=== PATIENT | male | born 1945 | race Caucasian/White ===

== ENCOUNTER 2016-05-24 10:25 | Emergency (ER) | payer MEDICARE, MEDICAID ==
[2016-05-24] MEDS ORDERED: ACETAMINOPHEN 325 MG TAB As Ordered ONE (11:37)
[2016-05-24] MEDS ORDERED: traMADol 50 MG TAB As Ordered ONE (11:37)
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
--- NOTE | 2016-05-24 13:25 | EDDOCDS ---
Physician Documentation [facility] Name: Ulices Solo Age: 70 yrs Sex: Male : 1945 Arrival Date: 05/24/2016 Time: 10:25 Bed TR7 Private MD: Delaney Minor S Disposition: 05/24/16 13:03 Discharged to Home/Self Care. Impression: Acute pain, not elsewhere classified - degenerative disc disease, arthritis cervical spine, acute exccerbation. - Condition is Stable. - Discharge Instructions: Degenerative Disk Disease. - Prescriptions for Ultram 50 mg Oral Tablet - take 1 tablet by ORAL route every 6 hours As needed MDD: 4 tabs; 20 tablet. - Medication Reconciliation, Local Pharmacy Hours form. - Follow up: Delaney Minor; When: 4 - 5 days; Reason: Recheck today's complaints. - Problem is an acute exacerbation. - Symptoms have improved. Historical: - Allergies: no known allergies; - Home Meds: 1. cetirizine 10 mg oral tab 1 tab once daily 2. flexeril 10mg 3. fluticasone 50 mcg/actuation nasal spsn 2 sprays once daily 4. furosemide 20 mg Oral tab 1 tab 2 times per day 5. Lipitor 20 mg Oral tab 1 tab once daily 6. igtntvodvnq-fswvumckmoj-ips D3 2000mg oral daily 7. naproxen 375 mg Oral tab 1 tab 2 times per day 8. Novolin 70/30 InnoLet 100 unit/mL (70-30) Sub-Q inpn 20 unit twice a day 9. omeprazole 20 mg Oral cpDR 1 cap 2 times per day 10. oxybutin 5mg three times a day 11. pregabalin 100 mg Oral cap 1 cap 3 times per day 12. Vicodin 5-500 mg Oral tab 1 tab every 4-6 hours 13. Tricor 145 mg Oral tab 1 tab once daily 14. trazodone 100 mg Oral tab 1 tab nightly 15. tizanidine 4 mg oral tab 1 tab twice a day as needed 16. tamsulosin 0.4 mg oral cp24 1 cap once daily - PMHx: Hypercholesterolemia; Diabetes - IDDM: controlled; GERD; Chronic Back pain; - PSHx: shoulder; Carpal Tunnel Repair- Bilateral; Cholecystectomy; - Social history: Smoking status: Patient states former smoker of tobacco. No barriers to communication noted, The patient speaks fluent Greenlandic, Speaks appropriately for age. - Family history: Not pertinent. - : The pt / caregiver states he / she is not on anticoagulants. Home medication list is obtained from the patient, [employer] import data. - Exposure Risk Screening:: None identified. Vital Signs: 05/24 10:27 BP 158 / 82; Pulse 61; Resp 18 S; Pulse Ox 97% on R/A; Weight 102.06 kg / 225 lbs (R); dd6 Height 5 ft. 6 in. (167.64 cm) (R); 12:30 BP 119 / 56 RA Sitting (auto/lg); Pulse 50; Resp 18; Temp 97.6(T); Pulse Ox 96% ; Pain ar3 12/16; 10:27 Body Mass Index 36.32 (102.06 kg, 167.64 cm) dd6 MDM: 11:30 traMADol 50 mg PO once ordered. ar2 11:30 Acetaminophen Tablet 975 mg PO once ordered. ar2 11:31 Spine, Cervical Ordered. EDCA 11:49 Financial registration complete. 11:50 [facility] Payment Agreement was scanned into [employer] and attached to record. lg Administered Medications: 11:39 Drug: traMADol 50 mg [tramadol 50 mg tablet (1 tabs)] Route: PO; jc4 11:40 Follow up: Response: Confirmed pt not driving. jc4 11:39 Drug: Acetaminophen 975 mg [acetaminophen 325 mg tablet (3 tabs)] Route: PO; jc4 Signatures: Dispatcher [employer] EDCA Betsy Hunt, Reg Reg lg Andriy Rausch PA-C PA-C ar2 Samaria Walters RN RN ead Castle, Jennifer RN jc4 The chart was reviewed and I authenticate all verbal orders and agree with the evaluation and treatment provided.Attachments: 11:50 [facility] Payment Agreement lg [facility]
--- NOTE | 2016-05-24 13:45 | REP ---
CERVICAL SPINE COMPLETE: 05/24/2016 CLINICAL HISTORY: Chronic mid right neck pain with acute exacerbation. No trauma indicated. COMPARISON: Three views cervical spine 10/10/2015, MRI 08/28/2015. FINDINGS: Disc space narrowing with spondylosis at C3-4, less at C4-5, greater at C5-6 and C6-7. There are anterior osteophytes at those two lowermost levels and posterior osteophytes at C3-4 and C5-6. No compression deformity is seen. Flexion and extension show adequate range of motion with no instability. There is no prevertebral swelling. C1-2 relationships are stable on all views. The open-mouth view shows dens and lateral masses aligning normally. There are vascular calcifications over the carotid bulbs on both sides. There is facet arthritis with foraminal encroachment on the left at C5-6 and C6-7, minimally on the right at C5-6 and C6-7 due to uncinate spurring. IMPRESSION: Degenerative disc changes at C5-6 and C6-7, similar at C3-4 with facet arthritic changes at the lower two levels described with some foraminal encroachment bilaterally at those same levels and with no compression deformity or malalignment. Adequate range of motion but no instability. No compression fracture. Signed by Alonzo Alvarez MD 05/24/2016 01:51 P
--- NOTE | 2016-05-26 14:25 | EDDOCDS ---
Physician Documentation [facility] Name: Ulices Solo Age: 70 yrs Sex: Male : 1945 Arrival Date: 05/24/2016 Time: 10:25 Bed TR7 Private MD: Delaney Minor S Disposition: 05/24/16 13:03 Discharged to Home/Self Care. Impression: Acute pain, not elsewhere classified - degenerative disc disease, arthritis cervical spine, acute exccerbation. - Condition is Stable. - Discharge Instructions: Degenerative Disk Disease. - Prescriptions for Ultram 50 mg Oral Tablet - take 1 tablet by ORAL route every 6 hours As needed MDD: 4 tabs; 20 tablet. - Medication Reconciliation, Local Pharmacy Hours form. - Follow up: Delaney Minor; When: 4 - 5 days; Reason: Recheck today's complaints. - Problem is an acute exacerbation. - Symptoms have improved. Historical: - Allergies: no known allergies; - Home Meds: 1. cetirizine 10 mg oral tab 1 tab once daily 2. flexeril 10mg 3. fluticasone 50 mcg/actuation nasal spsn 2 sprays once daily 4. furosemide 20 mg Oral tab 1 tab 2 times per day 5. Lipitor 20 mg Oral tab 1 tab once daily 6. uqowawhhuhh-rtqwupokggj-ctb D3 2000mg oral daily 7. naproxen 375 mg Oral tab 1 tab 2 times per day 8. Novolin 70/30 InnoLet 100 unit/mL (70-30) Sub-Q inpn 20 unit twice a day 9. omeprazole 20 mg Oral cpDR 1 cap 2 times per day 10. oxybutin 5mg three times a day 11. pregabalin 100 mg Oral cap 1 cap 3 times per day 12. Vicodin 5-500 mg Oral tab 1 tab every 4-6 hours 13. Tricor 145 mg Oral tab 1 tab once daily 14. trazodone 100 mg Oral tab 1 tab nightly 15. tizanidine 4 mg oral tab 1 tab twice a day as needed 16. tamsulosin 0.4 mg oral cp24 1 cap once daily - PMHx: Hypercholesterolemia; Diabetes - IDDM: controlled; GERD; Chronic Back pain; - PSHx: shoulder; Carpal Tunnel Repair- Bilateral; Cholecystectomy; - Social history: Smoking status: Patient states former smoker of tobacco. No barriers to communication noted, The patient speaks fluent Chinese, Speaks appropriately for age. - Family history: Not pertinent. - : The pt / caregiver states he / she is not on anticoagulants. Home medication list is obtained from the patient, [employer] import data. - Exposure Risk Screening:: None identified. Vital Signs: 05/24 10:27 BP 158 / 82; Pulse 61; Resp 18 S; Pulse Ox 97% on R/A; Weight 102.06 kg / 225 lbs (R); dd6 Height 5 ft. 6 in. (167.64 cm) (R); 12:30 BP 119 / 56 RA Sitting (auto/lg); Pulse 50; Resp 18; Temp 97.6(T); Pulse Ox 96% ; Pain ar3 8/10; 10:27 Body Mass Index 36.32 (102.06 kg, 167.64 cm) dd6 MDM: 11:30 traMADol 50 mg PO once ordered. ar2 11:30 Acetaminophen Tablet 975 mg PO once ordered. ar2 11:31 Spine, Cervical Ordered. EDMS 11:49 Financial registration complete. lg 11:50 [facility] Payment Agreement was scanned into [employer] and attached to record. lg 14:37 T-Sheet-- Draft Copy was scanned into [employer] and attached to record. gb 14:37 Radiology Report was scanned into [employer] and attached to record. gb Administered Medications: 11:39 Drug: traMADol 50 mg [tramadol 50 mg tablet (1 tabs)] Route: PO; jc4 11:40 Follow up: Response: Confirmed pt not driving. jc4 11:39 Drug: Acetaminophen 975 mg [acetaminophen 325 mg tablet (3 tabs)] Route: PO; jc4 Signatures: Dispatcher [employer] EDGA Radha Davis, Reg Reg gb Betsy Hunt, Reg Reg lg Andriy Rausch, ANNMARIE ANGUIANO ar2 Samaria Walters RN RN ead Castle, Jennifer RN jc4 The chart was reviewed and I authenticate all verbal orders and agree with the evaluation and treatment provided.Attachments: 11:50 [facility] Payment Agreement lg 14:37 T-Sheet-- Draft Copy gb Chart Complete MTDD
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
--- NOTE | 2016-05-26 14:25 | EDDOCDS ---
Physician Documentation [facility] Name: Ulices Solo Age: 70 yrs Sex: Male : 1945 Arrival Date: 05/24/2016 Time: 10:25 Bed TR7 Private MD: Delaney Minor S Disposition: 05/24/16 13:03 Discharged to Home/Self Care. Impression: Acute pain, not elsewhere classified - degenerative disc disease, arthritis cervical spine, acute exccerbation. - Condition is Stable. - Discharge Instructions: Degenerative Disk Disease. - Prescriptions for Ultram 50 mg Oral Tablet - take 1 tablet by ORAL route every 6 hours As needed MDD: 4 tabs; 20 tablet. - Medication Reconciliation, Local Pharmacy Hours form. - Follow up: Delaney Minor; When: 4 - 5 days; Reason: Recheck today's complaints. - Problem is an acute exacerbation. - Symptoms have improved. Historical: - Allergies: no known allergies; - Home Meds: 1. cetirizine 10 mg oral tab 1 tab once daily 2. flexeril 10mg 3. fluticasone 50 mcg/actuation nasal spsn 2 sprays once daily 4. furosemide 20 mg Oral tab 1 tab 2 times per day 5. Lipitor 20 mg Oral tab 1 tab once daily 6. itnxplkbagf-atnrxfhbqlh-mqo D3 2000mg oral daily 7. naproxen 375 mg Oral tab 1 tab 2 times per day 8. Novolin 70/30 InnoLet 100 unit/mL (70-30) Sub-Q inpn 20 unit twice a day 9. omeprazole 20 mg Oral cpDR 1 cap 2 times per day 10. oxybutin 5mg three times a day 11. pregabalin 100 mg Oral cap 1 cap 3 times per day 12. Vicodin 5-500 mg Oral tab 1 tab every 4-6 hours 13. Tricor 145 mg Oral tab 1 tab once daily 14. trazodone 100 mg Oral tab 1 tab nightly 15. tizanidine 4 mg oral tab 1 tab twice a day as needed 16. tamsulosin 0.4 mg oral cp24 1 cap once daily - PMHx: Hypercholesterolemia; Diabetes - IDDM: controlled; GERD; Chronic Back pain; - PSHx: shoulder; Carpal Tunnel Repair- Bilateral; Cholecystectomy; - Social history: Smoking status: Patient states former smoker of tobacco. No barriers to communication noted, The patient speaks fluent Wolof, Speaks appropriately for age. - Family history: Not pertinent. - : The pt / caregiver states he / she is not on anticoagulants. Home medication list is obtained from the patient, [employer] import data. - Exposure Risk Screening:: None identified. Vital Signs: 05/24 10:27 BP 158 / 82; Pulse 61; Resp 18 S; Pulse Ox 97% on R/A; Weight 102.06 kg / 225 lbs (R); dd6 Height 5 ft. 6 in. (167.64 cm) (R); 12:30 BP 119 / 56 RA Sitting (auto/lg); Pulse 50; Resp 18; Temp 97.6(T); Pulse Ox 96% ; Pain ar3 8/10; 10:27 Body Mass Index 36.32 (102.06 kg, 167.64 cm) dd6 MDM: 11:30 traMADol 50 mg PO once ordered. ar2 11:30 Acetaminophen Tablet 975 mg PO once ordered. ar2 11:31 Spine, Cervical Ordered. EDMS 11:49 Financial registration complete. lg 11:50 [facility] Payment Agreement was scanned into [employer] and attached to record. lg 14:37 T-Sheet-- Draft Copy was scanned into [employer] and attached to record. gb 14:37 Radiology Report was scanned into [employer] and attached to record. gb Administered Medications: 11:39 Drug: traMADol 50 mg [tramadol 50 mg tablet (1 tabs)] Route: PO; jc4 11:40 Follow up: Response: Confirmed pt not driving. jc4 11:39 Drug: Acetaminophen 975 mg [acetaminophen 325 mg tablet (3 tabs)] Route: PO; jc4 Signatures: Dispatcher [employer] EDGA Radha Davis, Reg Reg gb Betsy Hunt, Reg Reg lg Andriy Rausch, ANNMARIE ANGUIANO ar2 Samaria Walters RN RN ead Castle, Jennifer RN jc4 The chart was reviewed and I authenticate all verbal orders and agree with the evaluation and treatment provided.Attachments: 11:50 [facility] Payment Agreement lg 14:37 T-Sheet-- Draft Copy gb Chart Complete MTDD
== END 2016-05-24 13:24 | disposition home or self-care (01) ==
LOC: M ED 10:25
DX: M50.30 Other cervical disc degeneration, unspecified cervical region (principal); N40.0 Benign prostatic hyperplasia without lower urinary tract symptoms; E10.9 Type 1 diabetes mellitus without complications; E78.00 Pure hypercholesterolemia, unspecified; K21.9 Gastro-esophageal reflux disease without esophagitis; Z87.891 Personal history of nicotine dependence; Z79.4 Long term (current) use of insulin; Z79.891 Long term (current) use of opiate analgesic; Z79.899 Other long term (current) drug therapy

== ENCOUNTER → 2016-05-24 | Outpatient (CLI) | payer MEDICARE, MEDICAID ==
[2016-05-24 11:04] LABS: CALCIUM LEVEL 8.9 MG/DL (8.8-10.2); CREATININE FOR GFR 1.3 MG/DL (0.70-1.30); GLOMERULAR FILTRATION RATE 57.8 (>42); POTASSIUM SERUM 4.2 MEQ/L (3.5-5.1)
== END ==
LOC: M LAB 10:09
PROVIDERS: ATTEND Nurse Practitioner Family
DX: N40.0 Benign prostatic hyperplasia without lower urinary tract symptoms (principal); E11.9 Type 2 diabetes mellitus without complications

== ENCOUNTER → 2016-06-16 | Outpatient (REF) | payer MEDICARE, MEDICAID | LOC: M LABDRAW1 12:44 | PROVIDERS: ATTEND Physical Medicine & Rehabilitation | DX: M47.892 Other spondylosis, cervical region (principal) ==

== ENCOUNTER → 2016-07-08 | Outpatient (REF) | payer MEDICARE, MEDICAID ==
[2016-07-08 11:30] LABS: INR 0.97
== END ==
LOC: M LABDRAW1 11:10
PROVIDERS: ATTEND Physical Medicine & Rehabilitation
DX: Z01.818 Encounter for other preprocedural examination (principal); M47.892 Other spondylosis, cervical region; E11.9 Type 2 diabetes mellitus without complications

== ENCOUNTER → 2016-07-23 | Outpatient (CLI) | payer MEDICARE, MEDICAID ==
--- NOTE | 2016-07-23 12:25 | REP ---
CHEST X-RAY: Two views. HISTORY: Cough. Comparison chest x-ray January 27, 2014. FINDINGS: The lungs are well inflated and clear. Heart is not enlarged. The aorta is calcific. No significant bony abnormality is seen. Pulmonary vasculature is not increased. IMPRESSION: No active disease. Signed by Shaun Wilder MD 07/23/2016 02:01 P
[2016-07-23 13:00] LABS: BASO % 0.2 % (0.0-1.0); EOS # 0.1 K/mm3 (0.0-0.50); EOS % 1.1 % (0.0-3.0); LARGE UNSTAINED CELL # 0.2 K/mm3 (0.0-0.4); LARGE UNSTAINED CELL % 2.4 % (0.0-4.0); LYMPH # 1.4 K/mm3 (1.5-4.5); LYMPH % 16.9 % (24.0-44.0); MEAN CORPUSCULAR HEMOGLOBIN 29.4 pg (27.0-33.0); MEAN CORPUSCULAR HGB CONC 32.7 g/dl (32.0-36.5); MEAN CORPUSCULAR VOLUME 89.9 fl (80.0-96.0); MONO # 0.5 K/mm3 (0.0-0.8); MONO % 6.4 % (0.0-5.0); NEUTROPHILS # 5.4 K/mm3 (1.8-7.7); NEUTROPHILS % 72.9 % (36.0-66.0); PLATELET COUNT, AUTOMATED 226 k/mm3 (150-450); RED CELL DISTRIBUTION WIDTH 14.4 % (11.5-14.5); WHITE BLOOD COUNT 7.4 K/mm3 (4.0-10.0)
[2016-07-23 14:00] LABS: ANION GAP 8 MEQ/L (8-16); BLOOD UREA NITROGEN 19 MG/DL (7-18); CALCIUM LEVEL 8.9 MG/DL (8.8-10.2); CARBON DIOXIDE LEVEL 27 MEQ/L (21-32); CHLORIDE LEVEL 106 MEQ/L (98-107); CREATININE FOR GFR 1.22 MG/DL (0.70-1.30); GLOMERULAR FILTRATION RATE > 60.0 (>42); GLUCOSE, FASTING 221 MG/DL (83-110); POTASSIUM SERUM 4.6 MEQ/L (3.5-5.1); SODIUM LEVEL 141 MEQ/L (136-145)
== END ==
LOC: M LAB 11:10
PROVIDERS: ATTEND Nurse Practitioner Family
DX: R05 Cough (principal); R50.9 Fever, unspecified

== ENCOUNTER 2016-08-16 15:25 | Emergency (ER) | payer MEDICARE, MEDICAID ==
[~2016-08-16] VITALS: Ht 167.6 cm; Wt 102.1 kg
[2016-08-16] MEDS ORDERED: traMADol 50 MG TAB PO ONE (16:15)
--- NOTE | 2016-08-16 17:03 | REP ---
LUMBAR SPINE COMPLETE: 08/16/2016: Comparison: 10/10/2015, 06/16/2012. Clinical history: Nontraumatic back pain. Five views are provided. There is diffuse degenerative disc change in the lumbar spine. Vacuum phenomenon and narrowing at L1-2, L2-3, L4-5, and L5-S1. There is less narrowing and no vacuum phenomenon at L3-4 with marginal osteophytes throughout. No compression deformity or destructive lesion. There is facet arthritis at L5, S1, less at L4-5. No spondylolysis or spondylolisthesis. The normal lordosis is maintained in the lumbar spine. Atherosclerotic calcifications aorta and iliac vessels without aneurysm. The AP view shows SI joints, sacral ala and foramina intact. There is hip arthritis with narrowing of both hip joint spaces and rim osteophytes acetabular roof. Impression: 1. Diffuse degenerative disc changes throughout lumbar spine with vacuum phenomenon, disc space narrowing and marginal osteophytes, least at the L3-4 disc level. No compression deformity or destructive lesion. 2. No spondylolysis or spondylolisthesis. 3. SI joints, sacral ala and foramina unremarkable. Signed by Alonzo Alvarez MD 08/16/2016 05:26 P
--- NOTE | 2016-08-16 17:04 | REP ---
Cervical spine series: Seven views. History: Nontraumatic pain. Comparison study: May 24, 2016. Findings: Lateral views done in flexion/extension and neutral position show mild limitation of flexion/extension range of motion. No subluxation or instability is seen. Cervical vertebral body heights are preserved. There is degenerative disc disease at C3-4, C4-5, C5-6, and C6-7. Osteoarthritic facet hypertrophy is noted in the mid cervical spine. There is some vascular calcification along the course of the carotid arteries in the neck bilaterally. The patient is edentulous. Oblique images demonstrate uncovertebral spurring on the left at C5-6 and on the right at C5-6 and C6-7. These degenerative spondylosis changes are felt to be unchanged from the comparison study May 24, 2016. Impression: Stable degenerative spondylosis changes. Vascular calcification. No acute abnormality. Signed by Shaun Wilder MD 08/16/2016 07:36 P
[2016-08-16] MEDS ORDERED: ULTR50TA PO (17:06)
[2016-08-16 17:18] VITALS: BP 150/72
== END 2016-08-16 17:30 | disposition home or self-care (01) ==
LOC: M ED 16:37
DX: M50.10 Cervical disc disorder with radiculopathy, unspecified cervical region (principal); M51.16 Intervertebral disc disorders with radiculopathy, lumbar region; G89.29 Other chronic pain; Z87.891 Personal history of nicotine dependence

== ENCOUNTER 2016-08-30 16:58 | Emergency (ER) | payer MEDICARE, MEDICAID ==
[~2016-08-30] VITALS: Ht 167.6 cm; Wt 102.1 kg
[~2016-08-30 16:58] MED LIST: ULTR50TA PO
[2016-08-30] MEDS ORDERED: LYRI100C10 PO (17:22)
[2016-08-30] MEDS ORDERED: TRAZ100T4 PO (17:22)
[2016-08-30] MEDS ORDERED: OMEP20CA3 PO (17:22)
[2016-08-30] MEDS ORDERED: OXYB5TA PO (17:22)
[2016-08-30] MEDS ORDERED: FURO20TA2 PO (17:22)
[2016-08-30] MEDS ORDERED: FENO145T PO (17:22)
[2016-08-30] MEDS ORDERED: RA C PO (17:22)
[2016-08-30] MEDS ORDERED: HUMA75IN2 SC (17:22)
[2016-08-30] MEDS ORDERED: NAPR375T2 PO (17:22)
[2016-08-30] MEDS ORDERED: ATOR1TAB21 PO (17:22)
[2016-08-30] MEDS ORDERED: JANU100T PO (17:22)
[2016-08-30] MEDS ORDERED: KETOROLAC 60 MG/2 ML VIAL (J1885) IM ONE (18:00)
[2016-08-30] MEDS ORDERED: METHOCARBAMOL 750 MG TAB PO ONE (18:00)
[2016-08-30] MEDS ORDERED: METHOCARBAMOL 500 MG TAB PO ONE (18:15)
[2016-08-30] MEDS ORDERED: ROBA500T PO (18:33)
[2016-08-30 18:37] VITALS: BP 144/82
[2016-09-04] MEDS ORDERED: TAMSULOSIN PO (08:52)
== END 2016-08-30 18:49 | disposition home or self-care (01) ==
LOC: M ED 17:53
DX: M50.30 Other cervical disc degeneration, unspecified cervical region (principal); M51.37 Other intervertebral disc degeneration, lumbosacral region; M48.02 Spinal stenosis, cervical region; I10 Essential (primary) hypertension; E11.9 Type 2 diabetes mellitus without complications; M54.9 Dorsalgia, unspecified; G89.29 Other chronic pain; E78.00 Pure hypercholesterolemia, unspecified; K21.9 Gastro-esophageal reflux disease without esophagitis; Z87.891 Personal history of nicotine dependence; Z79.899 Other long term (current) drug therapy; Z79.4 Long term (current) use of insulin
CPT/HCPCS: 96372; 99282; J1885

== ENCOUNTER 2016-09-04 08:23 | Emergency (ER) | payer MEDICARE, MEDICAID ==
[~2016-09-04 08:23] MED LIST changes: +ATOR1TAB21 PO; +FENO145T PO; +FURO20TA2 PO; +HUMA75IN2 SC; +JANU100T PO; +LYRI100C10 PO; +NAPR375T2 PO; +OMEP20CA3 PO; +OXYB5TA PO; +RA C PO; +ROBA500T PO; +TRAZ100T4 PO
[2016-09-04] MEDS ORDERED: TAMSULOSIN (08:52)
[2016-09-04] MEDS ORDERED: TIZANIDINE (08:52)
[2016-09-04 09:25] VITALS: BP 107/68
[2016-09-04] MEDS ORDERED: ACET30TAB PO (09:46)
[2016-09-04] MEDS ORDERED: MAGICMW SSP (09:48)
== END 2016-09-04 10:00 | disposition home or self-care (01) ==
LOC: M ED 09:41
DX: J02.9 Acute pharyngitis, unspecified (principal); M54.41 Lumbago with sciatica, right side; I10 Essential (primary) hypertension; E11.9 Type 2 diabetes mellitus without complications; N40.1 Benign prostatic hyperplasia with lower urinary tract symptoms; Z90.49 Acquired absence of other specified parts of digestive tract; Z79.4 Long term (current) use of insulin; Z79.899 Other long term (current) drug therapy

== ENCOUNTER 2016-09-09 15:05 | Emergency (ER) | payer MEDICARE, MEDICAID ==
[~2016-09-09] VITALS: Ht 167.6 cm; Wt 102.1 kg
[~2016-09-09 15:05] MED LIST changes: +ACET30TAB PO; +MAGICMW SSP; +TAMSULOSIN; +TIZANIDINE
[2016-09-09 15:06] VITALS: BP 132/67
--- NOTE | 2016-09-09 15:36 | ED PDOC ---
Post-Departure Follow-Up PT'S MAIN COMPLAINT TODAY IS THAT HE DOES NOT LIKE THE APARTMENT HE LIVES IN CURRENTLY. THIS CORRECTIONAL FACILITY PSYCHIATRIST SAW THIS PT LAST WEEK FOR THE SAME COMPLAINT. SOCIAL WORK SPOKE WITH HIM AT THAT TIME AND PT STATES, "THE IDIOTS AT MY APARTMENT ARE SUPPOSED TO MOVE ME INTO A DIFFERENT PLACE AND THEY HAVEN'T DONE IT YET." PT STATES, "I CAN'T KEEP COMING HERE FOR EVERYTHING." PT STATES HIS PCP IS STEVEN LU AND HE DID NOT CALL THEIR OFFICE TODAY PRIOR TO COMING TO THE ED. ADVISED THEY CAN SOMETIMES MAKE SAME DAY APPOINTMENTS FOR APPROPRIATE COMPLAINTS. MATILDE BROWN PA-C September 09, 2016 15:36
[2016-09-09] MEDS ORDERED: NYST50SS SS (15:59)
== END 2016-09-09 16:28 | disposition home or self-care (01) ==
LOC: M ED 16:20
DX: B37.0 Candidal stomatitis (principal); J02.9 Acute pharyngitis, unspecified; E10.9 Type 1 diabetes mellitus without complications; I10 Essential (primary) hypertension; Z79.4 Long term (current) use of insulin

== ENCOUNTER → 2016-09-28 | Outpatient (CLI) | payer MEDICARE, MEDICAID ==
[~2016-09-28] MED LIST changes: +NYST50SS SS
[2016-09-28 11:56] LABS: ALBUMIN 3.8 GM/DL (3.2-5.2); ALBUMIN/GLOBULIN RATIO 1.09 (1.00-1.93); ALKALINE PHOSPHATASE 71 U/L (45-117); ALT/SGPT 31 U/L (12-78); ANION GAP 7 MEQ/L (8-16); AST/SGOT 19 U/L (15-37); BILIRUBIN,TOTAL 0.4 MG/DL (0.2-1.0); BLOOD UREA NITROGEN 20 MG/DL (7-18); CALCIUM LEVEL 9.8 MG/DL (8.8-10.2); CARBON DIOXIDE LEVEL 29 MEQ/L (21-32); CHLORIDE LEVEL 102 MEQ/L (98-107); CREATININE FOR GFR 1.19 MG/DL (0.70-1.30); GLOMERULAR FILTRATION RATE > 60.0 (>42); GLUCOSE, FASTING 288 MG/DL (83-110); POTASSIUM SERUM 4.3 MEQ/L (3.5-5.1); SODIUM LEVEL 138 MEQ/L (136-145); TOTAL PROTEIN 7.3 GM/DL (6.4-8.2)
--- NOTE | 2016-09-28 12:48 | REP ---
Clinical: Trauma. Technique: Frontal view of the chest with multiple views of the right hemithorax. Findings: Frontal view of the chest demonstrates no acute cardiopulmonary process. Multiple views of the right hemithorax demonstrates no obvious acute rib fracture or pathology. Incidental note is made of old healed right ninth and tenth rib fractures dating back to CT dated 07/26/2013. Impression: Old healed nondisplaced right ninth and tenth rib fractures. No acute rib fracture. Signed by Eleazar Domínguez MD 09/28/2016 12:39 P
== END ==
LOC: M LAB 10:26
PROVIDERS: ATTEND Nurse Practitioner Family
DX: E11.9 Type 2 diabetes mellitus without complications (principal)

== ENCOUNTER 2016-09-30 09:30 | Outpatient (RCR) | payer MEDICARE, MEDICAID ==
[~2016-09-30 09:30] MED LIST changes: -TAMSULOSIN; +TAMSULOSIN PO
== END 2016-10-06 ==
LOC: M PT 09:30
PROVIDERS: ATTEND Orthopaedic Surgery
DX: M16.11 Unilateral primary osteoarthritis, right hip (principal); M47.896 Other spondylosis, lumbar region
CPT/HCPCS: 97110; 97161; G8978; G8979

== ENCOUNTER 2016-10-09 09:50 | Emergency (ER) | payer MEDICARE, MEDICAID ==
[~2016-10-09] VITALS: Ht 167.6 cm; Wt 98.0 kg
[2016-10-09] MEDS ORDERED: ADVI200T PO (10:11)
[2016-10-09] MEDS ORDERED: TESS100C PO (10:11)
[2016-10-09] MEDS ORDERED: GLUC1CAP9 PO (10:11)
[2016-10-09] MEDS ORDERED: FLUT1SPR2 (10:11)
[2016-10-09] MEDS ORDERED: ALAV10TA10 PO (10:11)
[2016-10-09] MEDS ORDERED: SODIUM CHLORIDE 0.9% 1000 ML IV ONE (11:00)
[2016-10-09 11:39] LABS: CALCIUM LEVEL 9.3 MG/DL (8.8-10.2); CREATININE FOR GFR 1.29 MG/DL (0.70-1.30); GLOMERULAR FILTRATION RATE 58.1 (>42); POTASSIUM SERUM 4.1 MEQ/L (3.5-5.1)
[2016-10-09] MEDS ORDERED: JANU100T PO (12:52)
[2016-10-09] MEDS ORDERED: HUMA100I5 SC (12:55)
[2016-10-09 13:47] VITALS: BP 139/98
[2016-10-10] MEDS ORDERED: HUMA75VL SC (18:50)
[2016-10-10] MEDS ORDERED: BACT800T5 PO (18:51)
== END 2016-10-09 13:50 | disposition home or self-care (01) ==
LOC: M ED 12:06
DX: E11.65 Type 2 diabetes mellitus with hyperglycemia (principal); Z79.4 Long term (current) use of insulin

== ENCOUNTER 2016-10-10 15:51 | Emergency (ER) | payer MEDICARE, MEDICAID ==
[~2016-10-10] VITALS: Ht 167.6 cm; Wt 97.5 kg
[~2016-10-10 15:51] MED LIST changes: +ADVI200T PO; +ALAV10TA10 PO; +FLUT1SPR2; +GLUC1CAP9 PO; +HUMA100I5 SC; +TESS100C PO
[2016-10-10] MEDS ORDERED: ONDANSETRON 4MG/2ML VIAL (J2405) IV ONE (17:00)
[2016-10-10] MEDS ORDERED: ACETAMINOPHEN 325 MG TAB PO ONE (17:00)
[2016-10-10 17:49] LABS: BASO % 0.4 % (0.0-1.0); EOS # 0.1 K/mm3 (0.0-0.50); EOS % 2.3 % (0.0-3.0); LARGE UNSTAINED CELL # 0.2 K/mm3 (0.0-0.4); LARGE UNSTAINED CELL % 2.5 % (0.0-4.0); LYMPH # 1.5 K/mm3 (1.5-4.5); LYMPH % 26.1 % (24.0-44.0); MEAN CORPUSCULAR HEMOGLOBIN 29.3 pg (27.0-33.0); MEAN CORPUSCULAR VOLUME 88.8 fl (80.0-96.0); MONO # 0.5 K/mm3 (0.0-0.8); MONO % 8.7 % (0.0-5.0); NEUTROPHILS # 3.5 K/mm3 (1.8-7.7); PLATELET COUNT, AUTOMATED 232 k/mm3 (150-450); RED CELL DISTRIBUTION WIDTH 14.4 % (11.5-14.5); WHITE BLOOD COUNT 5.9 K/mm3 (4.0-10.0)
[2016-10-10 17:51] LABS: ADD MORPHOLOGY? NO
[2016-10-10 18:01] LABS: ALBUMIN 3.9 GM/DL (3.2-5.2); ALBUMIN/GLOBULIN RATIO 1.11 (1.00-1.93); ALKALINE PHOSPHATASE 79 U/L (45-117); ALT/SGPT 30 U/L (12-78); ANION GAP 7 MEQ/L (8-16); AST/SGOT 21 U/L (15-37); BILIRUBIN,DIRECT < 0.1 MG/DL (0.0-0.2); BILIRUBIN,TOTAL 0.3 MG/DL (0.2-1.0); BLOOD UREA NITROGEN 20 MG/DL (7-18); CALCIUM LEVEL 9.2 MG/DL (8.8-10.2); CARBON DIOXIDE LEVEL 27 MEQ/L (21-32); CHLORIDE LEVEL 106 MEQ/L (98-107); CREATININE FOR GFR 1.05 MG/DL (0.70-1.30); GLOMERULAR FILTRATION RATE > 60.0 (>42); GLUCOSE, FASTING 158 MG/DL (83-110); POTASSIUM SERUM 4.2 MEQ/L (3.5-5.1); SODIUM LEVEL 140 MEQ/L (136-145); TOTAL PROTEIN 7.4 GM/DL (6.4-8.2)
[2016-10-10] MEDS ORDERED: HUMA75VL SC (18:50)
[2016-10-10] MEDS ORDERED: BACT800T5 PO (18:51)
[2016-10-10] MEDS ORDERED: BACTRIM 160MG/800MG DS TAB PO ONE (19:00)
[2016-10-10 19:23] VITALS: BP 171/73
--- NOTE | 2016-10-11 08:33 | ECGEPIP ---
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 Order Number: [id number] Reading MD: Zohreh Caldwell Measurements Intervals [place] Rate: 60 P: 46 MT: 211 QRS: 30 QRSD: 97 T: 29 QT: 425 QTc: 428 Interpretive Statements SINUS RHYTHM WITH FIRST DEGREE AV BLOCK WITH OCCASIONAL SUPRAVENTRICULAR PREMATURE COMPLEXES NSTTW ABNORMALITY Electronically Signed On 10-11-2016 8:33:12 EDT by Zohreh Caldwell
== END 2016-10-10 19:24 | disposition home or self-care (01) ==
LOC: M ED 16:20
DX: E11.9 Type 2 diabetes mellitus without complications (principal); N39.0 Urinary tract infection, site not specified; I44.0 Atrioventricular block, first degree; R11.0 Nausea; I10 Essential (primary) hypertension; E78.00 Pure hypercholesterolemia, unspecified; M54.9 Dorsalgia, unspecified; Z87.891 Personal history of nicotine dependence; F41.9 Anxiety disorder, unspecified; F32.9 Major depressive disorder, single episode, unspecified; Z79.899 Other long term (current) drug therapy; Z79.4 Long term (current) use of insulin
CPT/HCPCS: 36415; 80048; 80076; 81001; 85025; 87088; 87186; 93005; 96374; 99284; J2405

== ENCOUNTER 2016-10-14 09:30 | Outpatient (RCR) | payer MEDICARE, MEDICAID ==
[~2016-10-14 09:30] MED LIST changes: +BACT800T5 PO; +HUMA75VL SC; -LYRI100C10 PO; +NAPR-855 PO; -NAPR375T2 PO; -OXYB5TA PO; +OXYB5TAB10 PO; +PREG100CA PO; +TRAZ-136 PO; -TRAZ100T4 PO; -ULTR50TA PO; +ULTR50TA8 PO
== END 2016-11-05 ==
LOC: M PT 09:30
PROVIDERS: ATTEND Orthopaedic Surgery
DX: Z51.89 Encounter for other specified aftercare (principal); M16.11 Unilateral primary osteoarthritis, right hip; M47.896 Other spondylosis, lumbar region

== ENCOUNTER → 2016-10-25 | Outpatient (REF) | payer MEDICARE, MEDICAID ==
[~2016-10-25] MED LIST changes: +LYRI100C10 PO; -NAPR-855 PO; +NAPR375T2 PO; +OXYB5TA PO; -OXYB5TAB10 PO; -PREG100CA PO; -TRAZ-136 PO; +TRAZ100T4 PO; +ULTR50TA PO; -ULTR50TA8 PO
== END ==
LOC: M LAB REF 16:43
PROVIDERS: ATTEND Nurse Practitioner Family
DX: J02.9 Acute pharyngitis, unspecified (principal)

== ENCOUNTER 2016-11-16 15:10 | Emergency (ER) | payer MEDICARE, MEDICAID ==
[~2016-11-16] VITALS: Ht 167.6 cm; Wt 98.8 kg
[~2016-11-16 15:10] MED LIST changes: -LYRI100C10 PO; +NAPR-855 PO; -NAPR375T2 PO; -OXYB5TA PO; +OXYB5TAB10 PO; +PREG100CA PO; +TRAZ-136 PO; -TRAZ100T4 PO; -ULTR50TA PO; +ULTR50TA8 PO
[2016-11-16 15:11] VITALS: BP 153/79
[2016-11-16] MEDS ORDERED: TESS100C PO (15:37)
[2016-11-16] MEDS ORDERED: HUMA75IN2 SC (15:59)
== END 2016-11-16 16:08 | disposition home or self-care (01) ==
LOC: M ED 15:10
DX: Z76.0 Encounter for issue of repeat prescription (principal); E11.9 Type 2 diabetes mellitus without complications; I10 Essential (primary) hypertension; E78.00 Pure hypercholesterolemia, unspecified; M54.9 Dorsalgia, unspecified; F41.9 Anxiety disorder, unspecified; F32.9 Major depressive disorder, single episode, unspecified; Z79.899 Other long term (current) drug therapy; Z79.4 Long term (current) use of insulin

== ENCOUNTER → 2016-12-21 | Outpatient (CLI) | payer MEDICARE, MEDICAID ==
[~2016-12-21] MED LIST changes: +BLOOTES SC
[2016-12-21 11:10] LABS: ANION GAP 7 MEQ/L (8-16); BLOOD UREA NITROGEN 16 MG/DL (7-18); CALCIUM LEVEL 8.3 MG/DL (8.8-10.2); CARBON DIOXIDE LEVEL 25 MEQ/L (21-32); CHLORIDE LEVEL 115 MEQ/L (98-107); CREATININE FOR GFR 0.85 MG/DL (0.70-1.30); GLOMERULAR FILTRATION RATE > 60.0 (>42); GLUCOSE, FASTING 89 MG/DL (83-110); POTASSIUM SERUM 4.2 MEQ/L (3.5-5.1); SODIUM LEVEL 147 MEQ/L (136-145)
== END ==
LOC: M LAB 10:18
PROVIDERS: ATTEND Nurse Practitioner Family
DX: E11.9 Type 2 diabetes mellitus without complications (principal); E78.00 Pure hypercholesterolemia, unspecified; K21.9 Gastro-esophageal reflux disease without esophagitis; M19.90 Unspecified osteoarthritis, unspecified site; N40.0 Benign prostatic hyperplasia without lower urinary tract symptoms

== ENCOUNTER → 2016-12-28 | Outpatient (REF) | payer MEDICARE, MEDICAID | LOC: M LAB REF 16:48 | PROVIDERS: ATTEND Nurse Practitioner Family | DX: R35.0 Frequency of micturition (principal) ==

== ENCOUNTER 2017-01-01 10:57 | Emergency (ER) | payer MEDICARE, MEDICAID ==
[~2017-01-01] VITALS: Ht 167.6 cm; Wt 102.3 kg
[~2017-01-01 10:57] MED LIST changes: -BLOOTES SC
[2017-01-01 10:58] VITALS: BP 139/66
[2017-01-01] MEDS ORDERED: BLOOTES SC ×2 (12:06→12:17)
== END 2017-01-01 12:31 | disposition home or self-care (01) ==
LOC: M ED 10:57
DX: E11.65 Type 2 diabetes mellitus with hyperglycemia (principal); Z76.0 Encounter for issue of repeat prescription; E78.00 Pure hypercholesterolemia, unspecified; I10 Essential (primary) hypertension; Z79.899 Other long term (current) drug therapy; Z79.4 Long term (current) use of insulin; Z87.891 Personal history of nicotine dependence

== ENCOUNTER 2017-03-06 11:45 | Emergency (ER) | payer MEDICARE, MEDICAID ==
[~2017-03-06] VITALS: Ht 167.6 cm; Wt 97.7 kg
[~2017-03-06 11:45] MED LIST changes: +BLOOTES SC
[2017-03-06 11:46] VITALS: BP 171/69
== END 2017-03-06 15:00 | disposition left against medical advice (07) ==
LOC: M ED 11:45
DX: R01.1 Cardiac murmur, unspecified (principal); R60.9 Edema, unspecified; R06.89 Other abnormalities of breathing; Z53.21 Procedure and treatment not carried out due to patient leaving prior to being seen by health care provider; Z79.4 Long term (current) use of insulin; Z79.899 Other long term (current) drug therapy

== ENCOUNTER 2017-04-06 10:46 | Emergency (ER) | payer MEDICARE, MEDICAID ==
[~2017-04-06] VITALS: Ht 167.6 cm; Wt 97.7 kg
[2017-04-06 10:46] VITALS: BP 132/75
[2017-04-06] MEDS ORDERED: ACET50TAOT PO (11:15)
--- NOTE | 2017-04-06 11:59 | REP ---
Clinical: Cough. Technique: PA and lateral. Comparison: 09/28/2016. Findings: Mediastinum and cardiac silhouette are within normal limits and stable. Lung meehan demonstrate stable diffuse chronic interstitial changes. No acute consolidation, effusion, or pneumothorax. Skeletal structures demonstrate age-related changes. Impression: Chronic stable changes. No acute cardiopulmonary process. Signed by Eleazar Domínguez MD 04/06/2017 11:51 A
[2017-04-06] MEDS ORDERED: TESS100C PO (12:06)
[2017-04-06] MEDS ORDERED: FLON1SPR (12:06)
== END 2017-04-06 12:19 | disposition home or self-care (01) ==
LOC: M ED 10:46
DX: J06.9 Acute upper respiratory infection, unspecified (principal)

== ENCOUNTER → 2017-05-10 | Outpatient (REF) | payer MEDICARE, MEDICAID ==
[2017-05-10 18:44] LABS: ESTIMATED AVERAGE GLUCOSE 177 MG/DL (60-110); HEMOGLOBIN A1c 7.8 %
[2017-05-10 18:45] LABS: ALBUMIN 4.2 GM/DL (3.2-5.2); ALKALINE PHOSPHATASE 98 U/L (45-117); ALT/SGPT 29 U/L (12-78); ANION GAP 8 MEQ/L (8-16); AST/SGOT 22 U/L (7-37); BILIRUBIN,TOTAL 0.3 MG/DL (0.2-1.0); BLOOD UREA NITROGEN 22 MG/DL (7-18); CALCIUM LEVEL 8.9 MG/DL (8.8-10.2); CARBON DIOXIDE LEVEL 27 MEQ/L (21-32); CHLORIDE LEVEL 109 MEQ/L (98-107); CHOLESTEROL LEVEL 135 MG/DL (<200); CHOLESTEROL RISK RATIO 4.354 (<5); CREATININE FOR GFR 0.87 MG/DL (0.70-1.30); GLOMERULAR FILTRATION RATE > 60.0 (>42); GLUCOSE, FASTING 123 MG/DL (83-110); HDL CHOLESTEROL 31 MG/DL (>40); LDL CHOLESTEROL 55.6 MG/DL (<100); NON-HDL-C 104 MG/DL; POTASSIUM SERUM 4.6 MEQ/L (3.5-5.1); SODIUM LEVEL 144 MEQ/L (136-145); TOTAL PROTEIN 7.2 GM/DL (6.4-8.2); TRIGLYCERIDES LEVEL 242 MG/DL (<150)
== END ==
LOC: M LAB REF 18:00
DX: E11.9 Type 2 diabetes mellitus without complications (principal)
CPT/HCPCS: 80053

== ENCOUNTER → 2017-09-26 | Outpatient (REF) | payer MEDICARE, MEDICAID ==
[2017-09-26 19:36] LABS: ALBUMIN 3.9 GM/DL (3.2-5.2); ALBUMIN/GLOBULIN RATIO 1.03 (1.00-1.93); ALKALINE PHOSPHATASE 121 U/L (45-117); ALT/SGPT 27 U/L (12-78); ANION GAP 9 MEQ/L (8-16); AST/SGOT 18 U/L (7-37); BILIRUBIN,TOTAL 0.3 MG/DL (0.2-1.0); BLOOD UREA NITROGEN 26 MG/DL (7-18); CALCIUM LEVEL 8.4 MG/DL (8.8-10.2); CARBON DIOXIDE LEVEL 26 MEQ/L (21-32); CHLORIDE LEVEL 109 MEQ/L (98-107); CREATININE FOR GFR 1.09 MG/DL (0.70-1.30); GLOMERULAR FILTRATION RATE > 60.0 (>42); GLUCOSE, FASTING 131 MG/DL (70-100); POTASSIUM SERUM 4.5 MEQ/L (3.5-5.1); SODIUM LEVEL 144 MEQ/L (136-145); TOTAL PROTEIN 7.7 GM/DL (6.4-8.2)
[2017-09-26 19:37] LABS: ESTIMATED AVERAGE GLUCOSE 154 MG/DL (60-110)
== END ==
LOC: M LAB REF 18:53
DX: E11.9 Type 2 diabetes mellitus without complications (principal)
CPT/HCPCS: 80053

== ENCOUNTER 2017-12-21 23:41 | Emergency (ER) | payer MEDICARE, MEDICAID ==
[2017-12-22 00:27] LABS: VENOUS BASE EXCESS 1.6 (-2.0-2.0); VENOUS HCO3 25.7 MEQ/L (23.0-27.0); VENOUS O2 SATURATION 87.1 % (60.0-80.0); VENOUS PARTIAL PRESSURE CO2 38.4 mmHg (38.0-50.0); VENOUS PARTIAL PRESSURE O2 49.1 mmHg (30.0-50.0); VENOUS PH 7.443 UNITS (7.330-7.430); VENOUS STANDARD HCO3 25.7 MEQ/L; VENOUS TOTAL CO2 26.9 MEQ/L (24.0-28.0)
[2017-12-22 00:36] LABS: BASO % 0.2 % (0.0-1.0); EOS % 0.2 % (0.0-3.0); HEMOGLOBIN 11.8 g/dl (13.5-17.5); IMMATURE GRANULOCYTE % 0.3 % (0-3.0); LYMPH # 0.7 10^3/uL (1.5-4.5); LYMPH % 5.4 % (24.0-44.0); MEAN CORPUSCULAR HEMOGLOBIN 28.9 pg (27.0-33.0); MEAN CORPUSCULAR HGB CONC 33.7 g/dl (32.0-36.5); MEAN CORPUSCULAR VOLUME 85.8 fl (80.0-96.0); MONO # 1.1 10^3/uL (0.0-0.8); MONO % 8.6 % (0.0-5.0); NEUTROPHILS # 10.9 10^3/uL (1.8-7.7); NEUTROPHILS % 85.3 % (36.0-66.0); PLATELET COUNT, AUTOMATED 182 10^3/uL (150-450); RED BLOOD COUNT 4.08 10^6/uL (4.30-6.10); RED CELL DISTRIBUTION WIDTH 14.3 % (11.5-14.5); WHITE BLOOD COUNT 12.7 10^3/uL (4.0-10.0)
[2017-12-22 00:51] LABS: ANION GAP 8 MEQ/L (8-16); BLOOD UREA NITROGEN 19 MG/DL (7-18); CALCIUM LEVEL 8.2 MG/DL (8.8-10.2); CARBON DIOXIDE LEVEL 27 MEQ/L (21-32); CHLORIDE LEVEL 106 MEQ/L (98-107); CK-MB VALUE MASS 1.8 NG/ML (<3.6); CPK CREATINE PHOSPHOKINASE 141 U/L (39-308); GLOMERULAR FILTRATION RATE 42.2 (>42); GLUCOSE, FASTING 121 MG/DL (70-100); MB/CK RELATIVE INDEX 1.27 (< OR =4); POTASSIUM SERUM 3.7 MEQ/L (3.5-5.1); SODIUM LEVEL 141 MEQ/L (136-145); TROPONIN I < 0.02 NG/ML (< 0.10)
[2017-12-22 01:02] LABS: ESTIMATED AVERAGE GLUCOSE 166 MG/DL (60-110); HEMOGLOBIN A1c 7.4 %
== END 2017-12-22 02:59 | disposition home or self-care (01) ==
LOC: M ED 23:41
DX: E11.9 Type 2 diabetes mellitus without complications (principal); N18.3 Chronic kidney disease, stage 3 (moderate); R53.81 Other malaise; I44.0 Atrioventricular block, first degree; I10 Essential (primary) hypertension; N40.0 Benign prostatic hyperplasia without lower urinary tract symptoms; Z79.4 Long term (current) use of insulin; Z79.899 Other long term (current) drug therapy
CPT/HCPCS: 71045

== ENCOUNTER → 2017-12-28 | Outpatient (REF) | payer MEDICARE, MEDICAID ==
[2017-12-28 13:22] LABS: BASO % 0.4 % (0.0-1.0); EOS # 0.3 10^3/uL (0.0-0.50); EOS % 3.3 % (0.0-3.0); HEMATOCRIT 37.6 % (42.0-52.0); HEMOGLOBIN 12.6 g/dl (13.5-17.5); IMMATURE GRANULOCYTE % 1.1 % (0-3.0); LYMPH # 1.6 10^3/uL (1.5-4.5); MEAN CORPUSCULAR HEMOGLOBIN 28.9 pg (27.0-33.0); MEAN CORPUSCULAR HGB CONC 33.5 g/dl (32.0-36.5); MEAN CORPUSCULAR VOLUME 86.2 fl (80.0-96.0); MONO # 0.6 10^3/uL (0.0-0.8); MONO % 7.4 % (0.0-5.0); NEUTROPHILS # 5.1 10^3/uL (1.8-7.7); NEUTROPHILS % 66.8 % (36.0-66.0); PLATELET COUNT, AUTOMATED 289 10^3/uL (150-450); RED BLOOD COUNT 4.36 10^6/uL (4.30-6.10); RED CELL DISTRIBUTION WIDTH 14.1 % (11.5-14.5); WHITE BLOOD COUNT 7.6 10^3/uL (4.0-10.0)
[2017-12-28 13:29] LABS: APPEARANCE, URINE CLEAR (CLEAR); BACTERIA, URINE AUTO 2+ (NEGATIVE); BILIRUBIN, URINE AUTO NEGATIVE (NEGATIVE); BLOOD, URINE BLOOD NEGATIVE (NEGATIVE); COLOR, URINE YELLOW (YELLOW); GLUCOSE, URINE (UA) AUTO 3+ mg/dL (NEGATIVE); KETONE, URINE AUTO NEGATIVE (NEGATIVE); LEUKOCYTE ESTERASE, URINE AUTO NEGATIVE (NEGATIVE); NITRITE, URINE AUTO NEGATIVE (NEGATIVE); PROTEIN, URINE AUTO NEGATIVE (NEGATIVE); RBC, URINE AUTO 1 /HPF (0-3); SPECIFIC GRAVITY URINE AUTO 1.013 (1.002-1.035); SQUAMOUS EPITHELIAL CELL UR AU 1 /HPF (0-6); UROBILINOGEN, URINE AUTO 0.2 mg/dL (0.0-2.0); WBC, URINE AUTO 7 /HPF (0-3)
[2017-12-28 13:45] LABS: ALBUMIN 3.4 GM/DL (3.2-5.2); ALBUMIN/GLOBULIN RATIO 0.85 (1.00-1.93); ALKALINE PHOSPHATASE 116 U/L (45-117); ALT/SGPT 60 U/L (12-78); ANION GAP 8 MEQ/L (8-16); AST/SGOT 35 U/L (7-37); BILIRUBIN,TOTAL 0.2 MG/DL (0.2-1.0); BLOOD UREA NITROGEN 17 MG/DL (7-18); C REACTIVE PROTEIN QUANTITATIV 0.71 MG/DL (0.00-0.30); CALCIUM LEVEL 8.7 MG/DL (8.8-10.2); CARBON DIOXIDE LEVEL 26 MEQ/L (21-32); CHLORIDE LEVEL 107 MEQ/L (98-107); CHOLESTEROL LEVEL 188 MG/DL (<200); CHOLESTEROL RISK RATIO 5.529 (<5); CPK CREATINE PHOSPHOKINASE 95 U/L (39-308); CREATININE FOR GFR 0.99 MG/DL (0.70-1.30); GLOMERULAR FILTRATION RATE > 60.0 (>42); GLUCOSE, FASTING 279 MG/DL (70-100); HDL CHOLESTEROL 34 MG/DL (>40); LDL CHOLESTEROL 105.4 MG/DL (<100); NON-HDL-C 154 MG/DL; RHEUMATOID FACTOR QUANT < 10.0 IU/ML (<15.0); SODIUM LEVEL 141 MEQ/L (136-145); TOTAL PROTEIN 7.4 GM/DL (6.4-8.2); TRIGLYCERIDES LEVEL 243 MG/DL (<150)
[2017-12-28 13:47] LABS: POTASSIUM SERUM 5.2 MEQ/L (3.5-5.1)
[2017-12-28 14:02] LABS: ERYTHROCYTE SEDIMENTATION RATE 35 mm/hr (0-20)
[2017-12-31 00:06] LABS: CYCLIC CITRULLINATED PEPTIDE 13 units (0-19)
[2017-12-31 00:06] LABS: ANA (HEP2) Negative (.)
== END ==
LOC: M SFHCPLAZ 11:59
DX: N40.0 Benign prostatic hyperplasia without lower urinary tract symptoms (principal); M19.041 Primary osteoarthritis, right hand; E78.00 Pure hypercholesterolemia, unspecified
CPT/HCPCS: 82550

== ENCOUNTER → 2018-01-12 | Outpatient (REF) | payer MEDICARE, MEDICAID ==
[2018-01-12 16:22] LABS: ESTIMATED AVERAGE GLUCOSE 163 MG/DL (60-110); HEMOGLOBIN A1c 7.3 %
[2018-01-12 16:24] LABS: PSA SCREENING 0.47 NG/ML (< 4.0)
[2018-01-14 14:10] LABS: INSULIN LEVEL 22.2 uIU/mL (2.6-24.9)
== END ==
LOC: M SFHCPLAZ 12:38
DX: Z12.5 Encounter for screening for malignant neoplasm of prostate (principal); Z79.4 Long term (current) use of insulin
CPT/HCPCS: 83525

== ENCOUNTER → 2018-02-01 | Outpatient (REF) | payer MEDICARE, MEDICAID ==
[2018-02-01 12:15] LABS: PLATELET COUNT, AUTOMATED 241 10^3/uL (150-450)
[2018-02-01 12:29] LABS: INR 0.94; PROTHROMBIN TIME 12.7 SECONDS (12.1-14.4)
[2018-02-01 12:30] LABS: PARTIAL THROMBOPLASTIN TIME 41.4 SECONDS (25.4-37.6)
[2018-02-01 12:54] LABS: ERYTHROCYTE SEDIMENTATION RATE 13 mm/hr (0-20)
[2018-02-01 18:06] LABS: C REACTIVE PROTEIN QUANTITATIV < 0.30 MG/DL (0.00-0.30)
== END ==
LOC: M LABDRAW1 09:36
DX: M48.061 Spinal stenosis, lumbar region without neurogenic claudication (principal); Z79.01 Long term (current) use of anticoagulants
CPT/HCPCS: 86140

== ENCOUNTER 2018-06-19 15:47 | Emergency (ER) | payer MEDICARE, OTHER ==
[~2018-06-19] VITALS: Ht 167.6 cm; Wt 95.5 kg
[~2018-06-19 15:47] MED LIST changes: +ACET500T15 PO; -FENO145T PO; +FENO145T13 PO; +FLON1SPR; -TRAZ-136 PO; +TRAZ-163 PO
[2018-06-19] MEDS ORDERED: METHOCARBAMOL 500 MG TAB PO ONE (17:30)
[2018-06-19] MEDS ORDERED: ACETAMINOPHEN 325 MG TAB PO ONE (17:30)
--- NOTE | 2018-06-19 17:50 | REP ---
CT of the brain without IV contrast for hypertension and headache: There are no comparisons. There is no acute hemorrhage. There is no edema, mass effect or midline shift. The sulci and ventricles are moderately large compatible with diffuse atrophy. There are bilateral basal ganglia lacunar infarcts, age indeterminate. The cortical stripe is unremarkable. The visualized paranasal sinuses and mastoid air cells are unremarkable. Impression: There is no hemorrhage, acute infarct or mass. There is diffuse volume loss. There are age indeterminate bilateral basal ganglia lacunar infarcts. Electronically Signed by Andreas Evans MD 06/19/2018 05:41 P
--- NOTE | 2018-06-19 17:54 | REP ---
CT of the cervical spine: There are no comparisons. The skull base, C1 and C2 are unremarkable for patient age. Vertebral body heights and alignment are normal. There is multilevel degenerative disc disease. The prevertebral soft tissues are unremarkable. The facets are normally aligned. There is facet osteoarthritis. There are subcortical degenerative cysts of many of the intervertebral bodies. There are no posterior element fractures. Impression: There is no fracture or listhesis. No compression deformity. Multilevel degenerative disc disease and multilevel facet osteoarthritis. Electronically Signed by Andreas Evans MD 06/19/2018 05:45 P
[2018-06-19] MEDS ORDERED: ROBA500T PO (18:47)
[2018-06-19 19:38] VITALS: BP 138/90
== END 2018-06-19 20:22 | disposition home or self-care (01) ==
LOC: M ED 15:47
DX: M50.30 Other cervical disc degeneration, unspecified cervical region (principal); R51 Headache; I10 Essential (primary) hypertension; E11.9 Type 2 diabetes mellitus without complications; K21.9 Gastro-esophageal reflux disease without esophagitis; Z79.899 Other long term (current) drug therapy; Z79.4 Long term (current) use of insulin

== ENCOUNTER → 2018-07-03 | Outpatient (REF) | payer MEDICARE, MEDICAID ==
[2018-07-03 20:34] LABS: BASO % 0.3 % (0.0-1.0); EOS # 0.1 10^3/uL (0.0-0.50); EOS % 1.7 % (0.0-3.0); HEMATOCRIT 38.6 % (42.0-52.0); HEMOGLOBIN 12.4 g/dl (13.5-17.5); LYMPH # 1.4 10^3/uL (1.5-4.5); LYMPH % 18.9 % (24.0-44.0); MEAN CORPUSCULAR HEMOGLOBIN 29.5 pg (27.0-33.0); MEAN CORPUSCULAR HGB CONC 32.1 g/dl (32.0-36.5); MEAN CORPUSCULAR VOLUME 91.7 fl (80.0-96.0); MONO # 0.7 10^3/uL (0.0-0.8); MONO % 8.8 % (0.0-5.0); NEUTROPHILS # 5.3 10^3/uL (1.8-7.7); NEUTROPHILS % 70.2 % (36.0-66.0); PLATELET COUNT, AUTOMATED 204 10^3/uL (150-450); RED BLOOD COUNT 4.21 10^6/uL (4.30-6.10); WHITE BLOOD COUNT 7.5 10^3/uL (4.0-10.0)
[2018-07-03 20:53] LABS: HEMOGLOBIN A1c 6.1 %
[2018-07-03 20:59] LABS: ALBUMIN 3.6 GM/DL (3.2-5.2); ALT/SGPT 29 U/L (12-78); BILIRUBIN,TOTAL 0.4 MG/DL (0.2-1.0); BLOOD UREA NITROGEN 14 MG/DL (7-18); CALCIUM LEVEL 8.4 MG/DL (8.8-10.2); CARBON DIOXIDE LEVEL 26 MEQ/L (21-32); CHLORIDE LEVEL 111 MEQ/L (98-107); CHOLESTEROL LEVEL 137 MG/DL (<200); CHOLESTEROL RISK RATIO 4.419 (<5); CREATININE FOR GFR 1.07 MG/DL (0.70-1.30); GLOMERULAR FILTRATION RATE > 60.0 (>42); GLUCOSE, FASTING 158 MG/DL (70-100); HDL CHOLESTEROL 31 MG/DL (>40); LDL CHOLESTEROL 77 MG/DL (<100); NON-HDL-C 106 MG/DL; POTASSIUM SERUM 4.6 MEQ/L (3.5-5.1); PROSTATIC SPECIFIC AG MONITOR 0.46 NG/ML (< 4.00); SODIUM LEVEL 144 MEQ/L (136-145); THYROID STIMULATING HORMONE 0.486 uIU/ML (0.358-3.740); TOTAL 25(OH) VITAMIN D 36.6 NG/ML (30.0-100.0); TOTAL PROTEIN 6.8 GM/DL (6.4-8.2); TRIGLYCERIDES LEVEL 144 MG/DL (<150)
== END ==
LOC: M LAB REF 19:22
PROVIDERS: ATTEND Family Medicine
DX: Z12.5 Encounter for screening for malignant neoplasm of prostate (principal); E11.9 Type 2 diabetes mellitus without complications

== ENCOUNTER → 2018-11-20 | Outpatient (REF) | payer MEDICARE, MEDICAID ==
[~2018-11-20] MED LIST changes: +ACET-716 PO; -ACET30TAB PO; -FENO145T13 PO; +FENO145T7 PO; +OMEP1CAP73 PO; -OMEP20CA3 PO; -TRAZ-163 PO; +TRAZ-257 PO; +[UNRECOGNIZED DRUG - CODE] PO
[2018-11-20 19:28] LABS: APPEARANCE, URINE HAZY (CLEAR); BACTERIA, URINE AUTO 1+ (NEGATIVE); BILIRUBIN, URINE AUTO NEGATIVE (NEGATIVE); BLOOD, URINE BLOOD NEGATIVE (NEGATIVE); COLOR, URINE YELLOW (YELLOW); GLUCOSE, URINE (UA) AUTO NEGATIVE (NEGATIVE); KETONE, URINE AUTO NEGATIVE (NEGATIVE); LEUKOCYTE ESTERASE, URINE AUTO 1+ (NEGATIVE); MUCUS, URINE SMALL (NEGATIVE); NITRITE, URINE AUTO POSITIVE (NEGATIVE); PROTEIN, URINE AUTO NEGATIVE (NEGATIVE); RBC, URINE AUTO 1 /HPF (0-3); SPECIFIC GRAVITY URINE AUTO 1.017 (1.002-1.035); SQUAMOUS EPITHELIAL CELL UR AU 1 /HPF (0-6); UROBILINOGEN, URINE AUTO 0.2 mg/dL (0.0-2.0); WBC, URINE AUTO 13 /HPF (0-3)
[2018-11-20 19:32] LABS: ALBUMIN 4.1 GM/DL (3.2-5.2); ALT/SGPT 37 U/L (12-78); BILIRUBIN,TOTAL 0.5 MG/DL (0.2-1.0); BLOOD UREA NITROGEN 15 MG/DL (7-18); CALCIUM LEVEL 9.3 MG/DL (8.8-10.2); CARBON DIOXIDE LEVEL 27 MEQ/L (21-32); CHLORIDE LEVEL 109 MEQ/L (98-107); CHOLESTEROL LEVEL 203 MG/DL (<200); CHOLESTEROL RISK RATIO 4.833 (<5); CREATININE FOR GFR 0.92 MG/DL (0.70-1.30); FREE T4 0.65 NG/DL (0.76-1.46); GLOMERULAR FILTRATION RATE > 60.0 (>42); GLUCOSE, FASTING 123 MG/DL (70-100); HDL CHOLESTEROL 42 MG/DL (>40); LDL CHOLESTEROL 129 MG/DL (<100); NON-HDL-C 161 MG/DL; POTASSIUM SERUM 4.3 MEQ/L (3.5-5.1); PROSTATIC SPECIFIC AG MONITOR 0.58 NG/ML (< 4.00); SODIUM LEVEL 143 MEQ/L (136-145); THYROID STIMULATING HORMONE 0.816 uIU/ML (0.358-3.740); TOTAL PROTEIN 7.8 GM/DL (6.4-8.2); TRIGLYCERIDES LEVEL 162 MG/DL (<150)
[2018-11-20 19:53] LABS: MAU/CREAT RATIO 7.1 MCG/MG (0.0-30.0)
[2018-11-20 20:00] LABS: HEMOGLOBIN A1c 6.5 %
[2018-11-20 20:27] LABS: BASO % 0.4 % (0.0-1.0); EOS # 0.1 10^3/uL (0.0-0.50); HEMATOCRIT 43.2 % (42.0-52.0); HEMOGLOBIN 14.3 g/dl (13.5-17.5); LYMPH # 1.7 10^3/uL (1.5-4.5); LYMPH % 20.9 % (24.0-44.0); MEAN CORPUSCULAR HEMOGLOBIN 30.3 pg (27.0-33.0); MEAN CORPUSCULAR HGB CONC 33.1 g/dl (32.0-36.5); MEAN CORPUSCULAR VOLUME 91.5 fl (80.0-96.0); MONO # 0.6 10^3/uL (0.0-0.8); MONO % 7.3 % (0.0-5.0); NEUTROPHILS # 5.8 10^3/uL (1.8-7.7); NEUTROPHILS % 70.2 % (36.0-66.0); PLATELET COUNT, AUTOMATED 260 10^3/uL (150-450); RED BLOOD COUNT 4.72 10^6/uL (4.30-6.10); WHITE BLOOD COUNT 8.2 10^3/uL (4.0-10.0)
[2018-11-20 21:01] LABS: TOTAL 25(OH) VITAMIN D 33.6 NG/ML (30.0-100.0)
[2018-11-23 00:08] LABS: Lyme Disease IgG/IgM Antibodie <0.91 ISR (0.00-0.90); Lyme Disease IgM Ab Quantitati <0.80 index (0.00-0.79)
== END ==
LOC: M LAB REF 18:06
PROVIDERS: ATTEND Family Medicine
DX: Z13.228 Encounter for screening for other metabolic disorders (principal); E11.9 Type 2 diabetes mellitus without complications; Z79.4 Long term (current) use of insulin; Z79.899 Other long term (current) drug therapy

== ENCOUNTER 2018-12-29 14:43 | Emergency (ER) | payer MEDICARE, MEDICAID ==
[~2018-12-29] VITALS: Ht 170.2 cm; Wt 89.8 kg
[~2018-12-29 14:43] MED LIST changes: +FENO145T13 PO; -FENO145T7 PO; -OMEP1CAP73 PO; +OMEP20CA4 PO; +TRAZ-163 PO; -TRAZ-257 PO; -[UNRECOGNIZED DRUG - CODE] PO
[2018-12-29] MEDS ORDERED: [UNRECOGNIZED DRUG - CODE] PO (16:12)
[2018-12-29 16:18] VITALS: BP 142/78
== END 2018-12-29 16:18 | disposition home or self-care (01) ==
LOC: M ED 14:43
DX: M19.041 Primary osteoarthritis, right hand (principal); M19.042 Primary osteoarthritis, left hand; G89.29 Other chronic pain; M54.2 Cervicalgia; E78.00 Pure hypercholesterolemia, unspecified; I10 Essential (primary) hypertension; K21.9 Gastro-esophageal reflux disease without esophagitis; M54.9 Dorsalgia, unspecified; E11.9 Type 2 diabetes mellitus without complications; F41.9 Anxiety disorder, unspecified; F32.9 Major depressive disorder, single episode, unspecified; Z79.4 Long term (current) use of insulin; Z79.899 Other long term (current) drug therapy

== ENCOUNTER 2019-01-09 11:37 | Emergency (ER) | payer MEDICARE, MEDICAID ==
[~2019-01-09] VITALS: Ht 167.6 cm; Wt 95.5 kg
[2019-01-09 11:37] VITALS: BP 168/73
[~2019-01-09 11:37] MED LIST changes: +[UNRECOGNIZED DRUG - CODE] PO
[2019-01-09] MEDS ORDERED: ACETAMINOPHEN 500 MG TAB PO ONE (15:30)
== END 2019-01-09 15:54 | disposition home or self-care (01) ==
LOC: M ED 11:37
DX: G89.29 Other chronic pain (principal); M54.2 Cervicalgia; M54.5 Low back pain; E11.9 Type 2 diabetes mellitus without complications; M19.90 Unspecified osteoarthritis, unspecified site; E78.5 Hyperlipidemia, unspecified; I10 Essential (primary) hypertension; K21.9 Gastro-esophageal reflux disease without esophagitis; F41.9 Anxiety disorder, unspecified; F32.9 Major depressive disorder, single episode, unspecified; Z87.891 Personal history of nicotine dependence; Z79.4 Long term (current) use of insulin; Z79.899 Other long term (current) drug therapy

== ENCOUNTER 2019-10-16 12:01 | Emergency (ER) | payer MEDICARE, MEDICAID ==
[~2019-10-16] VITALS: Ht 167.6 cm; Wt 89.1 kg
[2019-10-16 12:01] VITALS: BP 175/79
[~2019-10-16 12:01] MED LIST changes: -FENO145T13 PO; +FENO145T7 PO; +OMEP1CAP73 PO; -OMEP20CA4 PO; -TRAZ-163 PO; +TRAZ-257 PO
[2019-10-16] MEDS ORDERED: TAMS1CAP17 PO (12:16)
[2019-10-17] MEDS ORDERED: PRED10PA PO (09:38)
[2019-10-17] MEDS ORDERED: FISH1000 PO (09:38)
[2019-10-17] MEDS ORDERED: MACR100C43 PO (13:09)
== END 2019-10-16 13:45 | disposition left against medical advice (07) ==
LOC: M ED 12:01
DX: R35.0 Frequency of micturition (principal); Z53.29 Procedure and treatment not carried out because of patient's decision for other reasons

== ENCOUNTER 2019-10-17 09:20 | Emergency (ER) | payer MEDICARE, MEDICAID ==
[~2019-10-17] VITALS: Ht 167.6 cm; Wt 90.0 kg
[~2019-10-17 09:20] MED LIST changes: +TAMS1CAP17 PO
[2019-10-17] MEDS ORDERED: PRED10PA PO (09:38)
[2019-10-17] MEDS ORDERED: FISH1000 PO (09:38)
[2019-10-17 11:12] LABS: BASO % 0.2 % (0.0-1.0); EOS % 0.4 % (0.0-3.0); HEMATOCRIT 40.9 % (42.0-52.0); HEMOGLOBIN 13.6 g/dl (13.5-17.5); LYMPH # 1.7 10^3/uL (1.5-5.0); LYMPH % 16.7 % (24.0-44.0); MEAN CORPUSCULAR HEMOGLOBIN 29.1 pg (27.0-33.0); MEAN CORPUSCULAR HGB CONC 33.3 g/dl (32.0-36.5); MEAN CORPUSCULAR VOLUME 87.6 fl (80.0-96.0); MONO # 0.7 10^3/uL (0.0-0.8); MONO % 7.3 % (0.0-5.0); NEUTROPHILS # 7.6 10^3/uL (1.5-8.5); NEUTROPHILS % 75.1 % (36.0-66.0); PLATELET COUNT, AUTOMATED 238 10^3/uL (150-450); RED BLOOD COUNT 4.67 10^6/uL (4.30-6.10); WHITE BLOOD COUNT 10.1 10^3/uL (4.0-10.0)
[2019-10-17 11:27] LABS: BLOOD UREA NITROGEN 28 MG/DL (7-18); CALCIUM LEVEL 8.8 MG/DL (8.8-10.2); CARBON DIOXIDE LEVEL 25 MEQ/L (21-32); CHLORIDE LEVEL 105 MEQ/L (98-107); CREATININE FOR GFR 1.12 MG/DL (0.70-1.30); GLOMERULAR FILTRATION RATE > 60.0 (>42); GLUCOSE, FASTING 350 MG/DL (70-100); SODIUM LEVEL 138 MEQ/L (136-145)
[2019-10-17 11:34] LABS: HEMOGLOBIN A1c 11.7 %
[2019-10-17] MEDS ORDERED: MACR100C43 PO (13:09)
[2019-10-17 13:36] VITALS: BP 159/86
== END 2019-10-17 13:40 | disposition home or self-care (01) ==
LOC: M ED 09:20
DX: N39.0 Urinary tract infection, site not specified (principal); R35.0 Frequency of micturition; E11.9 Type 2 diabetes mellitus without complications

== ENCOUNTER → 2019-11-02 | Outpatient (CLI) | payer MEDICARE, MEDICAID ==
[~2019-11-02] MED LIST changes: +FISH1000 PO; +MACR100C43 PO; +PRED10PA PO
--- NOTE | 2019-11-02 17:34 | REP ---
Clinical: Osteoarthritis. Technique: AP, lateral, bilateral oblique views of the right hand. Findings: Generalized osteopenia is appreciated. Advanced osteoarthritic degenerative changes are noted primarily involving the interphalangeal joints and first metacarpophalangeal joint and to a lesser extent the second and third metacarpophalangeal joints and wrist. Most pronounced findings include periarticular sclerosis/heterogeneity with scattered subtle subchondral cystic changes and osteophytosis along with joint space narrowing. No acute fracture or dislocation is appreciated. Impression: Advanced osteoarthritic degenerative changes primarily involving the interphalangeal joints, first through third metacarpophalangeal joints and the carpometacarpal joints. Electronically Signed by Eleazar Domínguez MD 11/02/2019 05:25 P
[2019-11-02 19:12] LABS: APPEARANCE, URINE CLEAR (CLEAR); BACTERIA, URINE AUTO 1+ (NEGATIVE); BILIRUBIN, URINE AUTO NEGATIVE (NEGATIVE); BLOOD, URINE BLOOD NEGATIVE (NEGATIVE); COLOR, URINE YELLOW (YELLOW); GLUCOSE, URINE (UA) AUTO 3+ mg/dL (NEGATIVE); KETONE, URINE AUTO NEGATIVE (NEGATIVE); LEUKOCYTE ESTERASE, URINE AUTO NEGATIVE (NEGATIVE); NITRITE, URINE AUTO NEGATIVE (NEGATIVE); PROTEIN, URINE AUTO NEGATIVE (NEGATIVE); RBC, URINE AUTO 0 /HPF (0-3); SPECIFIC GRAVITY URINE AUTO 1.025 (1.002-1.035); SQUAMOUS EPITHELIAL CELL UR AU 0 /HPF (0-6); UROBILINOGEN, URINE AUTO 0.2 mg/dL (0.0-2.0); WBC, URINE AUTO 3 /HPF (0-3)
== END ==
LOC: M RAD 16:55
PROVIDERS: ATTEND Family Medicine Addiction Medicine
DX: M18.9 Osteoarthritis of first carpometacarpal joint, unspecified (principal); M85.841 Other specified disorders of bone density and structure, right hand; R35.0 Frequency of micturition

== ENCOUNTER → 2019-12-17 | Outpatient (REF) | payer OTHER, MEDICAID ==
[2020-01-16 14:17] LABS: BASO % 0.3 % (0.0-1.0); EOS # 0.1 10^3/uL (0.0-0.5); EOS % 1.4 % (0.0-3.0); HEMATOCRIT 42.5 % (42.0-52.0); HEMOGLOBIN 13.9 g/dl (13.5-17.5); LYMPH # 1.2 10^3/uL (1.5-5.0); LYMPH % 13.5 % (24.0-44.0); MEAN CORPUSCULAR HEMOGLOBIN 29.1 pg (27.0-33.0); MEAN CORPUSCULAR HGB CONC 32.7 g/dl (32.0-36.5); MEAN CORPUSCULAR VOLUME 89.1 fl (80.0-96.0); MONO # 0.7 10^3/uL (0.0-0.8); MONO % 8.2 % (0.0-5.0); NEUTROPHILS # 6.6 10^3/uL (1.5-8.5); NEUTROPHILS % 76.4 % (36.0-66.0); PLATELET COUNT, AUTOMATED 187 10^3/uL (150-450); RED BLOOD COUNT 4.77 10^6/uL (4.30-6.10); WHITE BLOOD COUNT 8.6 10^3/uL (4.0-10.0)
[2020-01-16 14:18] LABS: ERYTHROCYTE SEDIMENTATION RATE 20 mm/hr (0-20)
[2020-01-16 14:21] LABS: APPEARANCE, URINE CLEAR (CLEAR); BACTERIA, URINE AUTO NEGATIVE (NEGATIVE); BILIRUBIN, URINE AUTO NEGATIVE (NEGATIVE); BLOOD, URINE BLOOD NEGATIVE (NEGATIVE); COLOR, URINE STRAW (YELLOW); GLUCOSE, URINE (UA) AUTO 3+ mg/dL (NEGATIVE); KETONE, URINE AUTO NEGATIVE (NEGATIVE); LEUKOCYTE ESTERASE, URINE AUTO NEGATIVE (NEGATIVE); NITRITE, URINE AUTO NEGATIVE (NEGATIVE); PROTEIN, URINE AUTO NEGATIVE (NEGATIVE); RBC, URINE AUTO 0 /HPF (0-3); SQUAMOUS EPITHELIAL CELL UR AU 0 /HPF (0-6); UROBILINOGEN, URINE AUTO 0.2 mg/dL (0.0-2.0); WBC, URINE AUTO 0 /HPF (0-3)
[2020-01-29 11:43] LABS: ALBUMIN 3.7 GM/DL (3.2-5.2); ALT/SGPT 33 U/L (12-78); BILIRUBIN,TOTAL 0.3 MG/DL (0.2-1.0); BLOOD UREA NITROGEN 24 MG/DL (7-18); C REACTIVE PROTEIN QUANTITATIV 1.13 MG/DL (0.00-0.30); CARBON DIOXIDE LEVEL 27 MEQ/L (21-32); CHLORIDE LEVEL 101 MEQ/L (98-107); CREATININE FOR GFR 1.16 MG/DL (0.70-1.30); GLOMERULAR FILTRATION RATE > 60.0 (>42); GLUCOSE, FASTING 537 MG/DL (70-100); HEMOGLOBIN A1c 12.7 %; MALB URINE SIEMENS 8.6 MG/L; POTASSIUM SERUM 4.6 MEQ/L (3.5-5.1); RHEUMATOID FACTOR QUANT < 10.0 IU/ML (<15.0); SODIUM LEVEL 136 MEQ/L (136-145); THYROID STIMULATING HORMONE 0.621 uIU/ML (0.358-3.740); TOTAL PROTEIN 7.3 GM/DL (6.4-8.2)
== END ==
LOC: M LAB REF 07:59
PROVIDERS: ATTEND Family Medicine Addiction Medicine
DX: R35.0 Frequency of micturition (principal); E11.9 Type 2 diabetes mellitus without complications; M18.9 Osteoarthritis of first carpometacarpal joint, unspecified

== ENCOUNTER 2019-12-18 17:15 | Emergency (ER) | payer OTHER, MEDICAID ==
[2019-12-18] MEDS ORDERED: HumuLIN R (REGULAR) INSULIN (NovoLIN R) **100U/ML** PER UNIT ONE (21:14)
--- NOTE | 2020-01-21 15:53 | ECGEPIP ---
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
[2020-02-02 13:48] LABS: PARTIAL THROMBOPLASTIN TIME 29.9 SECONDS (24.2-38.5); PROTHROMBIN TIME 13.4 SECONDS (12.5-14.3)
[2020-02-02 13:50] LABS: BASO % 0.2 % (0.0-1.0); EOS # 0.1 10^3/uL (0.0-0.5); EOS % 1.3 % (0.0-3.0); HEMATOCRIT 39.7 % (42.0-52.0); HEMOGLOBIN 13.4 g/dl (13.5-17.5); LYMPH # 1.3 10^3/uL (1.5-5.0); LYMPH % 15.1 % (24.0-44.0); MEAN CORPUSCULAR HEMOGLOBIN 29.7 pg (27.0-33.0); MEAN CORPUSCULAR HGB CONC 33.8 g/dl (32.0-36.5); NEUTROPHILS # 6.3 10^3/uL (1.5-8.5); NEUTROPHILS % 71.9 % (36.0-66.0); PLATELET COUNT, AUTOMATED 184 10^3/uL (150-450); RED BLOOD COUNT 4.51 10^6/uL (4.30-6.10); WHITE BLOOD COUNT 8.8 10^3/uL (4.0-10.0)
[2020-03-07 10:11] LABS: ALBUMIN 3.6 GM/DL (3.2-5.2); ALT/SGPT 31 U/L (12-78); BILIRUBIN,TOTAL 0.3 MG/DL (0.2-1.0); BLOOD UREA NITROGEN 23 MG/DL (7-18); CALCIUM LEVEL 8.8 MG/DL (8.8-10.2); CARBON DIOXIDE LEVEL 22 MEQ/L (21-32); CHLORIDE LEVEL 98 MEQ/L (98-107); CREATININE FOR GFR 1.38 MG/DL (0.70-1.30); ETHYL ALCOHOL (ETHANOL) < 0.003 % (0.000-0.010); GLOMERULAR FILTRATION RATE 53.3 (>42); GLUCOSE, FASTING 628 MG/DL (70-100); LIPASE 292 U/L (73-393); MAGNESIUM LEVEL 2.3 MG/DL (1.8-2.4); NT-PRO BNP 37 PG/ML (<450); POTASSIUM SERUM 4.6 MEQ/L (3.5-5.1); SODIUM LEVEL 131 MEQ/L (136-145); TOTAL PROTEIN 7.1 GM/DL (6.4-8.2)
[2020-03-07 10:12] LABS: HEMOGLOBIN A1c 12.8 %
[2020-03-07 10:13] LABS: VENOUS BASE EXCESS -1.1 (-2.0-2.0); VENOUS PARTIAL PRESSURE O2 58.3 mmHg (30.0-50.0); VENOUS PH 7.357 UNITS (7.330-7.430); VENOUS TOTAL CO2 26.1 MEQ/L (24.0-28.0)
[2020-03-07 10:14] LABS: VENOUS HCO3 24.7 MEQ/L (23.0-27.0); VENOUS O2 SATURATION 88.9 % (60.0-80.0); VENOUS STANDARD HCO3 23.4 MEQ/L
[2020-03-07 10:20] LABS: CK-MB VALUE MASS 4.3 NG/ML (<3.6)
[2020-03-07 10:21] LABS: ACETONE/KETONE 1.19 MG/DL (<2.81); MB/CK RELATIVE INDEX 1.88 (< OR =4)
== END 2019-12-18 21:43 | disposition home or self-care (01) ==
LOC: M ED 17:15
DX: R73.9 Hyperglycemia, unspecified (principal); J98.11 Atelectasis; Z79.899 Other long term (current) drug therapy; Z79.4 Long term (current) use of insulin
CPT/HCPCS: 36415; 71045; 80053; 81001; 82010; 82550; 82553; 82803; 83036; 83605; 83690; 83735; 83880; 83930; 85025; 85610; 85730; 87040; 93005; 99284; G0480

== ENCOUNTER 2020-01-15 14:48 | Emergency (ER) | payer MEDICARE, MEDICAID ==
[~2020-01-15] VITALS: Ht 170.2 cm; Wt 88.7 kg
[2020-01-15 14:49] VITALS: BP 154/69
[2020-01-15 16:26] LABS: BASO % 0.3 % (0.0-1.0); EOS # 0.1 10^3/uL (0.0-0.5); EOS % 1.4 % (0.0-3.0); HEMATOCRIT 40.5 % (42.0-52.0); HEMOGLOBIN 13.5 g/dl (13.5-17.5); LYMPH # 1.5 10^3/uL (1.5-5.0); LYMPH % 19.6 % (24.0-44.0); MEAN CORPUSCULAR HEMOGLOBIN 29.7 pg (27.0-33.0); MEAN CORPUSCULAR HGB CONC 33.3 g/dl (32.0-36.5); MEAN CORPUSCULAR VOLUME 89.2 fl (80.0-96.0); MONO # 0.8 10^3/uL (0.0-0.8); MONO % 10.6 % (0.0-5.0); NEUTROPHILS # 5.2 10^3/uL (1.5-8.5); NEUTROPHILS % 67.8 % (36.0-66.0); PLATELET COUNT, AUTOMATED 202 10^3/uL (150-450); RED BLOOD COUNT 4.54 10^6/uL (4.30-6.10); WHITE BLOOD COUNT 7.6 10^3/uL (4.0-10.0)
[2020-01-15 17:14] LABS: ALBUMIN 3.5 GM/DL (3.2-5.2); ALT/SGPT 23 U/L (12-78); BILIRUBIN,DIRECT < 0.1 MG/DL (0.0-0.2); BILIRUBIN,TOTAL 0.3 MG/DL (0.2-1.0); BLOOD UREA NITROGEN 24 MG/DL (7-18); CALCIUM LEVEL 8.9 MG/DL (8.8-10.2); CARBON DIOXIDE LEVEL 26 MEQ/L (21-32); CHLORIDE LEVEL 105 MEQ/L (98-107); CREATININE FOR GFR 1.19 MG/DL (0.70-1.30); GLOMERULAR FILTRATION RATE > 60.0 (>42); GLUCOSE, FASTING 527 MG/DL (70-100); LIPASE 263 U/L (73-393); POTASSIUM SERUM 4.6 MEQ/L (3.5-5.1); SODIUM LEVEL 136 MEQ/L (136-145); TOTAL PROTEIN 7.1 GM/DL (6.4-8.2)
[2020-01-15] MEDS ORDERED: HumuLIN R (REGULAR) INSULIN (NovoLIN R) **100U/ML** PER UNIT IV ONE (17:30)
== END 2020-01-15 18:22 | disposition left against medical advice (07) ==
LOC: M ED 14:48
DX: Z53.20 Procedure and treatment not carried out because of patient's decision for unspecified reasons (principal); E11.9 Type 2 diabetes mellitus without complications; E78.5 Hyperlipidemia, unspecified; K21.9 Gastro-esophageal reflux disease without esophagitis; Z79.4 Long term (current) use of insulin; Z79.899 Other long term (current) drug therapy; Z87.891 Personal history of nicotine dependence

== ENCOUNTER 2020-09-02 13:47 | Emergency (ER) | payer MEDICARE, MEDICAID ==
[~2020-09-02] VITALS: Ht 167.6 cm; Wt 90.9 kg
[2020-09-02 13:48] VITALS: BP 126/67
[2020-09-02] MEDS ORDERED: ATOR1TAB21 PO (13:56)
[2020-09-02] MEDS ORDERED: IBUP200C33 PO (13:56)
[2020-09-02] MEDS ORDERED: CIPR-249 PO (15:43)
== END 2020-09-02 15:44 | disposition left against medical advice (07) ==
LOC: M ED 13:47
DX: N30.00 Acute cystitis without hematuria (principal); R35.0 Frequency of micturition; E10.9 Type 1 diabetes mellitus without complications; I10 Essential (primary) hypertension; K21.9 Gastro-esophageal reflux disease without esophagitis; Z79.4 Long term (current) use of insulin; Z79.899 Other long term (current) drug therapy

== ENCOUNTER 2021-01-14 10:17 | Emergency (ER) | payer MEDICARE, MEDICAID ==
[~2021-01-14] VITALS: Ht 167.6 cm; Wt 82.2 kg
[2021-01-14 10:17] VITALS: BP 147/76
[~2021-01-14 10:17] MED LIST changes: +CIPR-249 PO; +IBUP200C33 PO
== END 2021-01-14 16:30 | disposition left against medical advice (07) ==
LOC: M ED 10:17
DX: Z53.21 Procedure and treatment not carried out due to patient leaving prior to being seen by health care provider (principal)

== ENCOUNTER 2021-03-05 10:08 | Inpatient (IN) | payer MEDICARE, MEDICAID ==
[~2021-03-05] VITALS: Ht 167.6 cm; Wt 85.3 kg
--- OUTSIDE RECORDS SUMMARY | 2021-03-05 10:47 | CCD ---
Author Organization Unknown Address [address] [place] [address] Phone [phone] Care Team Providers Care Carpet Installation Specialist Name Role Phone FountainRoland Unavailable Unavailable Allergies Code Code System Name Reaction Severity Status Onset NKDA Medications Name Status Start Date Stop Date Accu-Chek Mel Plus Meter USE TO TEST BLOOD SUGAR UP TO THREE TIMES A DAY Active Not available Accu-Chek Mel Plus test strips TEST FOUR TIMES A DAY Active Not available Accu-Chek Softclix Lancets USE TO TEST BLOOD SUGAR UP TO 3 TIMES A DAY Active Not available amoxicillin 875 mg-potassium clavulanate 125 mg tablet TAKE ONE TABLET BY MOUTH TWICE A DAY FOR 10 DAYS Completed 09/17/2020 atorvastatin 20 mg tablet TAKE ONE TABLET BY MOUTH EVERY DAY Active Not available BD Insulin Syringe Ultra-Fine 0.5 mL 31 gauge x 5/16" USE FOR INSULIN INJECTION UNDER THE SKIN TWO TIMES A DAY Active Not available cefdinir 300 mg capsule Active Not avai lable ciprofloxacin 0.3 %-dexamethasone 0.1 % ear drops,suspension USE 4 DROPS INTO THE RIGHT EAR TWO TIMES A DAY FOR 7 DAYS Completed 09/17/2020 furosemide 20 mg tablet TAKE ONE TABLET BY MOUTH EVERY DAY Completed 09/06 Humalog Mix 75-25 (U-100) Insulin 100 un it/mL subcutaneous suspension INJECT 30 UNITS UNDER THE SKIN TWO TIMES A DAY MAXIMUM DAILY DOSE 60 UNITS Active Not available Januvia 100 mg tablet TAKE ONE TABLET BY MOUTH EVERY DAY Active Not available nitrofurantoin monohydrate/macrocrystals 100 mg capsule TAKE ONE CAPSULE BY MOUTH TWICE A DAY FOR 7 DAYS Completed 09/17/2020 ofloxacin 0.3 % ear drops INSTILL 10 DROPS INTO THE RIGHT EAR ONCE DAILY FOR 10 DAYS Completed 09/17/2020 OneTouch Delica Plus Lancet 33 gauge CHECK BLOOD GLUCOSE ONCE DAILY Active Not avai lable phenazopyridine 100 mg tablet TAKE ONE TABLET BY MOUTH THREE TIMES A DAY DIRECTED Active Not available prednisone 10 mg tablet TAKE 4 TABLETS BY MOUTH ONCE DAILY DECREASE BY 1 TABLET EVERY 3 DAYS Completed 09/17/2020 sulfamethoxazole 800 mg-trimethoprim 160 mg tablet TAKE ONE TABLET BY MOUTH TWICE A DAY FOR 7 DAYS STOP NITROFURANTOIN RX Completed 09/17/2020 tamsulosin 0.4 mg capsule TAKE ONE CAPSULE BY MOUTH EVERY DAY Active Not available Problems Name Status Onset Date Source Type 2 Diabetes Mellitus without Complication Active History Emotional State Finding Active 01/13/2016 History Hyperlipidemia Active 05/13/2016 History Hypertensive Disorder Active 05/13/2016 History Large Prostate Active 05/13/2016 History Pain in Thoracic Spine Active 05/13/2016 History Current Drug User Active 05/13/2016 History Finding Relating to Psychosocial Functioning Active 09/2016 History Pain of Right Shoulder Joint Active 05/13/2016 His tory Finding of Esophagus Active 05/13/2016 History Finding of Neck Region Active 05/31/2016 History Simple Obesity Active 06/14/2017 History Body Mass Index 30+ - Obesity Active 06/14/2017 Hi story Clinical History and Observation Findings Active 2017 History Screening for Malignant Neoplasm of Prostate Active History Clinical Finding Active 07/03/2018 History Endocrine/metabolic Screening Active 11/20/2018 Hi story Osteoarthrosis of the Carpometacarpal Joint of the Thumb Active 09/13/2019 History Increased Frequency of Urination Active 11/02/2019 History Benign Prostatic Hyperplasia Active 09/05/2020 Procedures Notes: bilateral shoulder surgery, carpa l tunnel surgery both wrists, Results Lab Results None recorded. Past Encounters 01/16/2021 Benign Prostatic Hyperplasia; Type 2 Diabetes Mellitus without Complication Roland Fountain MD: [address] [place] [address], Ph. 09/17/2020 Body Mass Index 30+ - Obesity; Benign Prostatic Hyperplasia Mago Randall MD: [address] [place] [address], Ph. Social History Tobacco Smoking Status Former Smoker Vaccine List None recorded. Plan of Care Reminders Provider Appointments None recorded. Lab None recorded. Referral None recorded. Procedures None recorded. Surgeries None recorded. Imaging None recorded. Vitals 01/16/2021 02:20PM ED FOLLOW-UP Height Weight BMI Blood Pressure 66 in 181 lbs 16 oz 29.4 kg/m2 144/80 mm[Hg] 09/17/2020 05:20PM ESTABLISHED [id number] Height Weight BMI Blood Pressure 66 in 195 lbs 3.2 oz 31.5 kg/m2 161/90 mm[Hg ] 12/14/2019 Height Weight BMI Blood Pressure 66 in 191 lbs 30.94 kg/m2 138/85 mm[Hg] 11/02/2019 Height Weight BMI Blood Pressure 66 in 199 lbs 2.08 oz 32.26 kg/m2 138/79 mm[H g] 09/13/2019 Height Weight BMI Blood Pressure 66 in 203 lbs 32.88 kg/m2 130/71 mm[Hg] 11/20/2018 Height Weight BMI Blood Pressure 66 in 171 lbs 8 oz 27.78 kg/m2 139/84 mm[Hg] 07/03/2018 Height Weight BMI Blood Pressure 66 in 207 lbs 33.53 kg/m2 130/84 mm[Hg]
--- OUTSIDE RECORDS SUMMARY | 2021-03-05 10:47 | CCD ---
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 Acti ve confirmed 36732991 Problem Gastroesophageal reflux disease, esophagitis pre sence not specified K21.9 Active confirmed 593249626 Problem Acute cystitis without hematuria N30.00 Active conf irmed 98704659 Problem Primary osteoarthritis, right hand M19.041 Activ e confirmed 28634097 Problem Primary insomnia F51.01 Active confirmed 397 2004 Problem Sensorineural hearing loss (SNHL) of both ears H90 .3 Active confirmed 498069543 Problem Anxiety F41.9 Active confirmed 65967869 Problem Gastroesophageal reflux disease without esophagitis K21.9 Active confirmed 838693222 Problem Prostate cancer screening Z12.5 Active confirmed 527727069 Problem Obesity, unspecified E66.9 Active confirmed 784702172 Problem Type 2 diabetes mellitus with other specified complication E11.69 Active confirmed 75512447 Problem Body mass index (BMI) of 33.0-33.9 in adult Z68.33 Active confirmed 066572847 Problem 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 current use of insulin Z79.4 Active conf irmed [id number] ALLERGIES No Known Allergies ENCOUNTERS from 1945 to 2021-02-24 Encounter Location Date Provider Diagnosis [address] [phone] [place] [address] Feb, Ailyn Brown IMMUNIZATIONS No Information SOCIAL HISTORY Sex Assigned At : Social History Observation Description Sex Assigned At Unknown Audit Question Answer Notes Total Score: 0 Interpretation: Alcohol Education Drug and Alcohol Question Answer Notes Total Score: 0 Interpretation: No problems reported BMI Care Goal Follow-Up Question Answer Notes Above Normal BMI Follow-Up Lifestyle education regarding t REASON FOR REFERRAL No Information VITAL SIGNS No information MEDICATIONS Medication SIG (Take, Route, Frequency, Duration) Notes Start Da te End Date Status Tamsulosin HCl 0.4 MG 1 capsule 30 minutes after t he same meal each day Orally Once a day Active HumaLOG Mix 75/25 KwikPen (75-25) 100 UNIT/ML 20 units in AM 20 units in PM Subcutaneous Twice a day Active BD Pen Needle Ultrafine 29G X 12.7MM 1 subcutaneously twice daily Active Glucosamine Chondr Complex _ 1 capsule with a meal Orally Once a day Active One Daily Multivitamin Men - Orally Active traZODone HCl 100 MG 1 tablet at bedtime Orally Once a day for 3 0 day(s) Jan, Active Fluticasone Propionate 50 MCG/ACT 1 spray in each nostril Nasall y Once a day Active Fish Oil 1200 MG 1 capsule Orally twice daily Active Trulicity 0.75 MG/0.5ML 1 injection Subcutaneous weekly for 30 d ay(s) Jan, Not-Taking Voltaren 1 % 4gram Transdermal four times daily for 30 day(s) Active Omeprazole 20 MG 1 capsule Orally twice daily Active Atorvastatin Calcium 40 MG 1 tablet Orally Once a day for 30 day(s) Active PROCEDURES No Information RESULTS No Results REASON FOR VISIT Case Management MEDICAL (GENERAL) HISTORY Type Description Date Medical History T2DM Medical History Arthritis Medical History BPH Medical History Seasonal Allergies Medical History Hypercholesterolemia, 10 year ASCVD risk was 36.1% in 07/2015 Medical History GERD Surgical History B/L Carpal Tunnel Release Surgical History Bilateral Shoulder Repair Surgery Surgical History Laparoscopic Cholecystectomy Dr. Suggs 08/13/13 Surgical History Bilat. Upper Lid Blepharoplasty Dr. Bray ms 02/2014 Surgical History s/p Cataract and small pupil L eye c Phacoeulsification & post. chamber intraocular lens implant & pupillary expansion device-Dr. Beth 01/2013 Goals Section No Information Health Concerns No Information MEDICAL EQUIPMENT No Information MENTAL STATUS No Information FUNCTIONAL STATUS No Information ASSESSMENTS No Information PLAN OF TREATMENT Medication Medication Name Sig Start Date Stop Date Tamsulosin HCl 0.4 MG 1 capsule 30 minutes after t he same meal each day Orally Once a day Voltaren 1 % 4gram Transdermal four times daily for 30 day(s) Atorvastatin Calcium 40 MG 1 tablet Orally Once a day for 30 day (s) Omeprazole 20 MG 1 capsule Orally twice daily BD Pen Needle Ultrafine 29G X 12.7MM 1 subcutaneously twice marisela y HumaLOG Mix 75/25 KwikPen (75-25) 100 UNIT/ML 20 units in AM 20 units in PM Subcutaneous Twice a day Next Appt Details Provider Name:Ailyn Brown, 2020-05 01:30:00 PM, [address] [facility], , [place], [address], Insurance Providers Payer Name Payer Address Payer Phone Insured Name Patient Relati onship to Insured Coverage Start Date Coverage End Date [facility] [address] [facility] [phone] KHANH GUY MEDICAID [facility] [address] [facility] [address] KHANH GUY self
--- OUTSIDE RECORDS SUMMARY | 2021-03-05 10:47 | CCD ---
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 Acti ve confirmed 08823023 Problem Gastroesophageal reflux disease, esophagitis pre sence not specified K21.9 Active confirmed 613068984 Problem Acute cystitis without hematuria N30.00 Active conf irmed 58289198 Problem Primary osteoarthritis, right hand M19.041 Activ e confirmed 32621266 Problem Primary insomnia F51.01 Active confirmed 397 2004 Problem Sensorineural hearing loss (SNHL) of both ears H90 .3 Active confirmed 811896871 Problem Anxiety F41.9 Active confirmed 97700757 Problem Gastroesophageal reflux disease without esophagitis K21.9 Active confirmed 020570792 Problem Prostate cancer screening Z12.5 Active confirmed 274792706 Problem Obesity, unspecified E66.9 Active confirmed 722156366 Problem Type 2 diabetes mellitus with other specified complication E11.69 Active confirmed 00887745 Problem Body mass index (BMI) of 33.0-33.9 in adult Z68.33 Active confirmed 352912363 Problem roasterman current use of insulin Z79.4 Active conf irmed [id number] ALLERGIES No Known Allergies ENCOUNTERS from 1945 to 2021-03-02 Encounter Location Date Provider Diagnosis [address] [phone] [place] [address] Jan, Ailyn Brown IMMUNIZATIONS No Information SOCIAL HISTORY [...] Information RESULTS No Results REASON FOR VISIT discharge? MEDICAL (GENERAL) HISTORY Type Description Date Medical [...] Name:Ailyn Brown, 2020-05 01:30:00 PM, [address] [facility], , [place], [address], Insurance Providers Payer Name Payer Address Payer Phone Insured Name Patient Relati onship to Insured Coverage Start Date Coverage End Date MEDICAID [id number] [address] [facility] [id number] KHANH GUY [facility] [address] [facility] [id number] KHANH GUY
--- OUTSIDE RECORDS SUMMARY | 2021-03-05 10:47 | CCD ---
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 Acti ve confirmed 11159813 Problem Gastroesophageal reflux disease, esophagitis pre sence not specified K21.9 Active confirmed 602005269 Problem Acute cystitis without hematuria N30.00 Active conf irmed 50896897 Problem Primary osteoarthritis, right hand M19.041 Activ e confirmed 02471435 Problem Primary insomnia F51.01 Active confirmed 397 2004 Problem Sensorineural hearing loss (SNHL) of both ears H90 .3 Active confirmed 559802140 Problem Anxiety F41.9 Active confirmed 43550716 Problem Gastroesophageal reflux disease without esophagitis K21.9 Active confirmed 710375410 Problem Prostate cancer screening Z12.5 Active confirmed 969235190 Problem Obesity, unspecified E66.9 Active confirmed 065881351 Problem Type 2 diabetes mellitus with other specified complication E11.69 Active confirmed 11232503 Problem Body mass index (BMI) of 33.0-33.9 in adult Z68.33 Active confirmed 011979072 Problem 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 Active conf irmed [id number] ALLERGIES No Known Allergies ENCOUNTERS from 1945 to 2021-02-18 Encounter Location Date Provider Diagnosis [address] [phone] [place] [address] Feb, Ailyn Brown IMMUNIZATIONS No Information SOCIAL [...] Information RESULTS No Results REASON FOR VISIT Discharged MEDICAL (GENERAL) HISTORY Type Description Date Medical [...] units in PM Subcutaneous Twice a day Insurance Providers Payer Name Payer Address Payer Phone Insured Name Patient Relati onship to Insured Coverage Start Date Coverage End Date MEDICAID [employer] [address] [facility] [id number] KHANH GUY [facility] [id number] [facility] [address] KHANH GUY
--- OUTSIDE RECORDS SUMMARY | 2021-03-05 10:47 | CCD ---
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 Acti ve confirmed 81063636 Problem Gastroesophageal reflux disease, esophagitis pre sence not specified K21.9 Active confirmed 322714386 Problem Acute cystitis without hematuria N30.00 Active conf irmed 80972201 Problem Primary osteoarthritis, right hand M19.041 Activ e confirmed 52203476 Problem Primary insomnia F51.01 Active confirmed 397 2004 Problem Sensorineural hearing loss (SNHL) of both ears H90 .3 Active confirmed 994695095 Problem Anxiety F41.9 Active confirmed 37923551 Problem Gastroesophageal reflux disease without esophagitis K21.9 Active confirmed 130878800 Problem Prostate cancer screening Z12.5 Active confirmed 339061796 Problem Obesity, unspecified E66.9 Active confirmed 255822934 Problem Type 2 diabetes mellitus with other specified complication E11.69 Active confirmed 04764909 Problem Body mass index (BMI) of 33.0-33.9 in adult Z68.33 Active confirmed 032512804 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 [address] [place] [facility] [id number] [facility] [phone] [employer] GUY
--- OUTSIDE RECORDS SUMMARY | 2021-03-05 10:47 | CCD ---
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 Acti ve confirmed 93710995 Problem Gastroesophageal reflux disease, esophagitis pre sence not specified K21.9 Active confirmed 487140879 Problem Acute cystitis without hematuria N30.00 Active conf irmed 96046225 Problem Primary osteoarthritis, right hand M19.041 Activ e confirmed 36126595 Problem Primary insomnia F51.01 Active confirmed 397 2004 Problem Sensorineural hearing loss (SNHL) of both ears H90 .3 Active confirmed 861689634 Problem Anxiety F41.9 Active confirmed 12243031 Problem Gastroesophageal reflux disease without esophagitis K21.9 Active confirmed 509672324 Problem Prostate cancer screening Z12.5 Active confirmed 831426598 Problem Obesity, unspecified E66.9 Active confirmed 251264563 Problem Type 2 diabetes mellitus with other specified complication E11.69 Active confirmed 31113367 Problem Body mass index (BMI) of 33.0-33.9 in adult Z68.33 Active confirmed 482775021 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 Active conf irmed [id number] ALLERGIES No Known Allergies ENCOUNTERS from 1945 to 2021-02-19 Encounter Location Date Provider Diagnosis [address] [phone] [place] [address] Feb, Ailyn Brown IMMUNIZATIONS No Information SOCIAL [...] Information RESULTS No Results REASON FOR VISIT appt MEDICAL (GENERAL) HISTORY Type Description Date Medical [...] Provider Name:Ailyn Brown, 2020-05 01:30:00 PM, [address] [facility], , [place], [address], Insurance Providers Payer Name Payer Address Payer Phone Insured Name Patient Relati onship to Insured Coverage Start Date Coverage End Date [facility] [id number] [facility] [id number] KHANH GUY MEDICAID [facility] [address] [facility] [id number] KHANH GUY self
--- OUTSIDE RECORDS SUMMARY | 2021-03-05 10:48 | CCD ---
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 Finger Buff Material Name Role Phone Karma Fountain MD Unavailable Unavailable Karma Fountain MD Unavailable Unavailable Karma Fountain MD Unavailable Unavailable Karma Fountain MD Unavailable Unavailable Karma Fountain MD Unavailable Unavailable Karma Fountain MD Unavailable Unavailable Karma Fountain MD Unavailable Unavailable Karma Fountain MD Unavailable Unavailable Karma Fountain MD Unavailable Unavailable Karma Fountain MD Unavailable Unavailable Karma Fountain MD Unavailable Unavailable Karma Fountain MD Unavailable Unavailable Karma Fountain MD Unavailable Unavailable Karma Fountain MD Unavailable Unavailable Karma Fountain MD Unavailable Unavailable Karma Fountain MD Unavailable Unavailable Karma Fountain MD Unavailable Unavailable Karma Fountain MD Unavailable Unavailable Karma Fountain MD Unavailable Unavailable Karma Fountain MD Unavailable Unavailable Karma Fountain MD Unavailable Unavailable Karma Fountain MD Unavailable Unavailable Karma Fountain MD Unavailable Unavailable Karma Fountain MD Unavailable Unavailable Karma Fountain MD Unavailable Unavailable Karma Fountain MD Unavailable Unavailable Karma Fountain MD Unavailable Unavailable Karma Fountain MD Unavailable Unavailable Karma Fountain MD Unavailable Unavailable Karma Fountain MD Unavailable Unavailable Karma Fountain MD Unavailable Unavailable Karma Fountain MD Unavailable Unavailable Karma Fountain MD Unavailable Unavailable Karma Fountain MD Unavailable Unavailable Karma Fountain MD Unavailable Unavailable Karma Fountain MD Unavailable Unavailable Karma Fountain MD Unavailable Unavailable Karma Fountain MD Unavailable Unavailable Karma Fountain MD Unavailable Unavailable Karma Fountain MD Unavailable Unavailable Karma Fountain MD Unavailable Unavailable Krama Fountain MD Unavailable Unavailable Karma Fountain MD Unavailable Unavailable Karma Fountain MD Unavailable Unavailable Karma Fountain MD Unavailable Unavailable Karma Fountain MD Unavailable Unavailable Karma Fountain MD Unavailable Unavailable Karma Fountain MD Unavailable Unavailable Karma Fountain MD Unavailable Unavailable Karma Fountain MD Unavailable Unavailable Karma Fountain MD Unavailable Unavailable Karma Fountain MD Unavailable Unavailable Karma Fountain MD Unavailable Unavailable Karma Fountain MD Unavailable Unavailable Karma Fountain MD Unavailable Unavailable Karma Fountain MD Unavailable Unavailable Karma Fountain MD Unavailable Unavailable Karma Fountain MD Unavailable Unavailable Karma Fountain MD Unavailable Unavailable Karma Fountain MD Unavailable Unavailable Karma Fountain MD Unavailable Unavailable Karma Fountain MD Unavailable Unavailable Karma Fountain MD Unavailable Unavailable Karma Fountain MD Unavailable Unavailable Karma Fountain MD Unavailable Unavailable Karma Fountain MD Unavailable Unavailable Karma Fountain MD Unavailable Unavailable Karma Fountain MD Unavailable Unavailable Karma Fountain MD Unavailable Unavailable Karma Fountain MD Unavailable Unavailable Karma Fountain MD Unavailable Unavailable Karma Fountain MD Unavailable Unavailable Karma Fountain MD Unavailable Unavailable Karma Fountain MD Unavailable Unavailable Karma Fountain MD Unavailable Unavailable Karma Fountain MD Unavailable Unavailable Karma Fountain MD Unavailable Unavailable Karma Fountain MD Unavailable Unavailable Karma Fountain MD Unavailable Unavailable Karma Fountain MD Unavailable Unavailable Karma Fountain MD Unavailable Unavailable Karma Fountain MD Unavailable Unavailable Karma Fountain MD Unavailable Unavailable Karma Fountain MD Unavailable Unavailable Karma Fountain MD Unavailable Unavailable Karma Fountain MD Unavailable Unavailable Karma Fountain MD Unavailable Unavailable Karma Fountain MD Unavailable Unavailable Karma Fountain MD Unavailable Unavailable Karma Fountain MD Unavailable Unavailable Karma Fountain MD Unavailable Unavailable Karma Fountain MD Unavailable Unavailable Karam Fountain MD Unavailable Unavailable [facility] Unavailable Unavailable PETROFF, ULICES PA Unavailable Unavailable PETROFF, ULICES PA Unavailable Unavailable PETROFF, ULICES PA Unavailable Unavailable PETROFF, ULICES PA Unavailable Unavailable PETROFF, ULICES PA Unavailable Unavailable PETROFF, ULICES PA Unavailable Unavailable PETROFF, ULICES PA Unavailable Unavailable PETROFF, ULICES PA Unavailable Unavailable Alberry, D Bernadette DIAGNOSTICS TECH Unavailable Unavailable Alberry, D Bernadette DIAGNOSTICS TECH Unavailable Unavailable Alberry, D Bernadette DIAGNOSTICS TECH Unavailable Unavailable Alberry, D Bernadette DIAGNOSTICS TECH Unavailable Unavailable Alberry, D Bernadette DIAGNOSTICS TECH Unavailable Unavailable Alberry, D Bernadette DIAGNOSTICS TECH Unavailable Unavailable Alberry, D Bernadette DIAGNOSTICS TECH Unavailable Unavailable Alberry, D Bernadette DIAGNOSTICS TECH Unavailable Unavailable Alberry, D Bernadette DIAGNOSTICS TECH Unavailable Unavailable Alberry, D Bernadette DIAGNOSTICS TECH Unavailable Unavailable Alberry, D Bernadette DIAGNOSTICS TECH Unavailable Unavailable Alberry, D Bernadette DIAGNOSTICS TECH Unavailable Unavailable Alberry, D Bernadette DIAGNOSTICS TECH Unavailable Unavailable Alberry, D Bernadette DIAGNOSTICS TECH Unavailable Unavailable Alberry, D Bernadette DIAGNOSTICS TECH Unavailable Unavailable Alberry, D Bernadette DIAGNOSTICS TECH Unavailable Unavailable Alberry, D Bernadette DIAGNOSTICS TECH Unavailable Unavailable Alberry, D Bernadette DIAGNOSTICS TECH Unavailable Unavailable Alberry, D Bernadette DIAGNOSTICS TECH Unavailable Unavailable Alberry, D Bernadette DIAGNOSTICS TECH Unavailable Unavailable Alberry, D Bernadette DIAGNOSTICS TECH Unavailable Unavailable Alberry, D Bernadette DIAGNOSTICS TECH Unavailable Unavailable Alberry, D Bernadette DIAGNOSTICS TECH Unavailable Unavailable Alberry, D Bernadette DIAGNOSTICS TECH Unavailable Unavailable Alberry, D Bernadette DIAGNOSTICS TECH Unavailable Unavailable Alberry, D Bernadette DIAGNOSTICS TECH Unavailable Unavailable Alberry, D Bernadette DIAGNOSTICS TECH Unavailable Unavailable Alberry, D Bernadette DIAGNOSTICS TECH Unavailable Unavailable Alberry, D Bernadette DIAGNOSTICS TECH Unavailable Unavailable Alberry, D Bernadette DIAGNOSTICS TECH Unavailable Unavailable Alberry, D Bernadette DIAGNOSTICS TECH Unavailable Unavailable Alberry, D Bernadette DIAGNOSTICS TECH Unavailable Unavailable Alberry, D Bernadette DIAGNOSTICS TECH Unavailable Unavailable Alberry, D Bernadette DIAGNOSTICS TECH Unavailable Unavailable Alberry, D Bernadette DIAGNOSTICS TECH Unavailable Unavailable Alberry, D Bernadette DIAGNOSTICS TECH Unavailable Unavailable Alberry, D Bernadette DIAGNOSTICS TECH Unavailable Unavailable Alberry, D Bernadette DIAGNOSTICS TECH Unavailable Unavailable Alberry, D Bernadette DIAGNOSTICS TECH Unavailable Unavailable Alberry, D Bernadette DIAGNOSTICS TECH Unavailable Unavailable Alberry, D Bernadette DIAGNOSTICS TECH Unavailable Unavailable Alberry, D Bernadette DIAGNOSTICS TECH Unavailable Unavailable Alberry, D Bernadette DIAGNOSTICS TECH Unavailable Unavailable Alberry, D Bernadette DIAGNOSTICS TECH Unavailable Unavailable Alberry, D Bernadette DIAGNOSTICS TECH Unavailable Unavailable Alberry, D Bernadette DIAGNOSTICS TECH Unavailable Unavailable Alberry, D Bernadette DIAGNOSTICS TECH Unavailable Unavailable Alberry, D Bernadette DIAGNOSTICS TECH Unavailable Unavailable Alberry, D Bernadette DIAGNOSTICS TECH Unavailable Unavailable Alberry, D Bernadette DIAGNOSTICS TECH Unavailable Unavailable Alberry, D Bernadette DIAGNOSTICS TECH Unavailable Unavailable Alberry, D Bernadette DIAGNOSTICS TECH Unavailable Unavailable Alberry, D Bernadette DIAGNOSTICS TECH Unavailable Unavailable Alberry, D Bernadette DIAGNOSTICS TECH Unavailable Unavailable Alberry, D Bernadette DIAGNOSTICS TECH Unavailable Unavailable MARIELENA, HENRRY MIGUEL PA Unavailable Unavailable MARIELENA, HENRRY MIGUEL PA Unavailable Unavailable MARIELENA, HENRRY MIGUEL PA Unavailable Unavailable MARIELENA, HENRRY MIGUEL PA Unavailable Unavailable MARIELENA, HENRRY MIGUEL PA Unavailable Unavailable MARIELNEA, HENRRY MIGUEL PA Unavailable Unavailable MARIELENA, HENRRY MIGUEL PA Unavailable Unavailable MARIELENA, HENRRY MIGUEL PA Unavailable Unavailable MARIELENA, HENRRY MIGUEL PA Unavailable Unavailable MARIELENA, HENRRY MIGUEL PA Unavailable Unavailable MARIELENA, HENRRY MIGUEL PA Unavailable Unavailable MARIELENA, HENRRY MIGUEL PA Unavailable Unavailable MARIELENA, HENRRY MIGUEL PA Unavailable Unavailable MARIELENA, HENRRY MIGUEL PA Unavailable Unavailable MARIELENA, HENRRY MIGUEL PA Unavailable Unavailable MARIELENA, HENRRY MIGUEL PA Unavailable Unavailable MARIELENA, HENRRY MIGUEL PA Unavailable Unavailable MARIELENA, HENRRY MIGUEL PA Unavailable Unavailable MARIELENA, HENRRY MIGUEL PA Unavailable Unavailable MARIELENA, HENRRY MIGUEL PA Unavailable Unavailable MARIELENA, HENRRY MIGUEL PA Unavailable Unavailable MARIELENA, HENRRY MIGUEL PA Unavailable Unavailable Mago Randall Ann Unavailable Unavailable Mago Randall Unavailable Unavailable Mago Randall Unavailable Unavailable Mago Randall Ann Unavailable Unavailable Tonia, Zully Unavailable Unavailable Tonia, Zully Unavailable Unavailable Tonia, Zully Unavailable Unavailable Tonia, Zully Unavailable Unavailable Tonia, Zully Unavailable Unavailable Tonia, Zully Unavailable Unavailable Tonia, Zully Unavailable Unavailable Tonia, Zully Unavailable Unavailable Tonia, Zully Unavailable Unavailable Tonia, Zully Unavailable Unavailable Tonia, Zully Unavailable Unavailable Tonia, Zully Unavailable Unavailable Tonia, Zully Unavailable Unavailable Tonia, Zully Unavailable Unavailable Tonia, Zully Unavailable Unavailable Tonia, Zully Unavailable Unavailable Tonia, Zully Unavailable Unavailable Tonia, Zully Unavailable Unavailable Tonia, Zully Unavailable Unavailable Tonia, Zully Unavailable Unavailable Tonia, Zully Unavailable Unavailable Tonia, Zully Unavailable Unavailable SYMENOW, G CHRISTOPHER PA Unavailable Unavailable SYMENOW, G CHRISTOPHER PA Unavailable Unavailable SYMENOW, G CHRISTOPHER PA Unavailable Unavailable SYMENOW, G CHRISTOPHER PA Unavailable Unavailable SYMENOW, G CHRISTOPHER PA Unavailable Unavailable SYMENOW, G CHRISTOPHER PA Unavailable Unavailable SYMENOW, G CHRISTOPHER PA Unavailable Unavailable SYMENOW, G CHRISTOPHER PA Unavailable Unavailable SYMENOW, G CHRISTOPHER PA Unavailable Unavailable SYMENOW, G CHRISTOPHER PA Unavailable Unavailable SYMENOW, G CHRISTOPHER PA Unavailable Unavailable SYMENOW, G CHRISTOPHER PA Unavailable Unavailable SYMENOW, G CHRISTOPHER PA Unavailable Unavailable SYMENOW, G CHRISTOPHER PA Unavailable Unavailable SYMENOW, G CHRISTOPHER PA Unavailable Unavailable SYMENOW, G CHRISTOPHER PA Unavailable Unavailable MARIELENA, HENRRY MIGUEL PA Unavailable Unavailable MARIELENA, HENRRY MIGUEL PA Unavailable Unavailable MARIELENA, HENRRY MIGUEL PA Unavailable Unavailable MARIELENA, HENRYR MIGUEL PA Unavailable Unavailable MARIELENA, HENRRY MIGUEL PA Unavailable Unavailable MARIELENA, HENRRY MIGUEL PA Unavailable Unavailable MARIELENA, HENRRY MIGUEL PA Unavailable Unavailable MARIELENA, HENRRY MIGUEL PA Unavailable Unavailable MARIELENA, HENRRY MIGUEL PA Unavailable Unavailable MARIELENA, HENRRY MIGUEL PA Unavailable Unavailable MARIELENA, HENRRY MIGUEL PA Unavailable Unavailable MARIELENA, HENRRY MIGUEL PA Unavailable Unavailable MARIELENA, HENRRY MIGUEL PA Unavailable Unavailable MARIELENA, HENRRY MIGUEL PA Unavailable Unavailable MARIELENA, HENRRY MIGUEL PA Unavailable Unavailable MARIELENA, HENRRY MIGUEL PA Unavailable Unavailable MARIELENA, HENRRY MIGUEL PA Unavailable Unavailable MARIELENA, HENRRY MIGUEL PA Unavailable Unavailable MARIELENA, HENRRY MIGUEL PA Unavailable Unavailable MARIELENA, HENRRY MIGUEL PA Unavailable Unavailable MARIELENA, HENRRY MIGUEL PA Unavailable Unavailable MARIELENA, HENRRY MIGUEL PA Unavailable Unavailable Chevy Fontenot PA-C Unavailable Gualberto Chevy PA-C Unavailable Gualberto Chevy PA-C Unavailable Gualberto Chevy PA-C Unavailable Gualberto Chevy PA-C Unavailable VELMA, L SAPNA PA Unavailable Unavailable VELMA, L SAPNA PA Unavailable Unavailable VELMA, L SAPNA PA Unavailable Unavailable VELMA, L SAPNA PA Unavailable Unavailable VELMA, L SAPNA PA Unavailable Unavailable VELMA, L SAPNA PA Unavailable Unavailable VELMA, L SAPNA PA Unavailable Unavailable VELMA, L SAPNA PA Unavailable Unavailable VELMA, L SAPNA PA Unavailable Unavailable VELMA, L SAPNA PA Unavailable Unavailable VELMA, L SAPNA PA Unavailable Unavailable VELMA, L SAPNA PA Unavailable Unavailable VELMA, L SAPNA PA Unavailable Unavailable VELMA, L SAPNA PA Unavailable Unavailable VELMA, L SAPNA PA Unavailable Unavailable VELMA, L SAPNA PA Unavailable Unavailable VELMA, L SAPNA PA Unavailable Unavailable VELMA, L SAPNA PA Unavailable Unavailable VELMA, L SAPNA PA Unavailable Unavailable VELMA, L SAPNA PA Unavailable Unavailable VELMA, L SAPNA PA Unavailable Unavailable VELMA, L SAPNA PA Unavailable Unavailable Karma Fountain MD Unavailable Unavailable Karma Fountain MD Unavailable Unavailable Karma Fountain MD Unavailable Unavailable Karma Fountain MD Unavailable Unavailable Karma Fountain MD Unavailable Unavailable Karma Fountain MD Unavailable Unavailable Karma Fountain MD Unavailable Unavailable Karma Fountain MD Unavailable Unavailable Karma Fountain MD Unavailable Unavailable Karma Fountain MD Unavailable Unavailable Karma Fountain MD Unavailable Unavailable Karma Fountain MD Unavailable Unavailable Karma Fountain MD Unavailable Unavailable Karma Fountain MD Unavailable Unavailable Karma Fountain MD Unavailable Unavailable Karma Fountain MD Unavailable Unavailable Karma Fountain MD Unavailable Unavailable Karma Fountain MD Unavailable Unavailable Karma Fountain MD Unavailable Unavailable Karma Fountain MD Unavailable Unavailable Karma Fountain MD Unavailable Unavailable Karma Fountain MD Unavailable Unavailable Karma Fountain MD Unavailable Unavailable Karma Fountain MD Unavailable Unavailable Karma Fountain MD Unavailable Unavailable Karma Fountain MD Unavailable Unavailable Karma Fountain MD Unavailable Unavailable Karma Fountain MD Unavailable Unavailable Karma Fountain MD Unavailable Unavailable Karma Fountain MD Unavailable Unavailable Karma Fountain MD Unavailable Unavailable Karma Fountain MD Unavailable Unavailable Karma Fountain MD Unavailable Unavailable Karma Fountain MD Unavailable Unavailable Karma Fountain MD Unavailable Unavailable Karma Fountain MD Unavailable Unavailable Karma Fountain MD Unavailable Unavailable Karma Fountain MD Unavailable Unavailable Karma Fountain MD Unavailable Unavailable Karma Fountain MD Unavailable Unavailable Karma Fountain MD Unavailable Unavailable Karma Fountain MD Unavailable Unavailable Karma Fountain MD Unavailable Unavailable Karma Fountain MD Unavailable Unavailable Karma Fountain MD Unavailable Unavailable Karma Fountain MD Unavailable Unavailable Karma Fountain MD Unavailable Unavailable Karma Fountain MD Unavailable Unavailable Karma Fountain MD Unavailable Unavailable Karma Fountain MD Unavailable Unavailable Karma Fountain MD Unavailable Unavailable Karma Fountain MD Unavailable Unavailable Karma Fountain MD Unavailable Unavailable Karma Fountain MD Unavailable Unavailable Karma Fountain MD Unavailable Unavailable Karma Fountain MD Unavailable Unavailable Karma Fountain MD Unavailable Unavailable Karma Fountain MD Unavailable Unavailable Karma Fountain MD Unavailable Unavailable Karma Fountain MD Unavailable Unavailable Karma Fountain MD Unavailable Unavailable Karma Fountain MD Unavailable Unavailable Karma Fountain MD Unavailable Unavailable Karma Fountain MD Unavailable Unavailable Karma Fountain MD Unavailable Unavailable Karma Fountain MD Unavailable Unavailable Karma Fountain MD Unavailable Unavailable Karma Fountain MD Unavailable Unavailable Karma Fountain MD Unavailable Unavailable Karma Fountain MD Unavailable Unavailable Karma Fountain MD Unavailable Unavailable Karma Fountain MD Unavailable Unavailable Karma Fountain MD Unavailable Unavailable Karma Fountain MD Unavailable Unavailable Karma Fountain MD Unavailable Unavailable Karma Fountain MD Unavailable Unavailable Karma Fountain MD Unavailable Unavailable Karma Fountain MD Unavailable Unavailable Karma Fountain MD Unavailable Unavailable Karma Fountain MD Unavailable Unavailable Karma Fountain MD Unavailable Unavailable Karma Fountain MD Unavailable Unavailable Karma Fountain MD Unavailable Unavailable Karma Fountain MD Unavailable Unavailable Karma Fountain MD Unavailable Unavailable Karma Fountain MD Unavailable Unavailable Karma Fountain MD Unavailable Unavailable Karma Fountain MD Unavailable Unavailable Karma Fountain MD Unavailable Unavailable Karma Fountain MD Unavailable Unavailable Karma Fountain MD Unavailable Unavailable Krama Fountain MD Unavailable Unavailable Karma Fountain MD Unavailable Unavailable INES FONTENOT MD Unavailable Unavailable INES FONTENOT MD Unavailable Unavailable INES FONTENOT MD Unavailable Unavailable INES FONTENOT MD Unavailable Unavailable INES FONTENOT MD Unavailable Unavailable FONTENOT, INES ROACH Unavailable Unavailable Villavicencio, W Dez RPA-C Unavailable Unavailable Villavicencio, W Dez RPA-C Unavailable Unavailable Villavicencio, W Dez RPA-C Unavailable Unavailable Villavicencio, W Dez RPA-C Unavailable Unavailable Villavicencio, W Dez RPA-C Unavailable Unavailable Villavicencio, W Dez RPA-C Unavailable Unavailable Villavicencio, W Dez RPA-C Unavailable Unavailable Villavicencio, W Dez RPA-C Unavailable Unavailable Villavicencio, W Dez RPA-C Unavailable Unavailable Villavicencio, W Dez RPA-C Unavailable Unavailable Villavicencio, W Dez RPA-C Unavailable Unavailable Villavicencio, W Dez RPA-C Unavailable Unavailable Villavicencio, W Dez RPA-C Unavailable Unavailable Villavicencio, W Dez RPA-C Unavailable Unavailable Villavicencio, W Dez RPA-C Unavailable Unavailable Villavicencio, W Dez RPA-C Unavailable Unavailable Villavicencio, W Dez RPA-C Unavailable Unavailable Re-disclosure Warning The records that you are about to access may contain information from federally-assisted alcohol or drug abuse programs. If such information is present, then the following federally mandated warning applies: This information has been disclosed to you from records protected by federal confidentiality rules (42 CFR part 2). The federal rules prohibit you from making any further disclosure of this information unless further disclosure is expressly permitted by the written consent of the person to whom it pertains or as otherwise permitted by 42 CFR part 2. A general authorization for the release of medical or other information is NOT sufficient for this purpose. The Federal rules restrict any use of the information to criminally investigate or prosecute any alcohol or drug abuse patient.The records that you are about to access may contain highly sensitive health information, the redisclosure of which is protected by Article 27-F of the [facility] Public Health law. If you continue you may have access to information: Regarding HIV / AIDS; Provided by facilities licensed or operated by the [facility] Office of Mental Health; or Provided by the [facility] Office for People With Developmental Disabilities. If such information is present, then the following [facility] mandated warning applies: This information has been disclosed to you from confidential records which are protected by state law. State law prohibits you from making any further disclosure of this information without the specific written consent of the person to whom it pertains, or as otherwise permitted by law. Any unauthorized further disclosure in violation of state law may result in a fine or correction sentence or both. A general authorization for the release of medical or other information is NOT sufficient authorization for further disc losure. Family History Family Member Name Family Member Gender Family Member Status Date o f Status Description Data Source(s) Unknown Female Problem [facility] ([facility]) Unknown Female Problem [facility] ([facility]) Encounters Encounter Providers Location Date Indications Data Source(s ) Emergency Attender: RAUL HOPPER PAReferrer: Tk DOWNSP 03/04/2021 11:26:00 AM EDT - 03/04/2021 11:26:00 AM EDT [facility] Patient discharged. [place] [address] [facility] [place] [address] 02/18/2021 12:00:00 AM EDT eCW1 ([facility]) Unknown [address] [facility] [place] [address] 02/17/2021 12:00:00 AM EDT eCW1 ([facility]) Unknown [address] [facility] [place] [address] 02/17/2021 12:00:00 AM EDT eCW1 ([facility]) Unknown [address] [facility] [place] [address] 02/12/2021 12:00:00 AM EDT eCW1 ([facility]) Outpatient Attender: Chevy Fontenot PA-C [id number] 02/10/2021 12:23:00 PM EDT [facility] Emergency Attender: Chevy VIERACReferrer: Ericka Lee DIAGNOSTICS TECH EMERGENCY ROOM-ER 02/10/2021 11:58:00 AM EDT - 02/10/2021 03:15:00 PM EDT [facility] Patient discharged. Unknown [address] [facility] [address] 02/05/2021 12:00:00 AM EDT eCW1 ([facility]) Roland Fountain MD: [address] [place] [phone], Ph. Attender: Roland Fountain MD [facility] Medical 01/16/2021 12:00:00 AM EDT [facility] ([facility]) Outpatient Attender: INES FONTENOT MDConsultant: [facility] [id number] 01/14/2021 03:47:00 PM EDT [facility] Emergency Attender: Chevy VIERACReferrer: Ericka Lee [facility] EMERGENCY ROOM-ER 01/14/2021 03:30:00 PM EDT - 01/14/2021 04:23:00 PM EDT [facility] Patient discharged. Emergency Attender: MIGUEL BOSEeferrer: Joel Lee [facility] EMERGENCY ROOM-ER 01/05/2021 01:48:00 PM EDT - 01/05/2021 02:17:00 PM EDT [facility] Patient discharged. Outpatient Attender: MIGUEL PEGUERO PAConsultant: [facility] [id number] 01/05/2021 01:37:00 PM EDT [facility] Unknown [facility] [id number] 09/23/2020 12:00:00 AM EDT eCW1 ([facility]) Mago Randall MD: [address] [place] [address], Ph. Attender: Mago Randall [facility] Medical 09/17/2020 12:00:00 AM EDT [facility] ([facility]) Mago Randall MD: [address] [place] [address], Ph. Attender: Mago Randall [facility] Medical 09/17/2020 12:00:00 AM EDT [facility] ([facility]) Outpatient Attender: MIGUEL PEGUERO PAConsultant: [facility] [id number] 09/02/2020 06:16:00 PM EDT [facility] Emergency Attender: MIGUEL BOSEeferrer: Joel Lee [facility] EMERGENCY ROOM-ER 09/02/2020 04:49:00 PM EDT - 09/02/2020 05:01:00 PM EDT [facility] Patient discharged. Unknown [address] [facility] [place] [address] 08/26/2020 12:00:00 AM EDT eCW1 ([facility]) Outpatient [address] [facility] [place] [address] 05/30/2020 12:00:00 AM EST eCW1 ([facility]) Emergency Attender: RAUL Maynard: Tk Lee [facility] 04/15/2020 10:57:00 AM EST - 04/15/2020 12:11:00 PM [facility] Patient discharged. Emergency Attender: ULICES Maceer: Bernadette rodríguez [facility] 03/16/2020 01:48:00 PM EST - 03/16/2020 02:05:00 PM [facility] pital Patient discharged. Emergency Attender: Dez ROBERSONCReferrer: Bernadette jones [facility] [facility] 03/08/2020 03:30:00 PM EDT - 03/08/2020 03:35:00 PM EDT [facility] Patient discharged. Outpatient Attender: Roland Fountain MD 02/12/2020 07:59:01 AM EDT [facility] Outpatient Attender: Roland Fountain MD 02/12/2020 07:59:00 AM EDT [facility] Outpatient Attender: Roland Fountain MD 02/01/2020 08:01:06 PM EDT [facility] Outpatient Attender: Roland Fountain MD 01/30/2020 09:36:02 AM EDT [facility] Outpatient Attender: Roland Fountain MD 01/30/2020 09:36:00 AM EDT [facility] Outpatient Attender: Roland Fountain MD 01/17/2020 04:19:02 PM EDT [facility] Outpatient Attender: Roland Fountain MD FP 01/17/2020 04:19:01 PM EDT [facility] Outpatient Attender: Roland Fountain MD FP 01/17/2020 03:51:05 PM EDT [facility] Outpatient Attender: Roland Fountain MD 01/17/2020 03:51:03 PM EDT [facility] Emergency Attender: RAUL Maceer : Bernadette Lee DIAGNOSTICS TECH EMERGENCY ROOM-ER 12/07/2019 12:18:00 PM EDT - 12/07/2019 04:42:00 PM [facility] Patient discharged. Emergency Attender: SAPNA CAICEDO 09/07 04:41:00 PM EDT - 09/29/2019 06:58:00 PM [facility] Patient discharged. Immunizations Vaccine Date Status Description Data Source(s) INFLUENZA VACCINE QUADRIVALENT (65 YR UP)/MF59 C.1/PF 03/14/2020 12:00:00 AM EST completed [facility] Medications Medication Brand Name Start Date Product Form Dose Route Admi nistrative Instructions Pharmacy Instructions Status Indications Reaction Description Data Source(s) 100 mg 03/03/2021 12:00:00 AM EDT tablet 30 TAKE ONE TABLET BY MOUTH EVERY DAY TAKE ONE TABLET BY MOUTH EVERY DAY SOLD: 03/03/2021 [facility] Insulin Lispro 25 UNT/ML / Insulin, Prot amine Lispro, Human 75 UNT/ML Injectable Suspension [Humalog Mix] 100 unit/mL (75-25) INSULIN LISPRO PROTAMIN/LISPRO 02/11/2021 12:00:00 AM EDT suspension 20 INJEC T 30 UNITS UNDER THE SKIN TWO TIMES A DAY MAX OF 60 UNITS INJECT 30 UNITS UNDER THE SKIN TWO TIMES A DAY MAX OF 60 UNITS SOLD: 02/11/2021 [facility] 300 mg 02/10/2021 12:00:00 AM EDT capsule 20 TAKE ONE CAPSULE BY MOUTH TWICE A DAY TAKE ONE CAPSULE BY MOUTH TWICE A DAY SOLD: 02/10/2021 [facility] 0.4 mg 01/16/2021 12:00:00 AM EDT capsule 30 TAKE ONE CAPSULE BY MOUTH EVERY DAY TAKE ONE CAPSULE BY MOUTH EVERY DAY SOLD: 01/16/2021 [facility] 300 mg 01/14/2021 12:00:00 AM EDT capsule 14 TAKE ONE CAPSULE BY MOUTH TWICE A DAY DIRECTED FOR 7 DAYS TAKE ONE CAPSULE BY MOUTH TWICE A DAY DIRECTED FOR 7 DAYS SOLD: 01/14/2021 [facility] 100 mg 01/05/2021 12:00:00 AM EDT tablet 6 TAKE ONE TABLET BY MOUTH THREE TIMES A DAY DIRECTED TAKE ONE TABLET BY MOUTH THREE TIMES A DAY DIRECTED SOLD: 01/05/2021 [facility] 300 mg 01/05/2021 12:00:00 AM EDT capsule 14 TAKE ONE CAPSULE BY MOUTH TWICE A DAY DIRECTED TAKE ONE CAPSULE BY MOUTH TWICE A DAY DIRECTED SOLD : 01/05/2021 [facility] 0.4 mg 12/12/2020 12:00:00 AM EDT capsule 30 TAKE ONE CAPSULE BY MOUTH EVERY DAY TAKE ONE CAPSULE BY MOUTH EVERY DAY SOLD: 12/12/2020 [facility] Insulin Lispro 25 UNT/ML / Insulin, Prot amine Lispro, Human 75 UNT/ML Injectable Suspension [Humalog Mix] 100 unit/mL (75-25) INSULIN LISPRO PROTAMIN/LISPRO 12/12/2020 12:00:00 AM EDT suspension 20 INJEC T 30 UNITS UNDER THE SKIN TWO TIMES A DAY MAXIMUM DAILY DOSE = 60 UNITS INJECT 30 UNITS UNDER THE SKIN TWO TIMES A DAY MAXIMUM DAILY DOSE = 60 UNITS SOLD: 12/12/2020 [facility] 0.4 mg 12/07/2020 12:00:00 AM EDT capsule 30 TAKE ONE CAPSULE BY MOUTH EVERY DAY TAKE ONE CAPSULE BY MOUTH EVERY DAY SOLD: 12/07/2020 [facility] 100 mg 11/09/2020 12:00:00 AM EDT tablet 30 TAKE ONE TABLET BY MOUTH EVERY DAY TAKE ONE TABLET BY MOUTH EVERY DAY SOLD: 11/09/2020 [facility] atorvastatin 20 MG Oral Tablet ATORVASTATIN CALCIUM 11/09/2020 1 2:00:00 AM EDT tablet 30 TAKE ONE TABLET BY MOUTH EVERY D AY TAKE ONE TABLET BY MOUTH EVERY DAY SOLD: 11/09/2020 [facility] 0.4 mg 10/11/2020 12:00:00 AM EDT capsule 30 TAKE ONE CAPSULE BY MOUTH EVERY DAY TAKE ONE CAPSULE BY MOUTH EVERY DAY SOLD: 10/14/2020 [facility] 0.5 mL 31 gauge x 5/16" 09/30/2020 12:00:00 AM EDT syringe 100 USE FOR INSULIN INJECTION UNDER THE SKIN TWO TIMES A DAY USE FOR INSULIN INJECTION UNDER THE SKIN TWO TIMES A DAY SOLD: 09/30/2020 [facility] atorvastatin 20 MG Oral Tablet ATORVASTATIN CALCIUM 09/30/2020 1 2:00:00 AM EDT tablet 30 TAKE ONE TABLET BY MOUTH EVERY D AY TAKE ONE TABLET BY MOUTH EVERY DAY SOLD: 09/30/2020 [facility] 100 mg 09/30/2020 12:00:00 AM EDT tablet 30 TAKE ONE TABLET BY MOUTH EVERY DAY TAKE ONE TABLET BY MOUTH EVERY DAY SOLD: 09/30/2020 [facility] Insulin Lispro 25 UNT/ML / Insulin, Prot amine Lispro, Human 75 UNT/ML Injectable Suspension [Humalog Mix] 100 unit/mL (75-25) INSULIN LISPRO PROTAMIN/LISPRO 09/30/2020 12:00:00 AM EDT suspension 20 INJEC T 30 UNITS UNDER THE SKIN TWO TIMES A DAY MAXIMUM DAILY DOSE = 60 UNITS INJECT 30 UNITS UNDER THE SKIN TWO TIMES A DAY MAXIMUM DAILY DOSE = 60 UNITS SOLD: 09/30/2020 [facility] 0.4 mg 09/17/2020 12:00:00 AM EDT capsule 30 TAKE ONE CAPSULE BY MOUTH EVERY DAY TAKE ONE CAPSULE BY MOUTH EVERY DAY SOLD: 09/17/2020 [facility] 0.4 mg 09/08/2020 12:00:00 AM EDT capsule 7 TAKE 1 CAPSULE BY MOUTH DAILY TAKE 1 CAPSULE BY MOUTH DAILY SOLD: 09/09/2020 [facility] 100 mg 08/12/2020 12:00:00 AM EDT tablet 30 TAKE ONE TABLET BY MOUTH EVERY DAY TAKE ONE TABLET BY MOUTH EVERY DAY SOLD: 08/12/2020 [facility] atorvastatin 20 MG Oral Tablet ATORVASTATIN CALCIUM 08/12/2020 1 2:00:00 AM EDT tablet 30 TAKE 1 TABLET BY MOUTH ONCE DAILY TAKE 1 TABLET BY MOUTH ONCE DAILY SOLD: 08/12/2020 [facility] 0.3 % 04/15/2020 12:00:00 AM EST drops 5 INSTILL 10 DROPS INTO THE RIGHT EAR ONCE DAILY FOR 10 DAYS INSTILL 10 DROPS INTO THE RIGHT EAR ONCE DAILY FOR 10 DAYS SOLD: 04/15/2020 [facility] 300 mg 04/15/2020 12:00:00 AM EST capsule 14 TAKE 1 CAPSULE BY MOUTH TWO TIMES A DAY TAKE 1 CAPSULE BY MOUTH TWO TIMES A DAY SOLD: 04/15/2020 [facility] 875-125 mg 03/16/2020 12:00:00 AM EST tablet 20 TAKE ONE TABLET BY MOUTH TWICE A DAY FOR 10 DAYS TAKE ONE TABLET BY MOUTH TWICE A DAY FOR 10 DAYS SOLD: 03/16/2020 [facility] 0.3-0.1 % 03/08/2020 12:00:00 AM EDT drops,suspension 7 USE 4 DROPS INTO THE RIGHT EAR TWO TIMES A DAY FOR 7 DAYS USE 4 DROPS INTO THE RIGHT EAR TWO TIMES A DAY FOR 7 DAYS SOLD: 03/08/2020 [facility] 100 unit/mL (75-25) 12/15/2019 12:00:00 AM EDT suspension 10 INJECT 30 UNITS UNDER THE SKIN TWO TIMES A DAY MAXIMUM DAILY DOSE = 60 UNITS INJECT 30 UNITS UNDER THE SKIN TWO TIMES A DAY MAXIMUM DAILY DOSE = 60 UNITS SOLD: 01/19/2020 [facility] 100 unit/mL (75-25) 12/15/2019 12:00:00 AM EDT suspension 10 INJECT 30 UNITS UNDER THE SKIN TWO TIMES A DAY MAXIMUM DAILY DOSE = 60 UNITS INJECT 30 UNITS UNDER THE SKIN TWO TIMES A DAY MAXIMUM DAILY DOSE = 60 UNITS SOLD: 08/12/2020 [facility] 100 mg 10/25/2019 12:00:00 AM EDT tablet 30 TAKE ONE TABLET BY MOUTH EVERY DAY TAKE ONE TABLET BY MOUTH EVERY DAY SOLD: 03/14/2020 [facility] 100 mg 10/25/2019 12:00:00 AM EDT tablet 30 TAKE ONE TABLET BY MOUTH EVERY DAY TAKE ONE TABLET BY MOUTH EVERY DAY SOLD: 01/19/2020 [facility] 0.4 mg 10/11/2019 12:00:00 AM EDT capsule 30 TAKE 1 CAPSULE BY MOUTH DAILY TAKE 1 CAPSULE BY MOUTH DAILY SOLD: 01/08/2020 [facility] 0.4 mg 10/11/2019 12:00:00 AM EDT capsule 30 TAKE 1 CAPSULE BY MOUTH DAILY TAKE 1 CAPSULE BY MOUTH DAILY SOLD: 08/12/2020 [facility] 0.4 mg 10/11/2019 12:00:00 AM EDT capsule 30 TAKE 1 CAPSULE BY MOUTH DAILY TAKE 1 CAPSULE BY MOUTH DAILY SOLD: 05/28/2020 [facility] atorvastatin 20 MG Oral Tablet ATORVASTATIN CALCIUM 10/01/2019 1 2:00:00 AM EDT tablet 30 TAKE 1 TABLET BY MOUTH ONCE DAILY TAKE 1 TABLET BY MOUTH ONCE DAILY SOLD: 03/14/2020 [facility] 0.5 mL 31 gauge x 5/16" 09/28/2019 12:00:00 AM EDT syringe 100 USE FOR INSULIN INJECTION UNDER THE SKIN TWO TIMES A DAY USE FOR INSULIN INJECTION UNDER THE SKIN TWO TIMES A DAY SOLD: 01/08/2020 [facility] BLOOD SUGAR DIAGNOSTIC 09/03/2019 12:00:00 AM EDT strip 100 TEST FOUR TIMES A DAY TEST FOUR TIMES A DAY SOLD: 01/14/2020 [facility] Ciprofloxacin 3 MG/ML / Dexamethasone 1 MG/ML Otic Suspension ciprofloxacin 0.3 %-dexamethasone 0.1 % ear drops,suspension USE 4 DROPS INTO THE RIGHT EAR TWO TIMES A DAY FOR 7 DAYS ciprofloxacin 0.3 %-dexamethasone 0.1 % ear drops,suspension USE 4 DROPS INTO THE RIGHT EAR TWO TIMES A DAY FOR 7 DAYS completed ciprofloxa dayna 3 MG/ML / dexamethasone 1 MG/ML Otic Suspension GARETH ([facility]) Prednisone 10 MG Oral Tablet prednisone 10 mg tablet TAKE 4 TABLETS BY MOUTH ONCE DAILY DECREASE BY 1 TABLET EVERY 3 DAYS prednisone 10 mg tablet TAKE 4 TABLETS BY MOUTH ONCE DAILY DECREASE BY 1 TABLET EVERY 3 DAYS completed prednisone 10 MG Oral Tablet ATH EMEKA ([facility]) Ofloxacin 3 MG/ML Otic Solution ofloxaci n 0.3 % ear drops INSTILL 10 DROPS INTO THE RIGHT EAR ONCE DAILY FOR 10 DAYS ofloxacin 0.3 % ear drops INSTILL 10 JAMAR PS INTO THE RIGHT EAR ONCE DAILY FOR 10 DAYS completed ofloxacin 3 MG/ML Otic Solution GARETH ([facility]) Prednisone 10 MG Oral Tablet prednisone 10 mg tablet TAKE 4 TABLETS BY MOUTH ONCE DAILY DECREASE BY 1 TABLET EVERY 3 DAYS prednisone 10 mg tablet TAKE 4 TABLETS BY MOUTH ONCE DAILY DECREASE BY 1 TABLET EVERY 3 DAYS completed prednisone 10 MG Oral Tablet ATH EMEKA ([facility]) Sulfamethoxazole 800 MG / Trimethoprim 1 60 MG Oral Tablet sulfamethoxazole 800 mg-trimethoprim 160 mg tablet TAKE ONE TABLET BY MOUTH TWICE A DAY FOR 7 DAYS STOP NITROFURANTOIN RX sulfamethoxazole 800 mg-trimethoprim 160 mg tablet TAKE ONE TABLET BY MOUTH TWICE A DAY FOR 7 DAYS STOP NITROFURANTOIN RX completed sulfamethoxazole 800 MG / trimet hoprim 160 MG Oral Tablet GAR[facility] ([facility]) NITROFURANTOIN, MACROCRYSTALS 25 MG / Ni trofurantoin, Monohydrate 75 MG Oral Capsule nitrofurantoin monohydrate/macrocrystals 100 mg capsule TAKE ONE CAPSULE BY MOUTH TWICE A DAY FOR 7 DAYS nitrofurantoin monohydrate/macrocrystals 100 mg capsule TAKE ONE CAPSULE BY MOUTH TWICE A DAY FOR 7 DAYS completed nitrofurantoin, macrocrystal s 25 MG / nitrofurantoin, monohydrate 75 MG Oral Capsule SORRENTO ([facility]) Amoxicillin 875 MG / Clavulanate 125 MG Oral Tablet amoxicillin 875 mg-potassium clavulanate 125 mg tablet TAKE ONE TABLET BY MOUTH TWICE A DAY FOR 10 DAYS amoxicillin 875 mg-potassium clavulanate 125 mg tablet TAKE ONE TABLET BY MOUTH TWICE A DAY FOR 10 DAYS completed amoxicillin 875 MG / clavulanate 125 MG Oral Tablet SORRENTO ([facility]) Furosemide 20 MG Oral Tablet furosemide 20 mg tablet TAKE ONE TABLET BY MOUTH EVERY DAY furosemide 20 mg tablet TAKE ONE TABLET BY MOUTH EVERY DAY completed furosemide 20 MG Oral Tablet SORRENTO ([facility]) Sulfamethoxazole 800 MG / Trimethoprim 1 60 MG Oral Tablet sulfamethoxazole 800 mg-trimethoprim 160 mg tablet TAKE ONE TABLET BY MOUTH TWICE A DAY FOR 7 DAYS STOP NITROFURANTOIN RX sulfamethoxazole 800 mg-trimethoprim 160 mg tablet TAKE ONE TABLET BY MOUTH TWICE A DAY FOR 7 DAYS STOP NITROFURANTOIN RX completed sulfamethoxazole 800 MG / trimet hoprim 160 MG Oral Tablet SORRENT[facility] ([facility]) cefdinir 300 MG Oral Capsule cefdinir 30 0 mg capsule TAKE ONE CAPSULE BY MOUTH TWICE A DAY cefdinir 300 mg capsule TAKE ONE CAPSULE BY MOUTH TWICE A DAY completed cefdinir 300 MG Oral Capsule SORRENTO ([facility]) Amoxicillin 875 MG / Clavulanate 125 MG Oral Tablet amoxicillin 875 mg-potassium clavulanate 125 mg tablet TAKE ONE TABLET BY MOUTH TWICE A DAY FOR 10 DAYS amoxicillin 875 mg-potassium clavulanate 125 mg tablet TAKE ONE TABLET BY MOUTH TWICE A DAY FOR 10 DAYS completed amoxicillin 875 MG / clavulanate 125 MG Oral Tablet SORRENTO ([facility]) Furosemide 20 MG Oral Tablet furosemide 20 mg tablet TAKE ONE TABLET BY MOUTH EVERY DAY furosemide 20 mg tablet TAKE ONE TABLET BY MOUTH EVERY DAY completed furosemide 20 MG Oral Tablet SORRENTO ([facility]) Ciprofloxacin 3 MG/ML / Dexamethasone 1 MG/ML Otic Suspension ciprofloxacin 0.3 %-dexamethasone 0.1 % ear drops,suspension USE 4 DROPS INTO THE RIGHT EAR TWO TIMES A DAY FOR 7 DAYS ciprofloxacin 0.3 %-dexamethasone 0.1 % ear drops,suspension USE 4 DROPS INTO THE RIGHT EAR TWO TIMES A DAY FOR 7 DAYS completed ciprofloxa dayna 3 MG/ML / dexamethasone 1 MG/ML Otic Suspension G[facility] ([facility]) Ofloxacin 3 MG/ML Otic Solution ofloxaci n 0.3 % ear drops INSTILL 10 DROPS INTO THE RIGHT EAR ONCE DAILY FOR 10 DAYS ofloxacin 0.3 % ear drops INSTILL 10 JAMAR PS INTO THE RIGHT EAR ONCE DAILY FOR 10 DAYS completed ofloxacin 3 MG/ML Otic Solution G[facility] ([facility]) NITROFURANTOIN, MACROCRYSTALS 25 MG / Ni trofurantoin, Monohydrate 75 MG Oral Capsule nitrofurantoin monohydrate/macrocrystals 100 mg capsule TAKE ONE CAPSULE BY MOUTH TWICE A DAY FOR 7 DAYS nitrofurantoin monohydrate/macrocrystals 100 mg capsule TAKE ONE CAPSULE BY MOUTH TWICE A DAY FOR 7 DAYS completed nitrofurantoin, macrocrystal s 25 MG / nitrofurantoin, monohydrate 75 MG Oral Capsule G[facility] ([facility]) Insurance Providers Payer name Policy type / Coverage type Policy ID Covered democrat ID Covered democrat's relationship to bear Policy Bear Plan Information MEDICARE A [id number] Self [id number] A MEDICARE [id number] S [id number] A Medicare P [id number] S [id number] Medicare P [id number] S [id number] A MEDICAID M [id number] Self [id number] [place] [facility] Part B [id number] Self [id number] Medicare [facility] Medicare Primary [id number] Self [id number] Medicare [facility] Medicare Primary [id number] Self Medicaid [place] Medigap Part B [id number] Self Medicare [facility] Medicare Primary [id number] Self [id number] Medicare [facility] Medicare Primary [id number] Self [id number] Medicaid S [id number] S [id number] [place] [id number] Self [id number] [place] Primary [id number] Self [id number] [place] Primary [id number] Self [id number] [place] Primary [id number] Self [id number] [place] Primary [id number] Self [id number] [place] [id number] Self [id number] [facility] [id number] S [id number] Medicaid S [id number] S [id number] DME Jurisdiction A [facility] C [id number] SELF [id number] Medicaid [facility] Healthcare S D [id number] SELF [id number] Medicare C [id number] SELF [id number] E23 Medicaid S [id number] S [id number] E23 Medicaid S [id number] S [id number] [facility] HEALTH PLANS [id number] S [id number] [facility] DUAL COMPLET [id number] S [id number] [facility] DUAL COMPLET [id number] S [id number] [facility] DUAL COMPLET [id number] S [id number] [facility] [place] XIX MAN -PHYSICIAN [id number] 18 [id number] [facility] [place] -[place] [id number] 18 [id number] Accident Ins (pr) Medigap Part B [id number] Self [id number] Accident Ins (pr) Medigap Part B [id number] Self [id number] ANSI-Medicare Part B [id number] ANSI-Medicaid [id number] ANSI-Medicaid [id number] ANSI-Medicare Part B [id number] ANSI-Medicaid [id number] ANSI-Medicare Part B [id number] ANSI-Medicaid [id number] ANSI-Medicare Part B [id number] ANSI-Medicaid [id number] ANSI-Medicare Part B [id number] ANSI-Medicaid [id number] ANSI-Medicare Part B [id number] [facility] [id number] Self [id number] ANSI-Medicaid [id number] ANSI-Medicare Part B [id number] ANSI-Medicaid [id number] ANSI-Medicare Part B [id number] [facility] [id number] Self [id number] MEDICAID M [id number] S [id number] MEDICARE C [id number] S [id number] A Accident Ins (pr) Medigap Part B [id number] Self [id number] [place] Part B [id number] Self [id number] Medicare [place] Medicare Primary [id number] Self [id number] [place] [id number] Self [id number] Medicare [place] Medicare Primary [id number] Self [id number] Accident Ins (pr) Medigap Part B [id number] Self [id number] Accident Ins (pr) Medigap Part B [id number] Self [id number] [employer] [place] [id number] SP [id number] [employer] [place] [id number] SP [id number] Accident Ins (pr) Medigap Part B [id number] Self [id number] Accident Ins (pr) Medigap Part B [id number] Self [place] [id number] SP [id number] Accident Insurance Medigap Part B [id number] Self MEDICAID [id number] S [id number] [facility] [id number] SP [id number] A [facility] MEDICAID [id number] SP [id number] A MEDICAID [id number] S [id number] MEDICAID [id number] S [id number] [id number] SP [id number] MEDICARE [id number] SP [id number] [place] [id number] SP [id number] [facility] [id number] S [id number] [place]IC[place] [id number] S [id number] [employer] [id number] SP [id number] [employer] P [id number] S [id number] [employer] PPO [id number] SP [id number] MEDICAID [id number] S [id number] [facility] MEDICARE DIVISION [id number] S [id number] [place]ICARE [place] [id number] S [id number] [facility] MEDICARE DIVISION [id number] S [id number] [place]IC[place] [id number] S [id number] Medicare S [id number] S [id number] A [facility] MEDICAID [place] [id number] A [facility] MEDICARE PART A [facility] [id number] 18 [id number] MEDICAID [id number] SP [id number] MEDICARE [id number] SP [id number] A [facility] [id number] SP [id number] MEDICAID [id number] [facility] MEDICARE PART A [facility] [id number] 18 [id number] [facility] [id number] SP [id number] Medicaid Commercial [id number] Self [id number] [facility] Medicare Part A [place] Primary [id number] Self [id number] MEDICARE PART A -O/P [id number] Problems, Conditions, and Diagnoses Code Display Name Description Problem Type Effective Dates Data Source(s) Z79.84 [facility] (CURRENT) USE OF ORAL HYPOGLYC EMIC DRUGS [facility] (CURRENT) USE OF ORAL HYPOGLYCEMIC DRUGS Diagnosis 02/10/2021 11:58:00 AM EDT [facility] Z20.822 CONTACT WITH AND (SUSPECTED) EXPOSURE TO COVID-19 CONTACT WITH AND (SUSPECTED) EXPOSURE TO COVID-19 Diagnosis 02/10/2021 11:58:00 AM EDT [facility] Z87.891 Personal history of nicotine dependence PERSONAL HISTORY OF NICOTINE DEPENDENCE Diagnosis 02/10/2021 11:58:00 AM [facility] Z90.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 ACQUIRED ABSENCE OF OTHER SPECIFIED PARTS OF DIGES Diagnosis 02/10/2021 11:58:0 0 AM [facility] Z79.899 Other fpc (current) drug therapy O THER [facility] (CURRENT) DRUG THERAPY Diagnosis 02/10/2021 11:58:00 AM [facility] I10 Essential (primary) hypertension ESSENTIAL (PRIMARY) H YPERTENSION Diagnosis 02/10/2021 11:58:00 AM [facility] E10.65 Type 1 diabetes mellitus with hyperglyce selena TYPE 1 DIABETES MELLITUS WITH HYPERGLYCEMIA Diagnosis 02/10/2021 11:58:00 AM [facility] N39.0 Urinary tract infection, site not specif ied URINARY TRACT INFECTION, SITE NOT SPECIFIED Diagnosis 02/10/2021 11:58:00 AM [facility] R51.9 HEADACHE, UNSPECIFIED HEADACHE, UNSPECIFIED Diagnosis 02/10/2021 11:58:00 AM [facility] Z79.4 senior care (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 Diagnosis 01/14/2021 03:30:00 PM [facility] E11.9 Type 2 diabetes mellitus without complic ations TYPE 2 DIABETES MELLITUS WITHOUT COMPLICATIONS Diagnosis 01/14/2021 03:30:00 PM [facility] stephani N30.01 Acute cystitis with hematuria ACUTE CYSTITIS WITH ARTEM TURIA Diagnosis 01/14/2021 03:30:00 PM [facility] R30.0 Dysuria DYSURIA Diagnosis 01/14/2021 03:30:00 PM [facility] R35.0 Frequency of micturition FREQUENCY OF MICTURITION Diag nosis 09/02/2020 04:49:00 PM [facility] G89.29 Other chronic pain OTHER CHRONIC PAIN Diagnosis 12/2019 10:57:00 AM [facility] M20.001 Unspecified deformity of right finger(s) UNSPECIFIED DEFORMITY OF RIGHT FINGER(S) Diagnosis 04/15/2020 10:57:00 AM [facility] M79.644 Pain in right finger(s) PAIN IN RIGHT FINGER(S) Diagno sis 04/15/2020 10:57:00 AM [facility] H66.001 Acute suppurative otitis med ia without spontaneous rupture of ear drum, right ear ACUTE SUPPR OTITIS MEDIA W/O SPON RUPT EAR DRUM, R Diagnosis 04/15/2020 10:57:00 AM [facility] H60.311 Diffuse otitis externa, right ear DIFFUSE OTITIS EXTERNA, RIGHT EAR Diagnosis 04/15/2020 10:57:00 AM [facility] H61.21 Impacted cerumen, right ear IMPACTED CERUMEN, RIGHT EA R Diagnosis 04/15/2020 10:57:00 AM [facility] H92.01 Otalgia, right ear OTALGIA, RIGHT EAR Diagnosis 12/2019 10:57:00 AM [facility] H60.11 Cellulitis of right external ear CELLULITIS OF R IGHT EXTERNAL EAR Diagnosis 03/08/2020 03:30:00 PM [facility] H60.501 Unspecified acute noninfective otitis ex terna, right ear UNSPECIFIED ACUTE NONINFECTIVE OTITIS EXTERNA, RIG Diagnosis 03/08/2020 03:30:00 P M [facility] [id number] Benign prostatic hyperplasia Benign Prostatic Hyperpla lele Problem 09/05/2020 12:00:00 AM [facility] ([facility]) [id number] Benign prostatic hyperplasia Benign Prostatic Hyperpla lele Problem 09/05/2020 12:00:00 AM T [facility] ([facility]) K21.9 Gastroesophageal reflux disease without esophagitis Gastroesophageal reflux disease without esophagitis Problem 05/30/2020 12:00:00 AM ES T eCW1 ([facility]) H90.3 [id number] Sensorineural hearing loss (SNHL) of both ears Problem 05/30/2020 12:00:00 AM EST eCW1 ([facility]) Surgeries/Procedures Procedure Description Date Indications Data Source(s) INJECTION 1 TENDON SHEATH/LIGAMENT APONEUROSIS 020 12:00:00 AM EST MEDENT ([facility]) RADEX WRIST 2 VIEWS 04/18/2020 12:00:00 AM EST MEDENT ([facility] ) Results ID Date Data Source [id number] 03/04/2021 09:22:00 PM [facility] l Patient: ULICES GUY Observation Report - Physicians/Mid Levels [facility].VisitID: [id number] [place] [address] [phone], MRegistration Date/Time: 03/04/2021 10:51 Weight:90.7 kg (S). Height/Length:66 inches (S). BMI:32.3 PAST HISTORYProblems:Arthritis [Chronic].Diabetes Mellitus [Chronic].UTI - Urinary Tract Infection [Chronic].Hypertension [Chronic].Hearing Loss [Chronic]. Additional Surgeries:Bilat shoulders.Cholecystectomy. Medications:Atorvastatin Calcium Oral 20 mg, daily, last dose 03/04/2021.Furosemide Oral 20 mg, 2x a day, last dose 03/04/2021.HumaLOG Subcutaneous 30 units, 2x a day, last dose 03/04/2021.Januvia Oral (Tablet 100 mg) 1 tablet, daily every AM, last dose 03/04/2021.Tamsulosin HCl Oral 0.4 mg, daily, last dose 03/04/2021. Allergies:No Known Drug Allergy. FAMILY HISTORYMother: Cancer. Brother(s): Diabetes Mellitus. INSTRUCTIONSYour Current Medications: Your current home medications have been reviewed. CONTINUE TAKING THE FOLLOWING MEDICATIONS:Atorvastatin Calcium Oral : 20 mg daily, Last: 03/04/2021. Furosemide Oral : 20 mg 2x a day, Last: 03/04/2021. HumaLOG Subcutaneous : 30 units 2x a day, Last: 03/04/2021. Januvia Oral : Tablet 100 mg, 1 tablet daily, Last: 03/04/2021, every AM. Tamsulosin HCl Oral : 0.4 mg daily, Last: 03/04/2021. (Electronically signed by Juan Manuel Anton 03/04/2021 21:19) Name Value Range Interpretation Code Description Data Luz rce(s) Supporting Document(s) ID Date Data Source [id number] 02/11/2021 11:15:00 AM EDT [facility] Patient: ULICES GUY Observation Report - Physicians/Mid Levels HealthVisitID: [id number] [place] [address] [phone], MRegistration Date/Time: 02/10/2021 11:17 Weight:90.7 kg (S). Height/Length:66 inches (S). BMI:32.3 PAST HISTORYProblems:Diabetes Mellitus [Chronic].Arthritis [Chronic].Hearing Loss [Chronic].UTI - Urinary Tract Infection [Chronic].Hypertension [Chronic].UTI - Urinary Tract Infection.Otitis Externa [Resolved].Impacted Cerumen [Resolved]. Additional Surgeries:Bilat shoulders.Cholecystectomy. Medications:Atorvastatin Calcium Oral 20 mg, daily, last dose 02/10/2021.Furosemide Oral 20 mg, 2x a day, last dose 02/10/2021.HumaLOG Subcutaneous 30 units, 2x a day, last dose 02/10/2021.Januvia Oral (Tablet 100 mg) 1 tablet, daily every AM, last dose 02/10/2021.Tamsulosin HCl Oral 0.4 mg, daily, last dose 02/10/2021. Allergies:No Known Drug Allergy. FAMILY HISTORYNo significant family medical history. (Electronically signed by Chevy Fontenot PA-C 02/11/2021 11:09) Name Value Range Interpretation Code Description Data Luz rce(s) Supporting Document(s) ID Date Data Source [id number] 02/10/2021 01:21:00 PM EDT [facility] l DATE OF EXAMINATION: 02/10/2021 12:51 EDT ABD/PEL NO CONTRAST HISTORY: Generalized abdominal pain TECHNIQUE: This CT exam was performed using the following dose reduction techniques:automated exposure control, adjustment of mA and/or kV according to thepatient's size, and use of iterative reconstruction technique. Standard contiguous axial spiral imaging was obtained from the dome of thediaphragms through the symphysis pubis without oral contrast and withoutintravenous contrast administration and with coronal reformatting. FINDINGS: Lower thorax: Calcified pleural plaque formation on the left side. Severecalcified coronary arterial plaque formation. ABDOMEN: Liver: Moderate fatty infiltration. No focal massGallbladder and bile ducts: CholecystectomyPancreas: UnremarkableSpleen: UnremarkableAdrenals: UnremarkableKidneys and ureters: Unremarkable unenhanced. Perinephric soft tissue strandingis likely secondary to chronic scarring. Acute inflammatory processes can alsoproduce this finding.Stomach and bowel: Thickening of distal esophageal mucosa is seen. This may besecondary to peristaltic wave. However, esophagitis or a mucosal lesion is notexcluded. Clinical correlation is recommended. This can be more accuratelyassessed with upper endoscopy. Moderate to severe pancolonic diverticulosis isseen without inflammatory changes.Appendix: Normal PELVIS: Bladder: Incompletely distended, unopacified therefore difficult to evaluate,grossly unremarkableReproductive: Grossly unremarkable No ascites or lymphadenopathy IMPRESSION: Moderate to large amount of stool throughout the colon. Colonic diverticulosis without inflammatory changes. Circumferential thickening of distal esophagus is seen with some thickening ofthe gastric cardia as well. Diagnostic considerations include inflammatoryprocess or even neoplastic process. Upper endoscopy is recommended. Moderate fatty infiltration of liver. Cholecystectomy. Severe calcified plaque formation of nonaneurysmal abdominal aorta. Moderate to severe degenerative changes of lumbosacral spine. Electronically signed in [id number] by: Annalee Edge M.D. 02/10/2021 13:16 EDT Name Value Range Interpretation Code Description Data Luz rce(s) Supporting Document(s) ID Date Data Source [id number] REFLEX 02/10/2021 12:21:00 PM EDT [facility] TSYSORDER [id number] Name Value Range Interpretation Code Description Data Luz rce(s) Supporting Document(s) URINE RBC 1-3 /hpf 0-3 [facility] URINE WBC 5-10 /hpf 0-5 H [facility] URINE EPITHELIAL CELLS 1+ /hpf 0 [facility] URINE BACTERIA 2+ NONE SEEN H [facility] URINE HYALINE CAST 1 /LPF 0 [facility] ID Date Data Source [id number] REFLEX 02/10/2021 12:20:00 PM EDT [facility] TSYSORDER [id number] Name Value Range Interpretation Code Description Data Luz rce(s) Supporting Document(s) URINE COLOR. YELLOW [facility] URINE APPEARANCE CLEAR [facility] URINE GLUCOSE (UA) >=1000 mg/dL NEGATIVE H [facility] URINE BILIRUBIN NEGATIVE NEGATIVE [facility] URINE KETONE NEGATIVE mg/dL NEGATIVE [facility] SPECIFIC GRAVITY,URINE 1.015 1.005-1.030 [facility] URINE BLOOD TRACE NEGATIVE H [facility] PH,URINE 5.0 5.0-9.0 [facility] URINE PROTEIN NEGATIVE mg/dL NEGATIVE [facility] URINE UROBILINOGEN NORMAL(0.2-1) mg/dL 0-1 R [facility] URINE NITRATE POSITIVE NEGATIVE H [facility] URINE LEUKOCYTE ESTERASE NEGATIVE NEGATIVE [facility] ID Date Data Source [id number] 02/10/2021 12:06:00 PM EDT [facility] TSYSORDER [id number] Name Value Range Interpretation Code Description Data Luz rce(s) Supporting Document(s) WHITE BLOOD COUNT 8.4 K/mm3 4.0-10.0 [facility] RED BLOOD COUNT 4.47 M/mm3 4.50-6.00 L [facility] l HEMOGLOBIN 12.9 gm/dL 14.0-18.0 L [facility] HEMATOCRIT 37.8 % 42.0-54.0 L [facility] MEAN CELL VOLUME 84.6 fl 80-96 [facility] MEAN CORPUSCULAR HEMOGLOBIN 28.9 pg 27.0-31.0 [facility] MEAN CORPUSCULAR HGB CONC 34.1 g/dl 32.0-36.0 [facility] RED CELL DISTRIBUTION WIDTH 13.7 % 10.0-14.5 [facility] PLATELET COUNT 283 K/mm3 172-450 [facility] MEAN PLATELET VOLUME 10.5 fl 9.0-13.0 [facility] pital GRAN % 71.4 % 50-80.0 [facility] IG% 0.1 % 0.0-0.2 [facility] LYMPH % 17.9 % 25.0-50.0 L [facility] MONO % 8.3 % 2.0-10.0 [facility] EOS % 1.9 % 0-5.0 [facility] BASO % 0.4 % 0.0-2.0 [facility] GRAN # 6.0 K/mm3 2.0-8.00 [facility] IG# 0.0 K/mm3 0.0-0.2 [facility] LYMPH # 1.5 K/mm3 1.0-5.0 [facility] MONO # 0.7 K/mm3 0.10-1.20 [facility] EOS # 0.2 K/mm3 0.0-0.5 [facility] BASO # 0.0 K/mm3 0.0-0.2 [facility] ID Date Data Source [id number] 02/10/2021 01:01:00 PM EDT [facility] TSYSORDER [id number] Name Value Range Interpretation Code Description Data Luz rce(s) Supporting Document(s) TROPONIN-HIGH SENSITIVITY 12.8 ng/L 0-60.4 [facility] ID Date Data Source [id number] 02/10/2021 01:01:00 PM EDT [facility] TSYSORDER [id number] Name Value Range Interpretation Code Description Data Luz rce(s) Supporting Document(s) GLUCOSE 514 mg/dL 74-106 *H [facility] mg/dL BLOOD UREA NITROGEN 27 mg/dL 7-18 H [facility] CREATININE 1.26 mg/dL 0.7-1.3 [facility] SODIUM 133 mmol/L 136-145 L [facility] POTASSIUM 5.5 mmol/L 3.5-5.1 H [facility] CHLORIDE 97 mmol/L 98-107 L [facility] CO2 24 mmol/L 21-32 [facility] CALCIUM 9.6 mg/dL 8.5-10.1 [facility] ANION GAP 12.0 mmol/L 5-12 [facility] GLOMERULAR FILTRATION RATE 55 mL/min [facility] GFR IS CALCULATED IN mL/min/1.73m2 JASIEL L FUNCTION: >90MILDLY DECREASED: 60-89MILDY TO MODERATELY DECREASED: 45-59 MODERATELY TO SEVERELY DECREASED: 30-44SEVERELY DECREASED: 15-29RENAL FAILURE: <15 AST 30 U/L 15-37 [facility] ALT 37 U/L 12-78 [facility] ALKALINE PHOSPHATASE 86 U/L 46-116 [facility] pital TOTAL BILIRUBIN 0.4 mg/dL 0.2-1.0 [facility] TOTAL PROTEIN 7.9 g/dl 6.4-8.2 [facility] ALBUMIN 3.6 gm/dL 3.4-5.0 [facility] ID Date Data Source [id number] 02/12/2021 09:53:00 AM EDT [facility] Name Value Range Interpretation Code Description Data Luz rce(s) Supporting Document(s) ORGANISM [facility] COLONY COUNT N [facility] ID Date Data Source [id number] 02/10/2021 11:46:00 AM EDT [facility] Name Value Range Interpretation Code Description Data Luz rce(s) Supporting Document(s) SARS COV2 TRP Not Detected [facility] This lab was ordered by [facility] and reported by [facility]. ID Date Data Source [id number] 02/10/2021 12:44:00 PM EDT [facility] TSVANORDER [id number] Name Value Range Interpretation Code Description Data Luz rce(s) Supporting Document(s) Adenovirus Not Detected Detected [facility] Coronavirus 229E Not Detected Detected Not R [facility] Coronavirus HKU1 Not Detected Detected Not R [facility] Coronavirus NL63 Not Detected Detected Not R [facility] Coronavirus OC43 Not Detected Detected Not [facility] Sars Cov 2 Not Detected Detected Not [facility] Negative results do not preclude SARS-Co V-2 infection andshould not be used as the sole basis for treatment or otherpatient management decisions. Negative SARS-CoV-2 resultsmust be combined with clinical observations, patienthistory, and epidemiological information. Human Metapneumovirus Not Detected Detected Not [facility] Human Rhinovirus Not Detected Detected Not [facility] Influenza A Not Detected Detected Not [facility] Influenza B Not Detected Detected Not [facility] Parainfluenza Virus 1 Not Detected Detected Not [facility] Parainfluenza Virus 2 Not Detected Detected Not [facility] Parainfluenza Virus 3 Not Detected Detected Not [facility] Parainfluenza Virus 4 Not Detected Detected Not [facility] Respiratory Syncytial Virus Not Detected Detected Not [facility] Bordetella parapertus ([id number]) Not Detected Detected Not [facility] Bordetella pertussis (ptxP) Not Detected Detected Not [facility] Chlamydia pneumoniae Not Detected Detected Not [facility] Mycoplasma pneumoniae Not Detected Detected Not [facility] The results of the respiratory panel ori uld notbe used as the sole basis for diagnosis, treatmentor other patient management decisions.Negative results in the setting of a respiratoryillness may be due to infection with pathogens that are not detected by this test,or lower respiratorytract infection that may not be detected by a nasopharyngeal swab specimen.Positive results do not rule out co-infection with other organisms: the agent(s) detected by the FilmArrayRP2 may not be the definite cause of disease. Additional Laboratory testing may be necessary when evaluating a patient with possible respiratory tract infection.The Above results have been determined by using the [employer] system.[employer] is an automated in vitro diagnostic system thatutilizes nested multiplex Polymerase Chain Reaction (PCR)and high-resolution melting analysis to detect and identifymultiple nucleic acid targets from clinical specimens. ID Date Data Source [id number] 01/14/2021 07:28:00 PM EDT [facility] l Patient: ULICES GUY Observation Report - Physicians/Mid Levels HealthVisitID: [id number] [place] [address] [phone], MRegistration Date/Time: 01/14/2021 14:36 Weight:90.7 kg (S). Height/Length:66 inches. BMI:32.3 FAMILY HISTORYNo significant family medical history. (Electronically signed by Chevy Fontenot PA-C 01/14/2021 18:17) Name Value Range Interpretation Code Description Data Luz rce(s) Supporting Document(s) ID Date Data Source [id number] REFLEX 01/14/2021 03:26:[address] [id number] Name Value Range Interpretation Code Description Data Luz rce(s) Supporting Document(s) URINE RBC 3-5 /hpf 0-3 H [facility] URINE WBC 5-10 /hpf 0-5 [facility] URINE EPITHELIAL CELLS 1+ /hpf 0 [facility] URINE BACTERIA 4+ NONE SEEN [facility] ID Date Data Source [id number] REFLEX 01/14/2021 03:25:[facility] [id number] Name Value Range Interpretation Code Description Data Luz rce(s) Supporting Document(s) URINE COLOR. [facility] URINE APPEARANCE SLIGHTY CLOUDY [facility] GLU[facility]SE (UA) >=1000 [facility] BILIRUBIN NEGATIVE NEGATIVE [facility] URINE KETONE 40(MODERATE) mg/dL NEGATIVE [facility] SPECIFIC GRAVITY,URINE 1.010 1.005-1.030 [facility] URINE BLOOD TRACE NEGATIVE [facility] PH,URINE 5.0 5.0-9.0 [facility] URINE PROTEIN NEGATIVE mg/dL NEGATIVE [facility] ste[facility]ani URINE UROBILINOGEN NORMAL(0.2-1) mg/dL 0-1 [facility] URINE NITRATE POSITIVE NEGATIVE [facility] URINE LEUKOCYTE ESTERASE NEGATIVE NEGATIVE [facility] ID Date Data Source [id number] 01/17/2021 01:22:00 PM EDT [facility] Name Value Range Interpretation Code Description Data Luz rce(s) Supporting Document(s) ORGANISM [facility] COLONY COUNT N [facility] ID Date Data Source [id number] 01/05/2021 05:02:00 PM EDT [facility] Patient: ULICES GUY Observation Report - Physicians/Mid Levels [facility].VisitID: [id number] [place] [address] [phone], MRegistration Date/Time: 01/05/2021 13:20 Weight:90.7 kg (S). Height/Length:66 inches (S). BMI:32.3 PAST HISTORYProblems:Diabetes Mellitus [Chronic].Arthritis [Chronic].Hypertension [Chronic].Hearing Loss [Chronic].Otitis Externa.Impacted Cerumen.Otitis Media.UTI - Urinary Tract Infection. Additional Surgeries:Bilat shoulders.Cholecystectomy. Medications:Atorvastatin Calcium Oral 20 mg, daily, last dose today.Furosemide Oral 20 mg, 2x a day, last dose today.HumaLOG Subcutaneous 30 units, 2x a day.Januvia Oral (Tablet 100 mg) 1 tablet, daily every AM, last dose today.Tamsulosin HCl Oral 0.4 mg, daily, last dose today. Allergies:No Known Drug Allergy. FAMILY HISTORYNo significant family medical history. (Electronically signed by Miguel Peguero, P.AAugie 01/05/2021 16:57) Name Value Range Interpretation Code Description Data Luz rce(s) Supporting Document(s) ID Date Data Source [id number] 01/07/2021 12:00:00 PM [facility] Name Value Range Interpretation Code Description Data Luz rce(s) Supporting Document(s) ORGANISM [facility] COLONY COUNT N [facility] ID Date Data Source [id number] REFLEX 01/05/2021 01:57:00 PM EDT [facility] TSYSORDER [id number] Name Value Range Interpretation Code Description Data Luz rce(s) Supporting Document(s) URINE RBC 0-1 /hpf 0-3 [facility] URINE WBC 5-10 /hpf 0-5 H [facility] URINE EPITHELIAL CELLS 1+ /hpf 0 [facility] URINE BACTERIA 2+ NONE SEEN [facility] ID Date Data Source [id number] REFLEX 01/05/2021 01:49:00 PM T [facility] TSYSORDER [id number] Name Value Range Interpretation Code Description Data [facility] rce(s) Supporting Document(s) URINE COLOR. [facility] URINE APPEARANCE CLEAR [facility] l URINE GLUCOSE (UA) 500 mg/dL NEGATIVE [facility]ani URINE BILIRUBIN NEGATIVE NEGATIVE [facility] URINE KETONE NEGATIVE mg/dL NEGATIVE [facility] SPECIFIC GRAVITY,URINE < 1.005 1.005-1.030 [facility] URINE BLOOD 1+(SMALL) NEGATIVE [facility] PH,URINE 5.5 5.0-9.0 [facility] URINE PROTEIN NEGATIVE mg/dL NEGATIVE [facility] URINE UROBILINOGEN NORMAL(0.2-1) mg/dL 0-1 [facility] URINE NITRATE NEGATIVE NEGATIVE [facility] URINE LEUKOCYTE ESTERASE NEGATIVE NEGATIVE [facility] ID Date Data Source [id number] 09/08/2020 05:23:00 PM EDT [facility] l Patient: ULICES GUY Observation Report - Physicians/Mid Levels [facility].VisitID: [id number] [place] [address] [phone], MRegistration Date/Time: 09/02/2020 16:15 Weight:90.7 kg (S). Height/Length:67 inches (S). BMI:31.3 PAST HISTORYProblems:Diabetes Mellitus [Chronic].Arthritis [Chronic].Hypertension [Chronic].Hearing Loss [Chronic].Impacted Cerumen.Otitis Externa.Otitis Media. Additional Surgeries:Bilat shoulders.Cholecystectomy. Medications:Atorvastatin Calcium Oral 20 mg, daily, last dose today.HumaLOG Subcutaneous unk, 2x a day.Tamsulosin HCl Oral 0.4 mg, daily, last dose today.Furosemide Oral 20 mg, 2x a day, last dose today.Januvia Oral (Tablet 100 mg) 1 tablet, daily every AM, last dose today. Allergies:No Known Drug Allergy. FAMILY HISTORYNo significant family medical history. (Electronically signed by Miguel Peguero P.A. 09/02/2020 20:27) Name Value Range Interpretation Code Description Data Luz rce(s) Supporting Document(s) ID Date Data Source [id number] 09/05/2020 12:21:00 PM EDT [facility] Name Value Range Interpretation Code Description Data Luz rce(s) Supporting Document(s) ORGANISM [facility] COLONY COUNT N [facility] ID Date Data Source [id number] REFLEX 09/02/2020 04:32:00 PM EDT [facility] TSYSORDER [id number] Name Value Range Interpretation Code Description Data Luz rce(s) Supporting Document(s) URINE RBC 1-3 /hpf 0-3 [facility] URINE WBC 5-10 /hpf 0-5 H [facility] URINE EPITHELIAL CELLS 1+ /hpf 0 [facility] URINE BACTERIA 3+ NONE SEEN [facility] URINE HYALINE CAST 1+ /LPF 0 [facility] URINE MUCUS 2+ NEGATIVE [facility] ID Date Data Source [id number] REFLEX 09/02/2020 04:31:00 PM EDT [facility] TSYSORDER [id number] Name Value Range Interpretation Code Description Data Luz rce(s) Supporting Document(s) URINE COLOR. [facility] URINE APPEARANCE CLOUDY [facility] l URINE GLUCOSE (UA) 500 mg/dL NEGATIVE [facility] URINE BILIRUBIN NEGATIVE NEGATIVE [facility] URINE KETONE NEGATIVE mg/dL NEGATIVE [facility] al SPECIFIC GRAVITY,URINE 1.025 1.005-1.030 [facility] URINE BLOOD NEGATIVE NEGATIVE [facility] PH,URINE 5.0 5.0-9.0 [facility] URINE PROTEIN NEGATIVE mg/dL NEGATIVE [facility] URINE UROBILINOGEN NORMAL(0.2-1) mg/dL 0-1 [facility] URINE NITRATE POSITIVE NEGATIVE [facility] URINE LEUKOCYTE ESTERASE NEGATIVE NEGATIVE [facility] ID Date Data Source [id number] 04/15/2020 03:01:00 PM EST [facility] Patient: ULICES GUY Observation Report - Physicians/Mid Levels [facility].VisitID: [id number] [place] [address] [phone], MRegistration Date/Time: 04/15/2020 10:34 Weight:90.7 kg (S). Height/Length:66 inches (S). BMI:32.3 PAST HISTORYProblems:Hypertension [Chronic].Arthritis [Chronic].Diabetes Mellitus [Chronic].Hearing Loss [Chronic].Otitis Media.Otitis Externa.Impacted Cerumen. Additional Surgeries:Bilat shoulders.Cholecystectomy. Medications:Tamsulosin HCl Oral 0.4 mg, daily, last dose today.Atorvastatin Calcium Oral 20 mg, da néstor, last dose today.Furosemide Oral 20 mg, daily, last dose today.HumaLOG Subcutaneous unk, 2x a day.Januvia Oral (Tablet 100 mg) 1 tablet, daily, last dose today. Allergies:No Known Drug Allergy. INSTRUCTIONSYour Current Medications: Your current home medications have been reviewed. CONTINUE TAKING THE FOLLOWING MEDICATIONS:Atorvastatin Calcium Oral : 20 mg daily, Last: today. Furosemide Oral : 20 mg daily, Last: today. HumaLOG Subcutaneous : unk 2x a day. Januvia Oral : Tablet 100 mg, 1 tablet daily, Last: today. Tamsulosin HCl Oral : 0.4 mg daily, Last: today. (Electronically signed by Juan Manuel Anton 04/15/2020 15:00) Name Value Range Interpretation Code Description Data Luz rce(s) Supporting Document(s) ID Date Data Source [id number] 03/16/2020 04:37:00 PM [facility] Patient: ULICES GUY Observation Report - Physicians/Mid Levels [facility].VisitID: [id number] [place] [address] [phone], MRegistration Date/Time: 03/16/2020 11:59 Weight:90.7 kg (S). Height/Length:66 inches (S). BMI:32.3 FAMILY HISTORYMother: Cancer. Brother(s): Diabetes Mellitus. INSTRUCTIONSYour Current Medications: Your current home medications have been reviewed. CONTINUE TAKING THE FOLLOWING MEDICATIONS:Atorvastatin Calcium Oral : 20 mg daily, Last: today. Furosemide Oral : 20 mg daily, Last: today. HumaLOG Subcutaneous : unk 2x a day. Januvia Oral : Tablet 100 mg, 1 tablet daily, Last: today. Tamsulosin HCl Oral : 0.4 mg daily, Last: today. (Electronically signed by Ulices Whitney P.A. 03/16/2020 14:42) Name Value Range Interpretation Code Description Data Luz rce(s) Supporting Document(s) ID Date Data Source [id number] 03/08/2020 04:08:00 PM EDT [facility] Patient: ULICES GUY Observation Report - Physicians/[facility].VisitID: [id number] [place] [id number] [phone], MRegistration Date/Time: 03/08/2020 14:57 Weight:90.7 kg (S). Height/Length:66 inches (S). BMI:32.3 FAMILY HISTORYNo significant family medical history. (Electronically signed by Dez Villavicencio PA 03/08/2020 15:34) Name Value Range Interpretation Code Description Data Luz rce(s) Supporting Document(s) ID Date Data Source [id number] 01/15/2020 03:45:00 PM EDT [facility] Name Value Range Interpretation Code Description Data Luz rce(s) Supporting Document(s) HCT 40.5 % 42.0-52.0 L [facility] HGB 13.5 g/dL 13.5-17.5 N [facility] MCH 33.3 G/DL pg 32.0-36.5 N [facility] MCHC 29.7 PG % 27.0-33.0 [facility] PLATELETS 202 10 10*3/mm3 150-450 N [facility] RBC 4.54 10 10*6/mm3 4.30-6.10 [facility] RDW 13.7 % 11.5-14.5 [facility] WBC TOTAL 7.6 4.0-10.0 [facility] ID Date Data Source [id number] 01/15/2020 03:45:00 PM EDT [facility] Name Value Range Interpretation Code Description Data Luz rce(s) Supporting Document(s) BG FASTING 527 mg/dL 70-100 Above upper panic limits [facility] Procedure Social History No Information Vital Signs ID Date Data Source UNK Name Value Range Interpretation Code Description Data Source(s) Diastolic blood pressure 80 mm[Hg] 80 mm[Hg] GARETH ([facility]) Body height 66 [in_i] 66 [in_i] G[facility] ([facility]) Body mass index (BMI) [Ratio] 29.4 kg/m2 29.4 k g/m2 GAR[facility] ([facility]) Systolic blood pressure 144 mm[Hg] 144 mm[Hg] A [facility] ([facility]) Body weight 2912 [oz_av] 2912 [oz_av] GARETH ([facility]) Diastolic blood pressure 90 mm[Hg] 90 mm[Hg] GAR[facility] ([facility]) Body height 66 [in_i] 66 [in_i] [facility] ([facility]) Body mass index (BMI) [Ratio] 31.5 kg/m2 31.5 k g/m2 GAR[facility] ([facility]) Systolic blood pressure 161 mm[Hg] 161 mm[Hg] A [facility] ([facility]) Body weight 3123.2 [oz_av] 3123.2 [oz_av] ATHEN A ([facility]) Diastolic blood pressure 90 mm[Hg] 90 mm[Hg] GARETH ([facility]) Body height 66 [in_i] 66 [in_i] G[facility] ([facility]) Body mass index (BMI) [Ratio] 31.5 kg/m2 31.5 k g/m2 GAR[facility] ([facility]) Systolic blood pressure 161 mm[Hg] 161 mm[Hg] A [facility] ([facility]) Body weight 3123.2 [oz_av] 3123.2 [oz_av] ATHEN A ([facility]) Body weight 209.8 [lb_av] 209.8 [lb_av] eCW1 ([facility]) Body height [in_i] eCW1 ([facility]) Body mass index (BMI) [Ratio] 32.86 kg/m2 32.86 kg/m2 eCW1 ([facility]) Heart rate 71 /min 71 /min eCW1 ([facility]) Respiratory rate 20 /min 20 /min eCW1 ([facility]) Body temperature 97.9 [degF] 97.9 [degF] eCW1 ( [facility]) Systolic blood pressure 124 mm[Hg] 124 mm[Hg] e CW1 ([facility]) Diastolic blood pressure 70 mm[Hg] 70 mm[Hg] eCW1 ([facility]) Patient Treatment Plan of Care Planned Activity Planned Date Details Description Data Source (s) Sulfamethoxazole 800 MG / Trimethoprim 160 MG Oral Tablet GARETH ([facility]) Prednisone 10 MG Oral Tablet GARETH ([facility]) Ofloxacin 3 MG/ML Otic Solution SORRENTO ([facility]) NITROFURANTOIN, MACROCRYSTALS 25 MG / Ni trofurantoin, Monohydrate 75 MG Oral Capsule GARETH ([facility]) Furosemide 20 MG Oral Tablet GARETH ([facility]) Ciprofloxacin 3 MG/ML / Dexamethasone 1 MG/ML Otic Suspension GARETH ([facility]) Amoxicillin 875 MG / Clavulanate 125 MG Oral Tablet GARETH ([facility]) Sulfamethoxazole 800 MG / Trimethoprim 160 MG Oral Tablet GARETH ([facility]) Prednisone 10 MG Oral Tablet SORRENTO ([facility]) Ofloxacin 3 MG/ML Otic Solution GARETH ([facility]) NITROFURANTOIN, MACROCRYSTALS 25 MG / Ni trofurantoin, Monohydrate 75 MG Oral Capsule GARETH ([facility]) Furosemide 20 MG Oral Tablet GARETH ([facility]) Ciprofloxacin 3 MG/ML / Dexamethasone 1 MG/ML Otic Suspension SORRENTO ([facility]) cefdinir 300 MG Oral Capsule GARETH ([facility]) Amoxicillin 875 MG / Clavulanate 125 MG Oral Tablet GARETH ([facility])
--- NOTE | 2021-03-05 11:12 | REP ---
INDICATION: Altered Mental Status. COMPARISON: 06/19/2018 TECHNIQUE: 5 mm contiguous transaxial sections were obtained from the skull base to the cerebral convexities. FINDINGS: The ventricles and sulci are unchanged. There is ventricular and sulcal dilatation status quo. There are no extra-axial fluid collections. There is no mass effect. The deep cerebral white matter is unchanged. 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 The orbital and petrous structures, cerebellopontine angles, and posterior fossa are unremarkable. The sella turcica, cavernous, and paracavernous structures are essentially unremarkable. The visualized portions of the paranasal sinuses and mastoid air cells are clear. Images of the skull base show no gross abnormality. IMPRESSION: No evidence of significant change compared to the prior exam. There is no evidence of an acute intracranial hemorrhagic or non hemorrhagic event. Findings as described above. <Electronically signed by Fran Estrella > 03/05/21 [id number]
--- NOTE | 2021-03-05 11:13 | REP ---
INDICATION: Altered Mental Status. COMPARISON: Multiple the latest 12/18/2019 a portable exam TECHNIQUE: Portable FINDINGS: The technique utilized in obtaining the radiograph has magnified the cardiac silhouette and accentuated the interstitial markings. Mild cardiomegaly accentuated by technique cannot be ruled out. There is no significant change in appearance of the lung meehan. No acute patchy parenchymal opacities or pleural effusions have developed. The osseous structures are stable. IMPRESSION: There is no evidence of acute cardiopulmonary disease. Findings as described above. <Electronically signed by Fran Estrella > 03/05/21 [id number]
[2021-03-05 11:29] LABS: BASO % 0.4 % (0.0-1.0); EOS # 0.1 10^3/uL (0.0-0.5); HEMATOCRIT 36.9 % (42.0-52.0); LYMPH # 1.2 10^3/uL (1.5-5.0); LYMPH % 17.7 % (24.0-44.0); MEAN CORPUSCULAR HEMOGLOBIN 28.9 pg (27.0-33.0); MEAN CORPUSCULAR HGB CONC 32.5 g/dl (32.0-36.5); MEAN CORPUSCULAR VOLUME 88.9 fl (80.0-96.0); MONO # 0.6 10^3/uL (0.0-0.8); MONO % 8.4 % (2.0-8.0); NEUTROPHILS % 72.1 % (36.0-66.0); PLATELET COUNT, AUTOMATED 191 10^3/uL (150-450); RED BLOOD COUNT 4.15 10^6/uL (4.30-6.10)
[2021-03-05 12:00] LABS: AMPHETAMINES LEVEL URINE NEGATIVE (NEGATIVE); BARBITURATES URINE NEGATIVE (NEGATIVE); BENZODIAZEPINES URINE NEGATIVE (NEGATIVE); CANNABINOIDS URINE NEGATIVE (NEGATIVE); COCAINE METABOLITE URINE NEGATIVE (NEGATIVE); METHADONE URINE NEGATIVE (NEGATIVE); OPIATES URINE NEGATIVE (NEGATIVE); PHENCYCLIDINE URINE NEGATIVE (NEGATIVE)
[2021-03-05 12:17] LABS: ALBUMIN 3.3 GM/DL (3.2-5.2); ALT/SGPT 29 U/L (12-78); BILIRUBIN,DIRECT < 0.1 MG/DL (0.0-0.2); BILIRUBIN,TOTAL 0.3 MG/DL (0.2-1.0); BLOOD UREA NITROGEN 28 MG/DL (7-18); CALCIUM LEVEL 9.1 MG/DL (8.8-10.2); CARBON DIOXIDE LEVEL 25 MEQ/L (21-32); CHLORIDE LEVEL 108 MEQ/L (98-107); CK-MB VALUE MASS 3.9 NG/ML (<3.6); CPK CREATINE PHOSPHOKINASE 189 U/L (39-308); CREATININE FOR GFR 1.19 MG/DL (0.70-1.30); ETHYL ALCOHOL (ETHANOL) < 0.003 % (0.000-0.010); GLOMERULAR FILTRATION RATE > 60.0 (>42); GLUCOSE, FASTING 429 MG/DL (70-100); MB/CK RELATIVE INDEX 2.06 (< OR =4); POTASSIUM SERUM 4.5 MEQ/L (3.5-5.1); SODIUM LEVEL 136 MEQ/L (136-145); THYROID STIMULATING HORMONE 0.381 uIU/ML (0.358-3.740); TROPONIN I < 0.02 NG/ML (< 0.10)
[2021-03-05 12:53] LABS: RSV AMPLIFICATION NEGATIVE (NEGATIVE)
--- NOTE | 2021-03-05 13:22 | HPEPDOC ---
[facility] Medical History & Physical Date of Admission Mar 05, 2021 Date of Service: Mar 05, 2021 History and Physical CHIEF COMPLAINT: AMS HISTORY OF PRESENT ILLNESS: 75-year-old male who was brought in by ambulance after being pulled over for erratic driving. He was found to be confused, stating that he was taking his dog to a auto mechanic's appointment. On evaluation, it is not clear if he recalls todays incident with erratic driving. On questioning he is persistent regarding his ability to drive safely. He states he has no family other than a cousin. He states he lives alone. He is a questionable historian. He denies any medical complaints. He denies chest pain, shortness of breath, abdominal pain, N/V/D, changes in vision, depressed mood. PAST MEDICAL HISTORY: As per chart review, #DM #BPH #HLD #OA SOCIAL HISTORY: States he quit smoking 40 years ago, prior to that 1ppd x 20 years. Denies alcohol use. FAMILY HISTORY: Reviewed and noncontributory. ALLERGIES: Please see below. REVIEW OF SYSTEMS: Negative except as per HPI. HOME MEDICATIONS: Please see below. PHYSICAL EXAMINATION: Vital Signs: reviewed General: NAD, lying comfortably in bed, grumpy HEENT: NC/AT, EOMI Neck: supple, no masses Chest: lungs CTA B/L Heart: +S1S2, RRR, systolic murmur Abd: soft, NT, ND, +BS Ext: no edema Skin: no rashes MSK: full ROM at large joints Neuro: no gross focal deficits Psych: AAOx3 with prompting LABORATORY DATA: See below. MICROBIOLOGY: Please see below. A/P: 75-year-old male admitted for altered mental status with a past medical history of diabetes, BPH, hyperlipidemia and osteoarthritis. #AMS? - CT head negative - will check further laboratory studies - RPR, B12, folate - unable to obtain MRI - patient cannot complete MRI screening - likely neuro c/s in am #DM - continue insulin, carb consistent diet #BPH - continue flomax #DVT prophylaxis - mechanical Vital Signs Vital Signs Date Time Temp Pulse Resp B/P (MAP) Pulse Ox O2 Delivery O2 Flow Rate FiO2 03/05/21 12:30 55 16 143/63 (89) 98 Room Air 03/05/21 10:28 97.3 Laboratory Data Labs 24H Laboratory Tests 2 03/05/21 10:53: Immature Granulocyte % (Auto) 0.4, Neutrophils (%) (Auto) 72.1H, Lymphocytes (%) (Auto) 17.7L, Monocytes (%) (Auto) 8.4H, Eosinophils (%) (Auto) 1.0, Basophils (%) (Auto) 0.4, Neutrophils # (Auto) 5.0, Lymphocytes # (Auto) 1.2L, Monocytes # (Auto) 0.6, Eosinophils # (Auto) 0.1, Basophils # (Auto) 0.0, Nucleated Red Blood Cells % (auto) 0.0, Urine Color STRAW, Urine Appearance CLEAR, Urine pH 5.0, Urine Specific [place] 1.027, Urine Protein NEGATIVE, Urine Glucose (UA) 3+H, Urine Ketones NEGATIVE, Urine Blood NEGATIVE, Urine Nitrite POSITIVEH, Urine Bilirubin NEGATIVE, Urine Urobilinogen 0.2, Urine Leukocyte Esterase NEGATIVE, Urine WBC (Auto) 6H, Urine RBC (Auto) 1, Urine Hyaline Casts (Auto) 0, Urine Bacteria (Auto) 1+H, Urine Squamous Epithelial Cells 0, Urine Mucus (Auto) SMALL, Urine Sperm (Auto) , Anion Gap 3L, Glomerular Filtration Rate > 60.0, Calcium Level 9.1, Total Bilirubin 0.3, Direct Bilirubin < 0.1, Aspartate Amino Transf (AST/SGOT) 32, Alanine Aminotransferase (ALT/SGPT) 29, Alkaline Phosphatase 81, Total Creatine Kinase 189, Creatine Kinase MB 3.9H, Creatine Kinase MB Relative Index 2.06, Troponin I < 0.02, Total Protein 7.0, Albumin 3.3, Albumin/Globulin Ratio 0.9, Thyroid Stimulating Hormone (TSH) 0.381, Urine Opiates Screen NEGATIVE, Urine Methadone Screen NEGATIVE, Urine Barbiturates Screen NEGATIVE, Urine Phencyclidine Screen NEGATIVE, Urine Amphetamines Screen NEGATIVE, Urine Benzodiazepines Screen NEGATIVE, Urine Cocaine Metabolite Screen NEGATIVE, Urine Cannabinoids Screen NEGATIVE, Ethyl Alcohol Level < 0.003 03/05/21 11:12: Bedside Glucose (Misc Panel) 454H 03/05/21 11:16: Coronavirus (COVID-19)(PCR) NEGATIVE, Influenza Type A (RT-PCR) NEGATIVE, Influenza Type B (RT-PCR) NEGATIVE, Respiratory Syncytial Virus (PCR) NEGATIVE CBC/BMP Laboratory Tests 03/05/21 10:53 Microbiology Microbiology 03/05/21 Urine Culture, Received Pending Home Medications Scheduled Insulin Lispro Protamin/Lispro (Humalog Mix 75-25 Kwikpen) 1 Inj Inj, 30 UNITS SC BID Sitagliptin Phosphate (Januvia) 100 Mg Tab, 100 MG PO DAILY Tamsulosin Hcl (Tamsulosin HCl) 0.4 Mg Capsule, 0.4 MG PO DAILY Miscellaneous Medications [Med Note] OBTAINED FROM PHARMACY Allergies Coded Allergies: No Known Allergies (Unverified , 12/29/18) A-FIB/CHADSVASC A-FIB History Current/History of A-Fib/PAF?: No KAREN TRUJILLO MD Mar 05, 2021 13:22
[2021-03-05] MEDS ORDERED: MED NOTE (13:31)
[2021-03-05] MEDS ORDERED: HOME MED LIST COMPLETE! XX SCH (13:35)
--- OUTSIDE RECORDS SUMMARY | 2021-03-05 13:44 | CCD ---
Author Author [facility] Organization [facility] Address Unknown Phone Unavailable Care Team Providers Care Approver Name Role Phone Karma Fountain MD Unavailable [...] Unavailable Unavailable Karma Fountain MD Unavailable Unavailable aKrma Fountain MD Unavailable Unavailable Karma Fountain MD Unavailable Unavailable Karma Fountain MD Unavailable Unavailable Karma Fountain MD Unavailable Unavailable Karma Founatin MD Unavailable Unavailable Karma Fountain MD Unavailable [...] Unavailable Unavailable Karma Fountain MD Unavailable [facility] Unavailable Unavailable PETROFF, ULICES PA Unavailable Unavailable PETROFF, ULICES PA Unavailable Unavailable PETROFF, ULICES PA Unavailable Unavailable PETROFF, ULICES PA Unavailable Unavailable PETROFF, ULICES PA Unavailable Unavailable PETROFF, ULICES PA Unavailable Unavailable PETROFF, ULICES PA Unavailable Unavailable PETROFF, ULICES PA Unavailable Unavailable Alberry, D Bernadette RELATIONSHIP COUNSELOR Unavailable Unavailable Alberry, D Bernadette RELATIONSHIP COUNSELOR Unavailable Unavailable Alberry, D Bernadette RELATIONSHIP COUNSELOR Unavailable Unavailable Alberry, D Bernadette RELATIONSHIP COUNSELOR Unavailable Unavailable Alberry, D Bernadette RELATIONSHIP COUNSELOR Unavailable Unavailable Alberry, D Bernadette RELATIONSHIP COUNSELOR Unavailable Unavailable Alberry, D Bernadette RELATIONSHIP COUNSELOR Unavailable Unavailable Alberry, D Bernadette RELATIONSHIP COUNSELOR Unavailable Unavailable Alberry, D Bernadette RELATIONSHIP COUNSELOR Unavailable Unavailable Alberry, D Bernadette RELATIONSHIP COUNSELOR Unavailable Unavailable Alberry, D Bernadette RELATIONSHIP COUNSELOR Unavailable Unavailable Alberry, D Bernadette RELATIONSHIP COUNSELOR Unavailable Unavailable Alberry, D Bernadette RELATIONSHIP COUNSELOR Unavailable Unavailable Alberry, D Bernadette RELATIONSHIP COUNSELOR Unavailable Unavailable Alberry, D Bernadette RELATIONSHIP COUNSELOR Unavailable Unavailable Alberry, D Bernadette RELATIONSHIP COUNSELOR Unavailable Unavailable Alberry, D Bernadette RELATIONSHIP COUNSELOR Unavailable Unavailable Alberry, D Bernadette RELATIONSHIP COUNSELOR Unavailable Unavailable Alberry, D Bernadette RELATIONSHIP COUNSELOR Unavailable Unavailable Alberry, D Bernadette RELATIONSHIP COUNSELOR Unavailable Unavailable Alberry, D Bernadette RELATIONSHIP COUNSELOR Unavailable Unavailable Alberry, D Bernadette RELATIONSHIP COUNSELOR Unavailable Unavailable Alberry, D Bernadette RELATIONSHIP COUNSELOR Unavailable Unavailable Alberry, D Bernadette RELATIONSHIP COUNSELOR Unavailable Unavailable Alberry, D Bernadette RELATIONSHIP COUNSELOR Unavailable Unavailable Alberry, D Bernadette RELATIONSHIP COUNSELOR Unavailable Unavailable Alberry, D Bernadette RELATIONSHIP COUNSELOR Unavailable Unavailable Alberry, D Bernadette RELATIONSHIP COUNSELOR Unavailable Unavailable Alberry, D Bernadette RELATIONSHIP COUNSELOR Unavailable Unavailable Alberry, D Bernadette RELATIONSHIP COUNSELOR Unavailable Unavailable Alberry, D Bernadette RELATIONSHIP COUNSELOR Unavailable Unavailable Alberry, D Bernadette RELATIONSHIP COUNSELOR Unavailable Unavailable Alberry, D Berandette RELATIONSHIP COUNSELOR Unavailable Unavailable Alberry, D Bernadette RELATIONSHIP COUNSELOR Unavailable Unavailable Alberry, D Bernadette RELATIONSHIP COUNSELOR Unavailable Unavailable Alberry, D Bernadette RELATIONSHIP COUNSELOR Unavailable Unavailable Alberry, D Bernadette RELATIONSHIP COUNSELOR Unavailable Unavailable Alberry, D Bernadette RELATIONSHIP COUNSELOR Unavailable Unavailable Alberry, D Bernadette RELATIONSHIP COUNSELOR Unavailable Unavailable Alberry, D Bernadette RELATIONSHIP COUNSELOR Unavailable Unavailable Alberry, D Berndaette RELATIONSHIP COUNSELOR Unavailable Unavailable Alberry, D Bernadette RELATIONSHIP COUNSELOR Unavailable Unavailable Alberry, D Bernadette RELATIONSHIP COUNSELOR Unavailable Unavailable Alberry, D Bernadette RELATIONSHIP COUNSELOR Unavailable Unavailable Alberry, D Bernadette RELATIONSHIP COUNSELOR Unavailable Unavailable Alberry, D Bernadette RELATIONSHIP COUNSELOR Unavailable Unavailable Alberry, D Bernadette RELATIONSHIP COUNSELOR Unavailable Unavailable Alberry, D Bernadette RELATIONSHIP COUNSELOR Unavailable Unavailable Alberry, D Bernadette RELATIONSHIP COUNSELOR Unavailable Unavailable Alberry, D Bernadette RELATIONSHIP COUNSELOR Unavailable Unavailable Alberry, D Bernadette RELATIONSHIP COUNSELOR Unavailable Unavailable Alberry, D Bernadette RELATIONSHIP COUNSELOR Unavailable Unavailable Alberry, D Bernadette RELATIONSHIP COUNSELOR Unavailable Unavailable Alberry, D Bernadette RELATIONSHIP COUNSELOR Unavailable Unavailable Alberry, D Bernadette RELATIONSHIP COUNSELOR Unavailable Unavailable MARIELENA, HENRRY MIGUEL PA Unavailable [...] Unavailable Unavailable Tonia, Zully Unavailable Unavailable Tonia, Zulyl Unavailable Unavailable Tonia, Zully Unavailable Unavailable Tonia, [...] Unavailable Karma Fountain MD Unavailable Unavailable Karma Founatin MD Unavailable Unavailable Karma Fountain MD Unavailable [...] is protected by Article 27-F of the [facility] Public Health law. If you continue you may have access to information: Regarding HIV / AIDS; Provided by facilities licensed or operated by the [facility] Office of Mental Health; or Provided by the [facility] Office for People With Developmental Disabilities. If such information is present, then the following [facility] mandated warning applies: This information has been [...] law may result in a fine or intermediate sentence or both. A general authorization for the release of medical or other information is NOT sufficient authorization for further disc losure. Family History Family Member Name Family Member Gender Family Member Status Date o f Status Description Data Source(s) Unknown Female Problem MEDENT ([facility]) Unknown Female Problem MEDENT ([facility]) Encounters Encounter Providers Location Date Indications Data Source(s ) Emergency Attender: RAUL HOPPER PAReferrer: Tk DOWNSP 03/04/2021 11:26:00 AM EDT - 03/04/2021 11:26:00 AM EDT [facility] Patient discharged. Unknown [address] [facility] [place] [address] 02/18/2021 12:00:00 AM EDT eCW1 ([facility]) Unknown [address] [facility] [address] 02/17/2021 12:00:00 AM EDT eCW1 ([facility]) Unknown [address] [facility] [place] [address] 02/17/2021 12:00:00 AM EDT eCW1 ([facility]) Unknown [address] [facility] [address] 02/12/2021 12:00:00 AM EDT eCW1 ([facility]) Outpatient Attender: Chevy Fontenot PA-C [id number] 02/10/2021 12:23:00 PM EDT [facility] Emergency Attender: Chevy VIERACReferrer: Ericka Lee RELATIONSHIP COUNSELOR EMERGENCY ROOM-ER 02/10/2021 11:58:00 AM EDT - 02/10/2021 03:15:00 PM EDT [facility] Patient discharged. Unknown [address] [facility] [address] 02/05/2021 12:00:00 AM EDT eCW1 ([facility]) Roland Fountain MD: [address] [place] [id number], Ph. Attender: Roland Fountain MD [facility] Medical 01/16/2021 12:00:00 AM EDT GARETH ([facility]) Outpatient Attender: INES FONTENOT MDConsultant: [facility] [id number] 01/14/2021 03:47:00 PM EDT [facility] Emergency Attender: Chevy VIERACReferrer: Ericka Lee [facility] EMERGENCY ROOM-ER 01/14/2021 03:30:00 PM EDT - 01/14/2021 04:23:00 PM EDT [facility] Patient discharged. Emergency Attender: MIGUEL BOSEeferrer: Joel Lee [facility] EMERGENCY ROOM-ER 01/05/2021 01:48:00 PM EDT - 01/05/2021 02:17:00 PM EDT [facility] Patient discharged. Outpatient Attender: MIGUEL PEGUERO PAConsultant: [facility] [id number] 01/05/2021 01:37:00 PM EDT [facility] Unknown [facility] [address] 09/23/2020 12:00:00 AM EDT eCW1 ([facility]) Mago Randall MD: [address] [place] [address], Ph. Attender: Mago Randall [facility] Medical 09/17/2020 12:00:00 AM EDT GARETH ([facility]) Mago Randall MD: [address] [place] [address], Ph. Attender: Mago Randall [facility] Medical 09/17/2020 12:00:00 AM EDT GARETH ([facility]) Outpatient Attender: MIGUEL PEGUERO PAConsultant: [facility] [id number] 09/02/2020 06:16:00 PM EDT [facility] Emergency Attender: MIGUEL BOSEeferrer: Joel Lee [facility] EMERGENCY ROOM-ER 09/02/2020 04:49:00 PM EDT - 09/02/2020 05:01:00 PM EDT [facility] Patient discharged. Unknown [address] [facility] [address] 08/26/2020 12:00:00 AM EDT eCW1 ([facility]) Outpatient [address] [facility] [address] 05/30/2020 12:00:00 AM EST eCW1 ([facility]) Emergency Attender: RAUL Maynard: Tk Lee [facility] 04/15/2020 10:57:00 AM EST - 04/15/2020 12:11:00 PM [facility] Patient discharged. Emergency Attender: ULICES Maceer: Bernadette rodríguez [facility] 03/16/2020 01:48:00 PM EST - 03/16/2020 02:05:00 PM [facility] pital Patient discharged. Emergency Attender: Dez ROBERSONCReferrer: Bernadette jones [facility] 03/08/2020 03:30:00 PM EDT - 03/08/2020 03:35:00 PM EDT [facility] Patient discharged. Outpatient Attender: Roland Fountain MD 02/12/2020 07:59:[address] [facility] Outpatient Attender: Roland Fountain MD 02/12/2020 07:59:[address] [facility] Outpatient Attender: Roland Fountain MD 02/01/2020 08:01:[address] [facility] Outpatient Attender: Roland Fountain MD 01/30/2020 09:36:[address] [facility] Outpatient Attender: Roland Fountain MD 01/30/2020 09:36:[address] [facility] Outpatient Attender: Roland Fountain MD 01/17/2020 04:19:[address] [facility] Outpatient Attender: Roland Fountain MD FP 01/17/2020 04:19:[address] [facility] Outpatient Attender: Roland Fountain MD FP 01/17/2020 03:51:[address] [facility] Outpatient Attender: Roland Fountain MD 01/17/2020 03:51:[address] [facility] Emergency Attender: RAUL Maceer : Bernadette Lee RELATIONSHIP COUNSELOR EMERGENCY ROOM-ER 12/07/2019 12:18:00 PM EDT - 12/07/2019 04:42:00 PM [facility] Patient discharged. Emergency Attender: SAPNA CAICEDO 09/07 04:41:00 PM EDT - 09/29/2019 06:58:00 PM [facility] Patient discharged. Immunizations Vaccine Date Status Description [...] SKIN TWO TIMES A DAY SOLD: 09/30/2020 [email or web address] atorvastatin 20 MG Oral Tablet ATORVASTATIN CALCIUM [...] / dexamethasone 1 MG/ML Otic Suspension GARETH ([facility]) Prednisone 10 MG Oral Tablet prednisone 10 mg tablet TAKE 4 TABLETS BY MOUTH ONCE DAILY DECREASE BY 1 TABLET EVERY 3 DAYS prednisone 10 mg tablet TAKE 4 TABLETS BY MOUTH ONCE DAILY DECREASE BY 1 TABLET EVERY 3 DAYS completed prednisone 10 MG Oral Tablet ATH EMEKA ([facility]) Ofloxacin 3 MG/ML Otic Solution ofloxaci n 0.3 % ear drops INSTILL 10 DROPS INTO THE RIGHT EAR ONCE DAILY FOR 10 DAYS ofloxacin 0.3 % ear drops INSTILL 10 JAMAR PS INTO THE RIGHT EAR ONCE DAILY FOR 10 DAYS completed ofloxacin 3 MG/ML Otic Solution GARETH ([facility]) Prednisone 10 MG Oral Tablet prednisone 10 mg tablet TAKE 4 TABLETS BY MOUTH ONCE DAILY DECREASE BY 1 TABLET EVERY 3 DAYS prednisone 10 mg tablet TAKE 4 TABLETS BY MOUTH ONCE DAILY DECREASE BY 1 TABLET EVERY 3 DAYS completed prednisone 10 MG Oral Tablet ATH EMEKA ([facility]) Sulfamethoxazole 800 MG / Trimethoprim [...] trimet hoprim 160 MG Oral Tablet GARETH ([facility]) NITROFURANTOIN, MACROCRYSTALS 25 MG / Ni trofurantoin, Monohydrate 75 MG Oral Capsule nitrofurantoin monohydrate/macrocrystals 100 mg capsule TAKE ONE CAPSULE BY MOUTH TWICE A DAY FOR 7 DAYS nitrofurantoin monohydrate/macrocrystals 100 mg capsule TAKE ONE CAPSULE BY MOUTH TWICE A DAY FOR 7 DAYS completed nitrofurantoin, macrocrystal s 25 MG / nitrofurantoin, monohydrate 75 MG Oral Capsule UPPER BLACK EDDY ([facility]) Amoxicillin 875 MG / Clavulanate 125 MG Oral Tablet amoxicillin 875 mg-potassium clavulanate 125 mg tablet TAKE ONE TABLET BY MOUTH TWICE A DAY FOR 10 DAYS amoxicillin 875 mg-potassium clavulanate 125 mg tablet TAKE ONE TABLET BY MOUTH TWICE A DAY FOR 10 DAYS completed amoxicillin 875 MG / clavulanate 125 MG Oral Tablet UPPER BLACK EDDY ([facility]) Furosemide 20 MG Oral Tablet furosemide 20 mg tablet TAKE ONE TABLET BY MOUTH EVERY DAY furosemide 20 mg tablet TAKE ONE TABLET BY MOUTH EVERY DAY completed furosemide 20 MG Oral Tablet UPPER BLACK EDDY ([facility]) Sulfamethoxazole 800 MG / Trimethoprim 1 60 MG Oral Tablet sulfamethoxazole 800 mg-trimethoprim 160 mg tablet TAKE ONE TABLET BY MOUTH TWICE A DAY FOR 7 DAYS STOP NITROFURANTOIN RX sulfamethoxazole 800 mg-trimethoprim 160 mg tablet TAKE ONE TABLET BY MOUTH TWICE A DAY FOR 7 DAYS STOP NITROFURANTOIN RX completed sulfamethoxazole 800 MG / trimet hoprim 160 MG Oral Tablet UPPER BLACK EDDY ([facility]) cefdinir 300 MG Oral Capsule cefdinir 30 0 mg capsule TAKE ONE CAPSULE BY MOUTH TWICE A DAY cefdinir 300 mg capsule TAKE ONE CAPSULE BY MOUTH TWICE A DAY completed cefdinir 300 MG Oral Capsule UPPER BLACK EDDY ([facility]) Amoxicillin 875 MG / Clavulanate 125 MG Oral Tablet amoxicillin 875 mg-potassium clavulanate 125 mg tablet TAKE ONE TABLET BY MOUTH TWICE A DAY FOR 10 DAYS amoxicillin 875 mg-potassium clavulanate 125 mg tablet TAKE ONE TABLET BY MOUTH TWICE A DAY FOR 10 DAYS completed amoxicillin 875 MG / clavulanate 125 MG Oral Tablet UPPER BLACK EDDY ([facility]) Furosemide 20 MG Oral Tablet furosemide 20 mg tablet TAKE ONE TABLET BY MOUTH EVERY DAY furosemide 20 mg tablet TAKE ONE TABLET BY MOUTH EVERY DAY completed furosemide 20 MG Oral Tablet UPPER BLACK EDDY ([facility]) Ciprofloxacin 3 MG/ML / Dexamethasone [...] / dexamethasone 1 MG/ML Otic Suspension GARETH ([facility]) Ofloxacin 3 MG/ML Otic Solution ofloxaci n 0.3 % ear drops INSTILL 10 DROPS INTO THE RIGHT EAR ONCE DAILY FOR 10 DAYS ofloxacin 0.3 % ear drops INSTILL 10 JAMAR PS INTO THE RIGHT EAR ONCE DAILY FOR 10 DAYS completed ofloxacin 3 MG/ML Otic Solution GARETH ([facility]) NITROFURANTOIN, MACROCRYSTALS 25 MG / Ni trofurantoin, Monohydrate 75 MG Oral Capsule nitrofurantoin monohydrate/macrocrystals 100 mg capsule TAKE ONE CAPSULE BY MOUTH TWICE A DAY FOR 7 DAYS nitrofurantoin monohydrate/macrocrystals 100 mg capsule TAKE ONE CAPSULE BY MOUTH TWICE A DAY FOR 7 DAYS completed nitrofurantoin, macrocrystal s 25 MG / nitrofurantoin, monohydrate 75 MG Oral Capsule GARETH ([facility]) Insurance Providers Payer name Policy type / Coverage type Policy ID Covered libertarian ID Covered libertarian's relationship to bear Policy Bear Plan Information MEDICARE A [id number] Self [id number] A MEDICARE [id number] S [id number] A Medicare P [id number] S [id number] Medicare P [id number] S [id number] A MEDICAID M [id number] Self [id number] Medicaid [place] [facility] Part B [id number] Self [id number] Medicare [facility] Medicare Primary [id number] Self [id number] Medicare [facility] Medicare Primary [id number] Self Medicaid [place] Medigap Part B [id number] Self Medicare [facility] Medicare Primary [id number] Self [id number] Medicare [facility] Medicare Primary [id number] Self [id number] Medicaid S [id number] S [id number] [place] [id number] Self [id number] [place] [id number] Self [id number] [place] Primary [id number] Self [id number] [place] Primary [id number] Self [id number] [place] Medicare Primary [id number] Self [id number] Medicaid [place] Med[place] Part B [id number] Self [id number] Brennen of [facility] [id number] S [id number] Medicaid S [id number] S [id number] DME Jurisdiction A [facility] C [id number] SELF [id number] Medicaid [facility] Healthcare S D [id number] SELF [id number] Medicare C [id number] SELF [id number] E23 Medicaid S [id number] S [id number] E23 Medicaid S [id number] S [id number] [facility] HEALTH PLANS [id number] S [id number] [facility] DUAL COMPLET [id number] S [id number] [facility] DUAL COMPLET [id number] S [id number] [facility] DUAL COMPLET [id number] S [id number] [facility] XIX MAN -PHYSICIAN [id number] 18 [id number] [facility] [place] -OP [id number] 18 [id number] Accident Ins (pr) Medigap Part B [id number] Self [id number] Accident Ins (pr) Medigap Part B [id number] Self [id number] ANSI-Medicare Part B [id number] ANSI-Medicaid [id number] ANSI-Medicaid [id number] ANSI-Medicare Part B [id number] ANSI-Medicaid [id number] ANSI-Medicare Part B [id number] ANSI-Medicaid [id number] ANSI-Medicare Part B [id number] ANSI-Medicaid [id number] ANSI-Medicare Part B [id number] ANSI-Medicaid [id number] ANSI-Medicare Part B [id number] [facility]pr[facility] [id number] Self [id number] ANSI-Medicaid [id number] ANSI-Medicare Part B [id number] ANSI-Medicaid [id number] ANSI-Medicare Part B [id number] Accident Ins (pr) [facility] Part B [id number] Self [id number] MEDICAID M [id number] S [id number] MEDICARE C [id number] S [id number] A Accident Ins (pr) Medigap Part B [id number] Self [id number] Medicaid [place] Part B [id number] Self [id number] Medicare [place] Medicare Primary [id number] Self [id number] [place] Part B [id number] Self [id number] Medicare [place] Medicare Primary [id number] Self [id number] Accident Ins (pr) Medigap Part B [id number] Self [id number] Accident Ins (pr) Medigap Part B [id number] Self [id number] [employer] [place] [id number] SP [id number] [employer] [place] [id number] SP [id number] Accident Ins (pr) Medigap Part B [id number] Self [id number] Accident Ins (pr) Medigap Part B [id number] Self [place] [id number] SP [id number] Accident Insurance Medigap Part B [id number] Self MEDICAID [id number] S [id number] [facility] [id number] SP [id number] A [facility] MEDICA[facility] [id number] SP [id number] A MEDICAID [id number] S [id number] MEDICAID [id number] S [id number] [facility] [id number] SP [id number] MEDICARE [id number] SP [id number] [place] [id number] SP [id number] [facility] MED[facility] [id number] S [id number] [place]ICARE [place] [id number] S [id number] [employer] GOLD [id number] SP [id number] [employer] P [id number] S [id number] [employer] PPO [id number] SP [id number] MEDICAID [id number] S [id number] [facility] MEDICARE DIVISION [id number] S [id number] MEDICARE - [place] [id number] S [id number] [facility] MEDICARE DIVISION [id number] S [id number] [place]ICARE [place] [id number] S [id number] Medicare S [id number] S [id number] A [facility] MEDICA[place] [id number] [facility] MEDICARE PART A [facility] [id number] 18 [id number] MEDICAID [id number] SP [id number] MEDICARE [id number] SP [id number] A BRENNEN [id number] SP [id number] MEDICAID [id number] [facility] MEDICARE PART A [facility] [id number] 18 [id number] BRENN[facility] [id number] SP [id number] Medicaid Commercial [id number] Self [id number] [facility] Medicare Part A [place] Medicare Primary [id number] Self [id number] MEDICARE PART A -O/P [id number] 18 [id number] Problems, Conditions, and Diagnoses Code Display Name Description Problem Type Effective Dates Data Source(s) Z79.84 LONGTERM (CURRENT) USE OF ORAL HYPOGLYC EMIC DRUGS LONGTERM (CURRENT) USE OF ORAL HYPOGLYCEMIC DRUGS Diagnosis 02/10/2021 11:58:00 AM EDT [facility] Z20.822 CONTACT WITH AND (SUSPECTED) EXPOSURE TO COVID-19 CONTACT WITH AND (SUSPECTED) EXPOSURE TO COVID-19 Diagnosis 02/10/2021 11:58:00 AM EDT [facility] Z87.891 Personal history of nicotine dependence PERSONAL HISTORY OF NICOTINE DEPENDENCE Diagnosis 02/10/2021 11:58:00 AM [facility] Z90.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 ACQUIRED ABSENCE OF OTHER SPECIFIED PARTS OF DIGES Diagnosis 02/10/2021 11:58:0 0 AM [facility] Z79.899 Other alf (current) drug therapy O THER LONGTERM (CURRENT) DRUG THERAPY Diagnosis 02/10/2021 11:58:00 AM [facility] I10 Essential (primary) hypertension ESSENTIAL (PRIMARY) H YPERTENSION Diagnosis 02/10/2021 11:58:00 AM [facility] E10.65 Type 1 diabetes mellitus with hyperglyce selena TYPE 1 DIABETES MELLITUS WITH HYPERGLYCEMIA Diagnosis 02/10/2021 11:58:00 AM [facility] N39.0 Urinary tract infection, site not specif ied URINARY TRACT INFECTION, SITE NOT SPECIFIED Diagnosis 02/10/2021 11:58:00 AM [facility] R51.9 HEADACHE, UNSPECIFIED HEADACHE, UNSPECIFIED Diagnosis 02/10/2021 11:58:00 AM [facility] Z79.4 snf (current) use of insulin [employer] 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 (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) USE OF INSULIN Diagnosis 01/14/2021 03:30:00 PM [facility] E11.9 Type 2 diabetes mellitus without complic ations TYPE 2 DIABETES MELLITUS WITHOUT COMPLICATIONS Diagnosis 01/14/2021 03:30:00 PM [facility] stephani N30.01 Acute cystitis with hematuria ACUTE CYSTITIS WITH ARTEM TURIA Diagnosis 01/14/2021 03:30:00 PM [facility] R30.0 Dysuria DYSURIA Diagnosis 01/14/2021 03:30:00 PM [facility] R35.0 Frequency of micturition FREQUENCY OF MICTURITION Diag nosis 09/02/2020 04:49:00 PM [facility] G89.29 Other chronic pain OTHER CHRONIC PAIN Diagnosis 12/2019 10:57:00 AM [facility] M20.001 Unspecified deformity of right finger(s) UNSPECIFIED DEFORMITY OF RIGHT FINGER(S) Diagnosis 04/15/2020 10:57:00 AM [facility] M79.644 Pain in right finger(s) PAIN IN RIGHT FINGER(S) Diagno sis 04/15/2020 10:57:00 AM [facility] H66.001 Acute suppurative otitis med ia without spontaneous rupture of ear drum, right ear ACUTE SUPPR OTITIS MEDIA W/O SPON RUPT EAR DRUM, R Diagnosis 04/15/2020 10:57:00 AM [facility] H60.311 Diffuse otitis externa, right ear DIFFUSE OTITIS EXTERNA, RIGHT EAR Diagnosis 04/15/2020 10:57:00 AM [facility] H61.21 Impacted cerumen, right ear IMPACTED CERUMEN, RIGHT EA R Diagnosis 04/15/2020 10:57:00 AM [facility] H92.01 Otalgia, right ear OTALGIA, RIGHT EAR Diagnosis 12/2019 10:57:00 AM [facility] H60.11 Cellulitis of right external ear CELLULITIS OF R IGHT EXTERNAL EAR Diagnosis 03/08/2020 03:30:00 PM [facility] H60.501 Unspecified acute noninfective otitis ex terna, right ear UNSPECIFIED ACUTE NONINFECTIVE OTITIS EXTERNA, RIG Diagnosis 03/08/2020 03:30:00 P M [facility] [id number] Benign prostatic hyperplasia Benign Prostatic Hyperpla lele Problem 09/05/2020 12:00:00 AM EDT [facility] EDDY ([facility]) [id number] Benign prostatic hyperplasia Benign Prostatic Hyperpla lele Problem 09/05/2020 12:00:00 AM T UPPER BLACK EDDY ([facility]) K21.9 Gastroesophageal reflux disease without esophagitis Gastroesophageal reflux disease without esophagitis Problem 05/30/2020 12:00:00 AM ES T eCW1 ([facility]) H90.3 [id number] Sensorineural hearing loss (SNHL) of both ears Problem 05/30/2020 12:00:00 AM EST eCW1 ([facility]) Surgeries/Procedures Procedure Description Date Indications Data Source(s) INJECTION 1 TENDON SHEATH/LIGAMENT APONEUROSIS 020 12:00:00 AM EST MEDENT ([facility]) RADEX WRIST 2 VIEWS 04/18/2020 12:00:00 AM EST MEDENT ([facility] ) Results ID Date Data Source [id number] 03/04/2021 09:22:00 PM [facility] l Patient: ULICES GUY [facility]ation [facility].VisitID: [id number] [place] [address] [phone], MRegistration Date/Time: 03/04/2021 10:51 Weight:90.7 kg (S). [...] rce(s) Supporting Document(s) ID Date Data Source [id number] 02/11/2021 11:15:00 AM EDT [facility] Patient: ULICES GUY Observation Report - [facility] HospitalVisitID: [id number] [place] [address] [phone], MRegistration Date/Time: 02/10/2021 11:17 Weight:90.7 kg (S). [...] rce(s) Supporting Document(s) ID Date Data Source [id number] 02/10/2021 01:21:00 PM EDT [facility] l DATE OF EXAMINATION: 02/10/2021 12:51 EDT [...] rce(s) Supporting Document(s) ID Date Data Source [id number] REFLEX 02/10/2021 12:21:00 PM EDT [facility] TSYSORDER [id number] Name Value Range Interpretation Code Description Data Luz rce(s) Supporting Document(s) URINE RBC 1-3 /hpf 0-3 [facility] URINE WBC 5-10 /hpf 0-5 H [facility] URINE EPITHELIAL CELLS 1+ /hpf 0 [facility]spital URINE BACTERIA 2+ NONE SEEN H [facility] URINE HYALINE CAST 1 /LPF 0 [facility] ID Date Data Source [id number] REFLEX 02/10/2021 12:20:00 PM EDT [facility] ital TSYSORDER [id number] Name Value Range Interpretation Code Description Data Luz rce(s) Supporting Document(s) URINE COLOR. YELLOW [facility] URINE APPEARANCE CLEAR [facility] URINE GLUCOSE (UA) >=1000 mg/dL NEGATIVE H [facility] spital URINE BILIRUBIN NEGATIVE NEGATIVE [facility] URINE KETONE NEGATIVE mg/dL NEGATIVE [facility] SPECIFIC GRAVITY,URINE 1.015 1.005-1.030 [facility] URINE BLOOD TRACE NEGATIVE H [facility] PH,URINE 5.0 5.0-9.0 [facility] URINE PROTEIN NEGATIVE mg/dL NEGATIVE [facility] URINE UROBILINOGEN NORMAL(0.2-1) mg/dL 0-1 R [facility] URINE NITRATE POSITIVE NEGATIVE H [facility] URINE LEUKOCYTE ESTERASE NEGATIVE NEGATIVE [facility] ID Date Data Source [id number] 02/10/2021 12:06:00 PM EDT [facility] TSYSORDER [id number] Name Value Range Interpretation Code Description Data Luz rce(s) Supporting Document(s) WHITE BLOOD COUNT 8.4 K/mm3 4.0-10.0 [facility] RED BLOOD COUNT 4.47 M/mm3 4.50-6.00 L [facility] l HEMOGLOBIN 12.9 gm/dL 14.0-18.0 L [facility] HEMATOCRIT 37.8 % 42.0-54.0 L [facility] MEAN CELL VOLUME 84.6 fl 80-96 [facility] MEAN CORPUSCULAR HEMOGLOBIN 28.9 pg 27.0-31.0 [facility] MEAN CORPUSCULAR HGB CONC 34.1 g/dl 32.0-36.0 [facility] RED CELL DISTRIBUTION WIDTH 13.7 % 10.0-14.5 [facility] PLATELET COUNT 283 K/mm3 172-450 [facility] MEAN PLATELET VOLUME 10.5 fl 9.0-13.0 [facility] pital GRAN % 71.4 % 50-80.0 [facility] IG% 0.1 % 0.0-0.2 [facility] LYMPH % 17.9 % 25.0-50.0 L [facility] MONO % 8.3 % 2.0-10.0 [facility] EOS % 1.9 % 0-5.0 [facility] BASO % 0.4 % 0.0-2.0 [facility] GRAN # 6.0 K/mm3 2.0-8.00 [facility] IG# 0.0 K/mm3 0.0-0.2 [facility] LYMPH # 1.5 K/mm3 1.0-5.0 [facility] MONO # 0.7 K/mm3 0.10-1.20 [facility] EOS # 0.2 K/mm3 0.0-0.5 [facility] BASO # 0.0 K/mm3 0.0-0.2 [facility] ID Date Data Source [id number] 02/10/2021 01:01:00 PM EDT [facility] TSYSORDER [id number] Name Value Range Interpretation Code Description Data Luz rce(s) Supporting Document(s) TROPONIN-HIGH SENSITIVITY 12.8 ng/L 0-60.4 [facility] ID Date Data Source [id number] 02/10/2021 01:01:00 PM EDT [facility] TSYSORDER [id number] Name Value Range Interpretation Code Description Data Luz rce(s) Supporting Document(s) GLUCOSE 514 mg/dL 74-106 *H [facility] mg/dL BLOOD UREA NITROGEN 27 mg/dL 7-18 H [facility] ital CREATININE 1.26 mg/dL 0.7-1.3 [facility] SODIUM 133 mmol/L 136-145 L [facility] POTASSIUM 5.5 mmol/L 3.5-5.1 H [facility] CHLORIDE 97 mmol/L 98-107 L [facility] CO2 24 mmol/L 21-32 [facility] CALCIUM 9.6 mg/dL 8.5-10.1 [facility] ANION GAP 12.0 mmol/L 5-12 [facility] GLOMERULAR FILTRATION RATE 55 mL/min [facility] GFR IS CALCULATED IN mL/min/1.73m2 JASIEL L FUNCTION: >90MILDLY DECREASED: 60-89MILDY TO MODERATELY DECREASED: 45-59 MODERATELY TO SEVERELY DECREASED: 30-44SEVERELY DECREASED: 15-29RENAL FAILURE: <15 AST 30 U/L 15-37 [facility] ALT 37 U/L 12-78 [facility] ALKALINE PHOSPHATASE 86 U/L 46-116 [facility] pital TOTAL BILIRUBIN 0.4 mg/dL 0.2-1.0 [facility] TOTAL PROTEIN 7.9 g/dl 6.4-8.2 [facility] ALBUMIN 3.6 gm/dL 3.4-5.0 [facility] ID Date Data Source [id number] 02/12/2021 09:53:00 AM EDT [facility] Name Value Range Interpretation Code Description Data Luz rce(s) Supporting Document(s) ORGANISM [facility] COLONY COUNT N [facility] ID Date Data Source [id number] 02/10/2021 11:46:00 AM EDT [facility] Name Value Range Interpretation Code Description Data Luz rce(s) Supporting Document(s) SARS COV2 TRP Not Detected [facility] This lab was ordered by [facility] adry Lab and reported by [facility]. ID Date Data Source [id number] 02/10/2021 12:44:00 PM EDT [facility] sidney TSVANORDER [id number] Name Value Range Interpretation Code Description Data Luz rce(s) Supporting Document(s) Adenovirus Not Detected Detected [facility] Coronavirus 229E Not Detected Detected Not R [facility] Coronavirus HKU1 Not Detected Detected Not R [facility] Coronavirus NL63 Not Detected Detected Not R [facility] Coronavirus OC43 Not Detected Detected Not [facility] Sars Cov 2 Not Detected Detected Not [facility]spital Negative results do not preclude SARS-Co V-2 infection andshould not be used as the sole basis for treatment or otherpatient management decisions. Negative SARS-CoV-2 resultsmust be combined with clinical observations, patienthistory, and epidemiological information. Human Metapneumovirus Not Detected Detected Not [facility] Human Rhinovirus Not Detected Detected Not [facility] Influenza A Not Detected Detected Not [facility] Influenza B Not Detected Detected Not [facility] Parainfluenza Virus 1 Not Detected Detected Not [facility] Parainfluenza Virus 2 Not Detected Detected Not [facility] Parainfluenza Virus 3 Not Detected Detected Not [facility] Parainfluenza Virus 4 Not Detected Detected Not [facility] Respiratory Syncytial Virus Not Detected Detected Not [facility] Bordetella parapertus ([id number]) Not Detected Detected Not [facility] Bordetella pertussis (ptxP) Not Detected Detected Not [facility] Chlamydia pneumoniae Not Detected Detected Not [facility] Mycoplasma pneumoniae Not Detected Detected Not [facility] The results of the respiratory panel ori [...] results have been determined by using the [employer] system.[employer] is an automated in vitro diagnostic system thatutilizes nested multiplex Polymerase Chain Reaction (PCR)and high-resolution melting analysis to detect and identifymultiple nucleic acid targets from clinical specimens. ID Date Data Source [id number] 01/14/2021 07:28:00 PM EDT [facility] l Patient: ULICES GUY Observation Report - [facility]icians/[facility] Levels HospitalVisitID: [id number] [place] [address] [phone], MRegistration Date/Time: 01/14/2021 14:36 Weight:90.7 kg (S). Height/Length:66 inches. BMI:32.3 FAMILY HISTORYNo significant family medical history. (Electronically signed by Chevy Fotnenot PA-C 01/14/2021 18:17) Name Value Range Interpretation Code Description Data Luz rce(s) Supporting Document(s) ID Date Data Source [id number] REFLEX 01/14/2021 03:26:00 PM [facility] [id number] Name Value Range Interpretation Code Description Data Luz rce(s) Supporting Document(s) URINE RBC 3-5 /hpf 0-3 H [facility] URINE WBC 5-10 /hpf 0-5 [facility] URINE EPITHELIAL CELLS 1+ /hpf 0 [facility] URINE BACTERIA 4+ NONE SEEN [facility] ID Date Data Source [id number] REFLEX 01/14/2021 03:25:[facility] [id number] Name Value Range Interpretation Code Description Data Luz rce(s) Supporting Document(s) URINE COLOR. [facility] URINE APPEARANCE SLIGHTY CLOUDY [facility] GLUCOSE (UA) >=1000 mg/dL [facility]GATIVE [facility] UR[facility] BILIRUBIN NEGATIVE NEGATIVE [facility] URINE KETONE 40(MODERATE) mg/dL NEGATIVE [facility] SPECIFIC GRAVITY,URINE 1.010 1.005-1.030 [facility] URINE BLOOD TRACE NEGATIVE [facility] PH,URINE 5.0 5.0-9.0 [facility] URINE PROTEIN NEGATIVE mg/dL NEGATIVE [facility] stephani URINE UROBILINOGEN NORMAL(0.2-1) mg/dL 0-1 [facility] URINE NITRATE POSITIVE NEGATIVE [facility] URINE LEUKOCYTE ESTERASE NEGATIVE NEGATIVE [facility] ID Date Data Source [id number] 01/17/2021 01:22:00 PM EDT [facility] Name Value Range Interpretation Code Description Data Luz rce(s) Supporting Document(s) ORGANISM [facility] COLONY COUNT N [facility] ID Date Data Source [id number] 01/05/2021 05:02:00 PM EDT [facility] Patient: ULICES GUY Observation Report - [facility] Hospital.VisitID: [id number] [place] [address] [phone], MRegistration Date/Time: 01/05/2021 13:20 Weight:90.7 kg (S). [...] rce(s) Supporting Document(s) ID Date Data Source [id number] 01/07/2021 12:00:00 PM [facility] Name Value Range Interpretation Code Description Data Luz rce(s) Supporting Document(s) ORGANISM [facility] COLONY COUNT N [facility] ID Date Data Source [id number] REFLEX 01/05/2021 01:57:00 PM EDT [facility] spital TSYSORDER [id number] Name Value Range Interpretation Code Description Data Luz rce(s) Supporting Document(s) URINE RBC 0-1 /hpf 0-3 [facility] URINE WBC 5-10 /hpf 0-5 H [facility] URINE EPITHELIAL CELLS 1+ /hpf 0 [facility]spital URINE BACTERIA 2+ NONE SEEN [facility] ID Date Data Source [id number] REFLEX 01/05/2021 01:49:00 PM T [facility] ital TSYSORDER [id number] Name Value Range Interpretation Code Description Data [facility] rce(s) Supporting Document(s) URINE COLOR. [facility] URINE APPEARANCE CLEAR [facility] l URINE GLUCOSE (UA) 500 mg/dL NEGATIVE [facility] stephani URINE BILIRUBIN NEGATIVE NEGATIVE [facility] URINE KETONE NEGATIVE mg/dL NEGATIVE [facility] SPECIFIC GRAVITY,URINE < 1.005 1.005-1.030 [facility] URINE BLOOD 1+(SMALL) NEGATIVE [facility] PH,URINE 5.5 5.0-9.0 [facility] URINE PROTEIN NEGATIVE mg/dL NEGATIVE [facility] URINE UROBILINOGEN NORMAL(0.2-1) mg/dL 0-1 [facility] URINE NITRATE NEGATIVE NEGATIVE [facility] URINE LEUKOCYTE ESTERASE NEGATIVE NEGATIVE [facility] ID Date Data Source [id number] 09/08/2020 05:23:00 PM EDT [facility] l Patient: ULICES GUY Observation Report - [facility] Hospital.VisitID: [id number] [place] [address] [phone], MRegistration Date/Time: 09/02/2020 16:15 Weight:90.7 kg (S). [...] rce(s) Supporting Document(s) ID Date Data Source [id number] 09/05/2020 12:21:00 PM EDT [facility] Name Value Range Interpretation Code Description Data Luz rce(s) Supporting Document(s) ORGANISM [facility] COLONY COUNT N [facility] ID Date Data Source [id number] REFLEX 09/02/2020 04:32:00 PM EDT [facility] TSYSORDER [id number] Name Value Range Interpretation Code Description Data Luz rce(s) Supporting Document(s) URINE RBC 1-3 /hpf 0-3 [facility] URINE WBC 5-10 /hpf 0-5 H [facility] URINE EPITHELIAL CELLS 1+ /hpf 0 [facility]ital URINE BACTERIA 3+ NONE SEEN [facility] URINE HYALINE CAST 1+ /LPF 0 [facility] URINE MUCUS 2+ NEGATIVE [facility] ID Date Data Source [id number] [id number] 09/02/2020 04:31:00 PM EDT [facility] ital TSYSORDER [id number] Name Value Range Interpretation Code Description Data Luz rce(s) Supporting Document(s) URINE COLOR. [facility] URINE APPEARANCE CLOUDY [facility] l URINE GLUCOSE (UA) 500 mg/dL NEGATIVE [facility] URINE BILIRUBIN NEGATIVE NEGATIVE [facility] URINE KETONE NEGATIVE mg/dL NEGATIVE [facility] al SPECIFIC GRAVITY,URINE 1.025 1.005-1.030 [facility] URINE BLOOD NEGATIVE NEGATIVE [facility] PH,URINE 5.0 5.0-9.0 [facility] URINE PROTEIN NEGATIVE mg/dL NEGATIVE [facility] URINE UROBILINOGEN NORMAL(0.2-1) mg/dL 0-1 [facility] URINE NITRATE POSITIVE NEGATIVE [facility] URINE LEUKOCYTE ESTERASE NEGATIVE NEGATIVE [facility] ID Date Data Source [id number] 04/15/2020 03:01:00 PM EST [facility] Patient: ULICES GUY Observation Report - [facility] Hospital.VisitID: [id number] [place] [address] [phone], MRegistration Date/Time: 04/15/2020 10:34 Weight:90.7 kg (S). [...] rce(s) Supporting Document(s) ID Date Data Source [id number] 03/16/2020 04:37:00 PM [facility] Patient: ULICES GUY Observation Report - Phys[facility] Levels Hospital.VisitID: [id number] [place] [address] [phone], MRegistration Date/Time: 03/16/2020 11:59 Weight:90.7 kg (S). [...] daily, Last: today. (Electronically signed by Ulices Whiteny P.A. 03/16/2020 14:42) Name Value Range Interpretation Code Description Data Luz rce(s) Supporting Document(s) ID Date Data Source [id number] 03/08/2020 04:08:00 PM EDT [facility] Patient: ULICES GUY Observation Report - [facility] Hospital.VisitID: [id number] [place] [address] [phone], MRegistration Date/Time: 03/08/2020 14:57 Weight:90.7 kg (S). Height/Length:66 inches (S). BMI:32.3 FAMILY HISTORYNo significant family medical history. (Electronically signed by Dez Villavicencio PA 03/08/2020 15:34) Name Value Range Interpretation Code Description Data Luz rce(s) Supporting Document(s) ID Date Data Source [id number] 01/15/2020 03:45:[address] [facility] Name Value Range Interpretation Code Description Data Luz rce(s) Supporting Document(s) HCT 40.5 % 42.0-52.[address] [facility] HGB 13.5 g/dL 13.5-17.[address] [facility] MCH 33.3 G/DL pg 32.0-36.5 N [facility] MCHC 29.7 PG % 27.0-33.0 [facility] PLATELETS 202 10 10*3/mm3 150-[address] [facility] RBC 4.54 10 10*6/mm3 4.30-6.10 [facility] RDW 13.7 % 11.5-14.5 [facility] WBC TOTAL 7.6 4.0-10.0 [facility] ID Date Data Source [id number] 01/15/2020 03:45:[address] [facility] Name Value Range Interpretation Code Description Data Luz rce(s) Supporting Document(s) BG FASTING 527 mg/dL 70-[address] limits [facility] Procedure Social History No Information Vital Signs ID Date Data Source UNK Name Value Range Interpretation Code Description Data Source(s) Diastolic blood pressure 80 mm[Hg] 80 mm[Hg] GARETH ([facility]) Body height 66 [in_i] 66 [in_i] GARETH ([facility]) Body mass index (BMI) [Ratio] 29.4 kg/m2 29.4 k g/m2 GARETH ([facility]) Body weight 2912 [oz_av] 2912 [oz_av] GARETH ([facility]) Systolic blood pressure 144 mm[Hg] 144 mm[Hg] A [facility] ([facility]) Body height 66 [in_i] 66 [in_i] GARETH ([facility]) Diastolic blood pressure 90 mm[Hg] 90 mm[Hg] GARETH ([facility]) Systolic blood pressure 161 mm[Hg] 161 mm[Hg] A [facility] ([facility]) Body mass index (BMI) [Ratio] 31.5 kg/m2 31.5 k g/m2 GARETH ([facility]) Body weight 3123.2 [oz_av] 3123.2 [oz_av] ATHEN A ([facility]) Diastolic blood pressure 90 mm[Hg] 90 mm[Hg] GARETH ([facility]) Body height 66 [in_i] 66 [in_i] GARETH ([facility]) Body mass index (BMI) [Ratio] 31.5 kg/m2 31.5 k g/m2 GARETH ([facility]) Systolic blood pressure 161 mm[Hg] 161 mm[Hg] A [facility] ([facility]) Body weight 3123.2 [oz_av] 3123.2 [oz_av] ATHEN A ([facility]) Body weight 209.8 [lb_av] 209.8 [lb_av] eCW1 ([facility]) Body height [in_i] eCW1 ([facility]) Body mass index (BMI) [Ratio] 32.86 kg/m2 32.86 kg/m2 eCW1 ([facility]) Heart rate 71 /min 71 /min eCW1 (On license of [facility]) Respiratory rate 20 /min 20 /min eCW1 ([facility]) Body temperature 97.9 [degF] 97.9 [degF] eCW1 ( [facility]) Systolic blood pressure 124 mm[Hg] 124 mm[Hg] e CW1 ([facility]) Diastolic blood pressure 70 mm[Hg] 70 mm[Hg] eCW1 ([facility]) Patient Treatment Plan of Care Planned Activity Planned Date Details Description Data Source (s) Sulfamethoxazole 800 MG / Trimethoprim 160 MG Oral Tablet GARETH ([facility]) Prednisone 10 MG Oral Tablet GARETH ([facility]) Ofloxacin 3 MG/ML Otic Solution UPPER BLACK EDDY ([facility]) NITROFURANTOIN, MACROCRYSTALS 25 MG / Ni trofurantoin, Monohydrate 75 MG Oral Capsule GARETH ([facility]) Furosemide 20 MG Oral Tablet GARETH ([facility]) Ciprofloxacin 3 MG/ML / Dexamethasone 1 MG/ML Otic Suspension GARETH ([facility]) Amoxicillin 875 MG / Clavulanate 125 MG Oral Tablet GARETH ([facility]) Sulfamethoxazole 800 MG / Trimethoprim 160 MG Oral Tablet GARETH ([facility]) Prednisone 10 MG Oral Tablet UPPER BLACK EDDY ([facility]) Ofloxacin 3 MG/ML Otic Solution GARETH ([facility]) NITROFURANTOIN, MACROCRYSTALS 25 MG / Ni trofurantoin, Monohydrate 75 MG Oral Capsule GARETH ([facility]) Furosemide 20 MG Oral Tablet GARETH ([facility]) Ciprofloxacin 3 MG/ML / Dexamethasone 1 MG/ML Otic Suspension UPPER BLACK EDDY ([facility]) cefdinir 300 MG Oral Capsule GARETH ([facility]) Amoxicillin 875 MG / Clavulanate 125 MG Oral Tablet GARETH ([facility])
[2021-03-05 15:42] LABS: VITAMIN B12 LEVEL 370 PG/ML (247-911)
[2021-03-05 15:44] LABS: FOLATE > 24.0 NG/ML (>5.4)
[2021-03-05] MEDS ORDERED: HALOPERIDOL 5MG/ML VIAL (J1630 PER 1) IV ONE (18:40)
[2021-03-05] MEDS: HumaLOG 75/25 MIX INSULIN PER UNIT SC SCH (20:06)
--- NOTE | 2021-03-05 20:20 | ECGEPIP ---
[facility] - ED Test Date: 2021-03-05 Pat Name: KHANH GUY Department: Room: [place] [address] Gender: Male [employer]: ALETA : 1945 Requested By: Ezio Fernandez Order Number: [id number] Reading MD: Zohreh Caldwell Measurements Intervals [place] Rate: 54 P: 18 FL: 238 QRS: 13 QRSD: 92 T: -3 QT: 424 QTc: 402 Interpretive Statements Sinus bradycardia with 1st degree AV block NSTTW abnormalities decreased rate 12/18/19 Electronically Signed on 03-05-2021 20:20:22 EDT by Zohreh Caldwell
[2021-03-05 23:00] VITALS: BP 127/63
[2021-03-06 04:00] VITALS: BP 139/65
[2021-03-06 05:58] LABS: HEMATOCRIT 35.5 % (42.0-52.0); HEMOGLOBIN 11.5 g/dl (13.5-17.5); MEAN CORPUSCULAR HGB CONC 32.4 g/dl (32.0-36.5); MEAN CORPUSCULAR VOLUME 89.4 fl (80.0-96.0); PLATELET COUNT, AUTOMATED 203 10^3/uL (150-450); RED BLOOD COUNT 3.97 10^6/uL (4.30-6.10); WHITE BLOOD COUNT 5.9 10^3/uL (4.0-10.0)
[2021-03-06 08:00] VITALS: BP 141/67
[2021-03-06 09:08] LABS: ALBUMIN 2.9 GM/DL (3.2-5.2); ALT/SGPT 25 U/L (12-78); BILIRUBIN,TOTAL 0.4 MG/DL (0.2-1.0); BLOOD UREA NITROGEN 16 MG/DL (7-18); CALCIUM LEVEL 8.2 MG/DL (8.8-10.2); CARBON DIOXIDE LEVEL 27 MEQ/L (21-32); CHLORIDE LEVEL 110 MEQ/L (98-107); GLOMERULAR FILTRATION RATE > 60.0 (>42); GLUCOSE, FASTING 230 MG/DL (70-100); SODIUM LEVEL 143 MEQ/L (136-145); TOTAL PROTEIN 6.2 GM/DL (6.4-8.2)
--- NOTE | 2021-03-06 09:31 | IPNPDOC ---
Text Note Date of Service The patient was seen on 03/06/21. NOTE Subjective: Patient seen and examined at bedside. No acute overnight events reported. Patient voices no new medical complaints this morning. He does not recall specific details regarding the events that brought him to the hospital yesterday. Yesterday he stated he would be living with his cousin, today he states it is his uncle. He states he does remember getting pulled over while driving. Objective: Vital Signs: reviewed General: NAD, lying comfortably in bed, grumpy HEENT: NC/AT, EOMI Neck: supple, no masses Chest: lungs CTA B/L Heart: +S1S2, RRR, systolic murmur Abd: soft, NT, ND, +BS Ext: no edema Skin: no rashes MSK: full ROM at large joints Neuro: no gross focal deficits Psych: AAOx3 with prompting, poor historian A/P: 75-year-old male admitted for altered mental status with a past medical history of diabetes, BPH, hyperlipidemia and osteoarthritis. #AMS? - baseline unknown - CT head negative - repeat CT pending - unable to obtain MRI as patient unable to complete MRI screening - neuro c/s pending #DM - continue insulin, carb consistent diet #BPH - continue flomax #DVT prophylaxis - mechanical VS,Fishbone, I+O VS, Fishbone, I+O Laboratory Tests 03/05/21 10:53 03/06/21 05:34 Vital Signs Date Time Temp Pulse Resp B/P (MAP) Pulse Ox O2 Delivery O2 Flow Rate FiO2 03/06/21 04:00 97.8 64 16 139/65 (89) 96 Room Air I&O- Last 24 Hours up to 6 AM 03/06/21 06:00 Intake Total 0 ml Balance 0 ml KAREN TRUJILLO MD Mar 06, 2021 09:31
[2021-03-06] MEDS: SITagliptin 50 MG TAB (JANUVIA) PO SCH (11:27)
[2021-03-06] MEDS: TAMSULOSIN 0.4 MG CAP PO SCH (11:27)
[2021-03-06] MEDS: HumaLOG 75/25 MIX INSULIN PER UNIT SC SCH ×2 (11:27→22:35)
[2021-03-06 12:00] VITALS: BP 140/58
--- NOTE | 2021-03-06 15:00 | REPVR ---
PROCEDURE INFORMATION: Exam: CT Head Without Contrast Exam date and time: 03/06/2021 10:00 AM Age: 75 years old Clinical indication: Altered mental status/memory loss; Additional info: Interim eval - altered mental status TECHNIQUE: Imaging protocol: Computed tomography of the head without contrast. Radiation optimization: All CT scans at this facility use at least one of these dose optimization techniques: automated exposure control; mA and/or kV adjustment per patient size (includes targeted exams where dose is matched to clinical indication); or iterative reconstruction. COMPARISON: CT Head without contrast 03/05/2021 10:47 AM FINDINGS: Brain: There are bilateral basal ganglia lacunar infarcts and this traverses anterior limb of internal capsule on left. There is diffuse cerebral atrophy present, consistent with this patient's age. There is no acute intracranial hemorrhage. No extra-axial fluid collection. No evidence of acute infarct. Ledbetter white differentiation is intact. There is no evidence of mass. There is no mass effect or midline shift. Cerebral ventricles: No ventriculomegaly. Paranasal sinuses: Mild mucosal thickening in maxillary sinuses. Mastoid air cells: No significant mastoid effusion. Bones/joints: No acute fracture. Soft tissues: Unremarkable as visualized. IMPRESSION: No evidence of acute intracranial abnormality. No acute hemorrhage. No evidence of acute infarct or mass. Electronically signed by: Vero Doll On 03/06/2021 14:59:43 PM
[2021-03-06 16:00] VITALS: BP 126/57
[2021-03-06] MEDS: ACETAMINOPHEN TAB 650MG DOSE (2X325MG) PO PRN (18:58)
[2021-03-06 20:00] VITALS: BP 107/51
[2021-03-06 20:56] LABS: HEMOGLOBIN A1c 12.2 %
[2021-03-07 00:18] VITALS: BP 127/60
[2021-03-07 04:00] VITALS: BP 121/59
[2021-03-07 06:26] LABS: BASO % 0.3 % (0.0-1.0); EOS # 0.2 10^3/uL (0.0-0.5); EOS % 2.6 % (0.0-3.0); HEMATOCRIT 36.2 % (42.0-52.0); HEMOGLOBIN 11.7 g/dl (13.5-17.5); LYMPH # 1.5 10^3/uL (1.5-5.0); LYMPH % 22.8 % (24.0-44.0); MEAN CORPUSCULAR HGB CONC 32.3 g/dl (32.0-36.5); MEAN CORPUSCULAR VOLUME 89.6 fl (80.0-96.0); MONO # 0.6 10^3/uL (0.0-0.8); MONO % 9.8 % (2.0-8.0); NEUTROPHILS # 4.1 10^3/uL (1.5-8.5); PLATELET COUNT, AUTOMATED 193 10^3/uL (150-450); RED BLOOD COUNT 4.04 10^6/uL (4.30-6.10); WHITE BLOOD COUNT 6.5 10^3/uL (4.0-10.0)
[2021-03-07 06:45] LABS: BLOOD UREA NITROGEN 12 MG/DL (7-18); CALCIUM LEVEL 8.6 MG/DL (8.8-10.2); CARBON DIOXIDE LEVEL 26 MEQ/L (21-32); CHLORIDE LEVEL 111 MEQ/L (98-107); CHOLESTEROL LEVEL 194 MG/DL (<200); CHOLESTEROL RISK RATIO 4.974 (<5); CREATININE FOR GFR 0.75 MG/DL (0.70-1.30); GLOMERULAR FILTRATION RATE > 60.0 (>42); GLUCOSE, FASTING 140 MG/DL (70-100); HDL CHOLESTEROL 39 MG/DL (>40); LDL CHOLESTEROL 131 MG/DL (<100); MAGNESIUM LEVEL 2.1 MG/DL (1.8-2.4); NON-HDL-C 155 MG/DL; POTASSIUM SERUM 3.3 MEQ/L (3.5-5.1); SODIUM LEVEL 141 MEQ/L (136-145); TRIGLYCERIDES LEVEL 120 MG/DL (<150)
[2021-03-07 08:00] VITALS: BP 94/53
--- NOTE | 2021-03-07 08:34 | IPNPDOC ---
Text Note Date of Service The patient was seen on 03/07/21. NOTE Subjective: Patient seen and examined at bedside. No acute overnight events reported. Patient voices no new medical complaints this morning. Objective: Vital Signs: reviewed General: NAD, lying comfortably in bed, in good spirits this morning, anxious to be discharged HEENT: NC/AT, EOMI Neck: supple, no masses Chest: lungs CTA B/L Heart: +S1S2, RRR, systolic murmur Abd: soft, NT, ND, +BS Ext: no edema Skin: no rashes MSK: full ROM at large joints Neuro: no gross focal deficits Psych: AAOx3 with prompting, poor historian A/P: 75-year-old male admitted for altered mental status with a past medical history of DM, BPH, HLD and osteoarthritis. #neurocognitive impairment - baseline unknown - CT head negative x 2 - unable to obtain MRI as patient unable to complete MRI screening - discussed with neuro - assistance appreciated #DM - uncontrolled - A1C >12 - continue insulin, carb consistent diet #BPH - continue flomax #DVT prophylaxis - mechanical Disposition: continue PT, will need placement or home with services VS,Andrey, I+O VS, Andrey, I+O Laboratory Tests 03/07/21 05:19 Vital Signs Date Time Temp Pulse Resp B/P (MAP) Pulse Ox O2 Delivery O2 Flow Rate FiO2 03/07/21 04:00 97.1 54 19 121/59 (79) 99 03/07/21 00:18 Room Air I&O- Last 24 Hours up to 6 AM 03/07/21 06:00 Intake Total 418 ml Output Total 0 ml Balance 418 ml KAREN TRUJILLO MD Mar 07, 2021 08:34
[2021-03-07] MEDS: TAMSULOSIN 0.4 MG CAP PO SCH (09:52)
[2021-03-07] MEDS: SITagliptin 50 MG TAB (JANUVIA) PO SCH (09:52)
[2021-03-07] MEDS: HumaLOG 75/25 MIX INSULIN PER UNIT SC SCH ×2 (09:53→21:06)
[2021-03-07] MEDS ORDERED: DEXTROSE 50% 50 ML SYRINGE IV PRN (10:00)
[2021-03-07] MEDS ORDERED: GLUCOSE 4GM CHEW TABLET PO PRN (10:00)
[2021-03-07] MEDS ORDERED: GLUCAGON INJ 1MG VIAL SC PRN (10:00)
[2021-03-07 16:00] VITALS: BP 166/78
[2021-03-07 18:26] VITALS: BP 116/58
[2021-03-07 21:30] VITALS: BP 125/72
[2021-03-08 06:00] VITALS: BP 144/61
[2021-03-08] MEDS ORDERED: POTASSIUM CHLORIDE 10MEQ SR TABLET PO ONE (06:50)
--- NOTE | 2021-03-08 08:33 | CR ---
CONSULTATION DATE: 03/06/2021 REFERRING PHYSICIAN: Papa Joseph M.D REASON FOR CONSULTATION: Altered mental status. HISTORY OF PRESENT ILLNESS: Ulices Solo is a 75-year-old man who was brought by EMS when he was pulled over for erratic driving by police. 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 He was unable to recall the incident when he was driving erratically. He stated that there was nothing wrong with him or his driving. He told this to police officers as well and he still states the same in the hospital. He states that he would be living with an uncle in the near future. I asked him how old is his uncle and he stated that his uncle is 61 years old when he himself is 75 years old. He was unable to recall whether he will be living with a cousin as stated in the admission note. He persisted that he will be living with his uncle who is younger than him. He denies any headaches, neck pain, back pain, dysphagia, dysarthria, diplopia, urinary incontinence, falls or loss of consciousness. PAST MEDICAL HISTORY: Diabetes, prostate enlargement, hyperlipidemia, sleep apnea. REVIEW OF SYSTEMS: All systems were reviewed and found to be noncontributory except as mentioned in history of present illness. SOCIAL HISTORY: He quit smoking 40 years ago. He denies alcohol or illicit drugs. FAMILY HISTORY: Unremarkable and noncontributory. He states that he does not have any children and he is . HOME MEDICATIONS: 1. Insulin. 2. Lispro 30 units subcutaneous b.i.d. 3. Januvia 100 mg p.o. daily. 4. Flomax 0.4 mg p.o. daily. ALLERGIES: None. PHYSICAL EXAMINATION: VITAL SIGNS: Temperature 98.2, pulse 81, respiratory rate 18, blood pressure 126/57, 98% saturation on room air. HEART: Regular rate and rhythm. LUNGS: Clear to auscultation. ABDOMEN: Soft, nontender, nondistended. EXTREMITIES: No pedal edema. MUSCULOSKELETAL: No abnormalities. SKIN: No rash. NEUROLOGICAL: No signs of meningeal irritation. The patient is awake, alert, oriented to self, city, state, name of president, month, year, day of week and date. He was unable to tell me name of hospital. He is able to spell world backwards. His recall is 0/3 at 5 minutes. He had mild difficulty doing serial 7s. Speech is normal. Extraocular muscles are intact. No facial weakness. Tongue and uvula are midline. 5/5 strength in all four extremities. Deep tendon reflexes are 2+ throughout. Normal sensation throughout. Gait is normal. DIAGNOSTIC STUDIES: Hemoglobin was 11.5, glucose 429 which decreased to 230. CT scan of head twice showed mild small vessel ischemic disease of brain and atrophy. Urine toxicology screen was normal. RPR was negative. There was no acute disease of CT scan of head. MRI could not be done. There is no family member available and he could not be cleared for MRI scan. ASSESSMENT: 1. Mild cognitive impairment with concern for development of dementia. PLAN: 1. Check vitamin B12, vitamin B1, TSH, etc. 2. He should not be driving. 3. Consider Donepezil and Namenda on outpatient basis. 4. Follow with our office in two weeks after hospital discharge.
[2021-03-08] MEDS: HumaLOG 75/25 MIX INSULIN PER UNIT SC SCH ×2 (09:23→21:17)
[2021-03-08] MEDS: SITagliptin 50 MG TAB (JANUVIA) PO SCH (09:24)
[2021-03-08] MEDS: TAMSULOSIN 0.4 MG CAP PO SCH (09:24)
[2021-03-08 14:00] VITALS: BP 142/61
[2021-03-08 22:00] VITALS: BP 157/77
[2021-03-09] MEDS: HALOPERIDOL 5MG/ML VIAL (J1630 PER 1) IM PRN ×2 (02:06→09:43)
[2021-03-09] MEDS ORDERED: LORazepam 2 MG/ML VIAL IV STA ×2 (03:14→05:15)
[2021-03-09] MEDS ORDERED: OLANZapine INTRAMUSCULAR 10MG VIAL IM ONE ×2 (03:15→05:15)
--- NOTE | 2021-03-09 03:35 | IPNPDOC ---
Text Note Date of Service The patient was seen on 03/09/21. NOTE Code 25 called at approx 0300. Patient at this time acutely agitated, trying to get into other patients room, yelling out that he was trying to see his family. Patient was verbally aggressive with staff and physically aggressive with attempts at redirection by multiple different staff members. Patient given iv ativan and im zyprexa at this time. Vital signs stable. VS,Fishbone, I+O VS, Fishbone, I+O Vital Signs Date Time Temp Pulse Resp B/P (MAP) Pulse Ox O2 Delivery O2 Flow Rate FiO2 03/08/21 22:00 97.9 68 20 157/77 (103) 98 Room Air I&O- Last 24 Hours up to 6 AM 03/09/21 06:00 Intake Total 1120 ml Balance 1120 ml ADRIANE ESQUIVEL Mar 09, 2021 03:35
[2021-03-09] MEDS: HumaLOG 75/25 MIX INSULIN PER UNIT SC SCH ×2 (09:00→20:09)
[2021-03-09] MEDS: TAMSULOSIN 0.4 MG CAP PO SCH (09:00)
[2021-03-09] MEDS: OLANZapine 2.5MG TABLET PO SCH ×2 (09:00→20:08)
[2021-03-09] MEDS: SITagliptin 50 MG TAB (JANUVIA) PO SCH (09:00)
[2021-03-09] MEDS ORDERED: HALOPERIDOL 5MG/ML VIAL (J1630 PER 1) IM STA (09:48)
[2021-03-09] MEDS ORDERED: HALOPERIDOL 5MG/ML VIAL (J1630 PER 1) IM PRN (10:10)
[2021-03-10 05:20] VITALS: BP 157/92
[2021-03-10] MEDS: OLANZapine 2.5MG TABLET PO SCH ×2 (09:09→21:01)
[2021-03-10] MEDS: SITagliptin 50 MG TAB (JANUVIA) PO SCH (09:09)
[2021-03-10] MEDS: TAMSULOSIN 0.4 MG CAP PO SCH (09:09)
[2021-03-10] MEDS: HumaLOG 75/25 MIX INSULIN PER UNIT SC SCH ×2 (09:10→21:01)
--- NOTE | 2021-03-10 11:36 | IPNPDOC ---
Text Note Date of Service The patient was seen on 03/10/21. NOTE Subjective: Patient is a 75-year-old male with a PMHx of DM2, DLP, BPH and OA , who presented to the hospital with confusion. Patient was brought to the hospital by police for erratic driving. Patient was admitted to the hospital service for further evaluation and treatment. Patient was seen and examined at the bedside. Patient denies any nausea, vomiting, abdominal pain, diarrhea, constipation, or urinary discomfort. . He denies any chest pain, shortness breath or cough. Objective: Vitals (See below) General: Lying in bed, appears comfortable, Awake / Alert, Oriented x3 HEENT: NC, AT CVS: +S1S2 Lungs: Fair air entry b/l, -w/r/r Abdomen: Soft, ND, NT Extremities: No evidence of edema Imaging: CXR 03/05: There is no evidence of acute cardiopulmonary disease. Findings as described above. CT head 03/05: No evidence of significant change compared to the prior exam. There is no evidence of an acute intracranial hemorrhagic or non hemorrhagic event. Findings as described above. CT head 03/06: No evidence of acute intracranial abnormality. No acute hemorrhage. No evidence of acute infarct or mass. Assessment and plan: AMS - likely 2/2 neurocognitive impairment - Baseline is unclear - Physicals without any focal deficits - Imaging noted above - Neurology on consultation; appreciate their input Behavioral issues - c/w Haloperidol PRN / Olanzapine DM2 - c/w ISS and Sitagliptin BPH - c/w Tamsulosin DVT prophylaxis - c/w TEDs/Sequentials - Will add Heparin SQ Disposition: - c/w ALC status - c/w PT VS,Fishbone, I+O VS, Fishbone, I+O Vital Signs Date Time Temp Pulse Resp B/P (MAP) Pulse Ox O2 Delivery O2 Flow Rate FiO2 03/10/21 05:20 98.9 73 18 157/92 (113) 97 Room Air I&O- Last 24 Hours up to 6 AM 03/10/21 06:00 Intake Total 300 ml Output Total 250 ml Balance 50 ml COLT TOM MD Mar 10, 2021 11:36
[2021-03-10] MEDS: HEPARIN SOD (PORCINE) 5000UNITS/ML 1ML VIAL/SYRINGE SQ SCH ×2 (12:31→21:01)
[2021-03-10] MEDS: ACETAMINOPHEN TAB 650MG DOSE (2X325MG) PO PRN (14:27)
[2021-03-11 06:00] VITALS: BP 159/94
[2021-03-11] MEDS: HEPARIN SOD (PORCINE) 5000UNITS/ML 1ML VIAL/SYRINGE SQ SCH ×3 (06:01→21:08)
[2021-03-11 08:19] LABS: BASO % 0.4 % (0.0-1.0); EOS # 0.1 10^3/uL (0.0-0.5); EOS % 2.1 % (0.0-3.0); HEMATOCRIT 38.9 % (42.0-52.0); HEMOGLOBIN 12.7 g/dl (13.5-17.5); LYMPH # 1.1 10^3/uL (1.5-5.0); LYMPH % 20.7 % (24.0-44.0); MEAN CORPUSCULAR HEMOGLOBIN 29.1 pg (27.0-33.0); MEAN CORPUSCULAR HGB CONC 32.6 g/dl (32.0-36.5); MEAN CORPUSCULAR VOLUME 89.2 fl (80.0-96.0); MONO # 0.6 10^3/uL (0.0-0.8); MONO % 11.4 % (2.0-8.0); NEUTROPHILS # 3.5 10^3/uL (1.5-8.5); PLATELET COUNT, AUTOMATED 206 10^3/uL (150-450); RED BLOOD COUNT 4.36 10^6/uL (4.30-6.10); WHITE BLOOD COUNT 5.4 10^3/uL (4.0-10.0)
[2021-03-11 09:04] LABS: BLOOD UREA NITROGEN 13 MG/DL (7-18); CARBON DIOXIDE LEVEL 22 MEQ/L (21-32); CHLORIDE LEVEL 110 MEQ/L (98-107); GLOMERULAR FILTRATION RATE > 60.0 (>42); GLUCOSE, FASTING 349 MG/DL (70-100); POTASSIUM SERUM 4.7 MEQ/L (3.5-5.1); SODIUM LEVEL 140 MEQ/L (136-145)
[2021-03-11] MEDS: SITagliptin 50 MG TAB (JANUVIA) PO SCH (09:43)
[2021-03-11] MEDS: HumaLOG 75/25 MIX INSULIN PER UNIT SC SCH ×2 (09:43→17:58)
[2021-03-11] MEDS: OLANZapine 2.5MG TABLET PO SCH (09:43)
[2021-03-11] MEDS: TAMSULOSIN 0.4 MG CAP PO SCH (09:43)
[2021-03-11] MEDS ORDERED: OLAN2.5T25 PO (13:32)
[2021-03-11] MEDS ORDERED: SERO1TAB3 PO (14:37)
[2021-03-11] MEDS ORDERED: HumaLOG INSULIN (NovoLOG) PER UNIT SC SCH (21:00)
[2021-03-11] MEDS: QUEtiapine FUMARATE 12.5 MG HALF-TAB PO SCH (21:08)
[2021-03-12] MEDS: HEPARIN SOD (PORCINE) 5000UNITS/ML 1ML VIAL/SYRINGE SQ SCH (05:20)
[2021-03-12 06:00] VITALS: BP 121/84
[2021-03-12 08:08] LABS: BASO % 0.2 % (0.0-1.0); EOS # 0.1 10^3/uL (0.0-0.5); EOS % 1.8 % (0.0-3.0); HEMATOCRIT 41.3 % (42.0-52.0); LYMPH # 1.3 10^3/uL (1.5-5.0); LYMPH % 23.3 % (24.0-44.0); MEAN CORPUSCULAR HEMOGLOBIN 28.6 pg (27.0-33.0); MEAN CORPUSCULAR HGB CONC 31.5 g/dl (32.0-36.5); MEAN CORPUSCULAR VOLUME 90.8 fl (80.0-96.0); MONO # 0.6 10^3/uL (0.0-0.8); MONO % 10.8 % (2.0-8.0); NEUTROPHILS # 3.6 10^3/uL (1.5-8.5); NEUTROPHILS % 63.5 % (36.0-66.0); PLATELET COUNT, AUTOMATED 211 10^3/uL (150-450); RED BLOOD COUNT 4.55 10^6/uL (4.30-6.10); WHITE BLOOD COUNT 5.6 10^3/uL (4.0-10.0)
[2021-03-12 08:31] LABS: BLOOD UREA NITROGEN 15 MG/DL (7-18); CALCIUM LEVEL 9.3 MG/DL (8.8-10.2); CARBON DIOXIDE LEVEL 27 MEQ/L (21-32); CHLORIDE LEVEL 106 MEQ/L (98-107); GLOMERULAR FILTRATION RATE > 60.0 (>42); GLUCOSE, FASTING 313 MG/DL (70-100); POTASSIUM SERUM 4.4 MEQ/L (3.5-5.1); SODIUM LEVEL 138 MEQ/L (136-145)
[2021-03-12] MEDS: QUEtiapine FUMARATE 12.5 MG HALF-TAB PO SCH (09:31)
[2021-03-12] MEDS: TAMSULOSIN 0.4 MG CAP PO SCH (09:31)
[2021-03-12] MEDS: HumaLOG 75/25 MIX INSULIN PER UNIT SC SCH (09:32)
[2021-03-12] MEDS: SITagliptin 50 MG TAB (JANUVIA) PO SCH (09:32)
--- NOTE | 2021-03-12 13:42 | DS.PDOC ---
Discharge Summary General Date of Admission Mar 05, 2021 at 13:12 Date of Discharge 03/12/2021 Discharge Summary PROCEDURES PERFORMED DURING STAY: [None]. ADMITTING DIAGNOSES / DISCHARGE DIAGNOSES: AMS - likely 2/2 neurocognitive impairment Behavioral issues DM2 BPH DVT prophylaxis COMPLICATIONS/CHIEF COMPLAINT: Confusion HISTORY OF PRESENT ILLNESS: Patient is a 75-year-old male with a PMHx of DM2, DLP, BPH and OA , who presented to the hospital with confusion. Patient was brought to the hospital by police for erratic driving. Patient was admitted to the hospital service for further evaluation and treatment. Patient was seen and examined at the bedside. Patient was walking out of the bathroom, getting back into his chair, some he could eat breakfast. Reported some neck discomfort from the bed, but denied any nausea, vomiting, chest pain, shortness of breath, palpitations, abdominal pain or diarrhea. HOSPITAL COURSE: AMS - likely 2/2 neurocognitive impairment - Patient appears to be at baseline level of mentation currently - No deficits on physical exam - Imaging noted above - Neurology on consultation; appreciate their input - Patient will be living with his nephew in [place] - Will have outpatient follow-up with primary care provider neurology within the next 7 days Behavioral issues - s/p Haloperidol PRN - s/p Olanzapine - c/w Seroquel on discharge DM2 - c/w ISS and Sitagliptin BPH - c/w Tamsulosin DVT prophylaxis - c/w Heparin SQ DISCHARGE MEDICATIONS: Please see below. ALLERGIES: Please see below. PHYSICAL EXAMINATION ON DISCHARGE: Vitals (See below) General: Patient is sitting up in a chair, appears to be comfortable without any acute distress, awake, alert, oriented 3 HEENT: Atraumatic and normocephalic CVS: +S1S2 Lungs: Fair air entry b/l, no wheezing, rales or rhonchi Abdomen: Soft, nondistended, nontender Extremities: Lower extremities do not reveal any edema LABORATORY DATA: Please see below. IMAGING: CXR 03/05: There is no evidence of acute cardiopulmonary disease. Findings as described chalo blunt. CT head 03/05: No evidence of significant change compared to the prior exam. There is no evidence of an acute intracranial hemorrhagic or non hemorrhagic event. Findings as described above. CT head 03/06: No evidence of acute intracranial abnormality. No acute hemorrhage. No evidence of acute infarct or mass. ACTIVITY: [As tolerated]. DISCHARGE PLAN: Follow-up with primary care provider within the next 7 days Follow-up with neurology in the next 7 days Remain compliant with treatment plan and medications Return to the ER if you experience any problems DISPOSITION: Home Health Service. DISCHARGE CONDITION: [Stable]. TIME SPENT ON DISCHARGE: 35 minutes. Vital Signs/I&Os Vital Signs Date Time Temp Pulse Resp B/P (MAP) Pulse Ox O2 Delivery O2 Flow Rate FiO2 03/12/21 06:00 99.1 63 17 121/84 (96) 100 Room Air I&O- Last 24 Hours up to 6 AM 03/12/21 05:59 Intake Total 1130 ml Output Total 0 ml Balance 1130 ml Laboratory Data Labs 24H Laboratory Tests 2 03/11/21 16:30: Bedside Glucose (Misc Panel) 306H 03/11/21 20:49: Bedside Glucose (Misc Panel) 337H 03/11/21 23:10: Bedside Glucose (Misc Panel) 189H 03/12/21 07:32: Immature Granulocyte % (Auto) 0.4, Neutrophils (%) (Auto) 63.5, Lymphocytes (%) (Auto) 23.3L, Monocytes (%) (Auto) 10.8H, Eosinophils (%) (Auto) 1.8, Basophils (%) (Auto) 0.2, Neutrophils # (Auto) 3.6, Lymphocytes # (Auto) 1.3L, Monocytes # (Auto) 0.6, Eosinophils # (Auto) 0.1, Basophils # (Auto) 0.0, Nucleated Red Blood Cells % (auto) 0.0, Anion Gap 5L, Glomerular Filtration Rate > 60.0, C alcium Level 9.3, Magnesium Level 2.0 03/12/21 07:36: Bedside Glucose (Misc Panel) 313H 03/12/21 11:23: Bedside Glucose (Misc Panel) 281H CBC/BMP Laboratory Tests 03/12/21 07:32 FSBS Laboratory Tests Test 03/11/21 16:30 03/11/21 20:49 03/11/21 23:10 03/12/21 07:36 Range/Units Bedside Glucose (Misc Panel) 306 337 189 313 83-110 MG/DL Test 03/12/21 11:23 Range/Units Bedside Glucose (Misc Panel) 281 83-110 MG/DL Microbiology Microbiology 03/05/21 Blood Culture - Final, Complete NO GROWTH AFTER 5 DAYS 03/05/21 Blood Culture - Final, Complete NO GROWTH AFTER 5 DAYS 03/05/21 Urine Culture - Final, Complete Klebsiella Pneumoniae Discharge Medications Scheduled Insulin Lispro Protamin/Lispro (Humalog Mix 75-25 Kwikpen) 1 Inj Inj, 30 UNITS SC BID, (Reported) Quetiapine Fumarate (Seroquel) 25 Mg Tablet, 0.5 TAB PO BID Sitagliptin Phosphate (Januvia) 100 Mg Tab, 100 MG PO DAILY, (Reported) Tamsulosin Hcl (Tamsulosin HCl) 0.4 Mg Capsule, 0.4 MG PO DAILY, (Reported) Allergies Coded Allergies: No Known Allergies (Unverified , 12/29/18) COLT TOM MD Mar 12, 2021 13:42
== END 2021-03-12 12:30 | disposition home health service (06) | DRG 884 ==
LOC: M ED 10:08 → EDBD 10:08 → M ED INP 13:12 → ENRESERV 20:21 → M PCU 22:39 → M MS5PR 03-07 21:16
PROVIDERS: ADMIT Internal Medicine; ATTEND Internal Medicine
DX: F03.91 Unspecified dementia, unspecified severity, with behavioral disturbance (principal); R41.82 Altered mental status, unspecified; N40.0 Benign prostatic hyperplasia without lower urinary tract symptoms; E78.5 Hyperlipidemia, unspecified; E11.9 Type 2 diabetes mellitus without complications; Z20.822 Contact with and (suspected) exposure to COVID-19; Z87.891 Personal history of nicotine dependence; Z79.4 Long term (current) use of insulin; Z79.899 Other long term (current) drug therapy

== ENCOUNTER 2021-04-30 17:07 | Inpatient (IN) | payer MEDICARE, OTHER ==
[~2021-04-30] VITALS: Ht 167.6 cm; Wt 81.5 kg
[~2021-04-30 17:07] MED LIST changes: +MED NOTE; +OLAN2.5T25 PO; +SERO1TAB3 PO
[2021-04-30] MEDS ORDERED: HUMA75VL (17:19)
[2021-04-30] MEDS ORDERED: HALOPERIDOL 5MG/ML VIAL (J1630 PER 1) IM STA (18:20)
[2021-04-30] MEDS ORDERED: HALOPERIDOL 5MG/ML VIAL (J1630 PER 1) IV ONE (18:20)
[2021-04-30 18:46] LABS: BASO % 0.3 % (0.0-1.0); EOS # 0.2 10^3/uL (0.0-0.5); EOS % 2.2 % (0.0-3.0); HEMATOCRIT 42.8 % (42.0-52.0); HEMOGLOBIN 13.8 g/dl (13.5-17.5); LYMPH # 2.8 10^3/uL (1.5-5.0); LYMPH % 32.3 % (24.0-44.0); MEAN CORPUSCULAR HEMOGLOBIN 28.9 pg (27.0-33.0); MEAN CORPUSCULAR HGB CONC 32.2 g/dl (32.0-36.5); MEAN CORPUSCULAR VOLUME 89.5 fl (80.0-96.0); MONO # 0.9 10^3/uL (0.0-0.8); MONO % 10.8 % (2.0-8.0); NEUTROPHILS # 4.7 10^3/uL (1.5-8.5); NEUTROPHILS % 53.9 % (36.0-66.0); PLATELET COUNT, AUTOMATED 317 10^3/uL (150-450); RED BLOOD COUNT 4.78 10^6/uL (4.30-6.10); WHITE BLOOD COUNT 8.7 10^3/uL (4.0-10.0)
[2021-04-30 19:12] LABS: OSMOLALITY SERUM 293 MOSM/KG (280-301)
[2021-04-30 19:21] LABS: ACETAMINOPHEN LEVEL < 2.0 UG/ML (10.0-30.0); ALBUMIN 3.8 GM/DL (3.2-5.2); ALT/SGPT 25 U/L (12-78); BILIRUBIN,DIRECT < 0.1 MG/DL (0.0-0.2); BILIRUBIN,TOTAL 0.3 MG/DL (0.2-1.0); BLOOD UREA NITROGEN 19 MG/DL (7-18); CALCIUM LEVEL 9.1 MG/DL (8.8-10.2); CARBON DIOXIDE LEVEL 24 MEQ/L (21-32); CHLORIDE LEVEL 110 MEQ/L (98-107); CREATININE FOR GFR 0.82 MG/DL (0.70-1.30); ETHYL ALCOHOL (ETHANOL) < 0.003 % (0.000-0.010); GLOMERULAR FILTRATION RATE > 60.0 (>42); GLUCOSE, FASTING 91 MG/DL (70-100); POTASSIUM SERUM 5.1 MEQ/L (3.5-5.1); SODIUM LEVEL 139 MEQ/L (136-145); TOTAL PROTEIN 8.1 GM/DL (6.4-8.2)
[2021-04-30 20:00] LABS: AMPHETAMINES LEVEL URINE NEGATIVE (NEGATIVE); BARBITURATES URINE NEGATIVE (NEGATIVE); BENZODIAZEPINES URINE NEGATIVE (NEGATIVE); CANNABINOIDS URINE NEGATIVE (NEGATIVE); COCAINE METABOLITE URINE NEGATIVE (NEGATIVE); METHADONE URINE NEGATIVE (NEGATIVE); OPIATES URINE NEGATIVE (NEGATIVE); PHENCYCLIDINE URINE NEGATIVE (NEGATIVE)
[2021-04-30 22:36] LABS: RSV AMPLIFICATION NEGATIVE (NEGATIVE)
[2021-04-30] MEDS ORDERED: DEXTROSE 50% 50 ML SYRINGE IV PRN (23:35)
[2021-04-30] MEDS ORDERED: GLUCOSE 4GM CHEW TABLET PO PRN (23:35)
[2021-04-30] MEDS ORDERED: GLUCAGON INJ 1MG VIAL SC PRN (23:35)
[2021-05-01] MEDS ORDERED: HOME MED LIST COMPLETE! XX SCH (00:30)
[2021-05-01 01:10] VITALS: BP 160/69
[2021-05-01 06:00] VITALS: BP 155/69
[2021-05-01] MEDS: HumaLOG INSULIN (NovoLOG) PER UNIT SC SCH ×4 (07:30→21:00)
[2021-05-01] MEDS: ENOXAPARIN 40MG/0.4ML SYRINGE (J1650 PER 10MG) SC SCH (10:41)
[2021-05-01 14:00] VITALS: BP 133/62
[2021-05-02 05:53] VITALS: BP 128/62
[2021-05-02] MEDS: HumaLOG INSULIN (NovoLOG) PER UNIT SC SCH ×4 (07:45→20:48)
[2021-05-02] MEDS: ENOXAPARIN 40MG/0.4ML SYRINGE (J1650 PER 10MG) SC SCH (09:58)
[2021-05-03 06:00] VITALS: BP 145/65
[2021-05-03] MEDS: HumaLOG INSULIN (NovoLOG) PER UNIT SC SCH ×4 (07:24→21:00)
[2021-05-03] MEDS: ENOXAPARIN 40MG/0.4ML SYRINGE (J1650 PER 10MG) SC SCH (09:59)
[2021-05-04 06:14] VITALS: BP 135/64
[2021-05-04] MEDS: HumaLOG INSULIN (NovoLOG) PER UNIT SC SCH ×4 (08:28→20:46)
[2021-05-04] MEDS: ENOXAPARIN 40MG/0.4ML SYRINGE (J1650 PER 10MG) SC SCH (08:28)
[2021-05-04 14:00] VITALS: BP_SYST 135; BP_SYST 146; BP_DIAS 65; BP_DIAS 69
[2021-05-05 06:00] VITALS: BP 159/79
[2021-05-05] MEDS: ENOXAPARIN 40MG/0.4ML SYRINGE (J1650 PER 10MG) SC SCH (08:47)
[2021-05-05] MEDS: HumaLOG INSULIN (NovoLOG) PER UNIT SC SCH ×4 (08:48→20:05)
[2021-05-05 14:00] VITALS: BP 131/81
[2021-05-05] MEDS: ACETAMINOPHEN TAB 650MG DOSE (2X325MG) PO PRN (19:47)
[2021-05-05] MEDS ORDERED: BENZONATATE 100MG CAPSULE PO PRN (20:40)
[2021-05-06 06:45] VITALS: BP 134/80
[2021-05-06] MEDS: HumaLOG INSULIN (NovoLOG) PER UNIT SC SCH ×4 (08:13→21:00)
[2021-05-06] MEDS: ENOXAPARIN 40MG/0.4ML SYRINGE (J1650 PER 10MG) SC SCH (08:13)
[2021-05-07 06:00] VITALS: BP 134/79
[2021-05-07] MEDS: ENOXAPARIN 40MG/0.4ML SYRINGE (J1650 PER 10MG) SC SCH (08:32)
[2021-05-07] MEDS: HumaLOG INSULIN (NovoLOG) PER UNIT SC SCH ×4 (08:32→20:21)
[2021-05-08 06:00] VITALS: BP 132/73
[2021-05-08 06:35] LABS: BASO % 0.3 % (0.0-1.0); EOS # 0.1 10^3/uL (0.0-0.5); EOS % 1.4 % (0.0-3.0); HEMATOCRIT 40.2 % (42.0-52.0); HEMOGLOBIN 13.1 g/dl (13.5-17.5); LYMPH # 1.7 10^3/uL (1.5-5.0); LYMPH % 25.3 % (24.0-44.0); MEAN CORPUSCULAR HEMOGLOBIN 29.1 pg (27.0-33.0); MEAN CORPUSCULAR HGB CONC 32.6 g/dl (32.0-36.5); MEAN CORPUSCULAR VOLUME 89.3 fl (80.0-96.0); MONO # 0.6 10^3/uL (0.0-0.8); MONO % 9.5 % (2.0-8.0); NEUTROPHILS # 4.1 10^3/uL (1.5-8.5); NEUTROPHILS % 63.2 % (36.0-66.0); PLATELET COUNT, AUTOMATED 233 10^3/uL (150-450); WHITE BLOOD COUNT 6.5 10^3/uL (4.0-10.0)
[2021-05-08 07:02] LABS: ALBUMIN 3.3 GM/DL (3.2-5.2); ALT/SGPT 20 U/L (12-78); BILIRUBIN,TOTAL 0.4 MG/DL (0.2-1.0); BLOOD UREA NITROGEN 16 MG/DL (7-18); CALCIUM LEVEL 8.8 MG/DL (8.8-10.2); CARBON DIOXIDE LEVEL 26 MEQ/L (21-32); CHLORIDE LEVEL 108 MEQ/L (98-107); CREATININE FOR GFR 0.86 MG/DL (0.70-1.30); GLOMERULAR FILTRATION RATE > 60.0 (>42); GLUCOSE, FASTING 263 MG/DL (70-100); SODIUM LEVEL 138 MEQ/L (136-145); TOTAL PROTEIN 7.1 GM/DL (6.4-8.2)
[2021-05-08] MEDS: ENOXAPARIN 40MG/0.4ML SYRINGE (J1650 PER 10MG) SC SCH (08:22)
[2021-05-08] MEDS: HumaLOG INSULIN (NovoLOG) PER UNIT SC SCH ×4 (08:23→21:04)
[2021-05-09 06:00] VITALS: BP 134/78
[2021-05-09] MEDS: ENOXAPARIN 40MG/0.4ML SYRINGE (J1650 PER 10MG) SC SCH (08:26)
[2021-05-09] MEDS: HumaLOG INSULIN (NovoLOG) PER UNIT SC SCH ×4 (08:26→20:20)
[2021-05-09] MEDS: ACETAMINOPHEN TAB 650MG DOSE (2X325MG) PO PRN (16:09)
[2021-05-10 06:00] VITALS: BP 93/62
[2021-05-10] MEDS ORDERED: NS 500 ML IV ONE (06:15)
[2021-05-10] MEDS: HumaLOG INSULIN (NovoLOG) PER UNIT SC SCH ×4 (08:58→21:00)
[2021-05-10] MEDS: ENOXAPARIN 40MG/0.4ML SYRINGE (J1650 PER 10MG) SC SCH (08:59)
[2021-05-10] MEDS: ACETAMINOPHEN TAB 650MG DOSE (2X325MG) PO PRN (21:27)
[2021-05-10] MEDS: RAMELTEON 8 MG TAB (ROZEREM) PO PRN (21:27)
[2021-05-10 22:56] VITALS: BP 111/60
[2021-05-11 05:24] VITALS: BP 141/65
[2021-05-11] MEDS: ENOXAPARIN 40MG/0.4ML SYRINGE (J1650 PER 10MG) SC SCH (08:05)
[2021-05-11] MEDS: HumaLOG INSULIN (NovoLOG) PER UNIT SC SCH ×4 (08:05→21:00)
[2021-05-11] MEDS: ACETAMINOPHEN TAB 650MG DOSE (2X325MG) PO PRN (16:07)
[2021-05-11] MEDS ORDERED: IBUPROFEN 600MG TAB PO ONE (17:10)
[2021-05-12 06:00] VITALS: BP 104/60
[2021-05-12] MEDS: HumaLOG INSULIN (NovoLOG) PER UNIT SC SCH ×4 (08:28→21:00)
[2021-05-12] MEDS: ENOXAPARIN 40MG/0.4ML SYRINGE (J1650 PER 10MG) SC SCH (08:28)
[2021-05-12] MEDS: ACETAMINOPHEN TAB 650MG DOSE (2X325MG) PO PRN (21:46)
[2021-05-13 06:00] VITALS: BP 117/55
[2021-05-13] MEDS: ENOXAPARIN 40MG/0.4ML SYRINGE (J1650 PER 10MG) SC SCH (08:20)
[2021-05-13] MEDS: HumaLOG INSULIN (NovoLOG) PER UNIT SC SCH ×4 (08:21→20:28)
[2021-05-13] MEDS ORDERED: OLANZapine INTRAMUSCULAR 10MG VIAL IM ONE (11:20)
[2021-05-13] MEDS ORDERED: QUEtiapine FUMARATE 12.5 MG HALF-TAB PO ONE (11:20)
[2021-05-13] MEDS ORDERED: HALOPERIDOL 5MG/ML VIAL (J1630 PER 1) IV ONE (11:20)
[2021-05-13] MEDS ORDERED: diphenhydrAMINE 50MG CAP PO ONE (11:20)
[2021-05-13] MEDS: QUEtiapine FUMARATE 12.5 MG HALF-TAB PO SCH (20:27)
[2021-05-13] MEDS: RAMELTEON 8 MG TAB (ROZEREM) PO PRN (20:27)
[2021-05-14 06:00] VITALS: BP 134/70
[2021-05-14] MEDS: HumaLOG INSULIN (NovoLOG) PER UNIT SC SCH ×4 (09:14→21:00)
[2021-05-14] MEDS: ENOXAPARIN 40MG/0.4ML SYRINGE (J1650 PER 10MG) SC SCH (09:15)
[2021-05-14] MEDS: QUEtiapine FUMARATE 12.5 MG HALF-TAB PO SCH ×2 (09:15→21:03)
[2021-05-15 06:53] VITALS: BP 110/60
[2021-05-15] MEDS: QUEtiapine FUMARATE 12.5 MG HALF-TAB PO SCH ×2 (08:30→19:33)
[2021-05-15] MEDS: ENOXAPARIN 40MG/0.4ML SYRINGE (J1650 PER 10MG) SC SCH (08:31)
[2021-05-15] MEDS: HumaLOG INSULIN (NovoLOG) PER UNIT SC SCH ×4 (08:32→20:27)
[2021-05-16 04:00] VITALS: BP 131/71
[2021-05-16] MEDS: ENOXAPARIN 40MG/0.4ML SYRINGE (J1650 PER 10MG) SC SCH (08:40)
[2021-05-16] MEDS: HumaLOG INSULIN (NovoLOG) PER UNIT SC SCH ×4 (08:40→21:00)
[2021-05-16] MEDS: QUEtiapine FUMARATE 12.5 MG HALF-TAB PO SCH ×2 (08:40→21:07)
[2021-05-16] MEDS ORDERED: LEVEMIR (INSULIN DETEMIR) 1 UNITS/0.01ML SC ONE (13:00)
[2021-05-16] MEDS: ACETAMINOPHEN TAB 650MG DOSE (2X325MG) PO PRN (19:00)
[2021-05-17 06:00] VITALS: BP 149/74
[2021-05-17] MEDS: ACETAMINOPHEN TAB 650MG DOSE (2X325MG) PO PRN ×2 (06:19→17:47)
[2021-05-17] MEDS: QUEtiapine FUMARATE 12.5 MG HALF-TAB PO SCH ×2 (08:22→21:35)
[2021-05-17] MEDS: ENOXAPARIN 40MG/0.4ML SYRINGE (J1650 PER 10MG) SC SCH (08:22)
[2021-05-17] MEDS: LEVEMIR (INSULIN DETEMIR) 1 UNITS/0.01ML SC SCH (08:23)
[2021-05-17] MEDS: HumaLOG INSULIN (NovoLOG) PER UNIT SC SCH ×5 (08:23→20:52)
[2021-05-18] MEDS: ACETAMINOPHEN TAB 650MG DOSE (2X325MG) PO PRN (05:56)
[2021-05-18 06:00] VITALS: BP 149/82
[2021-05-18] MEDS: LEVEMIR (INSULIN DETEMIR) 1 UNITS/0.01ML SC SCH (08:07)
[2021-05-18] MEDS: HumaLOG INSULIN (NovoLOG) PER UNIT SC SCH ×4 (08:07→21:00)
[2021-05-18] MEDS: ENOXAPARIN 40MG/0.4ML SYRINGE (J1650 PER 10MG) SC SCH (08:08)
[2021-05-18] MEDS: QUEtiapine FUMARATE 12.5 MG HALF-TAB PO SCH ×2 (08:08→21:41)
[2021-05-18 08:45] LABS: BASO % 0.1 % (0.0-1.0); HEMATOCRIT 39.2 % (42.0-52.0); HEMOGLOBIN 13.2 g/dl (13.5-17.5); LYMPH # 0.6 10^3/uL (1.5-5.0); LYMPH % 8.3 % (24.0-44.0); MEAN CORPUSCULAR HEMOGLOBIN 29.4 pg (27.0-33.0); MEAN CORPUSCULAR HGB CONC 33.7 g/dl (32.0-36.5); MEAN CORPUSCULAR VOLUME 87.3 fl (80.0-96.0); MONO % 14.6 % (2.0-8.0); NEUTROPHILS # 5.4 10^3/uL (1.5-8.5); NEUTROPHILS % 76.9 % (36.0-66.0); PLATELET COUNT, AUTOMATED 180 10^3/uL (150-450); RED BLOOD COUNT 4.49 10^6/uL (4.30-6.10)
[2021-05-18 09:18] LABS: ALBUMIN 3.4 GM/DL (3.2-5.2); ALT/SGPT 20 U/L (12-78); BILIRUBIN,TOTAL 0.3 MG/DL (0.2-1.0); BLOOD UREA NITROGEN 12 MG/DL (7-18); C REACTIVE PROTEIN QUANTITATIV 0.86 MG/DL (0.00-0.30); CALCIUM LEVEL 8.4 MG/DL (8.8-10.2); CARBON DIOXIDE LEVEL 26 MEQ/L (21-32); CHLORIDE LEVEL 103 MEQ/L (98-107); CREATININE FOR GFR 1.03 MG/DL (0.70-1.30); GLOMERULAR FILTRATION RATE > 60.0 (>42); GLUCOSE, FASTING 258 MG/DL (70-100); SODIUM LEVEL 136 MEQ/L (136-145)
[2021-05-18 09:19] LABS: INR 0.99; PROTHROMBIN TIME 13.5 SECONDS (12.7-14.5)
[2021-05-18 09:20] LABS: ALBUMIN 3.4 GM/DL (3.2-5.2); ALT/SGPT 20 U/L (12-78); BILIRUBIN,DIRECT < 0.1 MG/DL (0.0-0.2); BILIRUBIN,TOTAL 0.2 MG/DL (0.2-1.0); C REACTIVE PROTEIN QUANTITATIV 0.87 MG/DL (0.00-0.30); FERRITIN 107 NG/ML (26-388); LDH LACTATE DEHYDROGENASE 144 U/L (87-241); PARTIAL THROMBOPLASTIN TIME 37.4 SECONDS (25.9-37.0); TOTAL PROTEIN 6.9 GM/DL (6.4-8.2)
[2021-05-18 09:22] LABS: D-DIMER QUANT 272.93 ng/ml (<500)
[2021-05-18 10:20] LABS: ERYTHROCYTE SEDIMENTATION RATE 18 mm/hr (0-20)
[2021-05-18] MEDS ORDERED: IBUPROFEN 400MG TAB PO ONE (11:15)
[2021-05-18] MEDS ORDERED: ALBUTEROL 90 MCG/ACT 8GM HFA INHALER INH PRN ×2 (12:40→12:50)
[2021-05-18] MEDS ORDERED: ACETAMINOPHEN TAB 650MG DOSE (2X325MG) PO ONE ×2 (12:40→14:00)
[2021-05-18] MEDS ORDERED: diphenhydrAMINE 50MG/ML VIAL (J1200) IV PRN ×2 (12:40→14:00)
[2021-05-18] MEDS ORDERED: EPINEPHrine INJ 1 MG/ML 1ML AMP IM PRN ×2 (12:40→14:00)
[2021-05-18] MEDS ORDERED: NS 1,000 ML IV SCH ×2 (12:40→12:50)
[2021-05-18] MEDS ORDERED: diphenhydrAMINE 50MG/ML VIAL (J1200) IV ONE ×2 (12:40→14:00)
[2021-05-18] MEDS ORDERED: CASIRIVIMAB/IMDEVIMAB 1,200 MG in NS 250 ML IV ONE (12:40)
[2021-05-18] MEDS ORDERED: methylPREDNISolone 125MG 2ML VIAL IV PRN ×2 (12:40→14:00)
[2021-05-18] MEDS ORDERED: methylPREDNISolone 125MG 2ML VIAL IV ONE (14:00)
[2021-05-18] MEDS ORDERED: SOTROVIMAB 500 MG in NS 100 ML IV ONE (14:00)
[2021-05-18 14:33] VITALS: BP 103/49
[2021-05-18 15:03] VITALS: BP 92/50
[2021-05-18 16:03] VITALS: BP 100/51
[2021-05-19] MEDS: ACETAMINOPHEN TAB 650MG DOSE (2X325MG) PO PRN (00:29)
[2021-05-19 06:00] VITALS: BP 102/51
[2021-05-19 06:14] LABS: BASO % 0.1 % (0.0-1.0); HEMOGLOBIN 13.9 g/dl (13.5-17.5); LYMPH # 1.3 10^3/uL (1.5-5.0); LYMPH % 14.2 % (24.0-44.0); MEAN CORPUSCULAR HGB CONC 32.3 g/dl (32.0-36.5); MEAN CORPUSCULAR VOLUME 89.6 fl (80.0-96.0); MONO # 1.7 10^3/uL (0.0-0.8); MONO % 18.5 % (2.0-8.0); NEUTROPHILS # 5.9 10^3/uL (1.5-8.5); NEUTROPHILS % 66.8 % (36.0-66.0); PLATELET COUNT, AUTOMATED 155 10^3/uL (150-450); WHITE BLOOD COUNT 8.9 10^3/uL (4.0-10.0)
[2021-05-19 06:31] LABS: BLOOD UREA NITROGEN 12 MG/DL (7-18); CALCIUM LEVEL 8.6 MG/DL (8.8-10.2); CARBON DIOXIDE LEVEL 25 MEQ/L (21-32); CHLORIDE LEVEL 101 MEQ/L (98-107); CREATININE FOR GFR 0.97 MG/DL (0.70-1.30); GLOMERULAR FILTRATION RATE > 60.0 (>42); GLUCOSE, FASTING 207 MG/DL (70-100); POTASSIUM SERUM 3.5 MEQ/L (3.5-5.1); SODIUM LEVEL 136 MEQ/L (136-145)
[2021-05-19] MEDS: HumaLOG INSULIN (NovoLOG) PER UNIT SC SCH ×4 (10:17→19:59)
[2021-05-19] MEDS: QUEtiapine FUMARATE 12.5 MG HALF-TAB PO SCH ×2 (10:17→20:26)
[2021-05-19] MEDS: ENOXAPARIN 40MG/0.4ML SYRINGE (J1650 PER 10MG) SC SCH (10:17)
[2021-05-19] MEDS: LEVEMIR (INSULIN DETEMIR) 1 UNITS/0.01ML SC SCH (10:18)
[2021-05-19 20:00] VITALS: BP 121/51
[2021-05-20 04:00] VITALS: BP 113/59
[2021-05-20 08:20] LABS: BASO % 0.3 % (0.0-1.0); EOS % 0.2 % (0.0-3.0); HEMATOCRIT 42.6 % (42.0-52.0); HEMOGLOBIN 13.8 g/dl (13.5-17.5); LYMPH # 1.5 10^3/uL (1.5-5.0); LYMPH % 23.8 % (24.0-44.0); MEAN CORPUSCULAR HEMOGLOBIN 29.2 pg (27.0-33.0); MEAN CORPUSCULAR HGB CONC 32.4 g/dl (32.0-36.5); MEAN CORPUSCULAR VOLUME 90.1 fl (80.0-96.0); MONO % 15.1 % (2.0-8.0); NEUTROPHILS # 3.8 10^3/uL (1.5-8.5); NEUTROPHILS % 60.4 % (36.0-66.0); PLATELET COUNT, AUTOMATED 152 10^3/uL (150-450); RED BLOOD COUNT 4.73 10^6/uL (4.30-6.10); WHITE BLOOD COUNT 6.3 10^3/uL (4.0-10.0)
[2021-05-20 08:50] LABS: BLOOD UREA NITROGEN 14 MG/DL (7-18); CALCIUM LEVEL 8.7 MG/DL (8.8-10.2); CARBON DIOXIDE LEVEL 24 MEQ/L (21-32); CHLORIDE LEVEL 105 MEQ/L (98-107); CREATININE FOR GFR 0.86 MG/DL (0.70-1.30); GLOMERULAR FILTRATION RATE > 60.0 (>42); GLUCOSE, FASTING 170 MG/DL (70-100); POTASSIUM SERUM 3.8 MEQ/L (3.5-5.1); SODIUM LEVEL 139 MEQ/L (136-145)
[2021-05-20] MEDS: QUEtiapine FUMARATE 12.5 MG HALF-TAB PO SCH ×2 (09:16→20:08)
[2021-05-20] MEDS: LEVEMIR (INSULIN DETEMIR) 1 UNITS/0.01ML SC SCH (09:17)
[2021-05-20] MEDS: HumaLOG INSULIN (NovoLOG) PER UNIT SC SCH ×4 (09:17→20:09)
[2021-05-20] MEDS: ENOXAPARIN 40MG/0.4ML SYRINGE (J1650 PER 10MG) SC SCH (09:17)
[2021-05-20] MEDS: HALOPERIDOL 5MG/ML VIAL (J1630 PER 1) IM PRN (17:52)
[2021-05-20 19:56] VITALS: BP 110/76
[2021-05-21 05:35] VITALS: BP 118/55
[2021-05-21 06:17] LABS: EOS # 0.1 10^3/uL (0.0-0.5); EOS % 0.9 % (0.0-3.0); HEMATOCRIT 39.2 % (42.0-52.0); HEMOGLOBIN 13.1 g/dl (13.5-17.5); LYMPH # 1.1 10^3/uL (1.5-5.0); LYMPH % 18.9 % (24.0-44.0); MEAN CORPUSCULAR HEMOGLOBIN 28.9 pg (27.0-33.0); MEAN CORPUSCULAR HGB CONC 33.4 g/dl (32.0-36.5); MEAN CORPUSCULAR VOLUME 86.5 fl (80.0-96.0); MONO # 0.6 10^3/uL (0.0-0.8); MONO % 10.4 % (2.0-8.0); NEUTROPHILS # 3.9 10^3/uL (1.5-8.5); NEUTROPHILS % 69.4 % (36.0-66.0); PLATELET COUNT, AUTOMATED 183 10^3/uL (150-450); RED BLOOD COUNT 4.53 10^6/uL (4.30-6.10); WHITE BLOOD COUNT 5.6 10^3/uL (4.0-10.0)
[2021-05-21 06:44] LABS: BLOOD UREA NITROGEN 18 MG/DL (7-18); CALCIUM LEVEL 8.7 MG/DL (8.8-10.2); CARBON DIOXIDE LEVEL 23 MEQ/L (21-32); CHLORIDE LEVEL 106 MEQ/L (98-107); CREATININE FOR GFR 0.94 MG/DL (0.70-1.30); GLOMERULAR FILTRATION RATE > 60.0 (>42); GLUCOSE, FASTING 257 MG/DL (70-100); POTASSIUM SERUM 3.4 MEQ/L (3.5-5.1); SODIUM LEVEL 138 MEQ/L (136-145)
[2021-05-21] MEDS: QUEtiapine FUMARATE 12.5 MG HALF-TAB PO SCH ×2 (08:29→20:17)
[2021-05-21] MEDS: HumaLOG INSULIN (NovoLOG) PER UNIT SC SCH ×4 (08:29→20:14)
[2021-05-21] MEDS: ENOXAPARIN 40MG/0.4ML SYRINGE (J1650 PER 10MG) SC SCH (08:30)
[2021-05-21] MEDS: LEVEMIR (INSULIN DETEMIR) 1 UNITS/0.01ML SC SCH (08:30)
[2021-05-21 20:20] VITALS: BP 116/64
[2021-05-22 04:00] VITALS: BP 125/62
[2021-05-22 07:43] LABS: BASO % 0.2 % (0.0-1.0); EOS # 0.1 10^3/uL (0.0-0.5); EOS % 2.1 % (0.0-3.0); HEMATOCRIT 39.2 % (42.0-52.0); LYMPH # 1.3 10^3/uL (1.5-5.0); MEAN CORPUSCULAR HEMOGLOBIN 28.7 pg (27.0-33.0); MEAN CORPUSCULAR HGB CONC 33.2 g/dl (32.0-36.5); MEAN CORPUSCULAR VOLUME 86.5 fl (80.0-96.0); MONO # 0.5 10^3/uL (0.0-0.8); MONO % 10.9 % (2.0-8.0); NEUTROPHILS # 2.4 10^3/uL (1.5-8.5); NEUTROPHILS % 56.6 % (36.0-66.0); PLATELET COUNT, AUTOMATED 183 10^3/uL (150-450); RED BLOOD COUNT 4.53 10^6/uL (4.30-6.10); WHITE BLOOD COUNT 4.3 10^3/uL (4.0-10.0)
[2021-05-22 08:07] LABS: BLOOD UREA NITROGEN 15 MG/DL (7-18); CALCIUM LEVEL 8.8 MG/DL (8.8-10.2); CARBON DIOXIDE LEVEL 26 MEQ/L (21-32); CHLORIDE LEVEL 106 MEQ/L (98-107); CREATININE FOR GFR 0.78 MG/DL (0.70-1.30); GLOMERULAR FILTRATION RATE > 60.0 (>42); GLUCOSE, FASTING 193 MG/DL (70-100); POTASSIUM SERUM 3.6 MEQ/L (3.5-5.1); SODIUM LEVEL 138 MEQ/L (136-145)
[2021-05-22] MEDS: QUEtiapine FUMARATE 12.5 MG HALF-TAB PO SCH ×2 (08:26→21:15)
[2021-05-22] MEDS: LEVEMIR (INSULIN DETEMIR) 1 UNITS/0.01ML SC SCH (08:26)
[2021-05-22] MEDS: ENOXAPARIN 40MG/0.4ML SYRINGE (J1650 PER 10MG) SC SCH (08:26)
[2021-05-22] MEDS: HumaLOG INSULIN (NovoLOG) PER UNIT SC SCH ×4 (08:27→20:59)
[2021-05-22] MEDS: HALOPERIDOL 5MG/ML VIAL (J1630 PER 1) IM PRN (11:42)
[2021-05-23 04:00] VITALS: BP 122/63
[2021-05-23 07:18] LABS: BASO % 0.3 % (0.0-1.0); EOS # 0.1 10^3/uL (0.0-0.5); EOS % 1.3 % (0.0-3.0); HEMATOCRIT 39.7 % (42.0-52.0); HEMOGLOBIN 13.3 g/dl (13.5-17.5); LYMPH # 1.4 10^3/uL (1.5-5.0); LYMPH % 22.7 % (24.0-44.0); MEAN CORPUSCULAR HGB CONC 33.5 g/dl (32.0-36.5); MEAN CORPUSCULAR VOLUME 86.7 fl (80.0-96.0); MONO # 0.6 10^3/uL (0.0-0.8); NEUTROPHILS % 65.5 % (36.0-66.0); PLATELET COUNT, AUTOMATED 227 10^3/uL (150-450); RED BLOOD COUNT 4.58 10^6/uL (4.30-6.10); WHITE BLOOD COUNT 6.2 10^3/uL (4.0-10.0)
[2021-05-23 07:45] LABS: BLOOD UREA NITROGEN 16 MG/DL (7-18); CALCIUM LEVEL 8.9 MG/DL (8.8-10.2); CARBON DIOXIDE LEVEL 24 MEQ/L (21-32); CHLORIDE LEVEL 108 MEQ/L (98-107); CREATININE FOR GFR 0.86 MG/DL (0.70-1.30); GLOMERULAR FILTRATION RATE > 60.0 (>42); GLUCOSE, FASTING 214 MG/DL (70-100); POTASSIUM SERUM 4.6 MEQ/L (3.5-5.1); SODIUM LEVEL 139 MEQ/L (136-145)
[2021-05-23] MEDS: ENOXAPARIN 40MG/0.4ML SYRINGE (J1650 PER 10MG) SC SCH (09:18)
[2021-05-23] MEDS: QUEtiapine FUMARATE 12.5 MG HALF-TAB PO SCH ×2 (09:19→20:56)
[2021-05-23] MEDS: LEVEMIR (INSULIN DETEMIR) 1 UNITS/0.01ML SC SCH (09:19)
[2021-05-23] MEDS: HumaLOG INSULIN (NovoLOG) PER UNIT SC SCH ×4 (09:19→20:48)
[2021-05-24 04:00] VITALS: BP 119/58
[2021-05-24] MEDS: HALOPERIDOL 5MG/ML VIAL (J1630 PER 1) IM PRN (08:13)
[2021-05-24 08:39] LABS: BASO % 0.4 % (0.0-1.0); EOS # 0.1 10^3/uL (0.0-0.5); EOS % 1.4 % (0.0-3.0); HEMATOCRIT 42.2 % (42.0-52.0); HEMOGLOBIN 13.9 g/dl (13.5-17.5); LYMPH # 1.3 10^3/uL (1.5-5.0); LYMPH % 25.4 % (24.0-44.0); MEAN CORPUSCULAR HEMOGLOBIN 29.3 pg (27.0-33.0); MEAN CORPUSCULAR HGB CONC 32.9 g/dl (32.0-36.5); MONO # 0.6 10^3/uL (0.0-0.8); MONO % 11.5 % (2.0-8.0); NEUTROPHILS # 3.1 10^3/uL (1.5-8.5); NEUTROPHILS % 60.9 % (36.0-66.0); PLATELET COUNT, AUTOMATED 247 10^3/uL (150-450); RED BLOOD COUNT 4.74 10^6/uL (4.30-6.10)
[2021-05-24 09:05] LABS: BLOOD UREA NITROGEN 15 MG/DL (7-18); CALCIUM LEVEL 9.5 MG/DL (8.8-10.2); CARBON DIOXIDE LEVEL 25 MEQ/L (21-32); CHLORIDE LEVEL 106 MEQ/L (98-107); CREATININE FOR GFR 0.92 MG/DL (0.70-1.30); GLOMERULAR FILTRATION RATE > 60.0 (>42); GLUCOSE, FASTING 240 MG/DL (70-100); POTASSIUM SERUM 4.4 MEQ/L (3.5-5.1); SODIUM LEVEL 138 MEQ/L (136-145)
[2021-05-24] MEDS: QUEtiapine FUMARATE 12.5 MG HALF-TAB PO SCH ×2 (10:19→20:51)
[2021-05-24] MEDS: ENOXAPARIN 40MG/0.4ML SYRINGE (J1650 PER 10MG) SC SCH (10:19)
[2021-05-24] MEDS: HumaLOG INSULIN (NovoLOG) PER UNIT SC SCH ×4 (10:20→20:45)
[2021-05-24] MEDS: LEVEMIR (INSULIN DETEMIR) 1 UNITS/0.01ML SC SCH (10:20)
[2021-05-24] MEDS: ACETAMINOPHEN TAB 650MG DOSE (2X325MG) PO PRN (23:11)
[2021-05-25 04:00] VITALS: BP 130/74
[2021-05-25] MEDS: HALOPERIDOL 5MG/ML VIAL (J1630 PER 1) IM PRN ×3 (07:17→21:25)
[2021-05-25] MEDS: QUEtiapine FUMARATE 12.5 MG HALF-TAB PO SCH ×2 (09:16→21:25)
[2021-05-25] MEDS: ENOXAPARIN 40MG/0.4ML SYRINGE (J1650 PER 10MG) SC SCH (09:16)
[2021-05-25] MEDS: LEVEMIR (INSULIN DETEMIR) 1 UNITS/0.01ML SC SCH (09:17)
[2021-05-25] MEDS: HumaLOG INSULIN (NovoLOG) PER UNIT SC SCH ×4 (09:17→20:50)
[2021-05-25 11:51] LABS: BASO % 0.1 % (0.0-1.0); EOS % 0.3 % (0.0-3.0); HEMATOCRIT 41.2 % (42.0-52.0); HEMOGLOBIN 13.3 g/dl (13.5-17.5); LYMPH # 1.1 10^3/uL (1.5-5.0); LYMPH % 16.6 % (24.0-44.0); MEAN CORPUSCULAR HEMOGLOBIN 28.6 pg (27.0-33.0); MEAN CORPUSCULAR HGB CONC 32.3 g/dl (32.0-36.5); MEAN CORPUSCULAR VOLUME 88.6 fl (80.0-96.0); MONO # 0.5 10^3/uL (0.0-0.8); MONO % 7.7 % (2.0-8.0); NEUTROPHILS # 5.1 10^3/uL (1.5-8.5); PLATELET COUNT, AUTOMATED 288 10^3/uL (150-450); RED BLOOD COUNT 4.65 10^6/uL (4.30-6.10); WHITE BLOOD COUNT 6.7 10^3/uL (4.0-10.0)
[2021-05-25 12:21] LABS: BLOOD UREA NITROGEN 14 MG/DL (7-18); CALCIUM LEVEL 9.5 MG/DL (8.8-10.2); CARBON DIOXIDE LEVEL 24 MEQ/L (21-32); CHLORIDE LEVEL 106 MEQ/L (98-107); CREATININE FOR GFR 0.92 MG/DL (0.70-1.30); GLOMERULAR FILTRATION RATE > 60.0 (>42); GLUCOSE, FASTING 339 MG/DL (70-100); POTASSIUM SERUM 3.9 MEQ/L (3.5-5.1); SODIUM LEVEL 137 MEQ/L (136-145)
[2021-05-26 06:00] VITALS: BP 145/91
[2021-05-26 06:56] LABS: BASO % 0.3 % (0.0-1.0); EOS # 0.1 10^3/uL (0.0-0.5); EOS % 1.3 % (0.0-3.0); HEMATOCRIT 44.1 % (42.0-52.0); HEMOGLOBIN 14.3 g/dl (13.5-17.5); LYMPH # 2.2 10^3/uL (1.5-5.0); LYMPH % 31.2 % (24.0-44.0); MEAN CORPUSCULAR HEMOGLOBIN 28.8 pg (27.0-33.0); MEAN CORPUSCULAR HGB CONC 32.4 g/dl (32.0-36.5); MEAN CORPUSCULAR VOLUME 88.9 fl (80.0-96.0); MONO # 0.7 10^3/uL (0.0-0.8); MONO % 9.5 % (2.0-8.0); NEUTROPHILS # 4.1 10^3/uL (1.5-8.5); NEUTROPHILS % 57.1 % (36.0-66.0); PLATELET COUNT, AUTOMATED 323 10^3/uL (150-450); RED BLOOD COUNT 4.96 10^6/uL (4.30-6.10); WHITE BLOOD COUNT 7.2 10^3/uL (4.0-10.0)
[2021-05-26] MEDS: HALOPERIDOL 5MG/ML VIAL (J1630 PER 1) IM PRN ×2 (07:30→18:31)
[2021-05-26 07:42] LABS: ALBUMIN 3.6 GM/DL (3.2-5.2); ALT/SGPT 28 U/L (12-78); BILIRUBIN,TOTAL 0.4 MG/DL (0.2-1.0); BLOOD UREA NITROGEN 9 MG/DL (7-18); CALCIUM LEVEL 9.5 MG/DL (8.8-10.2); CARBON DIOXIDE LEVEL 27 MEQ/L (21-32); CHLORIDE LEVEL 105 MEQ/L (98-107); CREATININE FOR GFR 0.88 MG/DL (0.70-1.30); GLOMERULAR FILTRATION RATE > 60.0 (>42); GLUCOSE, FASTING 221 MG/DL (70-100); POTASSIUM SERUM 4.3 MEQ/L (3.5-5.1); SODIUM LEVEL 139 MEQ/L (136-145); TOTAL PROTEIN 7.6 GM/DL (6.4-8.2)
[2021-05-26] MEDS: LEVEMIR (INSULIN DETEMIR) 1 UNITS/0.01ML SC SCH (08:20)
[2021-05-26] MEDS: ENOXAPARIN 40MG/0.4ML SYRINGE (J1650 PER 10MG) SC SCH (08:20)
[2021-05-26] MEDS: QUEtiapine FUMARATE 12.5 MG HALF-TAB PO SCH ×2 (08:21→21:54)
[2021-05-26] MEDS: HumaLOG INSULIN (NovoLOG) PER UNIT SC SCH ×4 (08:21→21:00)
[2021-05-26] MEDS: ACETAMINOPHEN TAB 650MG DOSE (2X325MG) PO PRN (21:55)
[2021-05-27 06:00] VITALS: BP 149/66
[2021-05-27] MEDS: HALOPERIDOL 5MG/ML VIAL (J1630 PER 1) IM PRN (06:22)
[2021-05-27] MEDS: LEVEMIR (INSULIN DETEMIR) 1 UNITS/0.01ML SC SCH (08:36)
[2021-05-27] MEDS: ENOXAPARIN 40MG/0.4ML SYRINGE (J1650 PER 10MG) SC SCH (08:37)
[2021-05-27] MEDS: QUEtiapine FUMARATE 12.5 MG HALF-TAB PO SCH ×2 (08:37→20:17)
[2021-05-27] MEDS: HumaLOG INSULIN (NovoLOG) PER UNIT SC SCH ×4 (08:37→20:09)
[2021-05-27] MEDS: ACETAMINOPHEN TAB 650MG DOSE (2X325MG) PO PRN (20:17)
[2021-05-27] MEDS: RAMELTEON 8 MG TAB (ROZEREM) PO PRN (20:17)
[2021-05-28 04:00] VITALS: BP 139/62
[2021-05-28] MEDS: ENOXAPARIN 40MG/0.4ML SYRINGE (J1650 PER 10MG) SC SCH (08:04)
[2021-05-28] MEDS: LEVEMIR (INSULIN DETEMIR) 1 UNITS/0.01ML SC SCH (08:04)
[2021-05-28] MEDS: QUEtiapine FUMARATE 12.5 MG HALF-TAB PO SCH ×2 (08:05→20:37)
[2021-05-28] MEDS: HumaLOG INSULIN (NovoLOG) PER UNIT SC SCH ×4 (08:05→20:41)
[2021-05-28] MEDS: ACETAMINOPHEN TAB 650MG DOSE (2X325MG) PO PRN (20:36)
[2021-05-28] MEDS: RAMELTEON 8 MG TAB (ROZEREM) PO PRN (20:37)
[2021-05-29 06:33] VITALS: BP 135/71
[2021-05-29] MEDS: LEVEMIR (INSULIN DETEMIR) 1 UNITS/0.01ML SC SCH (08:42)
[2021-05-29] MEDS: QUEtiapine FUMARATE 12.5 MG HALF-TAB PO SCH ×2 (08:43→20:53)
[2021-05-29] MEDS: ENOXAPARIN 40MG/0.4ML SYRINGE (J1650 PER 10MG) SC SCH (08:43)
[2021-05-29] MEDS: HumaLOG INSULIN (NovoLOG) PER UNIT SC SCH ×4 (08:43→19:53)
[2021-05-29] MEDS: FLUTICASONE PROP 0.05% NASAL SPRAY 16 GM (FLONASE) NARES PRN ×2 (08:51→19:27)
[2021-05-29 12:35] VITALS: BP 139/80
[2021-05-29] MEDS: ACETAMINOPHEN TAB 650MG DOSE (2X325MG) PO PRN ×2 (15:16→21:19)
[2021-05-30 05:03] VITALS: BP 100/56
[2021-05-30] MEDS: QUEtiapine FUMARATE 12.5 MG HALF-TAB PO SCH ×2 (09:24→20:16)
[2021-05-30] MEDS: ENOXAPARIN 40MG/0.4ML SYRINGE (J1650 PER 10MG) SC SCH (09:25)
[2021-05-30] MEDS: HumaLOG INSULIN (NovoLOG) PER UNIT SC SCH ×4 (09:25→19:58)
[2021-05-30] MEDS: LEVEMIR (INSULIN DETEMIR) 1 UNITS/0.01ML SC SCH (09:25)
[2021-05-30] MEDS: ACETAMINOPHEN TAB 650MG DOSE (2X325MG) PO PRN (20:17)
[2021-05-31 06:00] VITALS: BP 125/50
[2021-05-31] MEDS: QUEtiapine FUMARATE 12.5 MG HALF-TAB PO SCH ×2 (09:02→19:59)
[2021-05-31] MEDS: ENOXAPARIN 40MG/0.4ML SYRINGE (J1650 PER 10MG) SC SCH (09:02)
[2021-05-31] MEDS: HumaLOG INSULIN (NovoLOG) PER UNIT SC SCH ×4 (09:02→19:55)
[2021-05-31] MEDS: LEVEMIR (INSULIN DETEMIR) 1 UNITS/0.01ML SC SCH (09:03)
[2021-05-31] MEDS: RAMELTEON 8 MG TAB (ROZEREM) PO PRN (19:59)
[2021-05-31] MEDS: ACETAMINOPHEN TAB 650MG DOSE (2X325MG) PO PRN (20:00)
[2021-06-01 06:00] VITALS: BP 126/51
[2021-06-01] MEDS: HumaLOG INSULIN (NovoLOG) PER UNIT SC SCH ×4 (08:19→20:43)
[2021-06-01] MEDS: ENOXAPARIN 40MG/0.4ML SYRINGE (J1650 PER 10MG) SC SCH (08:20)
[2021-06-01] MEDS: LEVEMIR (INSULIN DETEMIR) 1 UNITS/0.01ML SC SCH (08:20)
[2021-06-01] MEDS: QUEtiapine FUMARATE 12.5 MG HALF-TAB PO SCH ×2 (08:20→20:53)
[2021-06-02 06:06] VITALS: BP 120/55
[2021-06-02] MEDS: QUEtiapine FUMARATE 12.5 MG HALF-TAB PO SCH ×2 (08:29→20:02)
[2021-06-02] MEDS: LEVEMIR (INSULIN DETEMIR) 1 UNITS/0.01ML SC SCH (08:30)
[2021-06-02] MEDS: ENOXAPARIN 40MG/0.4ML SYRINGE (J1650 PER 10MG) SC SCH (08:30)
[2021-06-02] MEDS: HumaLOG INSULIN (NovoLOG) PER UNIT SC SCH ×4 (08:30→20:01)
[2021-06-03 06:00] VITALS: BP 104/48
[2021-06-03] MEDS: QUEtiapine FUMARATE 12.5 MG HALF-TAB PO SCH ×2 (08:32→19:44)
[2021-06-03] MEDS: HumaLOG INSULIN (NovoLOG) PER UNIT SC SCH ×4 (08:33→19:45)
[2021-06-03] MEDS: LEVEMIR (INSULIN DETEMIR) 1 UNITS/0.01ML SC SCH (08:34)
[2021-06-03] MEDS: ENOXAPARIN 40MG/0.4ML SYRINGE (J1650 PER 10MG) SC SCH (08:35)
[2021-06-04 06:00] VITALS: BP 127/59
[2021-06-04] MEDS: HumaLOG INSULIN (NovoLOG) PER UNIT SC SCH ×4 (08:29→20:14)
[2021-06-04] MEDS: ENOXAPARIN 40MG/0.4ML SYRINGE (J1650 PER 10MG) SC SCH (08:30)
[2021-06-04] MEDS: QUEtiapine FUMARATE 12.5 MG HALF-TAB PO SCH ×2 (08:31→20:16)
[2021-06-04] MEDS: LEVEMIR (INSULIN DETEMIR) 1 UNITS/0.01ML SC SCH (08:31)
[2021-06-04] MEDS: ACETAMINOPHEN TAB 650MG DOSE (2X325MG) PO PRN (20:19)
[2021-06-05 05:30] VITALS: BP 140/82
[2021-06-05] MEDS: LEVEMIR (INSULIN DETEMIR) 1 UNITS/0.01ML SC SCH (08:24)
[2021-06-05] MEDS: QUEtiapine FUMARATE 12.5 MG HALF-TAB PO SCH ×2 (08:24→20:17)
[2021-06-05] MEDS: ENOXAPARIN 40MG/0.4ML SYRINGE (J1650 PER 10MG) SC SCH (08:24)
[2021-06-05] MEDS: HumaLOG INSULIN (NovoLOG) PER UNIT SC SCH ×4 (08:24→20:06)
[2021-06-05] MEDS: ACETAMINOPHEN TAB 650MG DOSE (2X325MG) PO PRN (20:18)
[2021-06-06 06:15] VITALS: BP 133/56
[2021-06-06] MEDS: LEVEMIR (INSULIN DETEMIR) 1 UNITS/0.01ML SC SCH (08:14)
[2021-06-06] MEDS: ENOXAPARIN 40MG/0.4ML SYRINGE (J1650 PER 10MG) SC SCH (08:14)
[2021-06-06] MEDS: QUEtiapine FUMARATE 12.5 MG HALF-TAB PO SCH ×2 (08:14→20:54)
[2021-06-06] MEDS: HumaLOG INSULIN (NovoLOG) PER UNIT SC SCH ×4 (08:15→20:51)
[2021-06-06] MEDS: ACETAMINOPHEN TAB 650MG DOSE (2X325MG) PO PRN ×3 (16:43→23:22)
[2021-06-06] MEDS: RAMELTEON 8 MG TAB (ROZEREM) PO PRN (23:22)
[2021-06-07 06:36] VITALS: BP 134/55
[2021-06-07] MEDS: QUEtiapine FUMARATE 25 MG TAB PO SCH ×2 (07:58→22:50)
[2021-06-07] MEDS: LEVEMIR (INSULIN DETEMIR) 1 UNITS/0.01ML SC SCH (07:59)
[2021-06-07] MEDS: HumaLOG INSULIN (NovoLOG) PER UNIT SC SCH ×2 (07:59→11:37)
[2021-06-07] MEDS: ENOXAPARIN 40MG/0.4ML SYRINGE (J1650 PER 10MG) SC SCH (08:02)
[2021-06-07] MEDS: glipiZIDE *2.5MG* 1/2 TABLET PO SCH (17:12)
[2021-06-07] MEDS: ACETAMINOPHEN TAB 650MG DOSE (2X325MG) PO PRN (18:33)
[2021-06-08 06:52] VITALS: BP 132/55
[2021-06-08 10:44] LABS: HEMATOCRIT 40.3 % (42.0-52.0); HEMOGLOBIN 13.2 g/dl (13.5-17.5); MEAN CORPUSCULAR HGB CONC 32.8 g/dl (32.0-36.5); MEAN CORPUSCULAR VOLUME 88.6 fl (80.0-96.0); PLATELET COUNT, AUTOMATED 144 10^3/uL (150-450); RED BLOOD COUNT 4.55 10^6/uL (4.30-6.10); WHITE BLOOD COUNT 5.6 10^3/uL (4.0-10.0)
[2021-06-08 11:05] LABS: BLOOD UREA NITROGEN 18 MG/DL (7-18); CARBON DIOXIDE LEVEL 26 MEQ/L (21-32); CHLORIDE LEVEL 108 MEQ/L (98-107); CREATININE FOR GFR 0.96 MG/DL (0.70-1.30); GLOMERULAR FILTRATION RATE > 60.0 (>42); GLUCOSE, FASTING 322 MG/DL (70-100); POTASSIUM SERUM 4.8 MEQ/L (3.5-5.1); SODIUM LEVEL 138 MEQ/L (136-145)
[2021-06-08] MEDS: QUEtiapine FUMARATE 25 MG TAB PO SCH ×2 (11:13→21:28)
[2021-06-08] MEDS: glipiZIDE *2.5MG* 1/2 TABLET PO SCH ×2 (11:13→17:02)
[2021-06-08] MEDS: ENOXAPARIN 40MG/0.4ML SYRINGE (J1650 PER 10MG) SC SCH (11:14)
[2021-06-08] MEDS: LEVEMIR (INSULIN DETEMIR) 1 UNITS/0.01ML SC SCH (11:14)
[2021-06-09 06:00] VITALS: BP_SYST 100; BP_SYST 143; BP_DIAS 57; BP_DIAS 86
[2021-06-09] MEDS: QUEtiapine FUMARATE 25 MG TAB PO SCH ×2 (09:25→20:52)
[2021-06-09] MEDS: LEVEMIR (INSULIN DETEMIR) 1 UNITS/0.01ML SC SCH (09:26)
[2021-06-09] MEDS: ENOXAPARIN 40MG/0.4ML SYRINGE (J1650 PER 10MG) SC SCH (09:26)
[2021-06-09] MEDS: ACETAMINOPHEN TAB 650MG DOSE (2X325MG) PO PRN ×2 (09:26→20:55)
[2021-06-09] MEDS: glipiZIDE *2.5MG* 1/2 TABLET PO SCH ×2 (09:27→17:27)
[2021-06-09] MEDS: RAMELTEON 8 MG TAB (ROZEREM) PO PRN (21:58)
[2021-06-09] MEDS: OLANZapine 2.5MG TABLET PO PRN (22:29)
[2021-06-10 06:00] VITALS: BP 101/69
[2021-06-10] MEDS: QUEtiapine FUMARATE 25 MG TAB PO SCH ×2 (08:09→19:54)
[2021-06-10] MEDS: glipiZIDE *2.5MG* 1/2 TABLET PO SCH ×2 (08:09→17:38)
[2021-06-10] MEDS: LEVEMIR (INSULIN DETEMIR) 1 UNITS/0.01ML SC SCH (08:09)
[2021-06-10] MEDS: ENOXAPARIN 40MG/0.4ML SYRINGE (J1650 PER 10MG) SC SCH (08:09)
[2021-06-10] MEDS: RAMELTEON 8 MG TAB (ROZEREM) PO PRN (19:55)
[2021-06-10] MEDS: ACETAMINOPHEN TAB 650MG DOSE (2X325MG) PO PRN (19:55)
[2021-06-11] MEDS: OLANZapine 2.5MG TABLET PO PRN (00:27)
[2021-06-11] MEDS: ACETAMINOPHEN TAB 650MG DOSE (2X325MG) PO PRN (02:08)
[2021-06-11 04:30] VITALS: BP 116/72
[2021-06-11] MEDS: QUEtiapine FUMARATE 25 MG TAB PO SCH ×2 (08:11→21:49)
[2021-06-11] MEDS: glipiZIDE *2.5MG* 1/2 TABLET PO SCH ×2 (08:11→17:42)
[2021-06-11] MEDS: LEVEMIR (INSULIN DETEMIR) 1 UNITS/0.01ML SC SCH (08:12)
[2021-06-11] MEDS: ENOXAPARIN 40MG/0.4ML SYRINGE (J1650 PER 10MG) SC SCH (08:12)
[2021-06-11] MEDS: RAMELTEON 8 MG TAB (ROZEREM) PO PRN (21:49)
[2021-06-12 06:00] VITALS: BP 111/71
[2021-06-12] MEDS: LEVEMIR (INSULIN DETEMIR) 1 UNITS/0.01ML SC SCH (07:50)
[2021-06-12] MEDS: ENOXAPARIN 40MG/0.4ML SYRINGE (J1650 PER 10MG) SC SCH (07:50)
[2021-06-12] MEDS: glipiZIDE *2.5MG* 1/2 TABLET PO SCH ×2 (07:50→17:42)
[2021-06-12] MEDS: QUEtiapine FUMARATE 25 MG TAB PO SCH ×2 (07:50→19:59)
[2021-06-12] MEDS: RAMELTEON 8 MG TAB (ROZEREM) PO PRN (19:59)
[2021-06-12] MEDS: ACETAMINOPHEN TAB 650MG DOSE (2X325MG) PO PRN (19:59)
[2021-06-13] MEDS: OLANZapine 2.5MG TABLET PO PRN ×2 (01:56→17:25)
[2021-06-13 06:00] VITALS: BP 120/59
[2021-06-13] MEDS: ENOXAPARIN 40MG/0.4ML SYRINGE (J1650 PER 10MG) SC SCH (07:56)
[2021-06-13] MEDS: QUEtiapine FUMARATE 25 MG TAB PO SCH ×2 (07:56→22:13)
[2021-06-13] MEDS: glipiZIDE *2.5MG* 1/2 TABLET PO SCH ×2 (07:56→17:25)
[2021-06-13] MEDS: LEVEMIR (INSULIN DETEMIR) 1 UNITS/0.01ML SC SCH (07:57)
[2021-06-13] MEDS: ACETAMINOPHEN TAB 650MG DOSE (2X325MG) PO PRN ×2 (17:26→23:29)
[2021-06-13] MEDS: CEPACOL LOZENGE PO PRN ×2 (17:29→22:13)
[2021-06-13] MEDS: RAMELTEON 8 MG TAB (ROZEREM) PO PRN (22:13)
[2021-06-14 06:00] VITALS: BP 111/53
[2021-06-14] MEDS: glipiZIDE *2.5MG* 1/2 TABLET PO SCH ×2 (08:45→16:45)
[2021-06-14] MEDS: QUEtiapine FUMARATE 25 MG TAB PO SCH ×2 (08:45→21:51)
[2021-06-14] MEDS: ENOXAPARIN 40MG/0.4ML SYRINGE (J1650 PER 10MG) SC SCH (08:45)
[2021-06-14] MEDS: LEVEMIR (INSULIN DETEMIR) 1 UNITS/0.01ML SC SCH (08:46)
[2021-06-14] MEDS: CEPACOL LOZENGE PO PRN ×2 (16:45→21:51)
[2021-06-14] MEDS: RAMELTEON 8 MG TAB (ROZEREM) PO PRN (21:51)
[2021-06-14] MEDS: ACETAMINOPHEN TAB 650MG DOSE (2X325MG) PO PRN (21:52)
[2021-06-15 06:00] VITALS: BP 121/60
[2021-06-15] MEDS: QUEtiapine FUMARATE 25 MG TAB PO SCH ×2 (08:56→20:24)
[2021-06-15] MEDS: ENOXAPARIN 40MG/0.4ML SYRINGE (J1650 PER 10MG) SC SCH (08:56)
[2021-06-15] MEDS: glipiZIDE *2.5MG* 1/2 TABLET PO SCH ×2 (08:56→16:52)
[2021-06-15] MEDS: LEVEMIR (INSULIN DETEMIR) 1 UNITS/0.01ML SC SCH (08:57)
[2021-06-15 11:01] LABS: HEMATOCRIT 38.1 % (42.0-52.0); HEMOGLOBIN 12.4 g/dl (13.5-17.5); MEAN CORPUSCULAR HEMOGLOBIN 28.9 pg (27.0-33.0); MEAN CORPUSCULAR HGB CONC 32.5 g/dl (32.0-36.5); MEAN CORPUSCULAR VOLUME 88.8 fl (80.0-96.0); PLATELET COUNT, AUTOMATED 196 10^3/uL (150-450); RED BLOOD COUNT 4.29 10^6/uL (4.30-6.10); WHITE BLOOD COUNT 5.9 10^3/uL (4.0-10.0)
[2021-06-15 11:23] LABS: BLOOD UREA NITROGEN 16 MG/DL (7-18); CALCIUM LEVEL 8.8 MG/DL (8.8-10.2); CARBON DIOXIDE LEVEL 25 MEQ/L (21-32); CHLORIDE LEVEL 108 MEQ/L (98-107); CREATININE FOR GFR 0.84 MG/DL (0.70-1.30); GLOMERULAR FILTRATION RATE > 60.0 (>42); GLUCOSE, FASTING 315 MG/DL (70-100); POTASSIUM SERUM 4.1 MEQ/L (3.5-5.1); SODIUM LEVEL 141 MEQ/L (136-145)
[2021-06-15] MEDS: OLANZapine 2.5MG TABLET PO PRN (16:52)
[2021-06-15] MEDS: RAMELTEON 8 MG TAB (ROZEREM) PO PRN (20:24)
[2021-06-16 06:00] VITALS: BP 114/56
[2021-06-16] MEDS: glipiZIDE *2.5MG* 1/2 TABLET PO SCH ×2 (07:30→18:08)
[2021-06-16] MEDS: ENOXAPARIN 40MG/0.4ML SYRINGE (J1650 PER 10MG) SC SCH (09:11)
[2021-06-16] MEDS: QUEtiapine FUMARATE 25 MG TAB PO SCH ×2 (09:11→20:56)
[2021-06-16] MEDS: OLANZapine 2.5MG TABLET PO PRN ×2 (09:11→20:57)
[2021-06-16] MEDS: LEVEMIR (INSULIN DETEMIR) 1 UNITS/0.01ML SC SCH (09:12)
[2021-06-17 06:00] VITALS: BP 150/68
[2021-06-17] MEDS: glipiZIDE *2.5MG* 1/2 TABLET PO SCH ×2 (08:02→17:45)
[2021-06-17] MEDS: QUEtiapine FUMARATE 25 MG TAB PO SCH ×2 (08:02→20:53)
[2021-06-17] MEDS: LEVEMIR (INSULIN DETEMIR) 1 UNITS/0.01ML SC SCH (08:02)
[2021-06-17] MEDS: ENOXAPARIN 40MG/0.4ML SYRINGE (J1650 PER 10MG) SC SCH (08:03)
[2021-06-17] MEDS: RAMELTEON 8 MG TAB (ROZEREM) PO PRN (20:53)
[2021-06-17] MEDS: OLANZapine 2.5MG TABLET PO PRN (20:57)
[2021-06-17] MEDS: ACETAMINOPHEN TAB 650MG DOSE (2X325MG) PO PRN (20:57)
[2021-06-18 06:00] VITALS: BP 134/72
[2021-06-18] MEDS: ENOXAPARIN 40MG/0.4ML SYRINGE (J1650 PER 10MG) SC SCH (08:04)
[2021-06-18] MEDS: QUEtiapine FUMARATE 25 MG TAB PO SCH ×2 (08:04→20:57)
[2021-06-18] MEDS: LEVEMIR (INSULIN DETEMIR) 1 UNITS/0.01ML SC SCH (08:04)
[2021-06-18] MEDS: glipiZIDE *2.5MG* 1/2 TABLET PO SCH ×2 (08:04→18:23)
[2021-06-18] MEDS: FLUTICASONE PROP 0.05% NASAL SPRAY 16 GM (FLONASE) NARES PRN (20:57)
[2021-06-18] MEDS: ACETAMINOPHEN TAB 650MG DOSE (2X325MG) PO PRN (21:01)
[2021-06-19] MEDS: RAMELTEON 8 MG TAB (ROZEREM) PO PRN ×2 (01:26→21:29)
[2021-06-19 05:57] VITALS: BP 124/62
[2021-06-19] MEDS: LEVEMIR (INSULIN DETEMIR) 1 UNITS/0.01ML SC SCH (09:12)
[2021-06-19] MEDS: QUEtiapine FUMARATE 25 MG TAB PO SCH ×2 (09:12→21:29)
[2021-06-19] MEDS: glipiZIDE *2.5MG* 1/2 TABLET PO SCH ×2 (09:12→17:04)
[2021-06-19] MEDS: ENOXAPARIN 40MG/0.4ML SYRINGE (J1650 PER 10MG) SC SCH (09:12)
[2021-06-19] MEDS: ACETAMINOPHEN TAB 650MG DOSE (2X325MG) PO PRN ×2 (14:06→21:30)
[2021-06-20 06:00] VITALS: BP 145/72
[2021-06-20] MEDS: QUEtiapine FUMARATE 25 MG TAB PO SCH ×2 (08:45→21:14)
[2021-06-20] MEDS: LEVEMIR (INSULIN DETEMIR) 1 UNITS/0.01ML SC SCH (08:45)
[2021-06-20] MEDS: glipiZIDE *2.5MG* 1/2 TABLET PO SCH ×2 (08:45→17:48)
[2021-06-20] MEDS: ENOXAPARIN 40MG/0.4ML SYRINGE (J1650 PER 10MG) SC SCH (08:45)
[2021-06-20] MEDS: RAMELTEON 8 MG TAB (ROZEREM) PO PRN (21:14)
[2021-06-20] MEDS: ACETAMINOPHEN TAB 650MG DOSE (2X325MG) PO PRN (21:15)
[2021-06-21 06:00] VITALS: BP 126/71
[2021-06-21] MEDS: QUEtiapine FUMARATE 25 MG TAB PO SCH ×2 (08:01→21:48)
[2021-06-21] MEDS: glipiZIDE *2.5MG* 1/2 TABLET PO SCH ×2 (08:01→16:53)
[2021-06-21] MEDS: LEVEMIR (INSULIN DETEMIR) 1 UNITS/0.01ML SC SCH (08:01)
[2021-06-21] MEDS: ENOXAPARIN 40MG/0.4ML SYRINGE (J1650 PER 10MG) SC SCH (08:02)
[2021-06-21] MEDS: ACETAMINOPHEN TAB 650MG DOSE (2X325MG) PO PRN (16:55)
[2021-06-21] MEDS: OLANZapine 2.5MG TABLET PO PRN (22:01)
[2021-06-22] MEDS: ACETAMINOPHEN TAB 650MG DOSE (2X325MG) PO PRN ×2 (01:12→20:22)
[2021-06-22] MEDS: RAMELTEON 8 MG TAB (ROZEREM) PO PRN ×2 (01:12→20:22)
[2021-06-22] MEDS: glipiZIDE *2.5MG* 1/2 TABLET PO SCH ×2 (08:22→17:34)
[2021-06-22] MEDS: LEVEMIR (INSULIN DETEMIR) 1 UNITS/0.01ML SC SCH (08:22)
[2021-06-22] MEDS: ENOXAPARIN 40MG/0.4ML SYRINGE (J1650 PER 10MG) SC SCH (08:22)
[2021-06-22] MEDS: QUEtiapine FUMARATE 25 MG TAB PO SCH ×2 (08:22→20:22)
[2021-06-22 10:10] LABS: HEMATOCRIT 38.7 % (42.0-52.0); HEMOGLOBIN 12.7 g/dl (13.5-17.5); MEAN CORPUSCULAR HEMOGLOBIN 29.1 pg (27.0-33.0); MEAN CORPUSCULAR HGB CONC 32.8 g/dl (32.0-36.5); MEAN CORPUSCULAR VOLUME 88.6 fl (80.0-96.0); PLATELET COUNT, AUTOMATED 236 10^3/uL (150-450); RED BLOOD COUNT 4.37 10^6/uL (4.30-6.10); WHITE BLOOD COUNT 5.3 10^3/uL (4.0-10.0)
[2021-06-22 10:38] LABS: BLOOD UREA NITROGEN 19 MG/DL (7-18); CARBON DIOXIDE LEVEL 23 MEQ/L (21-32); CHLORIDE LEVEL 107 MEQ/L (98-107); GLOMERULAR FILTRATION RATE > 60.0 (>42); GLUCOSE, FASTING 333 MG/DL (70-100); POTASSIUM SERUM 4.3 MEQ/L (3.5-5.1); SODIUM LEVEL 139 MEQ/L (136-145)
[2021-06-23 06:00] VITALS: BP 142/71
[2021-06-23] MEDS: ENOXAPARIN 40MG/0.4ML SYRINGE (J1650 PER 10MG) SC SCH (08:15)
[2021-06-23] MEDS: QUEtiapine FUMARATE 25 MG TAB PO SCH ×2 (08:15→21:02)
[2021-06-23] MEDS: glipiZIDE *2.5MG* 1/2 TABLET PO SCH ×2 (08:15→16:44)
[2021-06-23] MEDS: LEVEMIR (INSULIN DETEMIR) 1 UNITS/0.01ML SC SCH (08:15)
[2021-06-23] MEDS: ACETAMINOPHEN TAB 650MG DOSE (2X325MG) PO PRN (21:01)
[2021-06-23] MEDS: RAMELTEON 8 MG TAB (ROZEREM) PO PRN (21:02)
[2021-06-24 06:00] VITALS: BP 122/62
[2021-06-24] MEDS: LEVEMIR (INSULIN DETEMIR) 1 UNITS/0.01ML SC SCH (08:05)
[2021-06-24] MEDS: QUEtiapine FUMARATE 25 MG TAB PO SCH ×2 (08:05→19:25)
[2021-06-24] MEDS: glipiZIDE *2.5MG* 1/2 TABLET PO SCH ×2 (08:05→17:53)
[2021-06-24] MEDS: ENOXAPARIN 40MG/0.4ML SYRINGE (J1650 PER 10MG) SC SCH (08:05)
[2021-06-24] MEDS: RAMELTEON 8 MG TAB (ROZEREM) PO PRN (19:25)
[2021-06-24] MEDS: ACETAMINOPHEN TAB 650MG DOSE (2X325MG) PO PRN (19:25)
[2021-06-25 06:30] VITALS: BP 113/62
[2021-06-25] MEDS: LEVEMIR (INSULIN DETEMIR) 1 UNITS/0.01ML SC SCH (08:05)
[2021-06-25] MEDS: QUEtiapine FUMARATE 25 MG TAB PO SCH ×2 (08:05→19:49)
[2021-06-25] MEDS: ENOXAPARIN 40MG/0.4ML SYRINGE (J1650 PER 10MG) SC SCH (08:05)
[2021-06-25] MEDS: glipiZIDE *2.5MG* 1/2 TABLET PO SCH ×2 (08:05→17:36)
[2021-06-25] MEDS: OLANZapine 2.5MG TABLET PO PRN (13:38)
[2021-06-25] MEDS: RAMELTEON 8 MG TAB (ROZEREM) PO PRN (19:49)
[2021-06-25] MEDS: ACETAMINOPHEN TAB 650MG DOSE (2X325MG) PO PRN (19:50)
[2021-06-26 06:00] VITALS: BP 115/63
[2021-06-26] MEDS: glipiZIDE *2.5MG* 1/2 TABLET PO SCH ×2 (08:05→17:01)
[2021-06-26] MEDS: LEVEMIR (INSULIN DETEMIR) 1 UNITS/0.01ML SC SCH (08:05)
[2021-06-26] MEDS: QUEtiapine FUMARATE 25 MG TAB PO SCH ×2 (08:05→20:15)
[2021-06-26] MEDS: ACETAMINOPHEN TAB 650MG DOSE (2X325MG) PO PRN (20:16)
[2021-06-26] MEDS: RAMELTEON 8 MG TAB (ROZEREM) PO PRN (20:16)
[2021-06-27 06:51] VITALS: BP 137/79
[2021-06-27] MEDS: QUEtiapine FUMARATE 25 MG TAB PO SCH ×2 (08:03→21:00)
[2021-06-27] MEDS: LEVEMIR (INSULIN DETEMIR) 1 UNITS/0.01ML SC SCH (08:04)
[2021-06-27] MEDS: glipiZIDE *2.5MG* 1/2 TABLET PO SCH ×2 (08:04→17:43)
[2021-06-27] MEDS: OLANZapine 2.5MG TABLET PO PRN (17:43)
[2021-06-27] MEDS: RAMELTEON 8 MG TAB (ROZEREM) PO PRN (22:07)
[2021-06-27] MEDS: ACETAMINOPHEN TAB 650MG DOSE (2X325MG) PO PRN (22:10)
[2021-06-28 06:00] VITALS: BP 126/73
[2021-06-28] MEDS: LEVEMIR (INSULIN DETEMIR) 1 UNITS/0.01ML SC SCH (07:52)
[2021-06-28] MEDS: OLANZapine 2.5MG TABLET PO PRN (07:58)
[2021-06-28] MEDS: QUEtiapine FUMARATE 25 MG TAB PO SCH ×2 (07:58→20:23)
[2021-06-28] MEDS: glipiZIDE *2.5MG* 1/2 TABLET PO SCH ×2 (07:58→17:52)
[2021-06-28] MEDS: ACETAMINOPHEN TAB 650MG DOSE (2X325MG) PO PRN ×2 (08:01→22:42)
[2021-06-28] MEDS ORDERED: KETOROLAC 30 MG/ML 1ML VIAL IV ONE (14:00)
[2021-06-28] MEDS: IBUPROFEN 400MG TAB PO SCH ×2 (14:12→20:24)
[2021-06-28] MEDS: DICLOFENAC EPOLAMINE 1.3 % PATCH TOP SCH (17:52)
[2021-06-28] MEDS: RAMELTEON 8 MG TAB (ROZEREM) PO PRN (22:42)
[2021-06-29 06:00] VITALS: BP 104/59
[2021-06-29] MEDS: DICLOFENAC EPOLAMINE 1.3 % PATCH TOP SCH ×2 (08:13→18:04)
[2021-06-29] MEDS: QUEtiapine FUMARATE 25 MG TAB PO SCH ×2 (08:15→22:15)
[2021-06-29] MEDS: glipiZIDE *2.5MG* 1/2 TABLET PO SCH ×2 (08:15→18:05)
[2021-06-29] MEDS: LEVEMIR (INSULIN DETEMIR) 1 UNITS/0.01ML SC SCH (08:15)
[2021-06-29] MEDS: IBUPROFEN 400MG TAB PO SCH (08:15)
[2021-06-29 09:46] LABS: HEMATOCRIT 39.6 % (42.0-52.0); HEMOGLOBIN 12.8 g/dl (13.5-17.5); MEAN CORPUSCULAR HGB CONC 32.3 g/dl (32.0-36.5); MEAN CORPUSCULAR VOLUME 89.8 fl (80.0-96.0); PLATELET COUNT, AUTOMATED 246 10^3/uL (150-450); RED BLOOD COUNT 4.41 10^6/uL (4.30-6.10); WHITE BLOOD COUNT 6.2 10^3/uL (4.0-10.0)
[2021-06-29 10:11] LABS: BLOOD UREA NITROGEN 24 MG/DL (7-18); CALCIUM LEVEL 8.6 MG/DL (8.8-10.2); CARBON DIOXIDE LEVEL 20 MEQ/L (21-32); CHLORIDE LEVEL 110 MEQ/L (98-107); CREATININE FOR GFR 1.05 MG/DL (0.70-1.30); GLOMERULAR FILTRATION RATE > 60.0 (>42); GLUCOSE, FASTING 308 MG/DL (70-100); POTASSIUM SERUM 4.4 MEQ/L (3.5-5.1); SODIUM LEVEL 141 MEQ/L (136-145)
[2021-06-29] MEDS: RAMELTEON 8 MG TAB (ROZEREM) PO PRN (22:15)
[2021-06-29] MEDS: ACETAMINOPHEN TAB 650MG DOSE (2X325MG) PO PRN (22:16)
[2021-06-30 06:00] VITALS: BP 106/59
[2021-06-30] MEDS: OLANZapine 2.5MG TABLET PO PRN ×2 (06:04→20:05)
[2021-06-30] MEDS: DICLOFENAC EPOLAMINE 1.3 % PATCH TOP SCH (06:04)
[2021-06-30] MEDS: ACETAMINOPHEN TAB 650MG DOSE (2X325MG) PO PRN ×2 (06:05→20:06)
[2021-06-30] MEDS: glipiZIDE *2.5MG* 1/2 TABLET PO SCH ×2 (09:10→17:57)
[2021-06-30] MEDS: QUEtiapine FUMARATE 25 MG TAB PO SCH ×2 (09:10→20:05)
[2021-06-30] MEDS: LEVEMIR (INSULIN DETEMIR) 1 UNITS/0.01ML SC SCH (09:12)
[2021-06-30] MEDS: RAMELTEON 8 MG TAB (ROZEREM) PO PRN (20:05)
[2021-07-01 06:00] VITALS: BP 99/55
[2021-07-01] MEDS: glipiZIDE *2.5MG* 1/2 TABLET PO SCH ×2 (08:52→16:51)
[2021-07-01] MEDS: QUEtiapine FUMARATE 25 MG TAB PO SCH ×2 (08:53→20:17)
[2021-07-01] MEDS: LEVEMIR (INSULIN DETEMIR) 1 UNITS/0.01ML SC SCH (08:53)
[2021-07-01] MEDS: OLANZapine 2.5MG TABLET PO PRN (16:51)
[2021-07-01] MEDS: RAMELTEON 8 MG TAB (ROZEREM) PO PRN (20:17)
[2021-07-01] MEDS: ACETAMINOPHEN TAB 650MG DOSE (2X325MG) PO PRN (20:17)
[2021-07-02 06:00] VITALS: BP 111/69
[2021-07-02] MEDS: QUEtiapine FUMARATE 25 MG TAB PO SCH ×2 (09:03→20:11)
[2021-07-02] MEDS: glipiZIDE *2.5MG* 1/2 TABLET PO SCH ×2 (09:03→17:12)
[2021-07-02] MEDS: LEVEMIR (INSULIN DETEMIR) 1 UNITS/0.01ML SC SCH (09:04)
[2021-07-02] MEDS: CEFDINIR 300 MG CAP (OMNICEF) PO SCH (17:12)
[2021-07-02] MEDS: RAMELTEON 8 MG TAB (ROZEREM) PO PRN (20:10)
[2021-07-03 06:00] VITALS: BP 108/61
[2021-07-03] MEDS: QUEtiapine FUMARATE 25 MG TAB PO SCH ×2 (09:31→22:00)
[2021-07-03] MEDS: CEFDINIR 300 MG CAP (OMNICEF) PO SCH ×2 (09:31→22:00)
[2021-07-03] MEDS: LEVEMIR (INSULIN DETEMIR) 1 UNITS/0.01ML SC SCH (09:31)
[2021-07-03] MEDS: glipiZIDE *2.5MG* 1/2 TABLET PO SCH ×2 (09:31→18:32)
[2021-07-04 06:00] VITALS: BP 112/63
[2021-07-04] MEDS: CEFDINIR 300 MG CAP (OMNICEF) PO SCH ×2 (11:00→21:00)
[2021-07-04] MEDS: OLANZapine 2.5MG TABLET PO PRN (11:00)
[2021-07-04] MEDS: QUEtiapine FUMARATE 25 MG TAB PO SCH ×2 (11:00→21:00)
[2021-07-04] MEDS: glipiZIDE *2.5MG* 1/2 TABLET PO SCH ×2 (11:00→17:59)
[2021-07-04] MEDS: LEVEMIR (INSULIN DETEMIR) 1 UNITS/0.01ML SC SCH (11:00)
[2021-07-05] MEDS: glipiZIDE *2.5MG* 1/2 TABLET PO SCH ×2 (07:30→17:51)
[2021-07-05] MEDS: LEVEMIR (INSULIN DETEMIR) 1 UNITS/0.01ML SC SCH (09:20)
[2021-07-05] MEDS: QUEtiapine FUMARATE 25 MG TAB PO SCH ×2 (09:20→21:02)
[2021-07-05] MEDS: OLANZapine 2.5MG TABLET PO PRN ×2 (09:20→17:51)
[2021-07-05] MEDS: CEFDINIR 300 MG CAP (OMNICEF) PO SCH ×2 (09:20→21:02)
[2021-07-06] MEDS: QUEtiapine FUMARATE 25 MG TAB PO SCH ×2 (08:02→20:09)
[2021-07-06] MEDS: CEFDINIR 300 MG CAP (OMNICEF) PO SCH ×2 (08:02→20:09)
[2021-07-06] MEDS: LEVEMIR (INSULIN DETEMIR) 1 UNITS/0.01ML SC SCH (08:02)
[2021-07-06] MEDS: glipiZIDE *2.5MG* 1/2 TABLET PO SCH ×2 (08:02→16:28)
[2021-07-06] MEDS: OLANZapine 2.5MG TABLET PO PRN (16:28)
[2021-07-07 06:12] VITALS: BP 120/57
[2021-07-07] MEDS: QUEtiapine FUMARATE 25 MG TAB PO SCH ×2 (08:11→20:38)
[2021-07-07] MEDS: CEFDINIR 300 MG CAP (OMNICEF) PO SCH ×2 (08:11→20:38)
[2021-07-07] MEDS: glipiZIDE *2.5MG* 1/2 TABLET PO SCH ×2 (08:11→17:03)
[2021-07-07] MEDS: LEVEMIR (INSULIN DETEMIR) 1 UNITS/0.01ML SC SCH (08:12)
[2021-07-08 06:00] VITALS: BP 139/74
[2021-07-08] MEDS: LEVEMIR (INSULIN DETEMIR) 1 UNITS/0.01ML SC SCH (09:00)
[2021-07-08 09:36] VITALS: BP 139/74
[2021-07-08] MEDS: QUEtiapine FUMARATE 25 MG TAB PO SCH ×2 (10:16→20:53)
[2021-07-08] MEDS: CEFDINIR 300 MG CAP (OMNICEF) PO SCH ×2 (10:16→20:53)
[2021-07-08] MEDS: glipiZIDE *2.5MG* 1/2 TABLET PO SCH ×2 (10:23→16:56)
[2021-07-08] MEDS: RAMELTEON 8 MG TAB (ROZEREM) PO PRN (20:53)
[2021-07-09 05:47] VITALS: BP 132/63
[2021-07-09 08:16] VITALS: BP 132/63
[2021-07-09] MEDS: QUEtiapine FUMARATE 25 MG TAB PO SCH ×2 (09:03→20:33)
[2021-07-09] MEDS: glipiZIDE *2.5MG* 1/2 TABLET PO SCH ×2 (09:03→17:15)
[2021-07-09] MEDS: LEVEMIR (INSULIN DETEMIR) 1 UNITS/0.01ML SC SCH (09:03)
[2021-07-09] MEDS: CEFDINIR 300 MG CAP (OMNICEF) PO SCH (09:03)
[2021-07-09] MEDS ORDERED: GLIP5TAB8 PO (12:04)
[2021-07-09] MEDS ORDERED: QUET1TAB17 PO (12:04)
[2021-07-09] MEDS ORDERED: INSUDET SC (12:04)
[2021-07-09 14:00] VITALS: BP 134/87
[2021-07-09] MEDS: RAMELTEON 8 MG TAB (ROZEREM) PO PRN (20:34)
[2021-07-10] MEDS: LEVEMIR (INSULIN DETEMIR) 1 UNITS/0.01ML SC SCH (07:45)
[2021-07-10] MEDS: glipiZIDE *2.5MG* 1/2 TABLET PO SCH (07:53)
[2021-07-10] MEDS: QUEtiapine FUMARATE 25 MG TAB PO SCH (07:53)
== END 2021-07-10 10:27 | DRG 884 ==
LOC: M ED 17:07 → M ED INP 17:08 → ENRESERV 05-01 00:24 → M MSPAV 05-01 01:01 → EEVIPCON 05-01 16:24 → OBSVTOIN 05-01 16:24 → M MSPAV 05-12 09:23 → M 4MAIN 05-18 12:30 → M MSPAV 05-29 12:30
PROVIDERS: ADMIT Internal Medicine; ATTEND Internal Medicine
DX: F03.90 Unspecified dementia, unspecified severity, without behavioral disturbance, psychotic disturbance, mood disturbance, and anxiety (principal); U07.1 COVID-19; E11.9 Type 2 diabetes mellitus without complications; M17.11 Unilateral primary osteoarthritis, right knee; Z79.4 Long term (current) use of insulin; Z79.899 Other long term (current) drug therapy; Z74.1 Need for assistance with personal care

== ENCOUNTER → 2021-07-14 | Outpatient (REF) | payer MEDICARE, OTHER, MEDICAID ==
[~2021-07-14] MED LIST changes: +GLIP5TAB8 PO; +HUMA75VL; +INSUDET SC; +QUET1TAB17 PO
== END ==
LOC: SKLAB6 11:11
PROVIDERS: ATTEND Neuromusculoskeletal Medicine & OMM
DX: M25.511 Pain in right shoulder (principal); M25.521 Pain in right elbow

== ENCOUNTER 2021-07-18 10:15 | Inpatient (IN) | payer MEDICARE, OTHER, MEDICAID ==
[~2021-07-18] VITALS: Ht 170.2 cm; Wt 92.4 kg
[2021-07-18] MEDS ORDERED: NS 1,000 ML IV ONE ×2 (10:30→20:00)
[2021-07-18] MEDS ORDERED: LIDOCAINE 2% 5ML JELLY UROJET TOP ONE (10:30)
[2021-07-18] MEDS ORDERED: METF500T13 PO (10:54)
[2021-07-18 11:10] LABS: BASO % 0.1 % (0.0-1.0); HEMATOCRIT 40.8 % (42.0-52.0); HEMOGLOBIN 13.5 g/dl (13.5-17.5); LYMPH # 0.3 10^3/uL (1.5-5.0); LYMPH % 1.9 % (24.0-44.0); MEAN CORPUSCULAR HGB CONC 33.1 g/dl (32.0-36.5); MEAN CORPUSCULAR VOLUME 87.6 fl (80.0-96.0); MONO # 0.9 10^3/uL (0.0-0.8); NEUTROPHILS # 16.6 10^3/uL (1.5-8.5); NEUTROPHILS % 92.4 % (36.0-66.0); PLATELET COUNT, AUTOMATED 202 10^3/uL (150-450); RED BLOOD COUNT 4.66 10^6/uL (4.30-6.10); WHITE BLOOD COUNT 17.9 10^3/uL (4.0-10.0)
[2021-07-18 11:27] LABS: INR 1.05; PROTHROMBIN TIME 14.1 SECONDS (12.7-14.5)
[2021-07-18 11:28] LABS: PARTIAL THROMBOPLASTIN TIME 35.4 SECONDS (25.9-37.0)
[2021-07-18 11:30] LABS: ALBUMIN 3.4 GM/DL (3.2-5.2); BILIRUBIN,DIRECT 0.2 MG/DL (0.0-0.2); BILIRUBIN,TOTAL 0.6 MG/DL (0.2-1.0); C REACTIVE PROTEIN QUANTITATIV 7.12 MG/DL (0.00-0.30); CALCIUM LEVEL 8.7 MG/DL (8.8-10.2); CREATININE FOR GFR 1.95 MG/DL (0.70-1.30); GLOMERULAR FILTRATION RATE 35.7 (>42); POTASSIUM SERUM 4.5 MEQ/L (3.5-5.1); TOTAL PROTEIN 6.8 GM/DL (6.4-8.2)
[2021-07-18] MEDS ORDERED: INSUDET SC (11:40)
[2021-07-18] MEDS ORDERED: NS 2,490 ML in IV 1 EA IV ONE (11:40)
[2021-07-18] MEDS ORDERED: FLEEENE12 PR (11:40)
[2021-07-18] MEDS ORDERED: CEFEPIME HCL 2 GM in D5W MINI-BAG PLUS 50 ML IV ONE (11:40)
[2021-07-18] MEDS ORDERED: ACE65ERTAB PO (11:40)
[2021-07-18] MEDS ORDERED: DICL1GEL3 TOP (11:40)
[2021-07-18] MEDS ORDERED: GLIP5TAB8 PO (11:40)
[2021-07-18] MEDS ORDERED: DULC10SU2 PR (11:40)
[2021-07-18] MEDS ORDERED: QUET1TAB17 PO (11:40)
[2021-07-18 11:41] LABS: ABG BASE EXCESS -5.1 (-2.0-2.0); ABG HCO3 18.6 MEQ/L (22.0-26.0); ABG O2 SATURATION 95.4 % (95.0-99.0); ABG PARTIAL PRESSURE CO2 30.5 mmHg (35.0-45.0); ABG PARTIAL PRESSURE O2 77.6 mmHg (75.0-100.0); ABG STANDARD HCO3 20.2 MEQ/L (22.0-26.0); ABG TOTAL CO2 19.5 MEQ/L (23.0-31.0); ABG pH (ARTERIAL) 7.402 UNITS (7.350-7.450)
[2021-07-18] MEDS ORDERED: HOME MED LIST COMPLETE! XX SCH (11:45)
[2021-07-18 11:52] LABS: INFLUENZA A AMPLIFICATION NEGATIVE (NEGATIVE); INFLUENZA B AMPLIFICATION NEGATIVE (NEGATIVE)
[2021-07-18] MEDS ORDERED: LevoFLOXacin IV 500 MG in IV 1 EA IV ONE (13:00)
[2021-07-18] MEDS ORDERED: GLUCOSE 4GM CHEW TABLET PO PRN (13:10)
[2021-07-18] MEDS ORDERED: DEXTROSE 50% 50 ML SYRINGE IV PRN (13:10)
[2021-07-18] MEDS ORDERED: BISACODYL 10 MG SUPP PR PRN (13:10)
[2021-07-18] MEDS ORDERED: GLUCAGON INJ 1MG VIAL SC PRN (13:10)
[2021-07-18] MEDS: NS 1,000 ML IV SCH (13:50)
[2021-07-18] MEDS: HEPARIN SOD (PORCINE) 5000UNITS/ML 1ML VIAL/SYRINGE SQ SCH ×2 (15:47→23:03)
[2021-07-18 17:54] VITALS: BP 130/61
[2021-07-18] MEDS: HumaLOG INSULIN (NovoLOG) PER UNIT SC SCH (18:12)
[2021-07-18] MEDS: ACETAMINOPHEN TAB 650MG DOSE (2X325MG) PO PRN (18:19)
[2021-07-18 19:32] VITALS: BP 109/55
[2021-07-18 19:39] VITALS: BP 103/51
[2021-07-18] MEDS ORDERED: KETOROLAC 30 MG/ML 1ML VIAL IV ONE (20:00)
[2021-07-18] MEDS: QUEtiapine FUMARATE 25 MG TAB PO SCH (21:00)
[2021-07-18 22:04] VITALS: BP 98/54
[2021-07-18 22:30] VITALS: BP 98/60
[2021-07-19] VITALS: BP 96/62
[2021-07-19] MEDS ORDERED: RAMELTEON 8 MG TAB (ROZEREM) PO PRN (00:10)
[2021-07-19] MEDS: CEFEPIME HCL 2 GM in D5W MINI-BAG PLUS 50 ML IV SCH ×3 (00:35→23:43)
[2021-07-19] MEDS ORDERED: diphenhydrAMINE 50MG/ML VIAL (J1200) IV ONE (01:00)
[2021-07-19] MEDS ORDERED: OLANZapine INTRAMUSCULAR 10MG VIAL IM ONE (01:25)
[2021-07-19] MEDS: NS 1,000 ML IV SCH ×4 (03:51→22:01)
[2021-07-19 04:00] VITALS: BP 96/58
[2021-07-19] MEDS: HEPARIN SOD (PORCINE) 5000UNITS/ML 1ML VIAL/SYRINGE SQ SCH ×3 (05:29→22:01)
[2021-07-19 06:17] LABS: HEMATOCRIT 35.1 % (42.0-52.0); HEMOGLOBIN 11.6 g/dl (13.5-17.5); MEAN CORPUSCULAR HEMOGLOBIN 29.1 pg (27.0-33.0); MEAN CORPUSCULAR VOLUME 88.2 fl (80.0-96.0); PLATELET COUNT, AUTOMATED 162 10^3/uL (150-450); RED BLOOD COUNT 3.98 10^6/uL (4.30-6.10); WHITE BLOOD COUNT 8.9 10^3/uL (4.0-10.0)
[2021-07-19 06:36] LABS: ALBUMIN 2.4 GM/DL (3.2-5.2); ALT/SGPT 19 U/L (12-78); BILIRUBIN,TOTAL 0.2 MG/DL (0.2-1.0); BLOOD UREA NITROGEN 17 MG/DL (7-18); CALCIUM LEVEL 7.5 MG/DL (8.8-10.2); CARBON DIOXIDE LEVEL 22 MEQ/L (21-32); CHLORIDE LEVEL 112 MEQ/L (98-107); CREATININE FOR GFR 0.92 MG/DL (0.70-1.30); GLOMERULAR FILTRATION RATE > 60.0 (>42); GLUCOSE, FASTING 122 MG/DL (70-100); MAGNESIUM LEVEL 1.7 MG/DL (1.8-2.4); POTASSIUM SERUM 3.7 MEQ/L (3.5-5.1); SODIUM LEVEL 142 MEQ/L (136-145); TOTAL PROTEIN 5.2 GM/DL (6.4-8.2)
[2021-07-19] MEDS ORDERED: NS 1,000 ML IV ONE (07:25)
[2021-07-19 08:00] VITALS: BP 137/64
[2021-07-19] MEDS ORDERED: MAG SULF 1GM/100ML (MAG RUN) 1 GM in IV 1 EA IV ONE (08:00)
[2021-07-19] MEDS: HumaLOG INSULIN (NovoLOG) PER UNIT SC SCH ×3 (09:07→17:30)
[2021-07-19] MEDS: QUEtiapine FUMARATE 25 MG TAB PO SCH ×2 (09:08→20:41)
[2021-07-19] MEDS: LEVEMIR (INSULIN DETEMIR) 1 UNITS/0.01ML SC SCH (09:08)
[2021-07-19] MEDS: ACETAMINOPHEN TAB 650MG DOSE (2X325MG) PO PRN (11:57)
[2021-07-19 12:00] VITALS: BP 126/68
[2021-07-19] MEDS ORDERED: diphenhydrAMINE 50MG/ML VIAL (J1200) IV PRN (12:00)
[2021-07-19] MEDS ORDERED: LevoFLOXacin IV 250 MG in IV 1 EA IV SCH (14:00)
[2021-07-19 16:00] VITALS: BP 113/59
[2021-07-19 20:00] VITALS: BP_SYST 121; BP_SYST 135; BP_DIAS 65; BP_DIAS 66
[2021-07-20] VITALS (7 sets, daily range): BP systolic 119–163; BP diastolic 54–73
[2021-07-20] MEDS: HEPARIN SOD (PORCINE) 5000UNITS/ML 1ML VIAL/SYRINGE SQ SCH ×3 (06:00→20:14)
[2021-07-20] MEDS: NS 1,000 ML IV SCH (08:01)
[2021-07-20] MEDS: QUEtiapine FUMARATE 25 MG TAB PO SCH ×2 (08:07→20:13)
[2021-07-20] MEDS: LEVEMIR (INSULIN DETEMIR) 1 UNITS/0.01ML SC SCH ×2 (08:08→20:15)
[2021-07-20] MEDS: HumaLOG INSULIN (NovoLOG) PER UNIT SC SCH ×3 (08:09→17:44)
[2021-07-20] MEDS ORDERED: FUROSEMIDE 40MG/4ML VIAL (J1940) IV ONE (08:10)
[2021-07-20] MEDS ORDERED: LevoFLOXacin IV 500 MG in IV 1 EA IV SCH (08:10)
[2021-07-20 09:54] LABS: HEMOGLOBIN 13.4 g/dl (13.5-17.5); MEAN CORPUSCULAR HGB CONC 33.5 g/dl (32.0-36.5); MEAN CORPUSCULAR VOLUME 86.6 fl (80.0-96.0); PLATELET COUNT, AUTOMATED 200 10^3/uL (150-450); RED BLOOD COUNT 4.62 10^6/uL (4.30-6.10); WHITE BLOOD COUNT 7.4 10^3/uL (4.0-10.0)
[2021-07-20 10:24] LABS: ALT/SGPT 27 U/L (12-78); BILIRUBIN,TOTAL 0.2 MG/DL (0.2-1.0); BLOOD UREA NITROGEN 9 MG/DL (7-18); CALCIUM LEVEL 8.4 MG/DL (8.8-10.2); CARBON DIOXIDE LEVEL 20 MEQ/L (21-32); CHLORIDE LEVEL 109 MEQ/L (98-107); CREATININE FOR GFR 0.98 MG/DL (0.70-1.30); GLOMERULAR FILTRATION RATE > 60.0 (>42); GLUCOSE, FASTING 392 MG/DL (70-100); MAGNESIUM LEVEL 1.8 MG/DL (1.8-2.4); POTASSIUM SERUM 3.9 MEQ/L (3.5-5.1); SODIUM LEVEL 140 MEQ/L (136-145); TOTAL PROTEIN 6.7 GM/DL (6.4-8.2)
[2021-07-20] MEDS ORDERED: LevoFLOXacin IV 750 MG in IV 1 EA IV SCH (12:00)
[2021-07-21] MEDS: HEPARIN SOD (PORCINE) 5000UNITS/ML 1ML VIAL/SYRINGE SQ SCH ×3 (04:59→21:40)
[2021-07-21 06:00] VITALS: BP 117/58
[2021-07-21] MEDS: LevoFLOXacin 750 MG TABLET PO SCH (06:15)
[2021-07-21 07:00] LABS: HEMATOCRIT 36.8 % (42.0-52.0); HEMOGLOBIN 12.4 g/dl (13.5-17.5); MEAN CORPUSCULAR HEMOGLOBIN 28.9 pg (27.0-33.0); MEAN CORPUSCULAR HGB CONC 33.7 g/dl (32.0-36.5); MEAN CORPUSCULAR VOLUME 85.8 fl (80.0-96.0); PLATELET COUNT, AUTOMATED 203 10^3/uL (150-450); RED BLOOD COUNT 4.29 10^6/uL (4.30-6.10); WHITE BLOOD COUNT 6.1 10^3/uL (4.0-10.0)
[2021-07-21 07:30] LABS: ALBUMIN 2.8 GM/DL (3.2-5.2); ALT/SGPT 20 U/L (12-78); BILIRUBIN,TOTAL 0.3 MG/DL (0.2-1.0); BLOOD UREA NITROGEN 11 MG/DL (7-18); CALCIUM LEVEL 8.9 MG/DL (8.8-10.2); CARBON DIOXIDE LEVEL 29 MEQ/L (21-32); CHLORIDE LEVEL 111 MEQ/L (98-107); CREATININE FOR GFR 0.85 MG/DL (0.70-1.30); GLOMERULAR FILTRATION RATE > 60.0 (>42); GLUCOSE, FASTING 90 MG/DL (70-100); POTASSIUM SERUM 3.5 MEQ/L (3.5-5.1); SODIUM LEVEL 145 MEQ/L (136-145); TOTAL PROTEIN 6.4 GM/DL (6.4-8.2)
[2021-07-21] MEDS: HumaLOG INSULIN (NovoLOG) PER UNIT SC SCH ×3 (07:30→16:40)
[2021-07-21] MEDS: QUEtiapine FUMARATE 25 MG TAB PO SCH ×2 (08:41→21:41)
[2021-07-21] MEDS: LEVEMIR (INSULIN DETEMIR) 1 UNITS/0.01ML SC SCH ×2 (08:41→21:41)
[2021-07-21 20:49] VITALS: BP 122/63
[2021-07-21] MEDS: ACETAMINOPHEN TAB 650MG DOSE (2X325MG) PO PRN (21:42)
[2021-07-22] MEDS: LevoFLOXacin 750 MG TABLET PO SCH (06:19)
[2021-07-22] MEDS: HEPARIN SOD (PORCINE) 5000UNITS/ML 1ML VIAL/SYRINGE SQ SCH (06:20)
[2021-07-22] MEDS: HumaLOG INSULIN (NovoLOG) PER UNIT SC SCH ×2 (07:12→12:00)
[2021-07-22 07:39] LABS: BASO % 0.3 % (0.0-1.0); EOS # 0.1 10^3/uL (0.0-0.5); EOS % 1.9 % (0.0-3.0); HEMATOCRIT 37.1 % (42.0-52.0); HEMOGLOBIN 12.2 g/dl (13.5-17.5); LYMPH # 2.7 10^3/uL (1.5-5.0); LYMPH % 46.3 % (24.0-44.0); MEAN CORPUSCULAR HEMOGLOBIN 28.8 pg (27.0-33.0); MEAN CORPUSCULAR HGB CONC 32.9 g/dl (32.0-36.5); MEAN CORPUSCULAR VOLUME 87.5 fl (80.0-96.0); MONO # 0.7 10^3/uL (0.0-0.8); MONO % 11.7 % (2.0-8.0); NEUTROPHILS # 2.3 10^3/uL (1.5-8.5); NEUTROPHILS % 39.5 % (36.0-66.0); PLATELET COUNT, AUTOMATED 227 10^3/uL (150-450); RED BLOOD COUNT 4.24 10^6/uL (4.30-6.10); WHITE BLOOD COUNT 5.7 10^3/uL (4.0-10.0)
[2021-07-22 08:15] LABS: ALBUMIN 2.9 GM/DL (3.2-5.2); ALT/SGPT 29 U/L (12-78); BILIRUBIN,TOTAL 0.4 MG/DL (0.2-1.0); BLOOD UREA NITROGEN 14 MG/DL (7-18); CARBON DIOXIDE LEVEL 29 MEQ/L (21-32); CHLORIDE LEVEL 108 MEQ/L (98-107); CREATININE FOR GFR 0.84 MG/DL (0.70-1.30); GLOMERULAR FILTRATION RATE > 60.0 (>42); GLUCOSE, FASTING 88 MG/DL (70-100); POTASSIUM SERUM 3.9 MEQ/L (3.5-5.1); SODIUM LEVEL 143 MEQ/L (136-145); TOTAL PROTEIN 6.2 GM/DL (6.4-8.2)
[2021-07-22] MEDS: LEVEMIR (INSULIN DETEMIR) 1 UNITS/0.01ML SC SCH ×2 (09:00→09:35)
[2021-07-22] MEDS ORDERED: LEVO750T13 PO (09:20)
[2021-07-22] MEDS ORDERED: INSUDET SC ×3 (09:20→10:14)
[2021-07-22] MEDS: QUEtiapine FUMARATE 25 MG TAB PO SCH (09:34)
== END 2021-07-22 13:28 | DRG 871 ==
LOC: EDBD 10:15 → M ED 10:15 → M ED INP 11:56 → ENRESERV 16:29 → M MSPAV 17:43 → M PCU 22:25 → M MSPAV 07-20 16:13
PROVIDERS: ADMIT Internal Medicine; ATTEND Family Medicine
DX: A41.9 Sepsis, unspecified organism (principal); R65.21 Severe sepsis with septic shock; N39.0 Urinary tract infection, site not specified; F03.91 Unspecified dementia, unspecified severity, with behavioral disturbance; N17.9 Acute kidney failure, unspecified; M19.90 Unspecified osteoarthritis, unspecified site; E11.9 Type 2 diabetes mellitus without complications; Z20.822 Contact with and (suspected) exposure to COVID-19; Z79.84 Long term (current) use of oral hypoglycemic drugs; Z79.4 Long term (current) use of insulin; Z79.899 Other long term (current) drug therapy; B96.1 Klebsiella pneumoniae [K. pneumoniae] as the cause of diseases classified elsewhere; E83.42 Hypomagnesemia; Z91.19 Patient's noncompliance with other medical treatment and regimen

== ENCOUNTER → 2021-07-23 | Outpatient (REF) | payer MEDICARE, OTHER, MEDICAID ==
[~2021-07-23] MED LIST changes: +ACE65ERTAB PO; +DICL1GEL3 TOP; +DULC10SU2 PR; +FLEEENE12 PR; +LEVO750T13 PO; +METF500T13 PO
[2021-07-23 12:26] LABS: HEMATOCRIT 37.9 % (42.0-52.0); HEMOGLOBIN 12.6 g/dl (13.5-17.5); MEAN CORPUSCULAR HEMOGLOBIN 28.9 pg (27.0-33.0); MEAN CORPUSCULAR HGB CONC 33.2 g/dl (32.0-36.5); MEAN CORPUSCULAR VOLUME 86.9 fl (80.0-96.0); PLATELET COUNT, AUTOMATED 234 10^3/uL (150-450); RED BLOOD COUNT 4.36 10^6/uL (4.30-6.10); WHITE BLOOD COUNT 5.4 10^3/uL (4.0-10.0)
[2021-07-23 12:53] LABS: ALBUMIN 3.3 GM/DL (3.2-5.2); ALT/SGPT 30 U/L (12-78); BILIRUBIN,TOTAL 0.3 MG/DL (0.2-1.0); BLOOD UREA NITROGEN 14 MG/DL (7-18); CARBON DIOXIDE LEVEL 28 MEQ/L (21-32); CHLORIDE LEVEL 107 MEQ/L (98-107); CREATININE FOR GFR 0.92 MG/DL (0.70-1.30); GLOMERULAR FILTRATION RATE > 60.0 (>42); GLUCOSE, FASTING 235 MG/DL (70-100); POTASSIUM SERUM 4.6 MEQ/L (3.5-5.1); SODIUM LEVEL 140 MEQ/L (136-145); TOTAL PROTEIN 6.8 GM/DL (6.4-8.2)
[2021-07-23 16:27] LABS: HEMOGLOBIN A1c 8.4 %
== END ==
LOC: SKLAB6 07:00
PROVIDERS: ATTEND Neuromusculoskeletal Medicine & OMM
DX: F03.90 Unspecified dementia, unspecified severity, without behavioral disturbance, psychotic disturbance, mood disturbance, and anxiety (principal); E11.9 Type 2 diabetes mellitus without complications

== ENCOUNTER → 2021-08-10 | Outpatient (CLI) | payer MEDICARE, MEDICAID | LOC: M RAD 16:23 | PROVIDERS: ATTEND Neuromusculoskeletal Medicine & OMM | DX: M17.11 Unilateral primary osteoarthritis, right knee (principal) ==

== ENCOUNTER 2021-09-02 21:37 | Emergency (ER) | payer MEDICARE, MEDICAID ==
[~2021-09-02] VITALS: Ht 167.6 cm; Wt 82.0 kg
[2021-09-03 03:17] VITALS: BP 125/82
== END 2021-09-03 03:20 | disposition home or self-care (01) ==
LOC: M ED 21:37 → EDBD 21:37 → M ED 09-03 03:20
DX: F03.90 Unspecified dementia, unspecified severity, without behavioral disturbance, psychotic disturbance, mood disturbance, and anxiety (principal); R93.89 Abnormal findings on diagnostic imaging of other specified body structures; R45.1 Restlessness and agitation; W19.XXXA Unspecified fall, initial encounter; Y92.9 Unspecified place or not applicable; Y93.9 Activity, unspecified; Y99.9 Unspecified external cause status

== ENCOUNTER → 2021-09-04 | Outpatient (REF) | payer MEDICARE, MEDICAID ==
[2021-09-04 11:37] LABS: FREE T4 0.6 NG/DL (0.76-1.46); THYROID STIMULATING HORMONE 0.801 uIU/ML (0.358-3.740)
== END ==
LOC: SKLAB3 10:46
PROVIDERS: ATTEND Nurse Practitioner Family
DX: E04.9 Nontoxic goiter, unspecified (principal)

== ENCOUNTER → 2021-09-08 | Outpatient (REF) | payer MEDICARE, MEDICAID ==
[2021-09-08 08:45] LABS: AMORPHOUS SEDIMENT SMALL (NEGATIVE); APPEARANCE, URINE HAZY (CLEAR); BACTERIA, URINE AUTO 1+ (NEGATIVE); BILIRUBIN, URINE AUTO NEGATIVE (NEGATIVE); BLOOD, URINE BLOOD NEGATIVE (NEGATIVE); COLOR, URINE YELLOW (YELLOW); GLUCOSE, URINE (UA) AUTO 3+ mg/dL (NEGATIVE); KETONE, URINE AUTO NEGATIVE (NEGATIVE); LEUKOCYTE ESTERASE, URINE AUTO 1+ (NEGATIVE); MUCUS, URINE SMALL (NEGATIVE); NITRITE, URINE AUTO POSITIVE (NEGATIVE); PROTEIN, URINE AUTO NEGATIVE (NEGATIVE); RBC, URINE AUTO 2 /HPF (0-3); SPECIFIC GRAVITY URINE AUTO 1.023 (1.002-1.035); SQUAMOUS EPITHELIAL CELL UR AU 6 /HPF (0-6); UROBILINOGEN, URINE AUTO 0.2 mg/dL (0.0-2.0); WBC, URINE AUTO 37 /HPF (0-3)
[2021-09-08 10:00] LABS: BLOOD UREA NITROGEN 18 MG/DL (7-18); CALCIUM LEVEL 9.4 MG/DL (8.8-10.2); CARBON DIOXIDE LEVEL 25 MEQ/L (21-32); CHLORIDE LEVEL 103 MEQ/L (98-107); GLOMERULAR FILTRATION RATE > 60.0 (>42); GLUCOSE, FASTING 392 MG/DL (70-100); POTASSIUM SERUM 4.2 MEQ/L (3.5-5.1); SODIUM LEVEL 136 MEQ/L (136-145)
== END ==
LOC: SKLAB3 10:40
PROVIDERS: ATTEND Neuromusculoskeletal Medicine & OMM
DX: N18.9 Chronic kidney disease, unspecified (principal); Z79.899 Other long term (current) drug therapy

== ENCOUNTER 2021-09-11 12:30 | Emergency (ER) | payer MEDICAID, MEDICARE ==
[~2021-09-11] VITALS: Ht 167.6 cm; Wt 72.0 kg
[2021-09-11] MEDS ORDERED: QUET1TAB17 PO (14:50)
[2021-09-11 14:59] VITALS: BP 174/83
== END 2021-09-11 15:33 | disposition home or self-care (01) ==
LOC: M ED 12:30
DX: F03.91 Unspecified dementia, unspecified severity, with behavioral disturbance (principal); I10 Essential (primary) hypertension; E11.9 Type 2 diabetes mellitus without complications; Z79.899 Other long term (current) drug therapy; Z79.4 Long term (current) use of insulin

== ENCOUNTER → 2021-09-23 | Outpatient (CLI) | payer MEDICAID, MEDICARE ==
[~2021-09-23] MED LIST changes: +ACET-907 PO; +ATIV1TAB10 PO; +DICL20GE TOP; +DULO1CAP6 PO; +HALO5SYR IM; +IBUP1TAB5 PO; +LOPE1CAP5 PO; +MILKSUS3 PO; +QUET50TA4 PO
== END ==
LOC: M RAD 06:25
PROVIDERS: ATTEND Nurse Practitioner Family
DX: E04.2 Nontoxic multinodular goiter (principal)

== ENCOUNTER 2021-09-24 00:14 | Emergency (ER) | payer MEDICARE ==
[~2021-09-24] VITALS: Ht 167.6 cm; Wt 72.0 kg
[~2021-09-24 00:14] MED LIST changes: -ACET-907 PO; -ATIV1TAB10 PO; -DICL20GE TOP; -DULO1CAP6 PO; -HALO5SYR IM; -IBUP1TAB5 PO; -LOPE1CAP5 PO; -MILKSUS3 PO; -QUET50TA4 PO
[2021-09-24 01:31] LABS: BASO % 0.2 % (0.0-1.0); EOS # 0.1 10^3/uL (0.0-0.5); EOS % 1.5 % (0.0-3.0); HEMATOCRIT 36.8 % (42.0-52.0); HEMOGLOBIN 12.6 g/dl (13.5-17.5); LYMPH # 1.6 10^3/uL (1.5-5.0); LYMPH % 19.2 % (24.0-44.0); MEAN CORPUSCULAR HGB CONC 34.2 g/dl (32.0-36.5); MEAN CORPUSCULAR VOLUME 87.6 fl (80.0-96.0); MONO % 11.6 % (2.0-8.0); NEUTROPHILS # 5.7 10^3/uL (1.5-8.5); NEUTROPHILS % 67.3 % (36.0-66.0); PLATELET COUNT, AUTOMATED 199 10^3/uL (150-450); WHITE BLOOD COUNT 8.4 10^3/uL (4.0-10.0)
[2021-09-24 01:49] LABS: VENOUS BASE EXCESS -1.3 (-2.0-2.0); VENOUS HCO3 23.5 MEQ/L (23.0-27.0); VENOUS O2 SATURATION 97.1 % (60.0-80.0); VENOUS PARTIAL PRESSURE CO2 39.9 mmHg (38.0-50.0); VENOUS PARTIAL PRESSURE O2 92.4 mmHg (30.0-50.0); VENOUS PH 7.388 UNITS (7.330-7.430); VENOUS STANDARD HCO3 23.4 MEQ/L; VENOUS TOTAL CO2 24.7 MEQ/L (24.0-28.0)
[2021-09-24 01:57] LABS: OSMOLALITY SERUM 310 MOSM/KG (280-301)
[2021-09-24 01:58] LABS: ACETONE/KETONE 2.08 MG/DL (<2.81); ALBUMIN 3.7 GM/DL (3.2-5.2); ALT/SGPT 19 U/L (12-78); BILIRUBIN,TOTAL 0.4 MG/DL (0.2-1.0); BLOOD UREA NITROGEN 22 MG/DL (7-18); CALCIUM LEVEL 9.6 MG/DL (8.8-10.2); CARBON DIOXIDE LEVEL 28 MEQ/L (21-32); CHLORIDE LEVEL 99 MEQ/L (98-107); CREATININE FOR GFR 1.12 MG/DL (0.70-1.30); GLOMERULAR FILTRATION RATE > 60.0 (>42); GLUCOSE, FASTING 545 MG/DL (70-100); SODIUM LEVEL 134 MEQ/L (136-145)
[2021-09-24] MEDS ORDERED: INSULIN LISPRO (NovoLOG) PER UNIT SC STA (02:00)
[2021-09-24] MEDS ORDERED: NS 1,000 ML IV ONE (02:00)
[2021-09-24 02:04] LABS: RSV AMPLIFICATION NEGATIVE (NEGATIVE)
[2021-09-24] MEDS ORDERED: ACETAMINOPHEN TAB 650MG DOSE (2X325MG) PO ONE (02:15)
[2021-09-24] MEDS ORDERED: LOPE1CAP5 PO (02:36)
[2021-09-24] MEDS ORDERED: DULO1CAP6 PO (02:36)
[2021-09-24] MEDS ORDERED: INSUDET SC (02:36)
[2021-09-24] MEDS ORDERED: HALO5SYR IM (02:36)
[2021-09-24] MEDS ORDERED: DICL20GE TOP (02:36)
[2021-09-24] MEDS ORDERED: ATIV1TAB10 PO (02:36)
[2021-09-24] MEDS ORDERED: MILKSUS3 PO (02:36)
[2021-09-24] MEDS ORDERED: IBUP1TAB5 PO (02:36)
[2021-09-24] MEDS ORDERED: ACET-907 PO (02:36)
[2021-09-24] MEDS ORDERED: QUET50TA4 PO (02:36)
[2021-09-24] MEDS ORDERED: HOME MED LIST COMPLETE! XX SCH (02:40)
[2021-09-24 03:29] VITALS: BP 135/74
== END 2021-09-24 04:22 | disposition home or self-care (01) ==
LOC: M ED 00:14
DX: S40.011A Contusion of right shoulder, initial encounter (principal); W19.XXXA Unspecified fall, initial encounter; Y92.009 Unspecified place in unspecified non-institutional (private) residence as the place of occurrence of the external cause; Y93.9 Activity, unspecified; Y99.9 Unspecified external cause status; E11.9 Type 2 diabetes mellitus without complications; E04.1 Nontoxic single thyroid nodule; I67.2 Cerebral atherosclerosis; Z79.4 Long term (current) use of insulin; Z79.899 Other long term (current) drug therapy
CPT/HCPCS: 70450; 71045; 72125; 73030; 80053; 82010; 82803; 83930; 85025; 87631; 96360; 96361; 99284; J1815

== ENCOUNTER → 2021-10-08 | Outpatient (REF) | payer MEDICARE ==
[~2021-10-08] MED LIST changes: +ACET-907 PO; +ATIV1TAB10 PO; +DICL20GE TOP; +DULO1CAP6 PO; +HALO5SYR IM; +IBUP1TAB5 PO; +LOPE1CAP5 PO; +MILKSUS3 PO; +QUET50TA4 PO
[2021-10-08 14:06] LABS: FREE T4 0.59 NG/DL (0.76-1.46); THYROID STIMULATING HORMONE 0.3 uIU/ML (0.358-3.740)
== END ==
LOC: SKLAB3 07:01
PROVIDERS: ATTEND Neuromusculoskeletal Medicine & OMM
DX: E07.9 Disorder of thyroid, unspecified (principal)

== ENCOUNTER 2021-10-14 14:24 | Inpatient (IN) | payer MEDICARE ==
[~2021-10-14] VITALS: Ht 172.7 cm; Wt 85.0 kg
[2021-10-14] MEDS ORDERED: ACETAMINOPHEN 650 MG SUPP PR ONE (14:50)
[2021-10-14] MEDS ORDERED: ONDANSETRON 4MG/2ML VIAL IV ONE (14:50)
[2021-10-14] MEDS ORDERED: NS 1,000 ML IV ONE ×2 (14:50→16:30)
[2021-10-14] MEDS ORDERED: ACETAMINOPHEN 325 MG SUPP PR ONE (14:50)
[2021-10-14 15:49] LABS: BASO % 0.1 % (0.0-1.0); HEMOGLOBIN 11.9 g/dl (13.5-17.5); LYMPH # 0.4 10^3/uL (1.5-5.0); MEAN CORPUSCULAR HEMOGLOBIN 28.9 pg (27.0-33.0); MEAN CORPUSCULAR HGB CONC 33.1 g/dl (32.0-36.5); MEAN CORPUSCULAR VOLUME 87.4 fl (80.0-96.0); MONO % 10.5 % (2.0-8.0); NEUTROPHILS # 16.1 10^3/uL (1.5-8.5); NEUTROPHILS % 86.4 % (36.0-66.0); PLATELET COUNT, AUTOMATED 248 10^3/uL (150-450); RED BLOOD COUNT 4.12 10^6/uL (4.30-6.10); WHITE BLOOD COUNT 18.6 10^3/uL (4.0-10.0)
[2021-10-14 16:12] LABS: ALBUMIN 2.6 GM/DL (3.2-5.2); BILIRUBIN,DIRECT 0.2 MG/DL (0.0-0.2); BILIRUBIN,TOTAL 0.6 MG/DL (0.2-1.0); CALCIUM LEVEL 8.1 MG/DL (8.8-10.2); CREATININE FOR GFR 1.26 MG/DL (0.70-1.30); GLOMERULAR FILTRATION RATE 58.9 (>42); POTASSIUM SERUM 3.8 MEQ/L (3.5-5.1); TOTAL PROTEIN 6.1 GM/DL (6.4-8.2)
[2021-10-14] MEDS ORDERED: cefTRIAXone SOD 2 GM in D5W MINI-BAG PLUS 50 ML IV ONE (16:30)
[2021-10-14] MEDS ORDERED: ISOVUE-370 76% 100ML VIAL As Ordered ONE (16:43)
[2021-10-14] MEDS ORDERED: NS 420 ML in IV 1 EA IV ONE (17:20)
[2021-10-14 18:23] LABS: RSV AMPLIFICATION NEGATIVE (NEGATIVE)
[2021-10-14] MEDS ORDERED: LIDOCAINE 2% 5ML JELLY UROJET TOP ONE (19:00)
[2021-10-14] MEDS ORDERED: NS 1,000 ML IV SCH (19:30)
[2021-10-14] MEDS ORDERED: HOME MED LIST COMPLETE! XX SCH (21:00)
[2021-10-14] MEDS ORDERED: NS 250 ML IV ONE (22:05)
[2021-10-14] MEDS ORDERED: HYDROCORTISONE 100 MG/2 ML VIAL (J1720 PER 1) IV ONE (22:05)
[2021-10-14 22:53] VITALS: BP 129/85
[2021-10-14] MEDS ORDERED: LORazepam 2 MG/ML VIAL IV STA (23:18)
[2021-10-15] VITALS (28 sets, daily range): BP systolic 59–134; BP diastolic 31–103
[2021-10-15] MEDS ORDERED: MOM 30ML SUSPENSION UDC PO PRN (01:05)
[2021-10-15] MEDS ORDERED: DEXTROSE 50% 50 ML SYRINGE IV PRN (01:05)
[2021-10-15] MEDS ORDERED: GLUCAGON INJ 1MG VIAL SC PRN (01:05)
[2021-10-15] MEDS ORDERED: GLUCOSE 4GM CHEW TABLET PO PRN (01:05)
[2021-10-15] MEDS ORDERED: FLEET ENEMA PR PRN (01:05)
[2021-10-15] MEDS ORDERED: BISACODYL 10 MG SUPP PR PRN (01:05)
[2021-10-15] MEDS ORDERED: PILL CUTTER 1 EACH XX PRN (01:20)
[2021-10-15] MEDS: NS 1,000 ML IV SCH ×3 (01:35→15:32)
[2021-10-15] MEDS: INSULIN LISPRO (NovoLOG) PER UNIT SC SCH ×5 (02:03→20:58)
[2021-10-15] MEDS: ACETAMINOPHEN TAB 650MG DOSE (2X325MG) PO PRN ×2 (02:21→17:41)
[2021-10-15] MEDS: QUEtiapine FUMARATE 50MG TAB PO SCH ×3 (03:22→21:58)
[2021-10-15] MEDS: QUEtiapine FUMARATE 25 MG TAB PO SCH ×3 (03:22→21:58)
[2021-10-15] MEDS ORDERED: LORazepam 2 MG/ML VIAL IV STA ×2 (05:20→20:18)
[2021-10-15] MEDS ORDERED: NOREPINEPHRINE BITARTRATE 8 MG in D5W 492 ML IV SCH (05:30)
[2021-10-15 07:55] LABS: BASO % 0.1 % (0.0-1.0); HEMATOCRIT 32.2 % (42.0-52.0); HEMOGLOBIN 10.5 g/dl (13.5-17.5); LYMPH % 6.5 % (24.0-44.0); MEAN CORPUSCULAR HEMOGLOBIN 28.5 pg (27.0-33.0); MEAN CORPUSCULAR HGB CONC 32.6 g/dl (32.0-36.5); MEAN CORPUSCULAR VOLUME 87.3 fl (80.0-96.0); MONO % 11.3 % (2.0-8.0); NEUTROPHILS # 13.1 10^3/uL (1.5-8.5); NEUTROPHILS % 81.4 % (36.0-66.0); PLATELET COUNT, AUTOMATED 236 10^3/uL (150-450); RED BLOOD COUNT 3.69 10^6/uL (4.30-6.10); WHITE BLOOD COUNT 16.1 10^3/uL (4.0-10.0)
[2021-10-15] MEDS: cefTRIAXone SOD 1 GM in D5W MINI-BAG PLUS 50 ML IV SCH (08:01)
[2021-10-15 08:25] LABS: ALBUMIN 2.2 GM/DL (3.2-5.2); ALT/SGPT 15 U/L (12-78); BILIRUBIN,TOTAL 0.4 MG/DL (0.2-1.0); BLOOD UREA NITROGEN 17 MG/DL (7-18); CALCIUM LEVEL 8.6 MG/DL (8.8-10.2); CARBON DIOXIDE LEVEL 21 MEQ/L (21-32); CHLORIDE LEVEL 108 MEQ/L (98-107); CREATININE FOR GFR 1.09 MG/DL (0.70-1.30); GLOMERULAR FILTRATION RATE > 60.0 (>42); GLUCOSE, FASTING 297 MG/DL (70-100); POTASSIUM SERUM 3.7 MEQ/L (3.5-5.1); SODIUM LEVEL 140 MEQ/L (136-145); TOTAL PROTEIN 6.4 GM/DL (6.4-8.2)
[2021-10-15 08:37] LABS: MONO # 1.8 10^3/uL (0.0-0.8)
[2021-10-15] MEDS: DULoxetine 30MG CAPSULE (CYMBALTA) PO SCH (09:00)
[2021-10-15] MEDS: HEPARIN SOD (PORCINE) 5000UNITS/ML 1ML VIAL/SYRINGE SQ SCH ×2 (09:10→20:14)
[2021-10-15] MEDS ORDERED: NS 1,000 ML IV ONE ×2 (15:30→17:10)
[2021-10-15] MEDS: MIDODRINE 5 MG TAB PO SCH (16:28)
[2021-10-15] MEDS: HYDROCORTISONE 100 MG/2 ML VIAL (J1720 PER 1) IV SCH ×2 (16:28→22:24)
[2021-10-15] MEDS: LORazepam 0.5 MG TAB PO SCH ×2 (20:14→21:58)
[2021-10-15] MEDS ORDERED: LEVEMIR (INSULIN DETEMIR) 1 UNITS/0.01ML SC SCH (21:00)
[2021-10-16] VITALS (10 sets, daily range): BP systolic 94–142; BP diastolic 54–74
[2021-10-16] MEDS: NS 1,000 ML IV SCH ×3 (00:50→21:25)
[2021-10-16] MEDS: HYDROCORTISONE 100 MG/2 ML VIAL (J1720 PER 1) IV SCH ×4 (04:43→21:49)
[2021-10-16] MEDS: INSULIN LISPRO (NovoLOG) PER UNIT SC SCH ×4 (08:16→21:00)
[2021-10-16] MEDS: cefTRIAXone SOD 1 GM in D5W MINI-BAG PLUS 50 ML IV SCH (08:16)
[2021-10-16] MEDS: MIDODRINE 5 MG TAB PO SCH ×3 (08:16→17:08)
[2021-10-16] MEDS: QUEtiapine FUMARATE 25 MG TAB PO SCH ×2 (08:17→21:00)
[2021-10-16] MEDS: QUEtiapine FUMARATE 50MG TAB PO SCH ×2 (08:17→21:00)
[2021-10-16] MEDS: DULoxetine 30MG CAPSULE (CYMBALTA) PO SCH (08:17)
[2021-10-16] MEDS: HEPARIN SOD (PORCINE) 5000UNITS/ML 1ML VIAL/SYRINGE SQ SCH ×2 (08:17→21:49)
[2021-10-16] MEDS: LORazepam 0.5 MG TAB PO SCH ×2 (08:17→21:00)
[2021-10-16 08:27] LABS: BASO % 0.1 % (0.0-1.0); HEMATOCRIT 33.1 % (42.0-52.0); LYMPH # 0.7 10^3/uL (1.5-5.0); LYMPH % 4.7 % (24.0-44.0); MEAN CORPUSCULAR HEMOGLOBIN 29.9 pg (27.0-33.0); MEAN CORPUSCULAR HGB CONC 33.2 g/dl (32.0-36.5); MEAN CORPUSCULAR VOLUME 89.9 fl (80.0-96.0); MONO # 0.4 10^3/uL (0.0-0.8); MONO % 2.8 % (2.0-8.0); NEUTROPHILS # 13.7 10^3/uL (1.5-8.5); NEUTROPHILS % 91.6 % (36.0-66.0); PLATELET COUNT, AUTOMATED 235 10^3/uL (150-450); RED BLOOD COUNT 3.68 10^6/uL (4.30-6.10)
[2021-10-16 08:54] LABS: BLOOD UREA NITROGEN 19 MG/DL (7-18); CALCIUM LEVEL 7.8 MG/DL (8.8-10.2); CARBON DIOXIDE LEVEL 23 MEQ/L (21-32); CHLORIDE LEVEL 112 MEQ/L (98-107); CREATININE FOR GFR 1.22 MG/DL (0.70-1.30); GLOMERULAR FILTRATION RATE > 60.0 (>42); GLUCOSE, FASTING 305 MG/DL (70-100); POTASSIUM SERUM 4.2 MEQ/L (3.5-5.1); SODIUM LEVEL 142 MEQ/L (136-145); THYROID STIMULATING HORMONE 0.167 uIU/ML (0.358-3.740); THYROXINE (T4) 2.7 UG/DL (4.5-12.0)
[2021-10-16 12:54] LABS: T UPTAKE 38 % (33-40)
[2021-10-16 14:02] LABS: ABG BASE EXCESS -4.6 (-2.0-2.0); ABG HCO3 19.5 MEQ/L (22.0-26.0); ABG O2 SATURATION 97.9 % (95.0-99.0); ABG PARTIAL PRESSURE CO2 32.9 mmHg (35.0-45.0); ABG PARTIAL PRESSURE O2 103.1 mmHg (75.0-100.0); ABG STANDARD HCO3 20.6 MEQ/L (22.0-26.0); ABG TOTAL CO2 20.5 MEQ/L (23.0-31.0)
[2021-10-16] MEDS ORDERED: flumazeniL 0.5 MG/5 ML VIAL IV SCH (14:15)
[2021-10-16] MEDS: LEVEMIR (INSULIN DETEMIR) 1 UNITS/0.01ML SC SCH (21:49)
[2021-10-17] MEDS: HYDROCORTISONE 100 MG/2 ML VIAL (J1720 PER 1) IV SCH ×4 (04:53→22:02)
[2021-10-17 06:00] VITALS: BP 153/73
[2021-10-17] MEDS: NS 1,000 ML IV SCH ×2 (06:04→18:04)
[2021-10-17 06:10] LABS: BASO % 0.1 % (0.0-1.0); HEMATOCRIT 34.2 % (42.0-52.0); HEMOGLOBIN 11.3 g/dl (13.5-17.5); LYMPH % 5.8 % (24.0-44.0); MEAN CORPUSCULAR HEMOGLOBIN 28.9 pg (27.0-33.0); MEAN CORPUSCULAR VOLUME 87.5 fl (80.0-96.0); MONO # 0.7 10^3/uL (0.0-0.8); MONO % 4.1 % (2.0-8.0); NEUTROPHILS % 89.2 % (36.0-66.0); PLATELET COUNT, AUTOMATED 237 10^3/uL (150-450); RED BLOOD COUNT 3.91 10^6/uL (4.30-6.10); WHITE BLOOD COUNT 16.8 10^3/uL (4.0-10.0)
[2021-10-17 06:29] LABS: BLOOD UREA NITROGEN 22 MG/DL (7-18); CALCIUM LEVEL 8.2 MG/DL (8.8-10.2); CARBON DIOXIDE LEVEL 21 MEQ/L (21-32); CHLORIDE LEVEL 114 MEQ/L (98-107); CREATININE FOR GFR 0.83 MG/DL (0.70-1.30); GLOMERULAR FILTRATION RATE > 60.0 (>42); GLUCOSE, FASTING 265 MG/DL (70-100); POTASSIUM SERUM 3.5 MEQ/L (3.5-5.1); SODIUM LEVEL 144 MEQ/L (136-145)
[2021-10-17] MEDS: INSULIN LISPRO (NovoLOG) PER UNIT SC SCH ×4 (08:25→22:03)
[2021-10-17] MEDS: QUEtiapine FUMARATE 25 MG TAB PO SCH ×2 (08:25→22:01)
[2021-10-17] MEDS: cefTRIAXone SOD 1 GM in D5W MINI-BAG PLUS 50 ML IV SCH (08:25)
[2021-10-17] MEDS: QUEtiapine FUMARATE 50MG TAB PO SCH ×2 (08:25→22:02)
[2021-10-17] MEDS: DULoxetine 30MG CAPSULE (CYMBALTA) PO SCH (08:26)
[2021-10-17] MEDS: HEPARIN SOD (PORCINE) 5000UNITS/ML 1ML VIAL/SYRINGE SQ SCH ×2 (08:26→22:04)
[2021-10-17] MEDS: MIDODRINE 5 MG TAB PO SCH (08:26)
[2021-10-17] MEDS: LORazepam 0.5 MG TAB PO SCH ×2 (08:26→22:01)
[2021-10-17] MEDS: ACETAMINOPHEN TAB 650MG DOSE (2X325MG) PO PRN (08:31)
[2021-10-17 10:00] VITALS: BP 130/64
[2021-10-17 14:00] VITALS: BP 128/65
[2021-10-17 18:00] VITALS: BP 133/63
[2021-10-17 22:00] VITALS: BP 139/71
[2021-10-17] MEDS: LEVEMIR (INSULIN DETEMIR) 1 UNITS/0.01ML SC SCH (22:04)
[2021-10-18 02:00] VITALS: BP 131/70
[2021-10-18] MEDS: HYDROCORTISONE 100 MG/2 ML VIAL (J1720 PER 1) IV SCH (04:24)
[2021-10-18] MEDS: NS 1,000 ML IV SCH (04:24)
[2021-10-18 05:51] LABS: BASO % 0.1 % (0.0-1.0); HEMATOCRIT 31.1 % (42.0-52.0); HEMOGLOBIN 10.6 g/dl (13.5-17.5); LYMPH # 1.1 10^3/uL (1.5-5.0); LYMPH % 8.9 % (24.0-44.0); MEAN CORPUSCULAR HEMOGLOBIN 29.4 pg (27.0-33.0); MEAN CORPUSCULAR HGB CONC 34.1 g/dl (32.0-36.5); MEAN CORPUSCULAR VOLUME 86.1 fl (80.0-96.0); MONO # 0.6 10^3/uL (0.0-0.8); MONO % 4.7 % (2.0-8.0); NEUTROPHILS # 10.6 10^3/uL (1.5-8.5); NEUTROPHILS % 85.3 % (36.0-66.0); PLATELET COUNT, AUTOMATED 272 10^3/uL (150-450); RED BLOOD COUNT 3.61 10^6/uL (4.30-6.10); WHITE BLOOD COUNT 12.4 10^3/uL (4.0-10.0)
[2021-10-18 06:00] VITALS: BP 144/65
[2021-10-18 06:23] LABS: BLOOD UREA NITROGEN 16 MG/DL (7-18); CALCIUM LEVEL 7.9 MG/DL (8.8-10.2); CARBON DIOXIDE LEVEL 21 MEQ/L (21-32); CHLORIDE LEVEL 113 MEQ/L (98-107); CREATININE FOR GFR 0.81 MG/DL (0.70-1.30); GLOMERULAR FILTRATION RATE > 60.0 (>42); GLUCOSE, FASTING 222 MG/DL (70-100); POTASSIUM SERUM 2.8 MEQ/L (3.5-5.1); SODIUM LEVEL 143 MEQ/L (136-145)
[2021-10-18] MEDS: QUEtiapine FUMARATE 50MG TAB PO SCH ×2 (08:22→22:19)
[2021-10-18] MEDS: DULoxetine 30MG CAPSULE (CYMBALTA) PO SCH (08:22)
[2021-10-18] MEDS: HEPARIN SOD (PORCINE) 5000UNITS/ML 1ML VIAL/SYRINGE SQ SCH ×2 (08:22→21:00)
[2021-10-18] MEDS: LORazepam 0.5 MG TAB PO SCH ×2 (08:22→22:19)
[2021-10-18] MEDS: QUEtiapine FUMARATE 25 MG TAB PO SCH ×2 (08:22→22:19)
[2021-10-18] MEDS: INSULIN LISPRO (NovoLOG) PER UNIT SC SCH ×4 (08:23→21:24)
[2021-10-18] MEDS: cefTRIAXone SOD 1 GM in D5W MINI-BAG PLUS 50 ML IV SCH (08:23)
[2021-10-18] MEDS: POTASSIUM CHLORIDE 10MEQ SR TABLET PO SCH ×3 (08:32→22:19)
[2021-10-18 08:43] LABS: MAGNESIUM LEVEL 1.9 MG/DL (1.8-2.4)
[2021-10-18] MEDS ORDERED: AMOX875T2 PO (09:13)
[2021-10-18] MEDS ORDERED: BACITAB PO (09:13)
[2021-10-18 10:00] VITALS: BP 116/60
[2021-10-18] MEDS ORDERED: MAG SULF 1GM/100ML (MAG RUN) 1 GM in IV 1 EA IV ONE ×2 (10:00→20:55)
[2021-10-18] MEDS: ACETAMINOPHEN TAB 650MG DOSE (2X325MG) PO PRN ×2 (11:04→18:26)
[2021-10-18 14:00] VITALS: BP 112/62
[2021-10-18] MEDS ORDERED: INSUDET SC (18:28)
[2021-10-18] MEDS ORDERED: BISACODYL 10 MG SUPP PR PRN (18:35)
[2021-10-18] MEDS ORDERED: MOM 30ML SUSPENSION UDC PO PRN (18:35)
[2021-10-18] MEDS ORDERED: SENOKOT S TAB PO PRN (18:35)
[2021-10-18] MEDS ORDERED: FLEET ENEMA PR PRN (18:35)
[2021-10-18 19:21] LABS: MAGNESIUM LEVEL 1.6 MG/DL (1.8-2.4); POTASSIUM SERUM 3.4 MEQ/L (3.5-5.1)
[2021-10-18] MEDS ORDERED: LEVEMIR (INSULIN DETEMIR) 1 UNITS/0.01ML SC SCH (21:00)
[2021-10-18] MEDS ORDERED: OLANZapine INTRAMUSCULAR 10MG VIAL IM ONE (21:35)
[2021-10-18 22:00] VITALS: BP 128/75
[2021-10-19 05:45] VITALS: BP 153/79
[2021-10-19 06:10] LABS: BASO % 0.3 % (0.0-1.0); EOS % 0.4 % (0.0-3.0); HEMATOCRIT 35.8 % (42.0-52.0); LYMPH # 1.4 10^3/uL (1.5-5.0); LYMPH % 12.8 % (24.0-44.0); MEAN CORPUSCULAR HEMOGLOBIN 29.1 pg (27.0-33.0); MEAN CORPUSCULAR HGB CONC 33.5 g/dl (32.0-36.5); MEAN CORPUSCULAR VOLUME 86.9 fl (80.0-96.0); MONO # 1.4 10^3/uL (0.0-0.8); NEUTROPHILS # 7.6 10^3/uL (1.5-8.5); NEUTROPHILS % 71.8 % (36.0-66.0); PLATELET COUNT, AUTOMATED 294 10^3/uL (150-450); RED BLOOD COUNT 4.12 10^6/uL (4.30-6.10); WHITE BLOOD COUNT 10.5 10^3/uL (4.0-10.0)
[2021-10-19 06:37] LABS: BLOOD UREA NITROGEN 15 MG/DL (7-18); CALCIUM LEVEL 8.4 MG/DL (8.8-10.2); CARBON DIOXIDE LEVEL 25 MEQ/L (21-32); CHLORIDE LEVEL 110 MEQ/L (98-107); CREATININE FOR GFR 0.91 MG/DL (0.70-1.30); GLOMERULAR FILTRATION RATE > 60.0 (>42); GLUCOSE, FASTING 302 MG/DL (70-100); POTASSIUM SERUM 3.9 MEQ/L (3.5-5.1); SODIUM LEVEL 142 MEQ/L (136-145)
[2021-10-19] MEDS: DULoxetine 30MG CAPSULE (CYMBALTA) PO SCH (09:53)
[2021-10-19] MEDS: QUEtiapine FUMARATE 25 MG TAB PO SCH (09:53)
[2021-10-19] MEDS: POTASSIUM CHLORIDE 10MEQ SR TABLET PO SCH (09:53)
[2021-10-19] MEDS: QUEtiapine FUMARATE 50MG TAB PO SCH (09:54)
[2021-10-19] MEDS: LORazepam 0.5 MG TAB PO SCH (09:54)
[2021-10-19] MEDS: INSULIN LISPRO (NovoLOG) PER UNIT SC SCH ×2 (09:55→12:36)
[2021-10-19] MEDS: HEPARIN SOD (PORCINE) 5000UNITS/ML 1ML VIAL/SYRINGE SQ SCH (09:55)
[2021-10-19] MEDS: cefTRIAXone SOD 1 GM in D5W MINI-BAG PLUS 50 ML IV SCH (09:56)
[2021-10-19 10:00] VITALS: BP 156/73
== END 2021-10-19 13:03 | DRG 871 ==
LOC: EDBD 14:24 → M ED 14:24 → M ED INP 19:39 → ENRESERV 21:26 → M ICU 22:53 → M PCU 10-15 16:09 → M ICU 10-15 16:13 → M MSPAV 10-16 09:42
PROVIDERS: ADMIT Internal Medicine Pulmonary Disease; ATTEND General Practice
DX: A41.9 Sepsis, unspecified organism (principal); G93.41 Metabolic encephalopathy; F03.91 Unspecified dementia, unspecified severity, with behavioral disturbance; N17.9 Acute kidney failure, unspecified; N39.0 Urinary tract infection, site not specified; M19.90 Unspecified osteoarthritis, unspecified site; G47.00 Insomnia, unspecified; E87.6 Hypokalemia; E11.65 Type 2 diabetes mellitus with hyperglycemia; R33.9 Retention of urine, unspecified; B96.1 Klebsiella pneumoniae [K. pneumoniae] as the cause of diseases classified elsewhere; N32.0 Bladder-neck obstruction; R65.20 Severe sepsis without septic shock; K59.09 Other constipation; K76.0 Fatty (change of) liver, not elsewhere classified; Z79.4 Long term (current) use of insulin; Z79.899 Other long term (current) drug therapy; Z78.1 Physical restraint status

== ENCOUNTER → 2021-10-27 | Outpatient (REF) | payer MEDICARE ==
[~2021-10-27] MED LIST changes: +AMOX875T2 PO; +BACITAB PO; +CEFD300CAP PO; +FLOM0.4C39 PO; +HALO5INJ12 IM; +JARD1TAB3 PO; +RISP-7 PO; +RISP25INJ IM
== END ==
LOC: SKLAB3 07:00
PROVIDERS: ATTEND Neuromusculoskeletal Medicine & OMM
DX: E11.9 Type 2 diabetes mellitus without complications (principal)

== ENCOUNTER 2021-11-02 21:30 | Inpatient (IN) | payer MEDICARE ==
[~2021-11-02] VITALS: Ht 167.6 cm; Wt 76.3 kg
[~2021-11-02 21:30] MED LIST changes: -HALO5INJ12 IM; -JARD1TAB3 PO
[2021-11-02 22:19] LABS: BASO % 0.1 % (0.0-1.0); HEMOGLOBIN 11.6 g/dl (13.5-17.5); LYMPH % 6.6 % (24.0-44.0); MEAN CORPUSCULAR HEMOGLOBIN 29.1 pg (27.0-33.0); MEAN CORPUSCULAR HGB CONC 33.1 g/dl (32.0-36.5); MEAN CORPUSCULAR VOLUME 87.9 fl (80.0-96.0); MONO # 1.5 10^3/uL (0.0-0.8); MONO % 9.8 % (2.0-8.0); NEUTROPHILS # 12.4 10^3/uL (1.5-8.5); NEUTROPHILS % 82.8 % (36.0-66.0); PLATELET COUNT, AUTOMATED 269 10^3/uL (150-450); RED BLOOD COUNT 3.98 10^6/uL (4.30-6.10); WHITE BLOOD COUNT 14.9 10^3/uL (4.0-10.0)
[2021-11-02 22:54] LABS: BILIRUBIN,DIRECT 0.2 MG/DL (0.0-0.2); BILIRUBIN,TOTAL 0.6 MG/DL (0.2-1.0); CALCIUM LEVEL 8.5 MG/DL (8.8-10.2); CREATININE FOR GFR 1.29 MG/DL (0.70-1.30); GLOMERULAR FILTRATION RATE 57.3 (>42); POTASSIUM SERUM 4.4 MEQ/L (3.5-5.1); THYROID STIMULATING HORMONE 0.319 uIU/ML (0.358-3.740); THYROXINE (T4) 3.2 UG/DL (4.5-12.0); TOTAL PROTEIN 7.2 GM/DL (6.4-8.2)
[2021-11-02] MEDS ORDERED: cefTRIAXone SOD 1 GM in D5W MINI-BAG PLUS 50 ML IV ONE (23:10)
[2021-11-02] MEDS ORDERED: NS 1,000 ML IV ONE (23:35)
[2021-11-02] MEDS ORDERED: INSUDET SC (23:48)
[2021-11-02] MEDS ORDERED: JARD1TAB3 PO (23:48)
[2021-11-02] MEDS ORDERED: HALO5INJ12 IM (23:48)
[2021-11-02] MEDS ORDERED: HOME MED LIST COMPLETE! XX SCH (23:50)
[2021-11-03] VITALS (11 sets, daily range): BP systolic 102–168; BP diastolic 55–100; O2SAT 62–96
[2021-11-03] MEDS ORDERED: MOM 30ML SUSPENSION UDC PO PRN (00:10)
[2021-11-03] MEDS ORDERED: MAALOX 30 ML SUSP *UDC PO PRN (00:10)
[2021-11-03] MEDS ORDERED: ACETAMINOPHEN TAB 650MG DOSE (2X325MG) PO PRN (00:10)
[2021-11-03] MEDS ORDERED: cefTRIAXone SOD 1 GM in D5W MINI-BAG PLUS 50 ML IV ONE (00:10)
[2021-11-03] MEDS ORDERED: ISOVUE-370 76% 100ML VIAL As Ordered ONE (00:38)
[2021-11-03] MEDS ORDERED: HALOPERIDOL 5MG/ML VIAL (J1630 PER 1) IM STA (02:18)
[2021-11-03] MEDS ORDERED: LORazepam 2 MG/ML VIAL IV STA (02:49)
[2021-11-03] MEDS ORDERED: GLUCOSE 4GM CHEW TABLET PO PRN (02:50)
[2021-11-03] MEDS ORDERED: GLUCAGON INJ 1MG VIAL SC PRN (02:50)
[2021-11-03] MEDS ORDERED: DEXTROSE 50% 50 ML SYRINGE IV PRN (02:50)
[2021-11-03] MEDS ORDERED: OLANZapine INTRAMUSCULAR 10MG VIAL IM ONE (04:00)
[2021-11-03 05:33] LABS: BASO % 0.1 % (0.0-1.0); EOS % 0.1 % (0.0-3.0); HEMATOCRIT 37.4 % (42.0-52.0); HEMOGLOBIN 12.1 g/dl (13.5-17.5); LYMPH # 1.3 10^3/uL (1.5-5.0); LYMPH % 8.3 % (24.0-44.0); MEAN CORPUSCULAR HEMOGLOBIN 28.5 pg (27.0-33.0); MEAN CORPUSCULAR HGB CONC 32.4 g/dl (32.0-36.5); MONO % 13.2 % (2.0-8.0); NEUTROPHILS % 77.8 % (36.0-66.0); PLATELET COUNT, AUTOMATED 263 10^3/uL (150-450); RED BLOOD COUNT 4.25 10^6/uL (4.30-6.10); WHITE BLOOD COUNT 15.4 10^3/uL (4.0-10.0)
[2021-11-03 05:52] LABS: ALBUMIN 3.1 GM/DL (3.2-5.2); BILIRUBIN,TOTAL 0.4 MG/DL (0.2-1.0); CALCIUM LEVEL 9.1 MG/DL (8.8-10.2); CREATININE FOR GFR 1.32 MG/DL (0.70-1.30); GLOMERULAR FILTRATION RATE 55.8 (>42); MAGNESIUM LEVEL 2.3 MG/DL (1.8-2.4); POTASSIUM SERUM 4.1 MEQ/L (3.5-5.1)
[2021-11-03] MEDS: INSULIN LISPRO (NovoLOG) PER UNIT SC SCH ×4 (07:30→20:22)
[2021-11-03] MEDS ORDERED: QUEtiapine FUMARATE 50MG TAB PO SCH (09:00)
[2021-11-03] MEDS: QUEtiapine FUMARATE 25 MG TAB PO SCH ×3 (09:00→20:06)
[2021-11-03] MEDS: LORazepam 0.5 MG TAB PO SCH ×2 (09:00→20:06)
[2021-11-03] MEDS: DULoxetine 30MG CAPSULE (CYMBALTA) PO SCH ×2 (09:00→09:54)
[2021-11-03] MEDS: BISACODYL 10 MG SUPP PR SCH ×2 (09:54→20:27)
[2021-11-03] MEDS: ENOXAPARIN 40MG/0.4ML SYRINGE (J1650 PER 10MG) SC SCH (09:54)
[2021-11-03] MEDS ORDERED: HALOPERIDOL 5MG/ML VIAL (J1630 PER 1) IV PRN (14:20)
[2021-11-03] MEDS ORDERED: PILL CUTTER 1 EACH XX PRN (14:25)
[2021-11-03] MEDS: cefTRIAXone SOD 2 GM in D5W MINI-BAG PLUS 50 ML IV SCH (20:32)
[2021-11-03] MEDS: LEVEMIR (INSULIN DETEMIR) 1 UNITS/0.01ML SC SCH (20:38)
[2021-11-03] MEDS ORDERED: cefTRIAXone SOD 1 GM in D5W MINI-BAG PLUS 50 ML IV SCH (21:00)
[2021-11-04] VITALS (27 sets, daily range): BP systolic 107–110; BP diastolic 64–70; O2SAT 90–97
[2021-11-04] MEDS ORDERED: UNRESOLVED CLARIFICATION ENTRY XX SCH (00:01)
[2021-11-04] MEDS: HALOPERIDOL 5MG/ML VIAL (J1630 PER 1) IM PRN (03:48)
[2021-11-04] MEDS ORDERED: OLANZapine INTRAMUSCULAR 10MG VIAL IM ONE ×2 (05:00→07:00)
[2021-11-04 08:21] LABS: BASO % 0.1 % (0.0-1.0); EOS % 0.3 % (0.0-3.0); HEMATOCRIT 33.1 % (42.0-52.0); HEMOGLOBIN 10.9 g/dl (13.5-17.5); LYMPH # 1.3 10^3/uL (1.5-5.0); LYMPH % 13.7 % (24.0-44.0); MEAN CORPUSCULAR HEMOGLOBIN 28.9 pg (27.0-33.0); MEAN CORPUSCULAR HGB CONC 32.9 g/dl (32.0-36.5); MEAN CORPUSCULAR VOLUME 87.8 fl (80.0-96.0); MONO # 1.4 10^3/uL (0.0-0.8); MONO % 14.9 % (2.0-8.0); NEUTROPHILS # 6.7 10^3/uL (1.5-8.5); NEUTROPHILS % 70.5 % (36.0-66.0); PLATELET COUNT, AUTOMATED 247 10^3/uL (150-450); RED BLOOD COUNT 3.77 10^6/uL (4.30-6.10); WHITE BLOOD COUNT 9.5 10^3/uL (4.0-10.0)
[2021-11-04 08:46] LABS: BLOOD UREA NITROGEN 20 MG/DL (7-18); CALCIUM LEVEL 8.9 MG/DL (8.8-10.2); CARBON DIOXIDE LEVEL 26 MEQ/L (21-32); CHLORIDE LEVEL 109 MEQ/L (98-107); CREATININE FOR GFR 1.12 MG/DL (0.70-1.30); GLOMERULAR FILTRATION RATE > 60.0 (>42); GLUCOSE, FASTING 138 MG/DL (70-100); POTASSIUM SERUM 3.1 MEQ/L (3.5-5.1); SODIUM LEVEL 142 MEQ/L (136-145)
[2021-11-04] MEDS: INSULIN LISPRO (NovoLOG) PER UNIT SC SCH ×4 (09:00→19:56)
[2021-11-04] MEDS: QUEtiapine FUMARATE 25 MG TAB PO SCH ×2 (10:17→21:02)
[2021-11-04] MEDS: DULoxetine 30MG CAPSULE (CYMBALTA) PO SCH (10:18)
[2021-11-04] MEDS: LORazepam 0.5 MG TAB PO SCH ×2 (10:18→21:02)
[2021-11-04] MEDS: ENOXAPARIN 40MG/0.4ML SYRINGE (J1650 PER 10MG) SC SCH (10:23)
[2021-11-04] MEDS: BISACODYL 10 MG SUPP PR SCH ×2 (10:27→21:02)
[2021-11-04] MEDS ORDERED: ONDANSETRON 4MG 2ML VIAL IV PRN (12:10)
[2021-11-04] MEDS ORDERED: POTASSIUM CHLORIDE 10% LIQ 20 MEQ/15 ML UDC PO ONE (13:10)
[2021-11-04] MEDS: cefTRIAXone SOD 2 GM in D5W MINI-BAG PLUS 50 ML IV SCH (21:02)
[2021-11-04] MEDS: LEVEMIR (INSULIN DETEMIR) 1 UNITS/0.01ML SC SCH (21:02)
[2021-11-05] VITALS (21 sets, daily range): BP systolic 106–126; BP diastolic 57–72; O2SAT 86–96
[2021-11-05 05:15] LABS: BASO % 0.2 % (0.0-1.0); EOS # 0.1 10^3/uL (0.0-0.5); EOS % 1.1 % (0.0-3.0); HEMATOCRIT 34.4 % (42.0-52.0); HEMOGLOBIN 11.3 g/dl (13.5-17.5); LYMPH # 1.1 10^3/uL (1.5-5.0); MEAN CORPUSCULAR HEMOGLOBIN 28.8 pg (27.0-33.0); MEAN CORPUSCULAR HGB CONC 32.8 g/dl (32.0-36.5); MEAN CORPUSCULAR VOLUME 87.8 fl (80.0-96.0); MONO # 1.4 10^3/uL (0.0-0.8); MONO % 14.8 % (2.0-8.0); NEUTROPHILS # 6.8 10^3/uL (1.5-8.5); NEUTROPHILS % 71.6 % (36.0-66.0); PLATELET COUNT, AUTOMATED 275 10^3/uL (150-450); RED BLOOD COUNT 3.92 10^6/uL (4.30-6.10); WHITE BLOOD COUNT 9.5 10^3/uL (4.0-10.0)
[2021-11-05 05:39] LABS: BLOOD UREA NITROGEN 19 MG/DL (7-18); CALCIUM LEVEL 8.9 MG/DL (8.8-10.2); CARBON DIOXIDE LEVEL 24 MEQ/L (21-32); CHLORIDE LEVEL 112 MEQ/L (98-107); CREATININE FOR GFR 1.01 MG/DL (0.70-1.30); GLOMERULAR FILTRATION RATE > 60.0 (>42); GLUCOSE, FASTING 145 MG/DL (70-100); POTASSIUM SERUM 3.7 MEQ/L (3.5-5.1); SODIUM LEVEL 145 MEQ/L (136-145)
[2021-11-05] MEDS ORDERED: CEFD300CAP PO (07:48)
[2021-11-05] MEDS: INSULIN LISPRO (NovoLOG) PER UNIT SC SCH ×4 (09:45→20:24)
[2021-11-05] MEDS: ENOXAPARIN 40MG/0.4ML SYRINGE (J1650 PER 10MG) SC SCH (10:14)
[2021-11-05] MEDS: QUEtiapine FUMARATE 25 MG TAB PO SCH (10:15)
[2021-11-05] MEDS: BISACODYL 10 MG SUPP PR SCH ×2 (10:15→20:23)
[2021-11-05] MEDS: LORazepam 0.5 MG TAB PO SCH ×2 (10:15→20:23)
[2021-11-05] MEDS: DULoxetine 30MG CAPSULE (CYMBALTA) PO SCH (10:15)
[2021-11-05] MEDS: SENOKOT S TAB PO SCH ×2 (13:20→20:23)
[2021-11-05] MEDS: risperiDONE 0.5 MG TAB PO SCH (20:23)
[2021-11-05] MEDS: LEVEMIR (INSULIN DETEMIR) 1 UNITS/0.01ML SC SCH (20:23)
[2021-11-05] MEDS: cefTRIAXone SOD 2 GM in D5W MINI-BAG PLUS 50 ML IV SCH (20:23)
[2021-11-05] MEDS ORDERED: CEFDINIR 300 MG CAP (OMNICEF) PO SCH (21:00)
[2021-11-06] MEDS: HALOPERIDOL 5MG/ML VIAL (J1630 PER 1) IM PRN (02:32)
[2021-11-06] MEDS: INSULIN LISPRO (NovoLOG) PER UNIT SC SCH ×4 (08:57→21:00)
[2021-11-06] MEDS: ENOXAPARIN 40MG/0.4ML SYRINGE (J1650 PER 10MG) SC SCH (08:57)
[2021-11-06] MEDS: LORazepam 0.5 MG TAB PO SCH ×3 (08:58→21:13)
[2021-11-06] MEDS: DULoxetine 30MG CAPSULE (CYMBALTA) PO SCH (08:58)
[2021-11-06] MEDS: BISACODYL 10 MG SUPP PR SCH ×2 (08:58→21:23)
[2021-11-06] MEDS: SENOKOT S TAB PO SCH ×2 (08:58→21:13)
[2021-11-06] MEDS: risperiDONE 0.5 MG TAB PO SCH ×2 (08:58→21:13)
[2021-11-06 09:01] VITALS: BP 117/77
[2021-11-06 09:45] LABS: BASO % 0.3 % (0.0-1.0); EOS # 0.2 10^3/uL (0.0-0.5); EOS % 2.9 % (0.0-3.0); HEMATOCRIT 37.1 % (42.0-52.0); HEMOGLOBIN 12.1 g/dl (13.5-17.5); LYMPH # 1.3 10^3/uL (1.5-5.0); LYMPH % 16.3 % (24.0-44.0); MEAN CORPUSCULAR HEMOGLOBIN 28.9 pg (27.0-33.0); MEAN CORPUSCULAR HGB CONC 32.6 g/dl (32.0-36.5); MEAN CORPUSCULAR VOLUME 88.8 fl (80.0-96.0); MONO % 13.4 % (2.0-8.0); NEUTROPHILS # 5.2 10^3/uL (1.5-8.5); NEUTROPHILS % 66.7 % (36.0-66.0); PLATELET COUNT, AUTOMATED 319 10^3/uL (150-450); RED BLOOD COUNT 4.18 10^6/uL (4.30-6.10); WHITE BLOOD COUNT 7.7 10^3/uL (4.0-10.0)
[2021-11-06 10:15] LABS: BLOOD UREA NITROGEN 19 MG/DL (7-18); CALCIUM LEVEL 8.6 MG/DL (8.8-10.2); CARBON DIOXIDE LEVEL 26 MEQ/L (21-32); CHLORIDE LEVEL 112 MEQ/L (98-107); CREATININE FOR GFR 0.98 MG/DL (0.70-1.30); GLOMERULAR FILTRATION RATE > 60.0 (>42); GLUCOSE, FASTING 151 MG/DL (70-100); POTASSIUM SERUM 3.4 MEQ/L (3.5-5.1); SODIUM LEVEL 147 MEQ/L (136-145)
[2021-11-06 14:00] VITALS: BP 128/74
[2021-11-06 16:56] VITALS: O2SAT 96
[2021-11-06] MEDS: LEVEMIR (INSULIN DETEMIR) 1 UNITS/0.01ML SC SCH (21:14)
[2021-11-06] MEDS: cefTRIAXone SOD 2 GM in D5W MINI-BAG PLUS 50 ML IV SCH (21:14)
[2021-11-06 22:00] VITALS: BP 139/76
[2021-11-07] VITALS: BP 112/57
[2021-11-07 05:56] LABS: BASO % 0.3 % (0.0-1.0); EOS # 0.5 10^3/uL (0.0-0.5); EOS % 6.1 % (0.0-3.0); HEMOGLOBIN 11.4 g/dl (13.5-17.5); LYMPH # 1.6 10^3/uL (1.5-5.0); LYMPH % 20.2 % (24.0-44.0); MEAN CORPUSCULAR HEMOGLOBIN 27.8 pg (27.0-33.0); MEAN CORPUSCULAR HGB CONC 32.6 g/dl (32.0-36.5); MEAN CORPUSCULAR VOLUME 85.4 fl (80.0-96.0); MONO % 13.5 % (2.0-8.0); NEUTROPHILS # 4.6 10^3/uL (1.5-8.5); NEUTROPHILS % 59.4 % (36.0-66.0); PLATELET COUNT, AUTOMATED 329 10^3/uL (150-450); WHITE BLOOD COUNT 7.7 10^3/uL (4.0-10.0)
[2021-11-07 06:00] VITALS: BP 129/65
[2021-11-07 06:27] LABS: BLOOD UREA NITROGEN 15 MG/DL (7-18); CALCIUM LEVEL 8.8 MG/DL (8.8-10.2); CARBON DIOXIDE LEVEL 31 MEQ/L (21-32); CHLORIDE LEVEL 103 MEQ/L (98-107); CREATININE FOR GFR 0.83 MG/DL (0.70-1.30); GLOMERULAR FILTRATION RATE > 60.0 (>42); GLUCOSE, FASTING 131 MG/DL (70-100); POTASSIUM SERUM 3.4 MEQ/L (3.5-5.1); SODIUM LEVEL 139 MEQ/L (136-145)
[2021-11-07] MEDS: DULoxetine 30MG CAPSULE (CYMBALTA) PO SCH (08:51)
[2021-11-07] MEDS: risperiDONE 0.5 MG TAB PO SCH ×2 (08:51→21:42)
[2021-11-07] MEDS: SENOKOT S TAB PO SCH ×2 (08:51→21:00)
[2021-11-07] MEDS: LORazepam 0.5 MG TAB PO SCH ×2 (08:51→21:40)
[2021-11-07] MEDS: ENOXAPARIN 40MG/0.4ML SYRINGE (J1650 PER 10MG) SC SCH (08:51)
[2021-11-07] MEDS: INSULIN LISPRO (NovoLOG) PER UNIT SC SCH ×4 (08:53→21:38)
[2021-11-07] MEDS: BISACODYL 10 MG SUPP PR SCH ×2 (08:56→21:00)
[2021-11-07 14:00] VITALS: BP 107/72
[2021-11-07] MEDS: HALOPERIDOL 5MG/ML VIAL (J1630 PER 1) IM PRN (15:39)
[2021-11-07] MEDS: cefTRIAXone SOD 2 GM in D5W MINI-BAG PLUS 50 ML IV SCH (21:38)
[2021-11-07] MEDS: LEVEMIR (INSULIN DETEMIR) 1 UNITS/0.01ML SC SCH (21:40)
[2021-11-07 22:00] VITALS: BP 114/73
[2021-11-07] MEDS ORDERED: TAMSULOSIN 0.4 MG CAP PO ONE (22:00)
[2021-11-08 07:21] LABS: BASO % 0.6 % (0.0-1.0); EOS # 0.3 10^3/uL (0.0-0.5); EOS % 4.6 % (0.0-3.0); HEMATOCRIT 34.2 % (42.0-52.0); HEMOGLOBIN 11.1 g/dl (13.5-17.5); LYMPH # 1.4 10^3/uL (1.5-5.0); MEAN CORPUSCULAR HEMOGLOBIN 28.3 pg (27.0-33.0); MEAN CORPUSCULAR HGB CONC 32.5 g/dl (32.0-36.5); MEAN CORPUSCULAR VOLUME 87.2 fl (80.0-96.0); MONO # 0.9 10^3/uL (0.0-0.8); NEUTROPHILS # 4.4 10^3/uL (1.5-8.5); NEUTROPHILS % 61.3 % (36.0-66.0); PLATELET COUNT, AUTOMATED 319 10^3/uL (150-450); RED BLOOD COUNT 3.92 10^6/uL (4.30-6.10); WHITE BLOOD COUNT 7.1 10^3/uL (4.0-10.0)
[2021-11-08 07:42] LABS: BLOOD UREA NITROGEN 14 MG/DL (7-18); CALCIUM LEVEL 8.5 MG/DL (8.8-10.2); CARBON DIOXIDE LEVEL 26 MEQ/L (21-32); CHLORIDE LEVEL 104 MEQ/L (98-107); CREATININE FOR GFR 0.88 MG/DL (0.70-1.30); GLOMERULAR FILTRATION RATE > 60.0 (>42); GLUCOSE, FASTING 232 MG/DL (70-100); POTASSIUM SERUM 3.8 MEQ/L (3.5-5.1); SODIUM LEVEL 138 MEQ/L (136-145)
[2021-11-08] MEDS: BISACODYL 10 MG SUPP PR SCH ×2 (08:12→20:36)
[2021-11-08] MEDS: INSULIN LISPRO (NovoLOG) PER UNIT SC SCH ×6 (09:58→21:48)
[2021-11-08] MEDS: ENOXAPARIN 40MG/0.4ML SYRINGE (J1650 PER 10MG) SC SCH (09:58)
[2021-11-08] MEDS: LORazepam 0.5 MG TAB PO SCH ×2 (09:58→20:35)
[2021-11-08] MEDS: SENOKOT S TAB PO SCH ×2 (09:58→20:46)
[2021-11-08] MEDS: DULoxetine 30MG CAPSULE (CYMBALTA) PO SCH (09:58)
[2021-11-08] MEDS: risperiDONE 0.5 MG TAB PO SCH ×2 (09:59→20:34)
[2021-11-08] MEDS ORDERED: OLANZapine ORAL DISINTEGRATING TAB 5MG SL PRN (13:35)
[2021-11-08 15:20] VITALS: BP 129/76
[2021-11-08] MEDS: cefTRIAXone SOD 2 GM in D5W MINI-BAG PLUS 50 ML IV SCH (20:33)
[2021-11-08] MEDS: LEVEMIR (INSULIN DETEMIR) 1 UNITS/0.01ML SC SCH ×2 (20:33→21:00)
[2021-11-08] MEDS: TAMSULOSIN 0.4 MG CAP PO SCH (20:34)
[2021-11-08 22:00] VITALS: BP 136/74
[2021-11-09 06:00] VITALS: BP 146/72
[2021-11-09 06:25] LABS: BASO % 0.4 % (0.0-1.0); EOS # 0.4 10^3/uL (0.0-0.5); HEMATOCRIT 33.5 % (42.0-52.0); HEMOGLOBIN 10.8 g/dl (13.5-17.5); LYMPH # 1.4 10^3/uL (1.5-5.0); LYMPH % 16.8 % (24.0-44.0); MEAN CORPUSCULAR HEMOGLOBIN 28.1 pg (27.0-33.0); MEAN CORPUSCULAR HGB CONC 32.2 g/dl (32.0-36.5); MONO # 0.9 10^3/uL (0.0-0.8); MONO % 11.2 % (2.0-8.0); NEUTROPHILS # 5.4 10^3/uL (1.5-8.5); NEUTROPHILS % 64.3 % (36.0-66.0); PLATELET COUNT, AUTOMATED 352 10^3/uL (150-450); RED BLOOD COUNT 3.85 10^6/uL (4.30-6.10); WHITE BLOOD COUNT 8.3 10^3/uL (4.0-10.0)
[2021-11-09 06:55] LABS: BLOOD UREA NITROGEN 13 MG/DL (7-18); CALCIUM LEVEL 8.4 MG/DL (8.8-10.2); CARBON DIOXIDE LEVEL 26 MEQ/L (21-32); CHLORIDE LEVEL 103 MEQ/L (98-107); CREATININE FOR GFR 0.88 MG/DL (0.70-1.30); GLOMERULAR FILTRATION RATE > 60.0 (>42); GLUCOSE, FASTING 339 MG/DL (70-100); SODIUM LEVEL 138 MEQ/L (136-145)
[2021-11-09] MEDS: ENOXAPARIN 40MG/0.4ML SYRINGE (J1650 PER 10MG) SC SCH (08:57)
[2021-11-09] MEDS: INSULIN LISPRO (NovoLOG) PER UNIT SC SCH ×4 (08:57→20:13)
[2021-11-09] MEDS: LEVEMIR (INSULIN DETEMIR) 1 UNITS/0.01ML SC SCH ×2 (08:57→20:13)
[2021-11-09] MEDS: LORazepam 0.5 MG TAB PO SCH ×2 (08:58→20:12)
[2021-11-09] MEDS: risperiDONE 0.5 MG TAB PO SCH ×2 (08:58→20:12)
[2021-11-09] MEDS: DULoxetine 30MG CAPSULE (CYMBALTA) PO SCH (08:58)
[2021-11-09] MEDS: SENOKOT S TAB PO SCH ×2 (09:00→20:12)
[2021-11-09] MEDS: BISACODYL 10 MG SUPP PR SCH ×2 (09:00→20:13)
[2021-11-09 14:00] VITALS: BP_SYST 90; BP_SYST 92; BP_DIAS 58; BP_DIAS 60
[2021-11-09 19:20] VITALS: BP 117/72
[2021-11-09] MEDS: TAMSULOSIN 0.4 MG CAP PO SCH (20:12)
[2021-11-10 05:16] VITALS: BP 129/67
[2021-11-10] MEDS: INSULIN LISPRO (NovoLOG) PER UNIT SC SCH ×4 (07:19→21:00)
[2021-11-10] MEDS ORDERED: risperiDONE 0.5 MG TAB PO SCH ×2 (09:00→21:00)
[2021-11-10] MEDS: ENOXAPARIN 40MG/0.4ML SYRINGE (J1650 PER 10MG) SC SCH ×2 (09:00→11:58)
[2021-11-10] MEDS: SENOKOT S TAB PO SCH ×2 (09:00→21:00)
[2021-11-10] MEDS: BISACODYL 10 MG SUPP PR SCH ×2 (09:00→21:00)
[2021-11-10] MEDS: DULoxetine 30MG CAPSULE (CYMBALTA) PO SCH (09:00)
[2021-11-10] MEDS: LORazepam 0.5 MG TAB PO SCH ×2 (09:00→21:00)
[2021-11-10] MEDS: LEVEMIR (INSULIN DETEMIR) 1 UNITS/0.01ML SC SCH ×2 (11:58→23:36)
[2021-11-10 14:00] VITALS: BP 118/70
[2021-11-10] MEDS: TAMSULOSIN 0.4 MG CAP PO SCH (21:00)
[2021-11-10 23:35] LABS: BASO % 0.3 % (0.0-1.0); EOS # 0.3 10^3/uL (0.0-0.5); EOS % 3.1 % (0.0-3.0); HEMATOCRIT 36.9 % (42.0-52.0); HEMOGLOBIN 12.3 g/dl (13.5-17.5); LYMPH # 2.3 10^3/uL (1.5-5.0); LYMPH % 24.9 % (24.0-44.0); MEAN CORPUSCULAR HEMOGLOBIN 28.9 pg (27.0-33.0); MEAN CORPUSCULAR HGB CONC 33.3 g/dl (32.0-36.5); MEAN CORPUSCULAR VOLUME 86.6 fl (80.0-96.0); MONO # 0.9 10^3/uL (0.0-0.8); MONO % 9.9 % (2.0-8.0); NEUTROPHILS # 5.4 10^3/uL (1.5-8.5); NEUTROPHILS % 59.5 % (36.0-66.0); PLATELET COUNT, AUTOMATED 382 10^3/uL (150-450); RED BLOOD COUNT 4.26 10^6/uL (4.30-6.10); WHITE BLOOD COUNT 9.1 10^3/uL (4.0-10.0)
[2021-11-10] MEDS ORDERED: LEVEMIR (INSULIN DETEMIR) 1 UNITS/0.01ML SC ONE (23:35)
[2021-11-10 23:36] LABS: VENOUS BASE EXCESS 0.7 (-2.0-2.0); VENOUS O2 SATURATION 99.2 % (60.0-80.0); VENOUS PARTIAL PRESSURE CO2 34.3 mmHg (38.0-50.0); VENOUS PARTIAL PRESSURE O2 149.4 mmHg (30.0-50.0); VENOUS PH 7.463 UNITS (7.330-7.430); VENOUS STANDARD HCO3 25.2 MEQ/L; VENOUS TOTAL CO2 25.1 MEQ/L (24.0-28.0)
[2021-11-11 00:05] LABS: ALBUMIN 2.8 GM/DL (3.2-5.2); ALT/SGPT 44 U/L (12-78); BILIRUBIN,TOTAL 0.3 MG/DL (0.2-1.0); BLOOD UREA NITROGEN 11 MG/DL (7-18); CALCIUM LEVEL 8.9 MG/DL (8.8-10.2); CARBON DIOXIDE LEVEL 23 MEQ/L (21-32); CHLORIDE LEVEL 108 MEQ/L (98-107); CREATININE FOR GFR 0.82 MG/DL (0.70-1.30); GLOMERULAR FILTRATION RATE > 60.0 (>42); GLUCOSE, FASTING 202 MG/DL (70-100); POTASSIUM SERUM 3.8 MEQ/L (3.5-5.1); SODIUM LEVEL 141 MEQ/L (136-145); TOTAL PROTEIN 7.3 GM/DL (6.4-8.2)
[2021-11-11 00:15] LABS: CK-MB VALUE MASS < 1.0 NG/ML (<3.6); CPK CREATINE PHOSPHOKINASE 37 U/L (39-308)
[2021-11-11 06:00] VITALS: BP 114/60
[2021-11-11 06:54] VITALS: BP 117/67
[2021-11-11] MEDS ORDERED: risperiDONE 0.5 MG TAB PO SCH (09:00)
[2021-11-11] MEDS ORDERED: risperiDONE LONG-ACTING 25 MG/2 ML INJ (J2794 PER 0.5MG) IM SCH (09:00)
[2021-11-11] MEDS: INSULIN LISPRO (NovoLOG) PER UNIT SC SCH ×2 (10:52→11:58)
[2021-11-11] MEDS: BISACODYL 10 MG SUPP PR SCH (10:53)
[2021-11-11] MEDS: LEVEMIR (INSULIN DETEMIR) 1 UNITS/0.01ML SC SCH (10:53)
[2021-11-11] MEDS: SENOKOT S TAB PO SCH (10:53)
[2021-11-11] MEDS: DULoxetine 30MG CAPSULE (CYMBALTA) PO SCH (10:53)
[2021-11-11] MEDS: LORazepam 0.5 MG TAB PO SCH (10:53)
[2021-11-11] MEDS: ENOXAPARIN 40MG/0.4ML SYRINGE (J1650 PER 10MG) SC SCH (10:53)
[2021-11-11] MEDS ORDERED: RISP-7 PO (10:55)
[2021-11-11] MEDS ORDERED: FLOM0.4C39 PO (10:55)
[2021-11-11] MEDS ORDERED: RISP25INJ IM (11:00)
[2021-11-25] MEDS ORDERED: risperiDONE LONG-ACTING 25 MG/2 ML INJ (J2794 PER 0.5MG) IM SCH (09:00)
== END 2021-11-11 13:43 | DRG 871 ==
LOC: EDBD 21:30 → M ED 21:30 → M ED INP 11-03 00:06 → M PCU 11-03 02:05 → M MSPAV 11-05 22:52
PROVIDERS: ADMIT Family Medicine; ATTEND Internal Medicine Nephrology
DX: A41.9 Sepsis, unspecified organism (principal); G93.41 Metabolic encephalopathy; N39.0 Urinary tract infection, site not specified; F02.81 Dementia in other diseases classified elsewhere, unspecified severity, with behavioral disturbance; M48.54XA Collapsed vertebra, not elsewhere classified, thoracic region, initial encounter for fracture; E11.9 Type 2 diabetes mellitus without complications; M19.90 Unspecified osteoarthritis, unspecified site; G47.00 Insomnia, unspecified; R33.9 Retention of urine, unspecified; K59.09 Other constipation; N32.0 Bladder-neck obstruction; K44.9 Diaphragmatic hernia without obstruction or gangrene; G30.9 Alzheimer's disease, unspecified; M96.4 Postsurgical lordosis; N31.9 Neuromuscular dysfunction of bladder, unspecified; Z79.4 Long term (current) use of insulin; Z79.899 Other long term (current) drug therapy

== ENCOUNTER → 2021-11-02 | Outpatient (REF) | payer MEDICARE ==
[~2021-11-02] MED LIST changes: -CEFD300CAP PO; -FLOM0.4C39 PO; -RISP-7 PO; -RISP25INJ IM
[2021-11-02 14:38] LABS: APPEARANCE, URINE CLOUDY (CLEAR); BACTERIA, URINE AUTO 2+ (NEGATIVE); BILIRUBIN, URINE AUTO NEGATIVE (NEGATIVE); BLOOD, URINE BLOOD 2+ (NEGATIVE); COLOR, URINE YELLOW (YELLOW); GLUCOSE, URINE (UA) AUTO 3+ mg/dL (NEGATIVE); KETONE, URINE AUTO NEGATIVE (NEGATIVE); LEUKOCYTE ESTERASE, URINE AUTO 3+ (NEGATIVE); MUCUS, URINE SMALL (NEGATIVE); NITRITE, URINE AUTO POSITIVE (NEGATIVE); PROTEIN, URINE AUTO NEGATIVE (NEGATIVE); RBC, URINE AUTO 0 /HPF (0-3); SQUAMOUS EPITHELIAL CELL UR AU 0 /HPF (0-6); UROBILINOGEN, URINE AUTO 0.2 mg/dL (0.0-2.0); WBC, URINE AUTO TNTC /HPF (0-3)
== END ==
LOC: SKLAB3 10:38
PROVIDERS: ATTEND Nurse Practitioner Family
DX: R41.0 Disorientation, unspecified (principal)

== ENCOUNTER → 2021-11-16 | Outpatient (REF) | payer MEDICAID, MEDICARE ==
[~2021-11-16] MED LIST changes: +CEFD300CAP PO; +FLOM0.4C39 PO; +HALO5INJ12 IM; +JARD1TAB3 PO; +RISP-7 PO; +RISP25INJ IM
[2021-11-16 12:50] LABS: APPEARANCE, URINE CLEAR (CLEAR); BACTERIA, URINE AUTO NEGATIVE (NEGATIVE); BILIRUBIN, URINE AUTO NEGATIVE (NEGATIVE); BLOOD, URINE BLOOD 1+ (NEGATIVE); COLOR, URINE STRAW (YELLOW); GLUCOSE, URINE (UA) AUTO 3+ mg/dL (NEGATIVE); KETONE, URINE AUTO NEGATIVE (NEGATIVE); LEUKOCYTE ESTERASE, URINE AUTO NEGATIVE (NEGATIVE); MUCUS, URINE SMALL (NEGATIVE); NITRITE, URINE AUTO NEGATIVE (NEGATIVE); PROTEIN, URINE AUTO NEGATIVE (NEGATIVE); RBC, URINE AUTO 1 /HPF (0-3); SPECIFIC GRAVITY URINE AUTO 1.017 (1.002-1.035); SQUAMOUS EPITHELIAL CELL UR AU 0 /HPF (0-6); UROBILINOGEN, URINE AUTO 0.2 mg/dL (0.0-2.0); WBC, URINE AUTO 1 /HPF (0-3)
== END ==
LOC: SKLAB3 11:40
PROVIDERS: ATTEND Nurse Practitioner Family
DX: N39.0 Urinary tract infection, site not specified (principal)

== ENCOUNTER → 2021-12-04 | Outpatient (REF) | payer MEDICARE | LOC: SKLAB3 11:39 | PROVIDERS: ATTEND Neuromusculoskeletal Medicine & OMM | DX: Z20.822 Contact with and (suspected) exposure to COVID-19 (principal) ==

== ENCOUNTER 2021-12-09 00:19 | Inpatient (IN) | payer MEDICARE ==
[~2021-12-09] VITALS: Ht 177.8 cm; Wt 76.5 kg
[2021-12-09] VITALS (30 sets, daily range): BP systolic 74–182; BP diastolic 39–119
[~2021-12-09 00:19] MED LIST changes: +LEVO1TAB40 PO; -LEVO750T13 PO
[2021-12-09] MEDS ORDERED: NS 1,000 ML IV ONE ×4 (00:25→15:00)
[2021-12-09] MEDS ORDERED: ACETAMINOPHEN 650 MG SUPP PR ONE (00:35)
[2021-12-09 00:50] LABS: BASO % 0.1 % (0.0-1.0); EOS % 0.1 % (0.0-3.0); HEMATOCRIT 39.2 % (42.0-52.0); HEMOGLOBIN 12.9 g/dl (13.5-17.5); LYMPH # 0.1 10^3/uL (1.5-5.0); LYMPH % 1.1 % (24.0-44.0); MEAN CORPUSCULAR HGB CONC 32.9 g/dl (32.0-36.5); MEAN CORPUSCULAR VOLUME 85.2 fl (80.0-96.0); MONO % 0.2 % (2.0-8.0); NEUTROPHILS # 10.1 10^3/uL (1.5-8.5); NEUTROPHILS % 98.3 % (36.0-66.0); PLATELET COUNT, AUTOMATED 324 10^3/uL (150-450); WHITE BLOOD COUNT 10.3 10^3/uL (4.0-10.0)
[2021-12-09 00:53] LABS: APPEARANCE, URINE HAZY (CLEAR); BACTERIA, URINE AUTO 2+ (NEGATIVE); BILIRUBIN, URINE AUTO NEGATIVE (NEGATIVE); BLOOD, URINE BLOOD 2+ (NEGATIVE); COLOR, URINE YELLOW (YELLOW); GLUCOSE, URINE (UA) AUTO 3+ mg/dL (NEGATIVE); KETONE, URINE AUTO NEGATIVE (NEGATIVE); LEUKOCYTE ESTERASE, URINE AUTO 3+ (NEGATIVE); MUCUS, URINE SMALL (NEGATIVE); NITRITE, URINE AUTO NEGATIVE (NEGATIVE); PROTEIN, URINE AUTO NEGATIVE (NEGATIVE); RBC, URINE AUTO 11 /HPF (0-3); SQUAMOUS EPITHELIAL CELL UR AU 0 /HPF (0-6); UROBILINOGEN, URINE AUTO 0.2 mg/dL (0.0-2.0); WBC, URINE AUTO 153 /HPF (0-3)
[2021-12-09 01:00] LABS: INR 0.97; PARTIAL THROMBOPLASTIN TIME 27.5 SECONDS (25.9-37.0); PROTHROMBIN TIME 13.3 SECONDS (12.7-14.5)
[2021-12-09 01:01] LABS: ABG BASE EXCESS -1.7 (-2.0-2.0); ABG HCO3 20.8 MEQ/L (22.0-26.0); ABG O2 SATURATION 96.5 % (95.0-99.0); ABG PARTIAL PRESSURE CO2 29.3 mmHg (35.0-45.0); ABG TOTAL CO2 21.7 MEQ/L (23.0-31.0)
[2021-12-09 01:20] LABS: MB/CK RELATIVE INDEX 2.63 (< OR =4)
[2021-12-09 01:45] LABS: ALBUMIN 3.2 GM/DL (3.2-5.2); BILIRUBIN,DIRECT 0.1 MG/DL (0.0-0.2); BILIRUBIN,TOTAL 0.3 MG/DL (0.2-1.0); C REACTIVE PROTEIN QUANTITATIV 1.28 MG/DL (0.00-0.30); CALCIUM LEVEL 8.8 MG/DL (8.8-10.2); CREATININE FOR GFR 1.26 MG/DL (0.70-1.30); GLOMERULAR FILTRATION RATE 58.9 (>42); POTASSIUM SERUM 3.9 MEQ/L (3.5-5.1); TOTAL PROTEIN 7.2 GM/DL (6.4-8.2)
[2021-12-09] MEDS ORDERED: VANCOMYCIN HCL 750 MG, VIAL MATE ADAPTER 1 EACH in D5W 250 ML IV ONE ×2 (02:00→03:00)
[2021-12-09] MEDS ORDERED: VANCOMYCIN HCL 1,500 MG in NS 250 ML IV ONE (02:00)
[2021-12-09] MEDS ORDERED: NS 2,300 ML in IV 1 EA IV ONE (02:00)
[2021-12-09] MEDS ORDERED: PIPERACILLIN/TAZOBACTAM SOD 3.375 GM in D5W MINI-BAG PLUS 50 ML IV ONE (02:00)
[2021-12-09] MEDS ORDERED: RISP25INJ IM (03:06)
[2021-12-09] MEDS ORDERED: FLOM0.4C39 PO (03:06)
[2021-12-09] MEDS ORDERED: ACET65SU PR (03:06)
[2021-12-09] MEDS ORDERED: HOME MED LIST COMPLETE! XX SCH (03:10)
[2021-12-09] MEDS ORDERED: INSULIN LISPRO (NovoLOG) PER UNIT SC STA (05:17)
[2021-12-09] MEDS: LR 1,000 ML IV SCH ×2 (05:20→06:10)
[2021-12-09] MEDS ORDERED: BISACODYL 10 MG SUPP PR PRN (05:45)
[2021-12-09] MEDS ORDERED: DEXTROSE 50% 50 ML SYRINGE IV PRN (05:45)
[2021-12-09] MEDS ORDERED: GLUCOSE 4GM CHEW TABLET PO PRN (05:45)
[2021-12-09] MEDS ORDERED: GLUCAGON INJ 1MG VIAL SC PRN (05:45)
[2021-12-09] MEDS ORDERED: ACETAMINOPHEN 650 MG SUPP PR PRN (05:45)
[2021-12-09] MEDS ORDERED: LINEZOLID 600 MG in IV 1 EA IV ONE (06:00)
[2021-12-09 07:32] LABS: ALBUMIN 2.3 GM/DL (3.2-5.2); ALT/SGPT 32 U/L (12-78); BILIRUBIN,TOTAL 0.5 MG/DL (0.2-1.0); BLOOD UREA NITROGEN 18 MG/DL (7-18); CALCIUM LEVEL 7.5 MG/DL (8.8-10.2); CARBON DIOXIDE LEVEL 16 MEQ/L (21-32); CHLORIDE LEVEL 107 MEQ/L (98-107); CREATININE FOR GFR 1.06 MG/DL (0.70-1.30); GLOMERULAR FILTRATION RATE > 60.0 (>42); GLUCOSE, FASTING 238 MG/DL (70-100); MAGNESIUM LEVEL 1.8 MG/DL (1.8-2.4); PHOSPHORUS LEVEL 2.5 MG/DL (2.5-4.9); POTASSIUM SERUM 4.4 MEQ/L (3.5-5.1); SODIUM LEVEL 135 MEQ/L (136-145); TOTAL PROTEIN 5.9 GM/DL (6.4-8.2)
[2021-12-09] MEDS: INSULIN LISPRO (NovoLOG) PER UNIT SC SCH ×4 (07:48→20:42)
[2021-12-09] MEDS: HEPARIN SOD (PORCINE) 5000UNITS/ML 1ML VIAL/SYRINGE SC SCH ×2 (08:45→20:16)
[2021-12-09] MEDS: cefTRIAXone SOD 2 GM in D5W MINI-BAG PLUS 50 ML IV SCH (08:52)
[2021-12-09] MEDS: LORazepam 0.5 MG TAB PO SCH ×2 (08:57→20:45)
[2021-12-09] MEDS ORDERED: DOPamine HCL 400 MG in IV 1 EA IV SCH (10:30)
[2021-12-09] MEDS ORDERED: PILL CUTTER 1 EACH XX PRN (11:40)
[2021-12-09 11:52] LABS: MEAN CORPUSCULAR HEMOGLOBIN 28.5 pg (27.0-33.0); MEAN CORPUSCULAR HGB CONC 32.8 g/dl (32.0-36.5); PLATELET COUNT, AUTOMATED 289 10^3/uL (150-450); RED BLOOD COUNT 3.68 10^6/uL (4.30-6.10)
[2021-12-09 11:56] LABS: HEMOGLOBIN 10.5 g/dl (13.5-17.5); WHITE BLOOD COUNT 34.8 10^3/uL (4.0-10.0)
[2021-12-09 12:19] LABS: ABG BASE EXCESS -2.7 (-2.0-2.0); ABG O2 SATURATION 96.2 % (95.0-99.0); ABG PARTIAL PRESSURE CO2 32.8 mmHg (35.0-45.0); ABG PARTIAL PRESSURE O2 77.7 mmHg (75.0-100.0); ABG STANDARD HCO3 22.2 MEQ/L (22.0-26.0); ABG pH (ARTERIAL) 7.425 UNITS (7.350-7.450)
[2021-12-09] MEDS ORDERED: HALOPERIDOL 5MG/ML VIAL (J1630 PER 1) IV ONE (13:35)
[2021-12-09] MEDS ORDERED: HALOPERIDOL 5MG/ML VIAL (J1630 PER 1) As Ordered ONE (13:36)
[2021-12-09] MEDS ORDERED: MIDAZOLAM INJ 2MG/2ML VIAL (J2250 PER 1MG) As Ordered ONE (13:41)
[2021-12-09] MEDS ORDERED: MIDAZOLAM INJ 2MG/2ML VIAL (J2250 PER 1MG) IV STA ×2 (13:41→14:35)
[2021-12-09] MEDS: MIDODRINE 5 MG TAB PO SCH ×2 (14:10→16:00)
[2021-12-09] MEDS ORDERED: HALOPERIDOL 5MG/ML VIAL (J1630 PER 1) IM STA (14:30)
[2021-12-09] MEDS ORDERED: OLANZapine INTRAMUSCULAR 10MG VIAL IM ONE (14:30)
[2021-12-09] MEDS ORDERED: MIDAZOLAM 5MG/ML 1ML VIAL (J2250 PER 1MG) As Ordered ONE (14:32)
[2021-12-09] MEDS ORDERED: MIDAZOLAM INJ 2MG/2ML VIAL (J2250 PER 1MG) IV PRN (14:40)
[2021-12-09] MEDS ORDERED: HALOPERIDOL 5MG/ML VIAL (J1630 PER 1) IV PRN (14:40)
[2021-12-09] MEDS: TAMSULOSIN 0.4 MG CAP PO SCH (20:45)
[2021-12-09] MEDS ORDERED: LEVEMIR (INSULIN DETEMIR) 1 UNITS/0.01ML SC SCH ×2 (21:00)
[2021-12-10] VITALS (15 sets, daily range): BP systolic 97–145; BP diastolic 49–92
[2021-12-10] MEDS: LR 1,000 ML IV SCH ×3 (01:51→20:38)
[2021-12-10 05:44] LABS: BASO # 0.1 10^3/uL (0.0-0.2); BASO % 0.2 % (0.0-1.0); EOS # 0.2 10^3/uL (0.0-0.5); EOS % 0.8 % (0.0-3.0); HEMATOCRIT 32.7 % (42.0-52.0); HEMOGLOBIN 10.7 g/dl (13.5-17.5); LYMPH # 1.7 10^3/uL (1.5-5.0); LYMPH % 6.9 % (24.0-44.0); MEAN CORPUSCULAR HEMOGLOBIN 28.1 pg (27.0-33.0); MEAN CORPUSCULAR HGB CONC 32.7 g/dl (32.0-36.5); MEAN CORPUSCULAR VOLUME 85.8 fl (80.0-96.0); MONO # 1.1 10^3/uL (0.0-0.8); MONO % 4.3 % (2.0-8.0); NEUTROPHILS % 87.1 % (36.0-66.0); PLATELET COUNT, AUTOMATED 290 10^3/uL (150-450); RED BLOOD COUNT 3.81 10^6/uL (4.30-6.10); WHITE BLOOD COUNT 24.2 10^3/uL (4.0-10.0)
[2021-12-10 06:14] LABS: ALBUMIN 2.1 GM/DL (3.2-5.2); ALT/SGPT 19 U/L (12-78); BILIRUBIN,TOTAL 0.2 MG/DL (0.2-1.0); BLOOD UREA NITROGEN 9 MG/DL (7-18); CALCIUM LEVEL 7.9 MG/DL (8.8-10.2); CARBON DIOXIDE LEVEL 23 MEQ/L (21-32); CHLORIDE LEVEL 116 MEQ/L (98-107); GLOMERULAR FILTRATION RATE > 60.0 (>42); GLUCOSE, FASTING 55 MG/DL (70-100); POTASSIUM SERUM 3.6 MEQ/L (3.5-5.1); SODIUM LEVEL 144 MEQ/L (136-145); TOTAL PROTEIN 5.3 GM/DL (6.4-8.2)
[2021-12-10] MEDS: INSULIN LISPRO (NovoLOG) PER UNIT SC SCH ×4 (07:18→20:48)
[2021-12-10] MEDS: ENOXAPARIN 30MG/0.3ML SYRINGE (J1650 PER 10MG) SC SCH (09:11)
[2021-12-10] MEDS: cefTRIAXone SOD 2 GM in D5W MINI-BAG PLUS 50 ML IV SCH (09:12)
[2021-12-10] MEDS: MIDODRINE 5 MG TAB PO SCH ×3 (09:12→15:03)
[2021-12-10] MEDS: LORazepam 0.5 MG TAB PO SCH ×2 (09:12→20:35)
[2021-12-10] MEDS ORDERED: ACETAMINOPHEN TAB 650MG DOSE (2X325MG) PO PRN (11:20)
[2021-12-10] MEDS: TAMSULOSIN 0.4 MG CAP PO SCH (20:26)
[2021-12-11] VITALS: BP 118/69
[2021-12-11 03:52] VITALS: BP 159/84
[2021-12-11] MEDS: LR 1,000 ML IV SCH (04:38)
[2021-12-11] MEDS: INSULIN LISPRO (NovoLOG) PER UNIT SC SCH ×4 (07:30→21:00)
[2021-12-11 08:00] VITALS: BP 127/58
[2021-12-11 08:07] LABS: HEMATOCRIT 35.2 % (42.0-52.0); HEMOGLOBIN 11.3 g/dl (13.5-17.5); MEAN CORPUSCULAR HEMOGLOBIN 28.3 pg (27.0-33.0); MEAN CORPUSCULAR HGB CONC 32.1 g/dl (32.0-36.5); PLATELET COUNT, AUTOMATED 317 10^3/uL (150-450); WHITE BLOOD COUNT 12.4 10^3/uL (4.0-10.0)
[2021-12-11 08:39] LABS: BLOOD UREA NITROGEN 6 MG/DL (7-18); CALCIUM LEVEL 8.5 MG/DL (8.8-10.2); CARBON DIOXIDE LEVEL 26 MEQ/L (21-32); CHLORIDE LEVEL 110 MEQ/L (98-107); CREATININE FOR GFR 0.71 MG/DL (0.70-1.30); GLOMERULAR FILTRATION RATE > 60.0 (>42); GLUCOSE, FASTING 212 MG/DL (70-100); POTASSIUM SERUM 3.8 MEQ/L (3.5-5.1); SODIUM LEVEL 143 MEQ/L (136-145)
[2021-12-11] MEDS: ENOXAPARIN 30MG/0.3ML SYRINGE (J1650 PER 10MG) SC SCH (08:41)
[2021-12-11] MEDS: cefTRIAXone SOD 2 GM in D5W MINI-BAG PLUS 50 ML IV SCH (08:41)
[2021-12-11] MEDS: LORazepam 0.5 MG TAB PO SCH ×2 (08:42→21:06)
[2021-12-11 11:52] VITALS: BP 106/59
[2021-12-11 16:00] VITALS: BP 116/61
[2021-12-11 20:00] VITALS: BP 124/63
[2021-12-11] MEDS ORDERED: LEVEMIR (INSULIN DETEMIR) 1 UNITS/0.01ML SC SCH ×2 (21:00)
[2021-12-11] MEDS: TAMSULOSIN 0.4 MG CAP PO SCH (21:06)
[2021-12-12] VITALS: BP 130/61
[2021-12-12 04:26] VITALS: BP 105/55
[2021-12-12] MEDS ORDERED: LINEZOLID 600 MG in IV 1 EA IV SCH (07:25)
[2021-12-12] MEDS: INSULIN LISPRO (NovoLOG) PER UNIT SC SCH ×4 (07:30→20:36)
[2021-12-12 07:40] VITALS: BP 138/68
[2021-12-12 08:50] LABS: HEMOGLOBIN 10.8 g/dl (13.5-17.5); MEAN CORPUSCULAR HEMOGLOBIN 27.6 pg (27.0-33.0); MEAN CORPUSCULAR HGB CONC 31.8 g/dl (32.0-36.5); MEAN CORPUSCULAR VOLUME 86.7 fl (80.0-96.0); PLATELET COUNT, AUTOMATED 309 10^3/uL (150-450); RED BLOOD COUNT 3.92 10^6/uL (4.30-6.10); WHITE BLOOD COUNT 6.7 10^3/uL (4.0-10.0)
[2021-12-12] MEDS: SENNA 8.6 MG TAB (SENOKOT) PO SCH (09:00)
[2021-12-12] MEDS: LORazepam 0.5 MG TAB PO SCH ×2 (09:00→20:34)
[2021-12-12] MEDS: DOCUSATE SODIUM 100MG CAPSULE PO SCH ×2 (09:00→20:34)
[2021-12-12] MEDS: cefTRIAXone SOD 2 GM in D5W MINI-BAG PLUS 50 ML IV SCH (09:01)
[2021-12-12] MEDS: ENOXAPARIN 30MG/0.3ML SYRINGE (J1650 PER 10MG) SC SCH (09:01)
[2021-12-12 09:22] LABS: BLOOD UREA NITROGEN 6 MG/DL (7-18); CALCIUM LEVEL 8.6 MG/DL (8.8-10.2); CARBON DIOXIDE LEVEL 27 MEQ/L (21-32); CHLORIDE LEVEL 111 MEQ/L (98-107); CREATININE FOR GFR 0.67 MG/DL (0.70-1.30); GLOMERULAR FILTRATION RATE > 60.0 (>42); GLUCOSE, FASTING 202 MG/DL (70-100); POTASSIUM SERUM 3.6 MEQ/L (3.5-5.1); SODIUM LEVEL 143 MEQ/L (136-145)
[2021-12-12 15:16] VITALS: BP 113/74
[2021-12-12 20:23] VITALS: BP 104/65
[2021-12-12] MEDS: LEVEMIR (INSULIN DETEMIR) 1 UNITS/0.01ML SC SCH (20:35)
[2021-12-12] MEDS: TAMSULOSIN 0.4 MG CAP PO SCH (20:35)
[2021-12-13 06:00] VITALS: BP 156/78
[2021-12-13 06:38] LABS: HEMATOCRIT 35.5 % (42.0-52.0); HEMOGLOBIN 11.3 g/dl (13.5-17.5); MEAN CORPUSCULAR HEMOGLOBIN 27.6 pg (27.0-33.0); MEAN CORPUSCULAR HGB CONC 31.8 g/dl (32.0-36.5); MEAN CORPUSCULAR VOLUME 86.6 fl (80.0-96.0); PLATELET COUNT, AUTOMATED 311 10^3/uL (150-450)
[2021-12-13 07:15] LABS: BLOOD UREA NITROGEN 9 MG/DL (7-18); CALCIUM LEVEL 8.8 MG/DL (8.8-10.2); CARBON DIOXIDE LEVEL 27 MEQ/L (21-32); CHLORIDE LEVEL 109 MEQ/L (98-107); CREATININE FOR GFR 0.67 MG/DL (0.70-1.30); GLOMERULAR FILTRATION RATE > 60.0 (>42); GLUCOSE, FASTING 190 MG/DL (70-100); POTASSIUM SERUM 3.5 MEQ/L (3.5-5.1); SODIUM LEVEL 142 MEQ/L (136-145)
[2021-12-13] MEDS: cefTRIAXone SOD 2 GM in D5W MINI-BAG PLUS 50 ML IV SCH (08:31)
[2021-12-13] MEDS: INSULIN LISPRO (NovoLOG) PER UNIT SC SCH ×4 (08:31→20:27)
[2021-12-13] MEDS: LORazepam 0.5 MG TAB PO SCH ×2 (08:31→20:26)
[2021-12-13] MEDS: DOCUSATE SODIUM 100MG CAPSULE PO SCH ×2 (08:31→20:26)
[2021-12-13] MEDS: SENNA 8.6 MG TAB (SENOKOT) PO SCH (08:31)
[2021-12-13] MEDS: ENOXAPARIN 30MG/0.3ML SYRINGE (J1650 PER 10MG) SC SCH (08:31)
[2021-12-13] MEDS ORDERED: NIFEdipine 30 MG XL TAB PO SCH (09:00)
[2021-12-13 14:00] VITALS: BP 170/87
[2021-12-13 19:06] VITALS: BP 127/78
[2021-12-13 19:10] VITALS: BP 127/78
[2021-12-13] MEDS: LEVEMIR (INSULIN DETEMIR) 1 UNITS/0.01ML SC SCH (20:26)
[2021-12-13] MEDS: TAMSULOSIN 0.4 MG CAP PO SCH (20:26)
[2021-12-13 20:50] VITALS: BP 123/77
[2021-12-14 06:02] LABS: HEMATOCRIT 34.6 % (42.0-52.0); HEMOGLOBIN 11.1 g/dl (13.5-17.5); MEAN CORPUSCULAR HGB CONC 32.1 g/dl (32.0-36.5); MEAN CORPUSCULAR VOLUME 87.2 fl (80.0-96.0); PLATELET COUNT, AUTOMATED 310 10^3/uL (150-450); RED BLOOD COUNT 3.97 10^6/uL (4.30-6.10); WHITE BLOOD COUNT 6.8 10^3/uL (4.0-10.0)
[2021-12-14 06:14] VITALS: BP 114/78
[2021-12-14 06:39] LABS: BLOOD UREA NITROGEN 13 MG/DL (7-18); CALCIUM LEVEL 8.5 MG/DL (8.8-10.2); CARBON DIOXIDE LEVEL 25 MEQ/L (21-32); CHLORIDE LEVEL 105 MEQ/L (98-107); CREATININE FOR GFR 0.85 MG/DL (0.70-1.30); GLOMERULAR FILTRATION RATE > 60.0 (>42); GLUCOSE, FASTING 407 MG/DL (70-100); SODIUM LEVEL 139 MEQ/L (136-145)
[2021-12-14] MEDS ORDERED: INSULIN LISPRO (NovoLOG) PER UNIT SC STA (07:23)
[2021-12-14] MEDS ORDERED: LEVEMIR (INSULIN DETEMIR) 1 UNITS/0.01ML SC ONE (07:25)
[2021-12-14] MEDS: DOCUSATE SODIUM 100MG CAPSULE PO SCH (07:34)
[2021-12-14] MEDS: ENOXAPARIN 30MG/0.3ML SYRINGE (J1650 PER 10MG) SC SCH (07:36)
[2021-12-14] MEDS: INSULIN LISPRO (NovoLOG) PER UNIT SC SCH ×2 (07:36→12:26)
[2021-12-14] MEDS: SENNA 8.6 MG TAB (SENOKOT) PO SCH (07:37)
[2021-12-14] MEDS: cefTRIAXone SOD 2 GM in D5W MINI-BAG PLUS 50 ML IV SCH (07:37)
[2021-12-14] MEDS: LORazepam 0.5 MG TAB PO SCH (07:37)
[2021-12-14] MEDS ORDERED: INSUHUMDS SC (12:17)
[2021-12-14] MEDS ORDERED: AMOX875T2 PO (12:18)
[2021-12-14] MEDS ORDERED: LEVEMIR (INSULIN DETEMIR) 1 UNITS/0.01ML SC SCH (21:00)
== END 2021-12-14 13:36 | DRG 871 ==
LOC: EDBD 00:19 → M ED 00:19 → M ED INP 05:17 → M ICU 11:15 → M PCU 12-11 03:52 → M MSPAV 12-12 15:16
PROVIDERS: ADMIT Internal Medicine; ATTEND Internal Medicine
DX: A41.59 Other Gram-negative sepsis (principal); R65.21 Severe sepsis with septic shock; N10 Acute pyelonephritis; F03.91 Unspecified dementia, unspecified severity, with behavioral disturbance; N17.9 Acute kidney failure, unspecified; E87.0 Hyperosmolality and hypernatremia; E87.2 Acidosis; E11.65 Type 2 diabetes mellitus with hyperglycemia; Z90.49 Acquired absence of other specified parts of digestive tract; R41.0 Disorientation, unspecified; G47.00 Insomnia, unspecified; R33.9 Retention of urine, unspecified; K76.0 Fatty (change of) liver, not elsewhere classified; E11.649 Type 2 diabetes mellitus with hypoglycemia without coma; E88.09 Other disorders of plasma-protein metabolism, not elsewhere classified; R01.1 Cardiac murmur, unspecified; N13.9 Obstructive and reflux uropathy, unspecified; I35.0 Nonrheumatic aortic (valve) stenosis; B96.1 Klebsiella pneumoniae [K. pneumoniae] as the cause of diseases classified elsewhere; Z79.4 Long term (current) use of insulin; Z79.899 Other long term (current) drug therapy

== ENCOUNTER → 2022-01-07 | Outpatient (REF) | payer MEDICARE, MEDICAID ==
[~2022-01-07] MED LIST changes: +ACET65SU PR; +INSUHUMDS SC
[2022-01-07 10:22] LABS: APPEARANCE, URINE MANUAL HAZY (CLEAR); BILIRUBIN, URINE MANUAL NEGATIVE (NEGATIVE); BLOOD URINE MANUAL POSITIVE (NEGATIVE); COLOR, URINE MANUAL YELLOW (YELLOW); GLUCOSE, URINE (UA) MANUAL 4+(1000 MG/DL) mg/dL (NEGATIVE); KETONE, URINE MANUAL NEGATIVE (NEGATIVE); LEUKOCYTE ESTERASE, URINE MAN POSITIVE (NEGATIVE); NITRITE, URINE MANUAL POSITIVE (NEGATIVE); PROTEIN, URINE MANUAL NEGATIVE (NEGATIVE); UROBILINOGEN, URINE MANUAL NORMAL (NORMAL)
[2022-01-07 11:06] LABS: BACTERIA, URINE LARGE AMOUNT; HYALINE CAST, URINE NONE SEEN /lpf (0-1); SQUAMOUS EPITHELIAL CELL URINE NONE SEEN /hpf (SMALL AMT); WBC, URINE 30-40 /hpf (0-3)
[2022-01-07 11:07] LABS: AMORPHOUS SEDIMENT, URINE SMALL AMOUNT (NEGATIVE); MUCUS, URINE SMALL AMOUNT (NEGATIVE)
[2022-01-07 11:14] LABS: BASO % 0.3 % (0.0-1.0); EOS # 0.1 10^3/uL (0.0-0.5); EOS % 0.7 % (0.0-3.0); HEMATOCRIT 40.3 % (42.0-52.0); HEMOGLOBIN 13.1 g/dl (13.5-17.5); LYMPH # 1.3 10^3/uL (1.5-5.0); LYMPH % 11.1 % (24.0-44.0); MEAN CORPUSCULAR HEMOGLOBIN 27.6 pg (27.0-33.0); MEAN CORPUSCULAR HGB CONC 32.5 g/dl (32.0-36.5); MEAN CORPUSCULAR VOLUME 84.8 fl (80.0-96.0); MONO # 0.7 10^3/uL (0.0-0.8); MONO % 5.7 % (2.0-8.0); NEUTROPHILS # 9.8 10^3/uL (1.5-8.5); NEUTROPHILS % 81.7 % (36.0-66.0); PLATELET COUNT, AUTOMATED 310 10^3/uL (150-450); RED BLOOD COUNT 4.75 10^6/uL (4.30-6.10); WHITE BLOOD COUNT 11.9 10^3/uL (4.0-10.0)
[2022-01-07 11:53] LABS: ALBUMIN 3.4 GM/DL (3.2-5.2); ALT/SGPT 19 U/L (12-78); BILIRUBIN,TOTAL 0.2 MG/DL (0.2-1.0); BLOOD UREA NITROGEN 21 MG/DL (7-18); CALCIUM LEVEL 9.5 MG/DL (8.8-10.2); CARBON DIOXIDE LEVEL 21 MEQ/L (21-32); CHLORIDE LEVEL 103 MEQ/L (98-107); CREATININE FOR GFR 1.19 MG/DL (0.70-1.30); GLOMERULAR FILTRATION RATE > 60.0 (>42); GLUCOSE, FASTING 414 MG/DL (70-100); POTASSIUM SERUM 4.3 MEQ/L (3.5-5.1); SODIUM LEVEL 134 MEQ/L (136-145); TOTAL PROTEIN 8.1 GM/DL (6.4-8.2)
== END ==
LOC: SKLAB3 09:29
PROVIDERS: ATTEND Nurse Practitioner Family
DX: R41.0 Disorientation, unspecified (principal)

== ENCOUNTER → 2022-01-26 | Outpatient (REF) | payer MEDICARE, MEDICAID ==
[2022-01-26 11:45] LABS: HEMOGLOBIN A1c 10.2 %
[2022-01-26 14:56] LABS: CREATININE, URINE 40.2 MG/DL; MALB URINE SIEMENS 38.3 MG/L; MAU/CREAT RATIO 95.2 MCG/MG (0.0-30.0)
== END ==
LOC: SKLAB3 10:54
PROVIDERS: ATTEND Nurse Practitioner Family
DX: E11.9 Type 2 diabetes mellitus without complications (principal)

== ENCOUNTER 2022-03-08 23:23 | Inpatient (IN) | payer MEDICARE, MEDICAID ==
[2022-03-08] MEDS ORDERED: NS 1,000 ML IV SCH (23:50)
[2022-03-08] MEDS ORDERED: HumuLIN R (REGULAR) INSULIN (NovoLIN R) **100U/ML** PER UNIT IV ONE (23:50)
[2022-03-09 00:28] LABS: BASO % 0.2 % (0.0-1.0); EOS # 0.1 10^3/uL (0.0-0.5); EOS % 0.4 % (0.0-3.0); HEMATOCRIT 40.1 % (42.0-52.0); HEMOGLOBIN 13.2 g/dl (13.5-17.5); LYMPH # 1.1 10^3/uL (1.5-5.0); LYMPH % 6.8 % (24.0-44.0); MEAN CORPUSCULAR HEMOGLOBIN 27.1 pg (27.0-33.0); MEAN CORPUSCULAR HGB CONC 32.9 g/dl (32.0-36.5); MEAN CORPUSCULAR VOLUME 82.3 fl (80.0-96.0); MONO # 1.3 10^3/uL (0.0-0.8); MONO % 8.2 % (2.0-8.0); NEUTROPHILS # 13.5 10^3/uL (1.5-8.5); NEUTROPHILS % 84.1 % (36.0-66.0); PLATELET COUNT, AUTOMATED 248 10^3/uL (150-450); RED BLOOD COUNT 4.87 10^6/uL (4.30-6.10); WHITE BLOOD COUNT 16.1 10^3/uL (4.0-10.0)
[2022-03-09 00:30] LABS: APPEARANCE, URINE MANUAL HAZY (CLEAR); COLOR, URINE MANUAL YELLOW (YELLOW)
[2022-03-09 00:32] LABS: BILIRUBIN, URINE MANUAL NEGATIVE (NEGATIVE); BLOOD URINE MANUAL POSITIVE (NEGATIVE); GLUCOSE, URINE (UA) MANUAL 4+(1000 MG/DL) mg/dL (NEGATIVE); KETONE, URINE MANUAL NEGATIVE (NEGATIVE); LEUKOCYTE ESTERASE, URINE MAN POSITIVE (NEGATIVE); NITRITE, URINE MANUAL POSITIVE (NEGATIVE); PROTEIN, URINE MANUAL NEGATIVE (NEGATIVE); UROBILINOGEN, URINE MANUAL NORMAL (NORMAL)
[2022-03-09 00:33] LABS: VENOUS BASE EXCESS -0.2 (-2.0-2.0); VENOUS HCO3 21.1 MEQ/L (23.0-27.0); VENOUS O2 SATURATION 99.3 % (60.0-80.0); VENOUS PARTIAL PRESSURE CO2 26.3 mmHg (38.0-50.0); VENOUS PARTIAL PRESSURE O2 182.4 mmHg (30.0-50.0); VENOUS PH 7.522 UNITS (7.330-7.430); VENOUS STANDARD HCO3 24.4 MEQ/L; VENOUS TOTAL CO2 21.9 MEQ/L (24.0-28.0)
[2022-03-09 00:39] LABS: BACTERIA, URINE LARGE AMOUNT; HYALINE CAST, URINE NONE SEEN /lpf (0-1); SQUAMOUS EPITHELIAL CELL URINE NONE SEEN /hpf (SMALL AMT)
[2022-03-09 00:40] LABS: INR 0.91; PROTHROMBIN TIME 12.5 SECONDS (12.5-14.5)
[2022-03-09 01:11] LABS: ACETONE/KETONE 3.55 MG/DL (<2.81); ALBUMIN 3.4 GM/DL (3.2-5.2); ALT/SGPT 19 U/L (12-78); AMYLASE 29 U/L (25-115); BILIRUBIN,DIRECT < 0.1 MG/DL (0.0-0.2); BILIRUBIN,TOTAL 0.5 MG/DL (0.2-1.0); BLOOD UREA NITROGEN 30 MG/DL (7-18); C REACTIVE PROTEIN QUANTITATIV 0.68 MG/DL (0.00-0.30); CALCIUM LEVEL 9.1 MG/DL (8.8-10.2); CARBON DIOXIDE LEVEL 24 MEQ/L (21-32); CHLORIDE LEVEL 95 MEQ/L (98-107); CK-MB VALUE MASS 1.8 NG/ML (<3.6); CREATININE FOR GFR 1.11 MG/DL (0.70-1.30); GLOMERULAR FILTRATION RATE > 60.0 (>42); GLUCOSE, FASTING 558 MG/DL (70-100); MB/CK RELATIVE INDEX 1.54 (< OR =4); POTASSIUM SERUM 4.5 MEQ/L (3.5-5.1); SODIUM LEVEL 130 MEQ/L (136-145); TOTAL PROTEIN 7.3 GM/DL (6.4-8.2)
[2022-03-09] MEDS ORDERED: cefTRIAXone SOD 1 GM in D5W MINI-BAG PLUS 50 ML IV ONE (01:20)
[2022-03-09] MEDS ORDERED: DEXTROSE 50% 50 ML SYRINGE IV PRN (01:55)
[2022-03-09] MEDS ORDERED: ACETAMINOPHEN TAB 650MG DOSE (2X325MG) PO PRN (01:55)
[2022-03-09] MEDS ORDERED: GLUCAGON INJ 1MG VIAL SC PRN (01:55)
[2022-03-09] MEDS ORDERED: GLUCOSE 4GM CHEW TABLET PO PRN (01:55)
[2022-03-09] MEDS: NS 1,000 ML IV SCH ×2 (02:03→08:22)
[2022-03-09] MEDS ORDERED: LEVEMIR (INSULIN DETEMIR) 1 UNITS/0.01ML SC ONE (03:00)
[2022-03-09] MEDS ORDERED: QUEtiapine FUMARATE 50MG TAB PO ONE (03:00)
[2022-03-09] MEDS ORDERED: DICL20GE TOP (03:41)
[2022-03-09] MEDS ORDERED: CIME200T4 PO (03:41)
[2022-03-09] MEDS ORDERED: HALO5SYR IM (03:41)
[2022-03-09] MEDS ORDERED: UNRESOLVED CLARIFICATION ENTRY XX STA (03:44)
[2022-03-09] MEDS ORDERED: HOME MED LIST COMPLETE! XX SCH (03:45)
[2022-03-09 04:01] LABS: RSV AMPLIFICATION NEGATIVE (NEGATIVE)
[2022-03-09] MEDS ORDERED: BISACODYL 10 MG SUPP PR PRN (04:05)
[2022-03-09 05:00] VITALS: BP 189/90
[2022-03-09] MEDS ORDERED: OLANZapine INTRAMUSCULAR 10MG VIAL IM ONE (05:00)
[2022-03-09] MEDS: INSULIN LISPRO (NovoLOG) PER UNIT SC SCH ×4 (07:30→20:31)
[2022-03-09] MEDS: HALOPERIDOL 5MG/ML VIAL (J1630 PER 1) IM PRN (08:36)
[2022-03-09] MEDS: DOCUSATE SODIUM 100MG CAPSULE PO SCH ×2 (09:00→20:20)
[2022-03-09] MEDS: DULoxetine 30MG CAPSULE (CYMBALTA) PO SCH (09:00)
[2022-03-09] MEDS: ENOXAPARIN 40MG/0.4ML SYRINGE (J1650 PER 10MG) SC SCH (09:00)
[2022-03-09 11:07] LABS: HEMOGLOBIN 13.2 g/dl (13.5-17.5); MEAN CORPUSCULAR HGB CONC 32.2 g/dl (32.0-36.5); MEAN CORPUSCULAR VOLUME 83.8 fl (80.0-96.0); PLATELET COUNT, AUTOMATED 251 10^3/uL (150-450); RED BLOOD COUNT 4.89 10^6/uL (4.30-6.10); WHITE BLOOD COUNT 13.9 10^3/uL (4.0-10.0)
[2022-03-09 11:23] VITALS: BP 109/73
[2022-03-09 11:55] LABS: BLOOD UREA NITROGEN 21 MG/DL (7-18); CALCIUM LEVEL 9.2 MG/DL (8.8-10.2); CARBON DIOXIDE LEVEL 28 MEQ/L (21-32); CHLORIDE LEVEL 105 MEQ/L (98-107); CREATININE FOR GFR 0.95 MG/DL (0.70-1.30); GLOMERULAR FILTRATION RATE > 60.0 (>42); GLUCOSE, FASTING 168 MG/DL (70-100); MAGNESIUM LEVEL 2.4 MG/DL (1.8-2.4); POTASSIUM SERUM 3.6 MEQ/L (3.5-5.1); SODIUM LEVEL 140 MEQ/L (136-145)
[2022-03-09 16:00] VITALS: BP 159/71
[2022-03-09 19:57] VITALS: BP 140/62
[2022-03-09] MEDS: LEVEMIR (INSULIN DETEMIR) 1 UNITS/0.01ML SC SCH (21:00)
[2022-03-10 00:15] VITALS: BP 142/65
[2022-03-10] MEDS: cefTRIAXone SOD 1 GM in D5W MINI-BAG PLUS 50 ML IV SCH (01:04)
[2022-03-10 04:19] VITALS: BP 141/56
[2022-03-10] MEDS: INSULIN LISPRO (NovoLOG) PER UNIT SC SCH ×4 (07:30→20:11)
[2022-03-10 08:15] VITALS: BP 96/50
[2022-03-10 08:16] LABS: HEMATOCRIT 42.7 % (42.0-52.0); HEMOGLOBIN 13.5 g/dl (13.5-17.5); MEAN CORPUSCULAR HEMOGLOBIN 27.3 pg (27.0-33.0); MEAN CORPUSCULAR HGB CONC 31.6 g/dl (32.0-36.5); MEAN CORPUSCULAR VOLUME 86.3 fl (80.0-96.0); PLATELET COUNT, AUTOMATED 244 10^3/uL (150-450); RED BLOOD COUNT 4.95 10^6/uL (4.30-6.10); WHITE BLOOD COUNT 7.8 10^3/uL (4.0-10.0)
[2022-03-10] MEDS: DOCUSATE SODIUM 100MG CAPSULE PO SCH ×2 (08:46→20:23)
[2022-03-10] MEDS: DULoxetine 30MG CAPSULE (CYMBALTA) PO SCH (08:46)
[2022-03-10] MEDS: ENOXAPARIN 40MG/0.4ML SYRINGE (J1650 PER 10MG) SC SCH (08:48)
[2022-03-10 08:53] LABS: BLOOD UREA NITROGEN 14 MG/DL (7-18); CALCIUM LEVEL 8.9 MG/DL (8.8-10.2); CARBON DIOXIDE LEVEL 20 MEQ/L (21-32); CHLORIDE LEVEL 110 MEQ/L (98-107); CREATININE FOR GFR 0.69 MG/DL (0.70-1.30); GLOMERULAR FILTRATION RATE > 60.0 (>42); GLUCOSE, FASTING 179 MG/DL (70-100); MAGNESIUM LEVEL 2.2 MG/DL (1.8-2.4); POTASSIUM SERUM 4.1 MEQ/L (3.5-5.1); SODIUM LEVEL 140 MEQ/L (136-145)
[2022-03-10 12:18] VITALS: BP 102/58
[2022-03-10 16:11] VITALS: BP 117/56
[2022-03-10 20:00] VITALS: BP 107/65
[2022-03-10] MEDS: LEVEMIR (INSULIN DETEMIR) 1 UNITS/0.01ML SC SCH (20:24)
[2022-03-11] VITALS: BP 118/54
[2022-03-11] MEDS: HALOPERIDOL 5MG/ML VIAL (J1630 PER 1) IM PRN ×2 (00:20→15:53)
[2022-03-11] MEDS: cefTRIAXone SOD 1 GM in D5W MINI-BAG PLUS 50 ML IV SCH (01:42)
[2022-03-11 04:00] VITALS: BP 111/59
[2022-03-11] MEDS: INSULIN LISPRO (NovoLOG) PER UNIT SC SCH ×4 (07:30→20:16)
[2022-03-11] MEDS: DULoxetine 30MG CAPSULE (CYMBALTA) PO SCH (08:37)
[2022-03-11] MEDS: DOCUSATE SODIUM 100MG CAPSULE PO SCH ×2 (08:37→20:15)
[2022-03-11] MEDS: ENOXAPARIN 40MG/0.4ML SYRINGE (J1650 PER 10MG) SC SCH (08:37)
[2022-03-11 12:00] VITALS: BP 161/74
[2022-03-11 12:05] LABS: HEMATOCRIT 41.4 % (42.0-52.0); HEMOGLOBIN 13.4 g/dl (13.5-17.5); MEAN CORPUSCULAR HEMOGLOBIN 27.3 pg (27.0-33.0); MEAN CORPUSCULAR HGB CONC 32.4 g/dl (32.0-36.5); MEAN CORPUSCULAR VOLUME 84.3 fl (80.0-96.0); PLATELET COUNT, AUTOMATED 261 10^3/uL (150-450); RED BLOOD COUNT 4.91 10^6/uL (4.30-6.10); WHITE BLOOD COUNT 8.2 10^3/uL (4.0-10.0)
[2022-03-11 12:52] LABS: BLOOD UREA NITROGEN 16 MG/DL (7-18); CALCIUM LEVEL 8.8 MG/DL (8.8-10.2); CARBON DIOXIDE LEVEL 22 MEQ/L (21-32); CHLORIDE LEVEL 107 MEQ/L (98-107); CREATININE FOR GFR 0.81 MG/DL (0.70-1.30); GLOMERULAR FILTRATION RATE > 60.0 (>42); GLUCOSE, FASTING 283 MG/DL (70-100); POTASSIUM SERUM 4.2 MEQ/L (3.5-5.1); SODIUM LEVEL 139 MEQ/L (136-145)
[2022-03-11 16:00] VITALS: BP 105/73
[2022-03-11 20:00] VITALS: BP 100/59
[2022-03-11] MEDS: LEVEMIR (INSULIN DETEMIR) 1 UNITS/0.01ML SC SCH (20:16)
[2022-03-12] VITALS: BP 103/68
[2022-03-12] MEDS: cefTRIAXone SOD 1 GM in D5W MINI-BAG PLUS 50 ML IV SCH (01:59)
[2022-03-12 04:00] VITALS: BP 125/69
[2022-03-12 06:14] LABS: HEMATOCRIT 39.8 % (42.0-52.0); HEMOGLOBIN 12.9 g/dl (13.5-17.5); MEAN CORPUSCULAR HEMOGLOBIN 27.4 pg (27.0-33.0); MEAN CORPUSCULAR HGB CONC 32.4 g/dl (32.0-36.5); MEAN CORPUSCULAR VOLUME 84.5 fl (80.0-96.0); PLATELET COUNT, AUTOMATED 272 10^3/uL (150-450); RED BLOOD COUNT 4.71 10^6/uL (4.30-6.10); WHITE BLOOD COUNT 6.8 10^3/uL (4.0-10.0)
[2022-03-12 06:43] LABS: BLOOD UREA NITROGEN 20 MG/DL (7-18); CALCIUM LEVEL 8.9 MG/DL (8.8-10.2); CARBON DIOXIDE LEVEL 25 MEQ/L (21-32); CHLORIDE LEVEL 105 MEQ/L (98-107); CREATININE FOR GFR 0.88 MG/DL (0.70-1.30); GLOMERULAR FILTRATION RATE > 60.0 (>42); GLUCOSE, FASTING 339 MG/DL (70-100); MAGNESIUM LEVEL 1.9 MG/DL (1.8-2.4); POTASSIUM SERUM 3.9 MEQ/L (3.5-5.1); SODIUM LEVEL 140 MEQ/L (136-145)
[2022-03-12] MEDS: INSULIN LISPRO (NovoLOG) PER UNIT SC SCH (07:49)
[2022-03-12] MEDS: ENOXAPARIN 40MG/0.4ML SYRINGE (J1650 PER 10MG) SC SCH (09:00)
[2022-03-12] MEDS ORDERED: CEFD300C41 PO (09:41)
[2022-03-12] MEDS: DULoxetine 30MG CAPSULE (CYMBALTA) PO SCH (09:52)
[2022-03-12] MEDS: DOCUSATE SODIUM 100MG CAPSULE PO SCH (09:52)
[2022-03-14] MEDS ORDERED: risperiDONE LONG-ACTING 25 MG/2 ML INJ (J2794 PER 0.5MG) IM SCH (09:00)
== END 2022-03-12 11:40 | DRG 699 ==
LOC: M ED 23:23 → M ED INP 03-09 01:55 → ENRESERV 03-09 04:18 → M PCU 03-09 05:00
PROVIDERS: ADMIT Family Medicine; ATTEND Family Medicine
DX: T83.511A Infection and inflammatory reaction due to indwelling urethral catheter, initial encounter (principal); F03.918 Unspecified dementia, unspecified severity, with other behavioral disturbance; E11.65 Type 2 diabetes mellitus with hyperglycemia; R33.9 Retention of urine, unspecified; F41.9 Anxiety disorder, unspecified; F32.A Depression, unspecified; M19.90 Unspecified osteoarthritis, unspecified site; R45.1 Restlessness and agitation; B96.1 Klebsiella pneumoniae [K. pneumoniae] as the cause of diseases classified elsewhere; K44.9 Diaphragmatic hernia without obstruction or gangrene; Y84.6 Urinary catheterization as the cause of abnormal reaction of the patient, or of later complication, without mention of misadventure at the time of the procedure; Z79.4 Long term (current) use of insulin; Z79.899 Other long term (current) drug therapy; K59.00 Constipation, unspecified

== ENCOUNTER → 2022-04-14 | Outpatient (REF) | payer MEDICARE, MEDICAID ==
[~2022-04-14] MED LIST changes: +CEFD300C41 PO; +CIME200T4 PO
[2022-04-14 11:56] LABS: HEMATOCRIT 39.6 % (42.0-52.0); HEMOGLOBIN 12.9 g/dl (13.5-17.5); MEAN CORPUSCULAR HEMOGLOBIN 27.4 pg (27.0-33.0); MEAN CORPUSCULAR HGB CONC 32.6 g/dl (32.0-36.5); MEAN CORPUSCULAR VOLUME 84.1 fl (80.0-96.0); PLATELET COUNT, AUTOMATED 323 10^3/uL (150-450); RED BLOOD COUNT 4.71 10^6/uL (4.30-6.10); WHITE BLOOD COUNT 8.6 10^3/uL (4.0-10.0)
[2022-04-14 12:17] LABS: BLOOD UREA NITROGEN 17 MG/DL (9-23); CARBON DIOXIDE LEVEL 24 MMOL/L (20-31); CHLORIDE LEVEL 104 MMOL/L (98-107); CREATININE FOR GFR 0.72 MG/DL (0.70-1.30); GLOMERULAR FILTRATION RATE > 60.0 (>42); GLUCOSE, FASTING 118 MG/DL (74-106); POTASSIUM SERUM 4.1 MMOL/L (3.5-5.1); SODIUM LEVEL 139 MMOL/L (136-145)
[2022-04-14 14:20] LABS: APPEARANCE, URINE MANUAL CLOUDY (CLEAR); COLOR, URINE MANUAL LT YELLOW (YELLOW)
[2022-04-14 14:22] LABS: SPECIFIC GRAVITY,URINE MANUAL 1.015 (1.002-1.035)
[2022-04-14 14:23] LABS: BILIRUBIN, URINE MANUAL NEGATIVE (NEGATIVE); BLOOD URINE MANUAL POSITIVE (NEGATIVE); GLUCOSE, URINE (UA) MANUAL 4+(1000 MG/DL) mg/dL (NEGATIVE); KETONE, URINE MANUAL 1+ mg/dL (NEGATIVE); LEUKOCYTE ESTERASE, URINE MAN POSITIVE (NEGATIVE); NITRITE, URINE MANUAL NEGATIVE (NEGATIVE); PROTEIN, URINE MANUAL 2+ mg/dL (NEGATIVE); UROBILINOGEN, URINE MANUAL NORMAL (NORMAL)
[2022-04-14 14:34] LABS: WBC, URINE TNTC /hpf (0-3)
[2022-04-14 14:35] LABS: AMORPHOUS SEDIMENT, URINE SMALL AMOUNT (NEGATIVE); BACTERIA, URINE LARGE AMOUNT; HYALINE CAST, URINE NONE SEEN /lpf (0-1); MUCUS, URINE SMALL AMOUNT (NEGATIVE); SQUAMOUS EPITHELIAL CELL URINE SMALL AMOUNT /hpf (SMALL AMT)
== END ==
LOC: SKLAB3 10:20
PROVIDERS: ATTEND Nurse Practitioner Family
DX: R41.82 Altered mental status, unspecified (principal)

== ENCOUNTER → 2022-05-06 | Outpatient (REF) | payer MEDICARE, MEDICAID ==
[2022-05-06 12:46] LABS: HEMATOCRIT 40.5 % (42.0-52.0); HEMOGLOBIN 13.4 g/dl (13.5-17.5); MEAN CORPUSCULAR HEMOGLOBIN 28.2 pg (27.0-33.0); MEAN CORPUSCULAR HGB CONC 33.1 g/dl (32.0-36.5); MEAN CORPUSCULAR VOLUME 85.1 fl (80.0-96.0); PLATELET COUNT, AUTOMATED 297 10^3/uL (150-450); RED BLOOD COUNT 4.76 10^6/uL (4.30-6.10); WHITE BLOOD COUNT 8.8 10^3/uL (4.0-10.0)
[2022-05-06 13:03] LABS: APPEARANCE, URINE MANUAL CLOUDY (CLEAR); COLOR, URINE MANUAL LT YELLOW (YELLOW)
[2022-05-06 13:04] LABS: SPECIFIC GRAVITY,URINE MANUAL 1.015 (1.002-1.035)
[2022-05-06 13:05] LABS: BILIRUBIN, URINE MANUAL NEGATIVE (NEGATIVE); GLUCOSE, URINE (UA) MANUAL 4+(1000 MG/DL) mg/dL (NEGATIVE); KETONE, URINE MANUAL NEGATIVE (NEGATIVE); NITRITE, URINE MANUAL POSITIVE (NEGATIVE); PROTEIN, URINE MANUAL 1+ mg/dL (NEGATIVE); UROBILINOGEN, URINE MANUAL NORMAL (NORMAL)
[2022-05-06 13:06] LABS: BLOOD URINE MANUAL POSITIVE (NEGATIVE); LEUKOCYTE ESTERASE, URINE MAN POSITIVE (NEGATIVE)
[2022-05-06 13:13] LABS: ALBUMIN 2.9 G/DL (3.2-5.2); ALKALINE PHOSPHATASE 86 U/L (46-116); ALT/SGPT 15 U/L (7.0-40); AST/SGOT 14 U/L (<34); BILIRUBIN,TOTAL 0.2 MG/DL (0.3-1.2); BLOOD UREA NITROGEN 25 MG/DL (9-23); CALCIUM LEVEL 8.4 MG/DL (8.3-10.6); CARBON DIOXIDE LEVEL 24 MMOL/L (20-31); CHLORIDE LEVEL 103 MMOL/L (98-107); CREATININE FOR GFR 0.82 MG/DL (0.70-1.30); GLOMERULAR FILTRATION RATE > 60.0 (>42); GLUCOSE, FASTING 110 MG/DL (74-106); POTASSIUM SERUM 3.7 MMOL/L (3.5-5.1); SODIUM LEVEL 138 MMOL/L (136-145); TOTAL PROTEIN 6.9 G/DL (5.7-8.2)
[2022-05-06 13:29] LABS: WBC, URINE TNTC /hpf (0-3)
[2022-05-06 13:30] LABS: SQUAMOUS EPITHELIAL CELL URINE NONE SEEN /hpf (SMALL AMT); TRANSITIONAL EPI CELLS, URINE SMALL AMOUNT /hpf
[2022-05-06 13:31] LABS: BACTERIA, URINE LARGE AMOUNT; HYALINE CAST, URINE NONE SEEN /lpf (0-1)
== END ==
LOC: SKLAB3 10:46
PROVIDERS: ATTEND Internal Medicine
DX: R53.83 Other fatigue (principal)

== ENCOUNTER → 2022-05-16 | Outpatient (REF) | payer MEDICARE, MEDICAID ==
[~2022-05-16] MED LIST changes: +NYST-38 SS; -NYST50SS SS
[2022-05-16 01:55] LABS: APPEARANCE, URINE MANUAL CLEAR (CLEAR); COLOR, URINE MANUAL YELLOW (YELLOW)
[2022-05-16 01:58] LABS: BILIRUBIN, URINE MANUAL NEGATIVE (NEGATIVE); BLOOD URINE MANUAL NEGATIVE (NEGATIVE); GLUCOSE, URINE (UA) MANUAL 4+(1000 MG/DL) mg/dL (NEGATIVE); KETONE, URINE MANUAL NEGATIVE (NEGATIVE); LEUKOCYTE ESTERASE, URINE MAN POSITIVE (NEGATIVE); NITRITE, URINE MANUAL NEGATIVE (NEGATIVE); PROTEIN, URINE MANUAL NEGATIVE (NEGATIVE); UROBILINOGEN, URINE MANUAL NORMAL (NORMAL)
[2022-05-16 02:06] LABS: SQUAMOUS EPITHELIAL CELL URINE NONE SEEN /hpf (SMALL AMT); WBC, URINE 20-30 /hpf (0-3)
[2022-05-16 02:07] LABS: BACTERIA, URINE SMALL AMOUNT; HYALINE CAST, URINE NONE SEEN /lpf (0-1); YEAST, URINE MOD AMOUNT
[2022-05-16 08:47] LABS: HEMOGLOBIN 12.5 g/dl (13.5-17.5); MEAN CORPUSCULAR HEMOGLOBIN 27.6 pg (27.0-33.0); MEAN CORPUSCULAR HGB CONC 32.1 g/dl (32.0-36.5); MEAN CORPUSCULAR VOLUME 86.1 fl (80.0-96.0); PLATELET COUNT, AUTOMATED 388 10^3/uL (150-450); RED BLOOD COUNT 4.53 10^6/uL (4.30-6.10); WHITE BLOOD COUNT 8.4 10^3/uL (4.0-10.0)
[2022-05-16 09:13] LABS: ALBUMIN 3.1 G/DL (3.2-5.2); ALKALINE PHOSPHATASE 73 U/L (46-116); ALT/SGPT 20 U/L (7.0-40); AST/SGOT 15 U/L (<34); BILIRUBIN,TOTAL 0.2 MG/DL (0.3-1.2); BLOOD UREA NITROGEN 15 MG/DL (9-23); CALCIUM LEVEL 8.9 MG/DL (8.3-10.6); CARBON DIOXIDE LEVEL 28 MMOL/L (20-31); CHLORIDE LEVEL 101 MMOL/L (98-107); CREATININE FOR GFR 0.75 MG/DL (0.70-1.30); GLOMERULAR FILTRATION RATE > 60.0 (>42); GLUCOSE, FASTING 178 MG/DL (74-106); POTASSIUM SERUM 4.2 MMOL/L (3.5-5.1); SODIUM LEVEL 137 MMOL/L (136-145); TOTAL PROTEIN 6.9 G/DL (5.7-8.2)
== END ==
LOC: SKLAB3 01:29
PROVIDERS: ATTEND Physician Assistant
DX: R82.998 Other abnormal findings in urine (principal); Z79.899 Other long term (current) drug therapy

== ENCOUNTER → 2022-06-27 | Outpatient (REF) | payer MEDICARE, MEDICAID ==
[2022-06-27 16:45] LABS: APPEARANCE, URINE HAZY (CLEAR); BILIRUBIN, URINE AUTO NEGATIVE (NEGATIVE); BLOOD, URINE BLOOD 1+ (NEGATIVE); COLOR, URINE YELLOW (YELLOW); GLUCOSE, URINE (UA) AUTO 3+ mg/dL (NEGATIVE); KETONE, URINE AUTO NEGATIVE (NEGATIVE); LEUKOCYTE ESTERASE, URINE AUTO 1+ (NEGATIVE); NITRITE, URINE AUTO POSITIVE (NEGATIVE); PROTEIN, URINE AUTO NEGATIVE (NEGATIVE); SPECIFIC GRAVITY URINE AUTO 1.016 (1.002-1.035); UROBILINOGEN, URINE AUTO 0.2 mg/dL (0.0-2.0)
[2022-06-27 16:59] LABS: BACTERIA, URINE AUTO NEGATIVE (NEGATIVE); RBC, URINE AUTO 2 /HPF (0-3); SQUAMOUS EPITHELIAL CELL UR AU 0 /HPF (0-6); WBC, URINE AUTO 25 /HPF (0-3)
== END ==
LOC: SKLAB6 16:22
PROVIDERS: ATTEND Internal Medicine
DX: F03.918 Unspecified dementia, unspecified severity, with other behavioral disturbance (principal); Z79.899 Other long term (current) drug therapy

== ENCOUNTER → 2022-07-15 | Outpatient (REF) | payer MEDICARE, MEDICAID ==
[2022-07-15 07:30] LABS: HEMOGLOBIN A1c 8.8 % (4.0-6.0)
== END ==
LOC: SKLAB6 07:00
PROVIDERS: ATTEND Internal Medicine
DX: E11.9 Type 2 diabetes mellitus without complications (principal)

== ENCOUNTER → 2022-08-10 | Outpatient (REF) | payer MEDICARE, MEDICAID ==
[2022-08-10 08:57] LABS: HEMATOCRIT 40.1 % (42.0-52.0); HEMOGLOBIN 12.9 g/dl (13.5-17.5); MEAN CORPUSCULAR HGB CONC 32.2 g/dl (32.0-36.5); PLATELET COUNT, AUTOMATED 273 10^3/uL (150-450); RED BLOOD COUNT 4.61 10^6/uL (4.30-6.10); WHITE BLOOD COUNT 7.4 10^3/uL (4.0-10.0)
[2022-08-10 09:02] LABS: APPEARANCE, URINE CLOUDY (CLEAR); BACTERIA, URINE AUTO NEGATIVE (NEGATIVE); BILIRUBIN, URINE AUTO NEGATIVE (NEGATIVE); BLOOD, URINE BLOOD NEGATIVE (NEGATIVE); COLOR, URINE YELLOW (YELLOW); GLUCOSE, URINE (UA) AUTO 3+ mg/dL (NEGATIVE); KETONE, URINE AUTO NEGATIVE (NEGATIVE); LEUKOCYTE ESTERASE, URINE AUTO 2+ (NEGATIVE); MUCUS, URINE SMALL (NEGATIVE); NITRITE, URINE AUTO POSITIVE (NEGATIVE); PROTEIN, URINE AUTO NEGATIVE (NEGATIVE); RBC, URINE AUTO 36 /HPF (0-3); SPECIFIC GRAVITY URINE AUTO 1.026 (1.002-1.035); SQUAMOUS EPITHELIAL CELL UR AU 0 /HPF (0-6); UROBILINOGEN, URINE AUTO 0.2 mg/dL (0.0-2.0); WBC, URINE AUTO 69 /HPF (0-3)
[2022-08-10 09:26] LABS: BLOOD UREA NITROGEN 21 MG/DL (9-23); CALCIUM LEVEL 8.6 MG/DL (8.3-10.6); CARBON DIOXIDE LEVEL 26 MMOL/L (20-31); CHLORIDE LEVEL 108 MMOL/L (98-107); CREATININE FOR GFR 0.75 MG/DL (0.70-1.30); GLOMERULAR FILTRATION RATE > 60.0 (>42); GLUCOSE, FASTING 166 MG/DL (74-106); SODIUM LEVEL 139 MMOL/L (136-145)
== END ==
LOC: SKLAB6 07:42
PROVIDERS: ATTEND Internal Medicine
DX: R29.6 Repeated falls (principal); Z79.899 Other long term (current) drug therapy

== ENCOUNTER → 2022-08-19 | Outpatient (REF) | payer MEDICARE, MEDICAID ==
[2022-08-19 08:07] LABS: ALBUMIN 2.7 G/DL (3.2-5.2); ALKALINE PHOSPHATASE 76 U/L (46-116); ALT/SGPT 22 U/L (7.0-40); AST/SGOT 13 U/L (<34); BILIRUBIN,TOTAL 0.2 MG/DL (0.3-1.2); BLOOD UREA NITROGEN 18 MG/DL (9-23); CALCIUM LEVEL 8.6 MG/DL (8.3-10.6); CARBON DIOXIDE LEVEL 26 MMOL/L (20-31); CHLORIDE LEVEL 99 MMOL/L (98-107); CREATININE FOR GFR 0.84 MG/DL (0.70-1.30); GLOMERULAR FILTRATION RATE > 60.0 (>42); GLUCOSE, FASTING 344 MG/DL (74-106); POTASSIUM SERUM 3.8 MMOL/L (3.5-5.1); SODIUM LEVEL 134 MMOL/L (136-145); TOTAL PROTEIN 6.4 G/DL (5.7-8.2)
== END ==
LOC: SKLAB6 07:00
PROVIDERS: ATTEND Internal Medicine
DX: F03.90 Unspecified dementia, unspecified severity, without behavioral disturbance, psychotic disturbance, mood disturbance, and anxiety (principal)

== ENCOUNTER → 2022-09-23 | Outpatient (REF) | payer MEDICAID, MEDICARE ==
[2022-09-23 23:35] LABS: BASO % 0.2 % (0.0-1.0); EOS % 0.1 % (0.0-3.0); HEMOGLOBIN 12.7 g/dl (13.5-17.5); LYMPH # 0.8 10^3/uL (1.5-5.0); LYMPH % 6.9 % (24.0-44.0); MEAN CORPUSCULAR HEMOGLOBIN 28.4 pg (27.0-33.0); MEAN CORPUSCULAR HGB CONC 32.6 g/dl (32.0-36.5); MEAN CORPUSCULAR VOLUME 87.2 fl (80.0-96.0); MONO # 1.1 10^3/uL (0.0-0.8); MONO % 9.4 % (2.0-8.0); NEUTROPHILS # 10.1 10^3/uL (1.5-8.5); NEUTROPHILS % 83.2 % (36.0-66.0); PLATELET COUNT, AUTOMATED 217 10^3/uL (150-450); RED BLOOD COUNT 4.47 10^6/uL (4.30-6.10); WHITE BLOOD COUNT 12.1 10^3/uL (4.0-10.0)
[2022-09-23 23:59] LABS: ALBUMIN 3.2 G/DL (3.2-5.2); ALKALINE PHOSPHATASE 68 U/L (46-116); ALT/SGPT 22 U/L (7.0-40); AST/SGOT 16 U/L (<34); BILIRUBIN,TOTAL 0.4 MG/DL (0.3-1.2); BLOOD UREA NITROGEN 17 MG/DL (9-23); CALCIUM LEVEL 8.8 MG/DL (8.3-10.6); CARBON DIOXIDE LEVEL 26 MMOL/L (20-31); CHLORIDE LEVEL 101 MMOL/L (98-107); CREATININE FOR GFR 0.93 MG/DL (0.70-1.30); GLOMERULAR FILTRATION RATE > 60.0 (>42); GLUCOSE, FASTING 346 MG/DL (74-106); POTASSIUM SERUM 4.2 MMOL/L (3.5-5.1); SODIUM LEVEL 135 MMOL/L (136-145); TOTAL PROTEIN 6.6 G/DL (5.7-8.2)
== END ==
LOC: SKLAB6 21:14
PROVIDERS: ATTEND Internal Medicine
DX: R05.9 Cough, unspecified (principal); R50.9 Fever, unspecified; I77.9 Disorder of arteries and arterioles, unspecified; M85.811 Other specified disorders of bone density and structure, right shoulder; M85.812 Other specified disorders of bone density and structure, left shoulder; M85.88 Other specified disorders of bone density and structure, other site

== ENCOUNTER → 2022-09-24 | Outpatient (REF) | payer MEDICARE, MEDICAID ==
[2022-09-24 07:36] LABS: APPEARANCE, URINE CLEAR (CLEAR); BACTERIA, URINE AUTO NEGATIVE (NEGATIVE); BILIRUBIN, URINE AUTO NEGATIVE (NEGATIVE); BLOOD, URINE BLOOD NEGATIVE (NEGATIVE); COLOR, URINE YELLOW (YELLOW); GLUCOSE, URINE (UA) AUTO 3+ mg/dL (NEGATIVE); KETONE, URINE AUTO NEGATIVE (NEGATIVE); LEUKOCYTE ESTERASE, URINE AUTO TRACE (NEGATIVE); NITRITE, URINE AUTO NEGATIVE (NEGATIVE); PROTEIN, URINE AUTO 1+ mg/dL (NEGATIVE); RBC, URINE AUTO 4 /HPF (0-3); SPECIFIC GRAVITY URINE AUTO 1.023 (1.002-1.035); SQUAMOUS EPITHELIAL CELL UR AU 0 /HPF (0-6); UROBILINOGEN, URINE AUTO 0.2 mg/dL (0.0-2.0); WBC, URINE AUTO 15 /HPF (0-3)
== END ==
LOC: SKLAB6 06:43
PROVIDERS: ATTEND Internal Medicine
DX: R50.9 Fever, unspecified (principal)

== ENCOUNTER → 2022-09-26 | Outpatient (REF) | payer MEDICARE, MEDICAID ==
[2022-09-26 06:37] LABS: HEMOGLOBIN 13.1 g/dl (13.5-17.5); MEAN CORPUSCULAR HEMOGLOBIN 28.1 pg (27.0-33.0); MEAN CORPUSCULAR HGB CONC 32.8 g/dl (32.0-36.5); MEAN CORPUSCULAR VOLUME 85.7 fl (80.0-96.0); PLATELET COUNT, AUTOMATED 231 10^3/uL (150-450); RED BLOOD COUNT 4.67 10^6/uL (4.30-6.10); WHITE BLOOD COUNT 14.7 10^3/uL (4.0-10.0)
[2022-09-26 06:58] LABS: BLOOD UREA NITROGEN 20 MG/DL (9-23); CALCIUM LEVEL 8.8 MG/DL (8.3-10.6); CARBON DIOXIDE LEVEL 26 MMOL/L (20-31); CHLORIDE LEVEL 111 MMOL/L (98-107); CREATININE FOR GFR 1.03 MG/DL (0.70-1.30); GLOMERULAR FILTRATION RATE > 60.0 (>42); GLUCOSE, FASTING 156 MG/DL (74-106); POTASSIUM SERUM 3.6 MMOL/L (3.5-5.1); SODIUM LEVEL 148 MMOL/L (136-145)
== END ==
LOC: SKLAB6 07:00
PROVIDERS: ATTEND Internal Medicine
DX: J98.11 Atelectasis (principal); I70.0 Atherosclerosis of aorta; R50.9 Fever, unspecified

== ENCOUNTER → 2022-09-28 | Outpatient (CLI) | payer MEDICARE, MEDICAID ==
[~2022-09-28] MED LIST changes: +BARIUM SULFATE 700 MG TABLET (E-Z-DISK) As Ordered ONE; +E-Z-PAQUE 96% w/w SUSP 176GM BTL As Ordered ONE; +VARIBAR NECTAR 40% w/v 240ML SUSP BTL As Ordered ONE; +VARIBAR PUDDING 40% w/v 230ML TUBE As Ordered ONE
== END ==
LOC: M RAD 11:04
PROVIDERS: ATTEND Internal Medicine
DX: R13.10 Dysphagia, unspecified (principal)

== ENCOUNTER → 2022-10-02 | Outpatient (CLI) | payer MEDICARE, MEDICAID ==
[~2022-10-02] MED LIST changes: -BARIUM SULFATE 700 MG TABLET (E-Z-DISK) As Ordered ONE; -E-Z-PAQUE 96% w/w SUSP 176GM BTL As Ordered ONE; -VARIBAR NECTAR 40% w/v 240ML SUSP BTL As Ordered ONE; -VARIBAR PUDDING 40% w/v 230ML TUBE As Ordered ONE
[2022-10-02 09:53] LABS: APPEARANCE, URINE HAZY (CLEAR); BACTERIA, URINE AUTO NEGATIVE (NEGATIVE); BILIRUBIN, URINE AUTO NEGATIVE (NEGATIVE); BLOOD, URINE BLOOD NEGATIVE (NEGATIVE); COLOR, URINE YELLOW (YELLOW); GLUCOSE, URINE (UA) AUTO 3+ mg/dL (NEGATIVE); KETONE, URINE AUTO NEGATIVE (NEGATIVE); LEUKOCYTE ESTERASE, URINE AUTO 2+ (NEGATIVE); MUCUS, URINE SMALL (NEGATIVE); NITRITE, URINE AUTO NEGATIVE (NEGATIVE); PROTEIN, URINE AUTO 1+ mg/dL (NEGATIVE); RBC, URINE AUTO 7 /HPF (0-3); SPECIFIC GRAVITY URINE AUTO 1.025 (1.002-1.035); SQUAMOUS EPITHELIAL CELL UR AU 0 /HPF (0-6); UROBILINOGEN, URINE AUTO 0.2 mg/dL (0.0-2.0); WBC, URINE AUTO 64 /HPF (0-3)
[2022-10-02 10:24] LABS: BASO % 0.2 % (0.0-1.0); EOS # 0.1 10^3/uL (0.0-0.5); HEMATOCRIT 35.1 % (42.0-52.0); HEMOGLOBIN 11.2 g/dl (13.5-17.5); LYMPH # 1.4 10^3/uL (1.5-5.0); LYMPH % 14.9 % (24.0-44.0); MEAN CORPUSCULAR HEMOGLOBIN 27.7 pg (27.0-33.0); MEAN CORPUSCULAR HGB CONC 31.9 g/dl (32.0-36.5); MEAN CORPUSCULAR VOLUME 86.9 fl (80.0-96.0); MONO # 0.5 10^3/uL (0.0-0.8); MONO % 5.8 % (2.0-8.0); NEUTROPHILS # 7.1 10^3/uL (1.5-8.5); NEUTROPHILS % 77.2 % (36.0-66.0); PLATELET COUNT, AUTOMATED 349 10^3/uL (150-450); RED BLOOD COUNT 4.04 10^6/uL (4.30-6.10); WHITE BLOOD COUNT 9.2 10^3/uL (4.0-10.0)
[2022-10-02 10:49] LABS: BLOOD UREA NITROGEN 17 MG/DL (9-23); CALCIUM LEVEL 8.5 MG/DL (8.3-10.6); CARBON DIOXIDE LEVEL 24 MMOL/L (20-31); CHLORIDE LEVEL 100 MMOL/L (98-107); CREATININE FOR GFR 0.86 MG/DL (0.70-1.30); GLOMERULAR FILTRATION RATE > 60.0 (>42); GLUCOSE, FASTING 270 MG/DL (74-106); POTASSIUM SERUM 4.1 MMOL/L (3.5-5.1); SODIUM LEVEL 135 MMOL/L (136-145)
== END ==
LOC: M LAB 09:30
PROVIDERS: ATTEND Internal Medicine
DX: R29.6 Repeated falls (principal)

== ENCOUNTER → 2022-10-14 | Outpatient (REF) | payer MEDICARE, MEDICAID ==
[2022-10-14 08:00] LABS: HEMATOCRIT 40.1 % (42.0-52.0); HEMOGLOBIN 12.8 g/dl (13.5-17.5); MEAN CORPUSCULAR HEMOGLOBIN 27.5 pg (27.0-33.0); MEAN CORPUSCULAR HGB CONC 31.9 g/dl (32.0-36.5); MEAN CORPUSCULAR VOLUME 86.1 fl (80.0-96.0); PLATELET COUNT, AUTOMATED 348 10^3/uL (150-450); RED BLOOD COUNT 4.66 10^6/uL (4.30-6.10); WHITE BLOOD COUNT 5.7 10^3/uL (4.0-10.0)
== END ==
LOC: SKLAB6 06:37
PROVIDERS: ATTEND Internal Medicine
DX: N18.9 Chronic kidney disease, unspecified (principal)

== ENCOUNTER → 2022-10-20 | Outpatient (REF) | payer MEDICARE, MEDICAID | LOC: SKLAB6 06:40 | PROVIDERS: ATTEND Internal Medicine | DX: E11.649 Type 2 diabetes mellitus with hypoglycemia without coma (principal) ==

== ENCOUNTER → 2022-12-22 | Outpatient (REF) | payer MEDICARE, MEDICAID ==
[~2022-12-22] MED LIST changes: +DICL100G10 TOP; -DICL1GEL3 TOP
[2022-12-22 23:49] LABS: APPEARANCE, URINE CLOUDY (CLEAR); BACTERIA, URINE AUTO NEGATIVE (NEGATIVE); BILIRUBIN, URINE AUTO NEGATIVE (NEGATIVE); BLOOD, URINE BLOOD 2+ (NEGATIVE); COLOR, URINE YELLOW (YELLOW); GLUCOSE, URINE (UA) AUTO 3+ mg/dL (NEGATIVE); KETONE, URINE AUTO NEGATIVE (NEGATIVE); LEUKOCYTE ESTERASE, URINE AUTO 3+ (NEGATIVE); MUCUS, URINE SMALL (NEGATIVE); NITRITE, URINE AUTO NEGATIVE (NEGATIVE); PROTEIN, URINE AUTO 1+ mg/dL (NEGATIVE); RBC, URINE AUTO 35 /HPF (0-3); SPECIFIC GRAVITY URINE AUTO 1.024 (1.002-1.035); SQUAMOUS EPITHELIAL CELL UR AU 0 /HPF (0-6); UROBILINOGEN, URINE AUTO 0.2 mg/dL (0.0-2.0); WBC, URINE AUTO TNTC /HPF (0-3)
== END ==
LOC: SKLAB6 23:16
PROVIDERS: ATTEND Internal Medicine
DX: R36.9 Urethral discharge, unspecified (principal)